=== PATIENT | female | born 1930 | race Caucasian/White ===

== ENCOUNTER → 2016-08-30 | Outpatient (REF) | payer MEDICARE, BC ==
[~2016-08-30] MED LIST: ATEN50TA2; COLC0.6T; POTA20TA2; SYNT88TA; TRAM100T; TRAM50TA2
[2016-08-30 13:39] LABS: MEAN CORPUSCULAR HEMOGLOBIN 32.6 pg (27.0-33.0); MEAN CORPUSCULAR HGB CONC 32.5 g/dl (32.0-36.5); MEAN CORPUSCULAR VOLUME 100.2 fl (80.0-96.0); RED CELL DISTRIBUTION WIDTH 13.7 % (11.5-14.5); WHITE BLOOD COUNT 6.6 K/mm3 (4.0-10.0)
[2016-08-30 14:45] LABS: ALBUMIN 3.2 GM/DL (3.2-5.2); ALBUMIN/GLOBULIN RATIO 0.97 (1.00-1.93); ALKALINE PHOSPHATASE 126 U/L (45-117); ALT/SGPT 17 U/L (12-78); ANION GAP 8 MEQ/L (8-16); AST/SGOT 28 U/L (15-37); BILIRUBIN,TOTAL 0.6 MG/DL (0.2-1.0); BLOOD UREA NITROGEN 18 MG/DL (7-18); CALCIUM LEVEL 8.1 MG/DL (8.8-10.2); CARBON DIOXIDE LEVEL 27 MEQ/L (21-32); CHLORIDE LEVEL 111 MEQ/L (98-107); CHOLESTEROL LEVEL 151 MG/DL (<200); CREATININE FOR GFR 0.93 MG/DL (0.55-1.02); FREE T4 1.32 NG/DL (0.76-1.46); GLOMERULAR FILTRATION RATE > 60.0 (>32); GLUCOSE, FASTING 84 MG/DL (83-110); POTASSIUM SERUM 4.1 MEQ/L (3.5-5.1); SODIUM LEVEL 146 MEQ/L (136-145); TOTAL PROTEIN 6.5 GM/DL (6.4-8.2); TRIGLYCERIDES LEVEL 131 MG/DL (<150); URIC ACID 5.7 MG/DL (2.6-6.0)
== END ==
LOC: M SFHCPLAZ 09:29
PROVIDERS: ATTEND Family Medicine
DX: N18.2 Chronic kidney disease, stage 2 (mild) (principal); I11.9 Hypertensive heart disease without heart failure; E03.9 Hypothyroidism, unspecified; E78.2 Mixed hyperlipidemia; M10.9 Gout, unspecified

== ENCOUNTER → 2016-12-08 | Outpatient (REF) | payer MEDICARE, BC ==
[2016-12-08 13:55] LABS: FREE T4 1.29 NG/DL (0.76-1.46)
== END ==
LOC: M SFHCPLAZ 10:40
PROVIDERS: ATTEND Family Medicine
DX: E03.9 Hypothyroidism, unspecified (principal)

== ENCOUNTER → 2017-10-12 | Outpatient (CLI) | payer MEDICARE, BC | LOC: M ADAMS 15:18 | DX: M25.751 Osteophyte, right hip (principal); M16.11 Unilateral primary osteoarthritis, right hip; M79.651 Pain in right thigh | CPT/HCPCS: 73502 ==

== ENCOUNTER → 2018-04-04 | Outpatient (REF) | payer MEDICARE, BC ==
[2018-04-04 12:11] LABS: HEMATOCRIT 45.1 % (36.0-47.0); HEMOGLOBIN 14.6 g/dl (12.0-15.5); MEAN CORPUSCULAR HEMOGLOBIN 31.5 pg (27.0-33.0); MEAN CORPUSCULAR HGB CONC 32.4 g/dl (32.0-36.5); MEAN CORPUSCULAR VOLUME 97.4 fl (80.0-96.0); PLATELET COUNT, AUTOMATED 159 10^3/uL (150-450); RED BLOOD COUNT 4.63 10^6/uL (4.00-5.40); RED CELL DISTRIBUTION WIDTH 14.9 % (11.5-14.5); WHITE BLOOD COUNT 6.7 10^3/uL (4.0-10.0)
[2018-04-04 12:54] LABS: ALBUMIN 3.5 GM/DL (3.2-5.2); ALBUMIN/GLOBULIN RATIO 0.95 (1.00-1.93); ALKALINE PHOSPHATASE 130 U/L (45-117); ALT/SGPT 21 U/L (12-78); ANION GAP 5 MEQ/L (8-16); AST/SGOT 30 U/L (7-37); BILIRUBIN,TOTAL 0.7 MG/DL (0.2-1.0); BLOOD UREA NITROGEN 21 MG/DL (7-18); CALCIUM LEVEL 8.8 MG/DL (8.8-10.2); CARBON DIOXIDE LEVEL 28 MEQ/L (21-32); CHLORIDE LEVEL 109 MEQ/L (98-107); CHOLESTEROL LEVEL 146 MG/DL (<200); CHOLESTEROL RISK RATIO 4.562 (<5); CREATININE FOR GFR 1.05 MG/DL (0.55-1.30); ERYTHROCYTE SEDIMENTATION RATE 10 mm/hr (0-42); FREE T4 1.14 NG/DL (0.76-1.46); GLUCOSE, FASTING 77 MG/DL (70-100); HDL CHOLESTEROL 32 MG/DL (>40); LDL CHOLESTEROL 87 MG/DL (<100); NON-HDL-C 114 MG/DL; POTASSIUM SERUM 4.4 MEQ/L (3.5-5.1); SODIUM LEVEL 142 MEQ/L (136-145); TOTAL PROTEIN 7.2 GM/DL (6.4-8.2); TRIGLYCERIDES LEVEL 137 MG/DL (<150); URIC ACID 6.3 MG/DL (2.6-6.0)
[2018-04-04 13:08] LABS: TOTAL 25(OH) VITAMIN D 31.4 NG/ML (30.0-100.0)
== END ==
LOC: M SFHCPLAZ 10:09
DX: N18.2 Chronic kidney disease, stage 2 (mild) (principal); I11.9 Hypertensive heart disease without heart failure; M35.3 Polymyalgia rheumatica; E03.9 Hypothyroidism, unspecified; E78.2 Mixed hyperlipidemia; M10.9 Gout, unspecified; E55.9 Vitamin D deficiency, unspecified
CPT/HCPCS: 84443

== ENCOUNTER → 2018-05-17 | Outpatient (CLI) | payer MEDICARE, BC | LOC: M WHC 13:24 | DX: Z12.31 Encounter for screening mammogram for malignant neoplasm of breast (principal); Z85.3 Personal history of malignant neoplasm of breast; Z80.3 Family history of malignant neoplasm of breast; Z80.0 Family history of malignant neoplasm of digestive organs | CPT/HCPCS: 77067 ==

== ENCOUNTER → 2018-09-06 | Outpatient (REF) | payer MEDICARE, BC | LOC: M LAB REF 14:17 | PROVIDERS: ATTEND Physician Assistant | DX: R30.0 Dysuria (principal) ==

== ENCOUNTER → 2018-09-18 | Outpatient (REF) | payer MEDICARE, BC | LOC: M LAB REF 18:57 | PROVIDERS: ATTEND Physician Assistant | DX: R11.0 Nausea (principal) ==

== ENCOUNTER → 2018-10-03 | Outpatient (REF) | payer MEDICARE, BC | LOC: M SFHCPLAZ 12:41 | PROVIDERS: ATTEND Nurse Practitioner Family | DX: N39.0 Urinary tract infection, site not specified (principal) | CPT/HCPCS: 81002; 87086; G0463 ==

== ENCOUNTER → 2018-10-07 | Outpatient (CLI) | payer MEDICARE, BC ==
--- NOTE | 2018-10-07 10:46 | REP ---
CT abdomen pelvis without IV or oral contrast: History: Acute midline thoracic back pain. Nausea. CT findings: Digital preliminary employee service officer radiograph demonstrates an unremarkable bowel gas pattern. There is a laminated calcified gallstone right upper quadrant. There are mild arthritic changes in the hips. The lung bases are clear on axial CT images except for the right base which shows a partially visualized right lower lobe noncalcified pulmonary nodule. This measures 2.2 cm and is visible incompletely at the top of the imaging field of view. It appears to contain some peripheral calcifications and possibly air bronchograms. This is visible on chest x-ray from December 05, 2007 and is considered to be a benign pulmonary nodule, perhaps hamartoma. Axial CT images demonstrate the large calcified gallstone and some smaller calcified gallstones within the gallbladder. There is a 1.5 cm cyst in the left lobe of the liver. No other focal hepatic lesion is seen. The spleen is normal in size homogeneous in texture. Liver is not enlarged. However, there is recanalization of the umbilical vein and portal vein is somewhat dilated raising question of portal hypertension. Portal vein measures 17 mm in greatest diameter. There is no evidence of ascites. No adrenal lesion is seen. There is a cyst in the right kidney measuring 5.4 cm in greatest diameter. No hydronephrosis is seen. The right kidney also contains a large intrarenal calculus in its lower pole. This calculus measures 12 mm in greatest diameter. There is no evidence of hydronephrosis on either side. No other urinary tract calculus is seen. The urinary bladder is intact. There is beasley colonic diverticulosis without CT evidence of diverticulitis. Diverticulosis is most numerous in the sigmoid segment of the colon. Normal appendix is seen in the right lower quadrant. No uterine or adnexal abnormality is seen. No abdominal wall defect is observed. There is advanced osteoarthritis affecting the hips, right more so than left. Degenerative changes are noted in the lumbar spine. Impression: 1. Cholelithiasis. 2. Intrarenal nephrolithiasis right kidney. 3. Right renal cysts. 4. Recanalized umbilical vein and prominent portal vein suggests some portal hypertension. 5. Beasley colonic diverticulosis without evidence of diverticulitis. Electronically Signed by Adam Adair MD 10/07/2018 02:28 P
== END ==
LOC: M RAD 09:29
PROVIDERS: ATTEND Nurse Practitioner Family
DX: R11.0 Nausea (principal); M54.6 Pain in thoracic spine; K80.20 Calculus of gallbladder without cholecystitis without obstruction; N28.1 Cyst of kidney, acquired; R91.1 Solitary pulmonary nodule; K76.89 Other specified diseases of liver; N20.0 Calculus of kidney; K57.30 Diverticulosis of large intestine without perforation or abscess without bleeding; M16.0 Bilateral primary osteoarthritis of hip

== ENCOUNTER → 2018-10-09 | Outpatient (REF) | payer MEDICARE, BC ==
[2018-10-09 16:41] LABS: HEMATOCRIT 43.5 % (36.0-47.0); MEAN CORPUSCULAR HEMOGLOBIN 31.5 pg (27.0-33.0); MEAN CORPUSCULAR HGB CONC 32.2 g/dl (32.0-36.5); MEAN CORPUSCULAR VOLUME 97.8 fl (80.0-96.0); PLATELET COUNT, AUTOMATED 166 10^3/uL (150-450); RED BLOOD COUNT 4.45 10^6/uL (4.00-5.40); WHITE BLOOD COUNT 7.9 10^3/uL (4.0-10.0)
[2018-10-09 17:00] LABS: CREATININE FOR GFR 1.18 MG/DL (0.55-1.30); FREE T4 1.29 NG/DL (0.76-1.46); GLOMERULAR FILTRATION RATE 46.3 (>32); POTASSIUM SERUM 4.1 MEQ/L (3.5-5.1); THYROID STIMULATING HORMONE 1.45 uIU/ML (0.358-3.740)
== END ==
LOC: M SFHCPLAZ 13:13
PROVIDERS: ATTEND Family Medicine
DX: M16.0 Bilateral primary osteoarthritis of hip (principal); N18.2 Chronic kidney disease, stage 2 (mild); E03.9 Hypothyroidism, unspecified

== ENCOUNTER → 2019-03-15 | Outpatient (REF) | payer MEDICARE, BC ==
[2019-03-15 14:09] LABS: HEMATOCRIT 45.7 % (36.0-47.0); HEMOGLOBIN 14.9 g/dl (12.0-15.5); MEAN CORPUSCULAR HEMOGLOBIN 32.3 pg (27.0-33.0); MEAN CORPUSCULAR HGB CONC 32.6 g/dl (32.0-36.5); MEAN CORPUSCULAR VOLUME 98.9 fl (80.0-96.0); PLATELET COUNT, AUTOMATED 167 10^3/uL (150-450); RED BLOOD COUNT 4.62 10^6/uL (4.00-5.40); WHITE BLOOD COUNT 6.5 10^3/uL (4.0-10.0)
[2019-03-15 14:24] LABS: ALBUMIN 3.4 GM/DL (3.2-5.2); ALT/SGPT 18 U/L (12-78); BILIRUBIN,TOTAL 0.9 MG/DL (0.2-1.0); BLOOD UREA NITROGEN 23 MG/DL (7-18); CALCIUM LEVEL 9.1 MG/DL (8.8-10.2); CARBON DIOXIDE LEVEL 27 MEQ/L (21-32); CHLORIDE LEVEL 109 MEQ/L (98-107); CREATININE FOR GFR 1.21 MG/DL (0.55-1.30); GLOMERULAR FILTRATION RATE 44.9 (>32); GLUCOSE, FASTING 83 MG/DL (70-100); POTASSIUM SERUM 4.2 MEQ/L (3.5-5.1); RHEUMATOID FACTOR QUANT < 10.0 IU/ML (<15.0); SODIUM LEVEL 142 MEQ/L (136-145); TOTAL PROTEIN 7.5 GM/DL (6.4-8.2); URIC ACID 7.3 MG/DL (2.6-6.0)
[2019-03-15 14:40] LABS: ERYTHROCYTE SEDIMENTATION RATE 11 mm/hr (0-30)
[2019-03-17 00:06] LABS: ANA (HEP2) Negative (.); CYCLIC CITRULLINATED PEPTIDE 4 units (0-19)
== END ==
LOC: M SFHCADAM 10:23
PROVIDERS: ATTEND Family Medicine
DX: M15.9 Polyosteoarthritis, unspecified (principal); I11.9 Hypertensive heart disease without heart failure; E03.9 Hypothyroidism, unspecified; M10.9 Gout, unspecified
CPT/HCPCS: 80053; 84439; 84443; 84550; 85027; 85652; 86038; 86200; 86431; G0463

== ENCOUNTER → 2019-07-31 | Outpatient (CLI) | payer MEDICARE, BC ==
--- NOTE | 2019-07-31 16:55 | REP ---
BILATERAL SCREENING DIGITAL MAMMOGRAM WITH 3D TOMOSYNTHESIS: There are no palpable abnormalities or other breast complaints. The the patient states she is not had a clinical breast examination over a year. The Tyrer-Cuzick Lifetime Breast Cancer Risk Score is: NA. 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 Comparison is 04/26/2016. There are scattered areas of fibroglandular density. There are biopsy marking clips in the right breast. The Additional true lateral views of each breast are performed. On the true lateral view of the right breast there is an 8 mm nodule inferiorly. This nodule is not visualized on the routine MLO or CC views and is not visualized on the tomograms. It may be that this nodule is not over the film on these views. Impression: BIRADS/ACR category 0 mammogram. Incomplete. Need additional imaging evaluation and / or prior mammograms for comparison. Recommendation: The the patient should return for additional views of the right breast to better evaluate the nodule identified on the true lateral view. Ultrasound should be performed depending on the findings on the follow-up mammograms. This mammogram was interpreted with the aid of a FDA approved computer-aided detection system. A. Negative mammogram reports should not delay biopsy if a dominant or clinically suspicious mass is present. B. Not all breast cancers are identified by mammography or tomosynthesis. C. Adenosis and dense breasts may obscure an underlying neoplasm. Patient letter M0. Electronically Signed by Stiven Waddell MD 07/31/2019 04:47 P
== END ==
LOC: M WHC 14:26
PROVIDERS: ATTEND Family Medicine
DX: Z12.31 Encounter for screening mammogram for malignant neoplasm of breast (principal)

== ENCOUNTER → 2019-08-14 | Outpatient (CLI) | payer MEDICARE, BC ==
--- NOTE | 2019-08-14 14:29 | REP ---
DIGITAL DIAGNOSTIC UNILATERAL RIGHT BREAST MAMMOGRAPHY WITH CAD AND 3-D TOMOGRAPHY. History: Screening mammography July 31, 2019 was BIRADS category 0. An 8 mm density was reported inferiorly in the right breast. Diagnostic imaging was recommended. Comparison is made with May 17, 2018 and April 29, 2017 prior mammography. Findings: True mediolateral view of the right breast is obtained with 3-D tomography. A magnified focal spot compression image in the right breast is obtained in the MLO projection inferiorly as well. These views demonstrate two marker clips from previous needle biopsies. No suspicious nodular opacity is seen. No microcalcification or architectural distortion is noted. Mild scattered fibroglandular elements are seen in a pattern unchanged from comparison mammography. Impression: BIRADS 2: BI-RADS/ACR category 2 mammogram. Benign Findings. BIRADS category 2 benign findings. Repeat screening mammography recommended 1 year. This mammogram was interpreted with the aid of an FDA-approved computer-aided detection system. The patient letter being requested is m1.
== END ==
LOC: M WHC 13:18
PROVIDERS: ATTEND Family Medicine
DX: R92.2 Inconclusive mammogram (principal)
CPT/HCPCS: 77065; G0279

== ENCOUNTER → 2019-09-10 | Outpatient (REF) | payer MEDICARE, BC ==
[2019-09-10 19:20] LABS: HEMATOCRIT 46.8 % (36.0-47.0); HEMOGLOBIN 14.9 g/dl (12.0-15.5); MEAN CORPUSCULAR HEMOGLOBIN 31.7 pg (27.0-33.0); MEAN CORPUSCULAR HGB CONC 31.8 g/dl (32.0-36.5); MEAN CORPUSCULAR VOLUME 99.6 fl (80.0-96.0); PLATELET COUNT, AUTOMATED 125 10^3/uL (150-450); WHITE BLOOD COUNT 6.8 10^3/uL (4.0-10.0)
[2019-09-10 19:31] LABS: CALCIUM LEVEL 8.6 MG/DL (8.8-10.2); CREATININE FOR GFR 0.96 MG/DL (0.55-1.30); FREE T4 1.35 NG/DL (0.76-1.46); GLOMERULAR FILTRATION RATE 58.7 (>32); POTASSIUM SERUM 4.1 MEQ/L (3.5-5.1); THYROID STIMULATING HORMONE 0.984 uIU/ML (0.358-3.740)
== END ==
LOC: M SFHCADAM 15:28
PROVIDERS: ATTEND Family Medicine
DX: I11.9 Hypertensive heart disease without heart failure (principal); N18.2 Chronic kidney disease, stage 2 (mild); E03.9 Hypothyroidism, unspecified

== ENCOUNTER → 2019-11-29 | Outpatient (REF) | payer MEDICARE, BC ==
[~2019-11-29] MED LIST changes: +ASPI81TA86 PO; +ATEN50TA2 PO; +BACITAB PO; +BAYE81TA10 PO; +CEFA2SOL IV; +COLC0.6T47 PO; +D31000TA2 PO; +DULC10SU2 PR; +ELIQ5TAB PO; +LEVO50TA5 PO; +LOVE0.6I2 SC; +MELO15TA28 PO; +MOM30SS PO; +MULTCAP PO; +PERC5TAB12 PO; +POTA10TA17 PO; +POTA595T16 PO; +PRIL20TA2 PO; +RIFA150C PO; +RIFA300C3 PO; +SYNT88TA2 PO; +TRAM50TA2 PO
[2019-11-29 16:47] LABS: BASO # 0.1 10^3/uL (0.0-0.2); BASO % 0.9 % (0.0-1.0); EOS % 11.9 % (0.0-3.0); HEMATOCRIT 45.7 % (36.0-47.0); HEMOGLOBIN 14.9 g/dl (12.0-15.5); LYMPH # 1.8 10^3/uL (1.5-5.0); MEAN CORPUSCULAR HEMOGLOBIN 32.7 pg (27.0-33.0); MEAN CORPUSCULAR HGB CONC 32.6 g/dl (32.0-36.5); MEAN CORPUSCULAR VOLUME 100.4 fl (80.0-96.0); MONO # 0.7 10^3/uL (0.0-0.8); MONO % 8.4 % (0.0-5.0); NEUTROPHILS # 4.6 10^3/uL (1.5-8.5); NEUTROPHILS % 56.4 % (36.0-66.0); PLATELET COUNT, AUTOMATED 159 10^3/uL (150-450); RED BLOOD COUNT 4.55 10^6/uL (4.00-5.40); WHITE BLOOD COUNT 8.1 10^3/uL (4.0-10.0)
[2019-11-29 17:12] LABS: ALBUMIN 3.4 GM/DL (3.2-5.2); CALCIUM LEVEL 9.2 MG/DL (8.8-10.2); CREATININE FOR GFR 1.06 MG/DL (0.55-1.30); GLOMERULAR FILTRATION RATE 52.2 (>32); TOTAL PROTEIN 7.5 GM/DL (6.4-8.2)
== END ==
LOC: M SFHCADAM 14:34
PROVIDERS: ATTEND Family Medicine
DX: Z01.818 Encounter for other preprocedural examination (principal); M16.10 Unilateral primary osteoarthritis, unspecified hip
CPT/HCPCS: 80053; 85025; G0463

== ENCOUNTER → 2019-11-30 | Outpatient (CLI) | payer MEDICARE, BC ==
[~2019-11-30] MED LIST changes: +ASPI81TA85 PO; -ASPI81TA86 PO; -BACITAB PO; -CEFA2SOL IV; -COLC0.6T47 PO; +COLC1TAB13 PO; -D31000TA2 PO; -DULC10SU2 PR; -ELIQ5TAB PO; -LOVE0.6I2 SC; -MOM30SS PO; -MULTCAP PO; -POTA10TA17 PO; -PRIL20TA2 PO; -RIFA150C PO; -RIFA300C3 PO; -SYNT88TA2 PO; -TRAM50TA2 PO; +VITAD1000T PO
--- NOTE | 2019-12-01 09:05 | REP ---
REASON: Preoperative evaluation. The latest prior for comparison is 07/11/2009. There is cardiomegaly increased from the prior exam. There are fibrotic changes throughout the lung campbell increased from the prior exam. No acute patchy parenchymal opacities or pleural effusions have developed. There is no significant change in the appearance of the osseous structures. IMPRESSION: Chronic changes as described above. There is an unchanged nodule seen in the right lung lower lobe. This nodule was imaged on prior CT of 10/07/2018 and all interested parties should review that report. Electronically Signed by Suresh Ly DO 12/03/2019 10:53 A
== END ==
LOC: M RAD 13:27
PROVIDERS: ATTEND Orthopaedic Surgery
DX: Z01.818 Encounter for other preprocedural examination (principal)

== ENCOUNTER → 2019-12-02 | Outpatient (CLI) | payer MEDICARE, BC | LOC: M LABSMTC 10:09 | PROVIDERS: ATTEND Anesthesiology | DX: Z01.818 Encounter for other preprocedural examination (principal); Z11.59 Encounter for screening for other viral diseases ==

== ENCOUNTER → 2019-12-03 | Outpatient (CLI) | payer MEDICARE, BC ==
[2019-12-03 17:25] LABS: INR 1.22; PROTHROMBIN TIME 15.1 SECONDS (11.8-14.0)
== END ==
LOC: M LAB 14:35
PROVIDERS: ATTEND Orthopaedic Surgery
DX: M16.11 Unilateral primary osteoarthritis, right hip (principal)

== ENCOUNTER 2019-12-05 07:24 | Inpatient (IN) | payer MEDICARE, BC ==
--- NOTE | 2019-12-04 14:54 | HPE ---
DATE OF ADMISSION: 12/05/2019 ATTENDING PHYSICIAN: Dr. Sy Jalloh CHIEF COMPLAINT: Right hip pain and stiffness. HISTORY: This is an 89-year-old female patient with progressing worsening right hip pain and stiffness. She fail to improve with conservative management. She was elected for surgery for continued symptoms. She has pain with weightbearing activities and activities of daily living. She was consented by Dr. Jalloh for a right total hip arthroplasty. X-rays of the right hip notable for end-stage degenerative changes of the right hip. Medical hospitalization by Dr. Dr. Ross, not present for review today. ALLERGIES: TYLENOL. CURRENT MEDICATIONS: Potassium chloride extended release 10 mEq as directed, atenolol 50 mg once per day, Synthroid 80 mcg one tablet once per day, meloxicam 15 mg as needed, aspirin 81 mg once per day, [id number] vitamin D. She was counseled to stop all NSAIDs and aspirin 5 days prior to surgery. MEDICAL CONDITIONS: Includes hypothyroidism and hypertension. PAST SURGERY: Includes thyroid removed, breast lumpectomy. Knee replacement of right side. SOCIAL HISTORY: She used to smoke. She does not currently smoke. Denies alcohol use. She is retired. REVIEW OF SYSTEMS: Denies fever or chills. Denies chest pains, shortness of breath or cough. Denies difficulty breathing. Denies abdominal pain, has persistent pain in the right hip with activities of daily living. Exam today reveals alert female patient in a wheelchair. Her mood and affect appropriate for the situation. There is symmetrical rise and fall of chest on labored breathing. Has regular rate and rhythm. Breath sounds are clear to auscultation without rales or wheeze. Skin around the right hip is intact. No erythema, edema, ecchymosis. There is irritability on hip range of motion in all planes. Straight leg raise testing is negative. She sense any light touch. There is no pitting edema noted on exam today. LABORATORY DATA: Glucose 62.19, creatinine 1.08, sodium 144, potassium 4.0, WBC count 8.1, white blood count (WBC) 4.5, hemoglobin 14.9, hematocrit 45.7, height 32 inches, weight 184 pounds, temperature 96.2, blood pressure 120/68, pulse 50, respirations 16. Chest x-ray, electrocardiogram (EKG) or INR are not present for review today. Sedimentation rate is not present for review today. IMPRESSION: Symptomatic osteoarthritis of right hip. PLAN: She has consented by Dr. Jalloh for right total hip arthroplasty. Once again, she was consulted about the use of NSAIDs and to discontinue those 5 days prior to surgery. We went over preoperative and postoperative instructions to include that she would like to be in the hospital one day and then be discharged home on. We discussed her hip precautions as well and she understands the plan. Cemented right total hip arthroplasty per Dr. Jalloh.
[2019-12-05] VITALS (7 sets, daily range): BP systolic 113–129; BP diastolic 54–61
[~2019-12-05] VITALS: Ht 157.5 cm; Wt 90.6 kg
[~2019-12-05 07:24] MED LIST changes: -BAYE81TA10 PO; +LIDOCAINE 1% MDV 20ML VIAL SQ PRN; +LR 1,000 ML IV ONE; -PERC5TAB12 PO; +ceFAZolin SOD 2 GM in IV 1 EA IV ONE
[2019-12-05] MEDS ORDERED: ceFAZolin 1GM VIAL (J0690 PER 500MG) As Ordered ONE (08:42)
[2019-12-05] MEDS: atenoloL 50 MG TAB PO SCH (09:00)
[2019-12-05] MEDS ORDERED: EPINEPHrine INJ 1 MG/ML 1ML AMP As Ordered ONE (10:52)
[2019-12-05] MEDS ORDERED: fentaNYL 100 MCG/2 ML INJECTION (J3010) As Ordered ONE (10:59)
[2019-12-05] MEDS ORDERED: MIDAZOLAM INJ 2MG/2ML VIAL (J2250 PER 1MG) As Ordered ONE (10:59)
[2019-12-05] MEDS ORDERED: PHENYLephrine HCL 500 MCG/5 ML (100MCG/ML) SYRINGE (J2370) As Ordered ONE (10:59)
[2019-12-05] MEDS ORDERED: propofoL 200 MG/20 ML VIAL As Ordered ONE (10:59)
[2019-12-05] MEDS ORDERED: PHENYLEPHRINE 10MG/ML 1ML VIAL (J2370 PER 1) As Ordered ONE (11:16)
--- NOTE | 2019-12-05 12:49 | HPEPDOC ---
[facility] Medical History & Physical Date of Admission Dec 05, 2019 Date of Service: Dec 05, 2019 Primary Care Physician: Christopher Allen MD Attending Physician: BALDEMAR OLSEN MD History and Physical TIME OF SERVICE: 1:35 PM REASON FOR CONSULT: Perioperative management HISTORY OF PRESENT ILLNESS: This is an 89-year-old female that underwent a right total hip arthroplasty this morning to manage severe osteoarthritis. Currently she is in the PACU and denies having any hip pain or acute complaints. REVIEW OF SYSTEMS: Negative as listed in HPI PAST MEDICAL/ SURGICAL HISTORY: Chronic HTN resection of goiter resulting in hypothyroidism Lumpectomy. Right knee surgery SOCIAL HISTORY: She is a former smoker. She doesn't drink alcohol ALLERGIES: Please see below. HOME MEDICATIONS: Please see below. PHYSICAL EXAMINATION: Vital Signs Date Time Temp Pulse Resp B/P (MAP) Pulse Ox O2 Delivery O2 Flow Rate FiO2 12/05/19 07:37 97.4 70 20 146/69 (94) 95 Room Air 12/05/19 12:40 2 GEN: well-nourished / well developed/ NAD HEENT: NCAT CVS: RRR/NMRG LUNGS: lungs are clear to auscultation bilaterally on room air NEURO: CN 2-12 are grossly intact / speech is not dysarthric PSYCH: alert and oriented / able to understand and follow all commands Laboratory Tests 12/05/19 13:06 IMAGING: X-ray hip "RIGHT HIP: Three portable views of the right hip are performed. There is a total right hip prosthesis, which appears to be in good position. Structures are well aligned. Metallic skin leydi are seen laterally." ASSESSMENT: Ms. Saez is an 89-year-old with a history of osteoarthritis, chronic hypertension and hypothyroidism was admitted for total hip arthroplasty; we were consulted for medical co-management during the postoperative period. PLAN: 1. Severe right hip osteoarthritis status post MAYITO - pain management and DVT prophylaxis per primary team 2. Chronic HTN - resume atenolol tonight with hold parameters 3. Hypothyroidism - levothyroxine 4. Obesity with BMI 33.7, complicates care - check A1c/can follow-up with her PCP for sleep apnea screening Thank for consulting us. We will continue to follow this patient with you. Home Medications Scheduled Aspirin (Aspir 81) 81 Mg Tablet., 81 MG PO DAILY Aspirin (Low Dose Aspirin EC) 81 Mg Tablet.dr, 1 TAB PO BID for pain Atenolol (Atenolol) 50 Mg Tablet, 50 MG PO DAILY Cholecalciferol (Vitamin D3) (Vitamin D3) 1,000 Unit Tablet, 1,000 UNITS PO DAILY Colchicine (Colchicine) 0.6 Mg Tablet, 0.6 MG PO BID Scheduled PRN Oxycodone HCl/Acetaminophen (Percocet 5-325 mg Tablet) 1 Each Tablet, 1 TAB PO Q4H PRN for PAIN Miscellaneous Medications Atenolol (Atenolol) 50 Mg Tab Levothyroxine Sodium (Synthroid) 88 Mcg Tab Potassium Chloride (K-Dur) 20 Meq Tab Allergies Coded Allergies: Cat Dander (Verified Allergy, Severe, ASTHMA, 06/27/09) allopurinol (Verified Allergy, Unknown, 11/29/19) hydrochlorothiazide (Verified Allergy, Unknown, 11/29/19) mirtazapine (Verified Allergy, Unknown, 11/29/19) acetaminophen (Verified Adverse Reaction, Intermediate, HEART RACES, 12/05/19) A-FIB/CHADSVASC A-FIB History Current/History of A-Fib/PAF?: No Current PO Anticoag Therapy: No BALDEMAR OLSEN MD Dec 05, 2019 12:49
[2019-12-05] MEDS ORDERED: LR 1,000 ML IV SCH ×2 (13:00→13:15)
[2019-12-05] MEDS ORDERED: MOM 30ML SUSPENSION UDC PO PRN (13:00)
[2019-12-05] MEDS ORDERED: PERCOCET 5MG/325MG TAB PO PRN ×5 (13:00→19:15)
[2019-12-05] MEDS ORDERED: ONDANSETRON 4MG/2ML VIAL IV PRN ×2 (13:00→13:15)
[2019-12-05] MEDS ORDERED: MAALOX 30 ML SUSP *UDC PO PRN (13:00)
[2019-12-05] MEDS ORDERED: MORPHINE 2 MG/ML 1ML VIAL (J2270) IV PRN (13:00)
[2019-12-05] MEDS ORDERED: ACETAMINOPHEN TAB 650MG DOSE (2X325MG) PO PRN (13:00)
[2019-12-05] MEDS ORDERED: fentaNYL 100 MCG/2 ML INJECTION (J3010) IV PRN (13:15)
[2019-12-05] MEDS ORDERED: LR 500 ML IV ONE (13:15)
[2019-12-05] MEDS ORDERED: METOCLOPRAMIDE INJ 10MG/2ML VIAL (J2765 PER 1) IV PRN (13:15)
[2019-12-05] MEDS ORDERED: ePHEDrine SULFATE 25 MG/5 ML(5MG/ML) SYRINGE IV PRN (13:15)
--- NOTE | 2019-12-05 13:52 | REP ---
RIGHT HIP: Three portable views of the right hip are performed. There is a total right hip prosthesis, which appears to be in good position. Structures are well aligned. Metallic skin leydi are seen laterally. Electronically Signed by Stiven Handy MD 12/06/2019 11:22 A
[2019-12-05 14:01] LABS: ALBUMIN 2.3 GM/DL (3.2-5.2); BILIRUBIN,TOTAL 0.5 MG/DL (0.2-1.0); CALCIUM LEVEL 8.3 MG/DL (8.8-10.2); CREATININE FOR GFR 0.96 MG/DL (0.55-1.30); GLOMERULAR FILTRATION RATE 58.5 (>32); POTASSIUM SERUM 3.8 MEQ/L (3.5-5.1); TOTAL PROTEIN 5.3 GM/DL (6.4-8.2)
[2019-12-05] MEDS ORDERED: traMADol 50 MG TAB PO PRN (15:00)
[2019-12-05 16:08] LABS: HEMOGLOBIN A1c 4.6 %
[2019-12-05] MEDS: VITAMIN D 1,000 INTERNATIONAL UNITS TABLET PO SCH (16:22)
[2019-12-05] MEDS ORDERED: ePHEDrine SULFATE 25 MG/5 ML(5MG/ML) SYRINGE ONE (18:41)
[2019-12-05] MEDS: ceFAZolin SOD 2 GM in IV 1 EA IV SCH (19:10)
[2019-12-05] MEDS: COLCHICINE 0.6 MG TAB PO SCH (20:01)
[2019-12-05] MEDS: ASPIRIN 81 MG CHEW TABLET PO SCH (20:01)
[2019-12-06] MEDS: ceFAZolin SOD 2 GM in IV 1 EA IV SCH ×2 (03:31→11:25)
[2019-12-06] MEDS: traMADol 50 MG TAB PO PRN ×2 (05:41→19:56)
[2019-12-06 06:00] VITALS: BP 137/72
[2019-12-06 06:00] LABS: HEMATOCRIT 34.2 % (36.0-47.0); HEMOGLOBIN 11.4 g/dl (12.0-15.5); MEAN CORPUSCULAR HEMOGLOBIN 32.4 pg (27.0-33.0); MEAN CORPUSCULAR HGB CONC 33.3 g/dl (32.0-36.5); MEAN CORPUSCULAR VOLUME 97.2 fl (80.0-96.0); PLATELET COUNT, AUTOMATED 118 10^3/uL (150-450); RED BLOOD COUNT 3.52 10^6/uL (4.00-5.40); WHITE BLOOD COUNT 7.7 10^3/uL (4.0-10.0)
[2019-12-06 06:31] LABS: ALBUMIN 2.5 GM/DL (3.2-5.2); BILIRUBIN,TOTAL 1.1 MG/DL (0.2-1.0); CALCIUM LEVEL 8.1 MG/DL (8.8-10.2); CREATININE FOR GFR 1.03 MG/DL (0.55-1.30); POTASSIUM SERUM 3.9 MEQ/L (3.5-5.1); TOTAL PROTEIN 5.5 GM/DL (6.4-8.2)
[2019-12-06] MEDS ORDERED: PERC5TAB12 PO (06:31)
[2019-12-06] MEDS ORDERED: BAYE81TA10 PO (06:31)
[2019-12-06] MEDS: MIRALAX *UNIT DOSE* 17GM PACKET PO SCH (08:43)
[2019-12-06] MEDS: atenoloL 50 MG TAB PO SCH (08:43)
[2019-12-06] MEDS: ASPIRIN 81 MG CHEW TABLET PO SCH ×2 (08:44→19:54)
[2019-12-06] MEDS: VITAMIN D 1,000 INTERNATIONAL UNITS TABLET PO SCH (08:44)
[2019-12-06] MEDS: COLCHICINE 0.6 MG TAB PO SCH ×2 (08:44→19:55)
[2019-12-06] MEDS ORDERED: PNEUMOCOCCAL VACCINE 0.5ML SYRINGE(90732) PNEUMOVAX 23 IM ONE (09:00)
[2019-12-06 10:00] VITALS: BP 134/72
--- NOTE | 2019-12-06 11:36 | IPNPDOC ---
Subjective Date Seen The patient was seen on 12/06/19. Subjective Chief Complaint/HPI Patient was slightly shaky today when she started her physical therapy, no fever, no nausea, vomiting,etc General: Denies: ROS Unobtainable, Chills, Night Sweats, Fatigue, Malaise, Normal Appetite, Other Symptoms Constitutional: Denies: Chills, Fever, Malaise, Night Sweats, Weakness, Fatigue, Weight Loss, Lethargy, Other Pulmonary: Denies: Dyspnea, Cough, Pleuritic Chest Pain, Other Symptoms Cardiovascular: Denies: Chest Pain, Palpitations, Orthopnea, Paroxysmal Noc. Dyspnea, Edema, Lt Headedness, Other Symptoms Gastrointestinal: Denies: Nausea, Vomiting, Abdominal Pain, Diarrhea, Constipation, Melena, Hematochezia, Other Symptoms Musculoskeletal: Denies: Neck Pain, Back Pain, Shoulder Pain, Arm Pain, Hand Pain, Leg Pain, Foot Pain, Joint Pain, Muscle Pain, Spasms, Other Symptoms Neurological: Denies: Weakness, Numbness, Incoordination, Change in speech, Confusion, Seizures, Other Symptoms Objective Physical Examination General Exam: Positive: Alert, Cooperative Eye Exam: Positive: PERRLA, Conjunctiva & lids normal ENT Exam: Positive: Atraumatic Neck Exam: Positive: Supple Chest Exam: Positive: Clear to auscultation, Normal air movement Heart Exam: Positive: Normal S1, Normal S2 Abdomen Exam: Positive: Normal bowel sounds, Soft Extremity Exam: Positive: Normal pulses Skin Exam: Positive: Nl turgor and temperature Neuro Exam: Positive: Strength at 5/5 X4 ext, Sensation Intact, Cranial Nerves 3-12 NL Psych Exam: Positive: Mood NL, Oriented x 3 Assessment /Plan Problems (1) Closed fracture of right hip requiring operative repair Status: Acute Problem Text: Severe right hip osteoarthritis status post MAYITO Continue pain management. Patient seems to be tolerating very well . She was slightly shaky today when she tried to do her physical therapy , Hence the physical therapy. We will continue working with her to she is stable to go home Further discharge planning as per orthopedics (2) Hypothyroid Status: Chronic Problem Text: Stable continue home meds (3) HTN (hypertension) Status: Chronic Problem Text: Stable continue home meds Plan/VTE VTE Prophylaxis Ordered?: Yes VS, I&O, 24H, Fishbone Vital Signs/I&O Vital Signs Date Time Temp Pulse Resp B/P (MAP) Pulse Ox O2 Delivery O2 Flow Rate FiO2 12/06/19 10:00 99.1 96 18 134/72 (92) 96 Nasal Cannula 2.0 I&O- Last 24 Hours up to 6 AM 12/06/19 05:59 Intake Total 2410 ml Output Total 1150 ml Balance 1260 ml Laboratory Data 24H LABS Laboratory Tests 2 12/05/19 13:06: Anion Gap 7L, Glomerular Filtration Rate 58.5, Estimated Mean Plasma Glucose 85, Hemoglobin A1c 4.6, Calcium Level 8.3L, Total Bilirubin 0.5, Aspartate Amino Transf (AST/SGOT) 25, Alanine Aminotransferase (ALT/SGPT) 18, Alkaline Phosphatase 91, Total Protein 5.3L, Albumin 2.3L, Albumin/Globulin Ratio 0.8L 12/06/19 05:19: Anion Gap 6L, Glomerular Filtration Rate 54.0, Calcium Level 8.1L, Total Bilirubin 1.1#H, Aspartate Amino Transf (AST/SGOT) 37, Alanine Aminotransferase (ALT/SGPT) 15, Alkaline Phosphatase 86, Total Protein 5.5L, Albumin 2.5L, Albumin/Globulin Ratio 0.8L, Nucleated Red Blood Cells % (auto) 0.0 12/06/19 07:46: Bedside Glucose (Misc Panel) 119H CBC/BMP Laboratory Tests 12/05/19 13:06 12/06/19 05:19 MARILIN CONNELL MD Dec 06, 2019 11:36
[2019-12-06 14:00] VITALS: BP 136/70
[2019-12-06 18:00] VITALS: BP 129/62
[2019-12-06 19:55] VITALS: BP 126/63
[2019-12-06 20:00] VITALS: BP 121/62
[2019-12-06] MEDS ORDERED: atenoloL 50 MG TAB PO SCH (21:00)
[2019-12-07 02:00] VITALS: BP 126/69
[2019-12-07] MEDS: traMADol 50 MG TAB PO PRN (05:20)
[2019-12-07 05:57] VITALS: BP 121/54
[2019-12-07] MEDS ORDERED: LEVOTHYROXINE 88MCG TABLET (0.088 MG) PO SCH (06:00)
[2019-12-07 07:19] LABS: HEMATOCRIT 31.3 % (36.0-47.0); HEMOGLOBIN 10.6 g/dl (12.0-15.5); MEAN CORPUSCULAR HEMOGLOBIN 32.6 pg (27.0-33.0); MEAN CORPUSCULAR HGB CONC 33.9 g/dl (32.0-36.5); MEAN CORPUSCULAR VOLUME 96.3 fl (80.0-96.0); PLATELET COUNT, AUTOMATED 104 10^3/uL (150-450); RED BLOOD COUNT 3.25 10^6/uL (4.00-5.40)
[2019-12-07 07:47] LABS: ALBUMIN 2.3 GM/DL (3.2-5.2); ALT/SGPT 13 U/L (12-78); BILIRUBIN,TOTAL 1.3 MG/DL (0.2-1.0); BLOOD UREA NITROGEN 20 MG/DL (7-18); CALCIUM LEVEL 7.8 MG/DL (8.8-10.2); CARBON DIOXIDE LEVEL 26 MEQ/L (21-32); CHLORIDE LEVEL 106 MEQ/L (98-107); CREATININE FOR GFR 0.88 MG/DL (0.55-1.30); GLOMERULAR FILTRATION RATE > 60.0 (>32); GLUCOSE, FASTING 89 MG/DL (70-100); POTASSIUM SERUM 3.5 MEQ/L (3.5-5.1); SODIUM LEVEL 137 MEQ/L (136-145); TOTAL PROTEIN 5.7 GM/DL (6.4-8.2)
[2019-12-07] MEDS: ASPIRIN 81 MG CHEW TABLET PO SCH (08:41)
[2019-12-07] MEDS: MIRALAX *UNIT DOSE* 17GM PACKET PO SCH (08:42)
[2019-12-07] MEDS: COLCHICINE 0.6 MG TAB PO SCH (08:42)
[2019-12-07] MEDS: VITAMIN D 1,000 INTERNATIONAL UNITS TABLET PO SCH (08:42)
[2019-12-07] MEDS ORDERED: POTASSIUM CHLORIDE 10 MEQ SR TABLET PO SCH (09:00)
--- NOTE | 2019-12-07 10:17 | IPNPDOC ---
Subjective Date Seen The patient was seen on 12/07/19. Subjective Chief Complaint/HPI Patient is comfortable in no distress, tolerating physical therapy very well possible discharge today Constitutional: Denies: Chills, Fever, Malaise, Night Sweats, Weakness, Fatigue, Weight Loss, Lethargy, Other Pulmonary: Denies: Dyspnea, Cough, Pleuritic Chest Pain, Other Symptoms Cardiovascular: Denies: Chest Pain, Palpitations, Orthopnea, Paroxysmal Noc. Dyspnea, Edema, Lt Headedness, Other Symptoms Gastrointestinal: Denies: Nausea, Vomiting, Abdominal Pain, Diarrhea, Constipation, Melena, Hematochezia, Other Symptoms Musculoskeletal: Denies: Neck Pain, Back Pain, Shoulder Pain, Arm Pain, Hand Pain, Leg Pain, Foot Pain, Joint Pain, Muscle Pain, Spasms, Other Symptoms Neurological: Denies: Weakness, Numbness, Incoordination, Change in speech, Confusion, Seizures, Other Symptoms Objective Physical Examination General Exam: Positive: Alert Eye Exam: Positive: PERRLA, Conjunctiva & lids normal Chest Exam: Positive: Clear to auscultation, Normal air movement Heart Exam: Positive: Normal S1, Normal S2 Abdomen Exam: Positive: Normal bowel sounds, Soft Extremity Exam: Positive: Normal pulses Skin Exam: Positive: Nl turgor and temperature Neuro Exam: Positive: Strength at 5/5 X4 ext, Sensation Intact, Cranial Nerves 3-12 NL Psych Exam: Positive: Mood NL, Oriented x 3 Assessment /Plan Problems (1) Closed fracture of right hip requiring operative repair Status: Acute Problem Text: Severe right hip osteoarthritis status post MAYITO Continue pain management. Patient seems to be tolerating very well Patient is clinically stable today. Physical therapy will be tried again . No more dizziness or any other symptoms Discharge planning as per orthopedic s (2) Hypothyroid Status: Chronic Problem Text: Stable continue home meds (3) HTN (hypertension) Status: Chronic Problem Text: Stable continue home meds Plan/VTE VTE Prophylaxis Ordered?: Yes VS, I&O, 24H, Fishbone Vital Signs/I&O Vital Signs Date Time Temp Pulse Resp B/P (MAP) Pulse Ox O2 Delivery O2 Flow Rate FiO2 12/07/19 05:57 97.4 81 18 121/54 (76) 93 Nasal Cannula 2.0 I&O- Last 24 Hours up to 6 AM 12/07/19 06:00 Intake Total 2406 ml Output Total 850 ml Balance 1556 ml Laboratory Data 24H LABS Laboratory Tests 2 12/06/19 11:22: Methicillin-Resist S.aureus DNA PCR NOT DETECTED 12/07/19 06:26: Nucleated Red Blood Cells % (auto) 0.0, Anion Gap 5L, Glomerular Filtration Rate > 60.0, Calcium Level 7.8L, Total Bilirubin 1.3H, Aspartate Amino Transf (AST/SGOT) 34, Alanine Aminotransferase (ALT/SGPT) 13, Alkaline Phosphatase 78, Total Protein 5.7L, Albumin 2.3L, Albumin/Globulin Ratio 0.7L CBC/BMP Laboratory Tests 12/07/19 06:26 MARILIN CONNELL MD Dec 07, 2019 10:17
--- NOTE | 2019-12-10 13:00 | RO ---
DATE OF PROCEDURE: 12/05/2019 PREPROCEDURE DIAGNOSIS: Right hip degenerative arthritis. POSTPROCEDURE DIAGNOSIS: Right hip degenerative arthritis. PROCEDURE: Right total hip arthroplasty using a cemented Size 7 Cedar standard off set stem with a 1.5 neck, a 36 mm ball, a 54 mm cup with a 36 neutral liner. Prosthesis made by [employer]. SURGEON: Dr. Mayi Jalloh TANKER SERVICE ATTENDANT: Ms. Jerri Nix ANESTHESIA: Spinal. COMPLICATIONS: None. ESTIMATED BLOOD LOSS: 200 mL. COMPLICATIONS: None. SPECIMEN: Femoral head. PROCEDURE: Antibiotics were given intravenously preoperatively and a successful spinal anesthetic was induced. She was placed in the lateral decubitus position with the right hip uppermost and down leg well padded, especially the peroneal nerve. Tremaine hip positioner was utilized. The right hip area was carefully prepped and draped in the usual sterile fashion. Then, after an appropriate time out, a longitudinal incision for a direct lateral approach was made down to the tensor fascia. The tensor fascia was divided in line with the skin incision. Bovie cautery was used to coagulate crossing vessels. We split the gluteus medius in the anterior 1/3, posterior 2/3 junction. Then the underlying gluteus minimus and hip capsule were divided and carefully dissected off the proximal femur as we externally rotated the hip and eventually dislocated and placed the leg in the leg bag anteriorly. The piriformis fossa was defined and the starter reamer utilized, followed by the canal finding reamer and then the lateralizing reamer. Then, we reamed up to a size 7. Femoral neck osteotomy was performed using the template. Then, we began broaching up to a size 7. A proximal calcar planer was utilized. We exposed the acetabulum and performed a labral excision 360 degrees. Then began reaming, starting at 46. She was already quite protrused, so I did not deepen the cup at all, I just simply expanded up to 53. The trial 54 fit nicely. Thus, we asked for the 54 Gription cup. We copiously irrigated the acetabulum and placed the cup using the extramedullary alignment jig to estimate our version and abduction. It seated nicely. The central hole eliminator was placed followed by the polyethylene and then we made sure it seated properly. We exposed the proximal femur once again and copiously irrigated. We placed the broach again and then trialed with a 1.5. She had excellent stability with flexion and internal rotation and extension and external rotation. Minimal soft tissue telescoping. Thus, at this point, I removed the broach and prepared the canal for cementing. My application assistant, Kandice Jerri Nix, mixed the cement on the back table as I prepared the canal for cementing. She was also critical to the success of this difficult surgery by helping with appropriate soft tissue manipulation, helping to dislocate and relocate the leg several times, helping to close the wound, and helping to prepare the patient, amongst many other tasks to allow me to perform the operation smoothly, efficiently and safely. A #4 cement plug was placed referencing off the real stem. The canal brush was then utilized with copious irrigation and then the long Garcia tip continuous suction with three epinephrine soaked sponges placed into the femoral canal as the cement was being mixed. Two sponges were placed in the acetabulum. Then we dried the femoral canal thoroughly with additional sponges and then introduced the cement. Then it was pressurized using the pressure device proximally and then the stem was inserted. The excess cement removed with curettes. The stem was held in anatomic version and positioned until the cement hardened. As we were awaiting this, the two sponges from the acetabulum were removed. We copiously irrigated out the wound. Once the cement had hardened, we dried the trunnion of the prosthesis and placed the real 1.5 x 36 head and then reduced the hip again. She was very stable to flexion and internal rotation and extension and external rotation with minimal soft tissue telescoping. We copiously irrigated. We closed the deep capsule and gluteus minimus back anatomically with interrupted #1 PDS sutures. The gluteus medius was closed back anatomically with interrupted #1 PDS sutures, followed by irrigation of the deep soft tissues, and then we closed the tensor fascia with a combination of #1 PDS suture and a running #1 Stratafix. We copiously irrigated again and closed the deep subdermal tissues with interrupted #2-0 PDS suture. The skin was closed with leydi, covered by Optifoam and dry sterile bulky dressing. She was then turned supine and then transferred to the recovery room in stable condition. There were no intraoperative complications.
== END 2019-12-07 11:15 | disposition home or self-care (01) | DRG 470 ==
LOC: M OR 07:24 → M MS5PR 13:55
PROVIDERS: ADMIT Orthopaedic Surgery; ATTEND Orthopaedic Surgery
PROC: 0SR90JA Replacement of Right Hip Joint with Synthetic Substitute, Uncemented, Open Approach (ICD-10-PCS; principal; 2019-12-05 09:50)
DX: M16.11 Unilateral primary osteoarthritis, right hip (principal); I10 Essential (primary) hypertension; E03.9 Hypothyroidism, unspecified; Z88.6 Allergy status to analgesic agent; Z79.899 Other long term (current) drug therapy; E66.9 Obesity, unspecified; Z68.33 Body mass index [BMI] 33.0-33.9, adult; Z79.82 Long term (current) use of aspirin

== ENCOUNTER 2019-12-19 14:48 | Inpatient (IN) | payer MEDICARE, BC ==
[~2019-12-19] VITALS: Ht 157.5 cm; Wt 83.8 kg
[~2019-12-19 14:48] MED LIST changes: -ASPI81TA85 PO; +ASPI81TA86 PO; +BAYE81TA10 PO; +D31000TA2 PO; -LIDOCAINE 1% MDV 20ML VIAL SQ PRN; -LR 1,000 ML IV ONE; +PERC5TAB12 PO; -VITAD1000T PO; -ceFAZolin SOD 2 GM in IV 1 EA IV ONE
[2019-12-19] MEDS ORDERED: POTA10TA17 PO (15:37)
[2019-12-19] MEDS ORDERED: SYNT88TA2 PO (15:37)
[2019-12-19 15:42] LABS: BASO # 0.1 10^3/uL (0.0-0.2); BASO % 0.5 % (0.0-1.0); EOS # 0.1 10^3/uL (0.0-0.5); EOS % 0.2 % (0.0-3.0); HEMATOCRIT 40.9 % (36.0-47.0); HEMOGLOBIN 13.3 g/dl (12.0-15.5); LYMPH # 1.5 10^3/uL (1.5-5.0); LYMPH % 6.6 % (24.0-44.0); MEAN CORPUSCULAR HEMOGLOBIN 32.8 pg (27.0-33.0); MEAN CORPUSCULAR HGB CONC 32.5 g/dl (32.0-36.5); MEAN CORPUSCULAR VOLUME 100.7 fl (80.0-96.0); MONO # 1.2 10^3/uL (0.0-0.8); MONO % 5.2 % (0.0-5.0); NEUTROPHILS # 19.2 10^3/uL (1.5-8.5); NEUTROPHILS % 86.6 % (36.0-66.0); PLATELET COUNT, AUTOMATED 263 10^3/uL (150-450); RED BLOOD COUNT 4.06 10^6/uL (4.00-5.40); WHITE BLOOD COUNT 22.2 10^3/uL (4.0-10.0)
[2019-12-19 16:24] LABS: ERYTHROCYTE SEDIMENTATION RATE 33 mm/hr (0-30)
[2019-12-19] MEDS ORDERED: ROCURONIUM BROMIDE 50 MG/5 ML VIAL As Ordered ONE ×2 (16:34→17:07)
[2019-12-19] MEDS ORDERED: propofoL 200 MG/20 ML VIAL As Ordered ONE (16:34)
[2019-12-19] MEDS ORDERED: LIDOCAINE 2% 100MG/5ML SDV (FOR ANES.) As Ordered ONE (16:34)
[2019-12-19] MEDS ORDERED: fentaNYL 100 MCG/2 ML INJECTION (J3010) As Ordered ONE (16:35)
[2019-12-19] MEDS ORDERED: dexameTHASONE 4 MG/ML 1ML VIAL (J1100 PER 1MG) As Ordered ONE (16:36)
[2019-12-19] MEDS ORDERED: ceFAZolin 1GM VIAL (J0690 PER 500MG) As Ordered ONE ×2 (16:44→18:10)
[2019-12-19] MEDS ORDERED: LR 1,000 ML IV ONE (17:00)
[2019-12-19] MEDS ORDERED: TOBRAMYCIN SULF 1.2 GM VIAL As Ordered ONE (17:20)
[2019-12-19] MEDS ORDERED: VANCOMYCIN 1000MG/20ML VIAL As Ordered ONE ×2 (17:23→17:33)
--- NOTE | 2019-12-19 17:32 | HPE ---
DATE OF ADMISSION: 12/19/2019 REASON FOR ADMISSION: Draining right total hip replacement wound. HISTORY OF PRESENT ILLNESS: She is an 89-year-old female who underwent successful right total hip replacement two weeks ago without any significant problem. She was discharged to home on 12/07/2019. On transport home, she describes falling hard onto a chair while being transported and hitting her right hip and the wound started to break open and then it started bleeding. This was unbeknown to us but nonetheless, ever since she has had some continuous oozing from the wound intermittently and then today she presented for her two-week postoperative visit for a wound check and noted yesterday or this morning while getting out of the shower that there was a large bump on her wound and some pinkish serous fluid was draining from there. She had presented to the office where my physician regional administrative assistant (PA), Mr. Marie, saw her and called me because there was a large amount of serous-type fluid draining from the wound. It did not appear purulent but there was a significant amount of drainage that we felt it best that this may communicate with deep into the joint and thus it might be best to proceed with operative intervention. She does not complain of significant discomfort, pain or soreness. She has not been having any fevers, just noting the drainage from the wound. She has a past medical history of hypothyroidism and hypertension, otherwise fairly healthy and vigorous 89-year-old female. PAST SURGICAL HISTORY: Significant for a partial thyroidectomy, a right total knee replacement, breast biopsy, and a right total hip replacement. Her medications at home are typically a baby aspirin twice a day, levothyroxine, atenolol, vitamin D3, and colchicine. She also takes potassium chloride. ALLERGIES: ALLOPURINOL, HYDROCHLOROTHIAZIDE, MIRTAZAPINE, and ACETAMINOPHEN. SOCIAL HISTORY: She does not smoke or drink alcohol excessively. She is . She lives at home with her . REVIEW OF SYSTEMS: Negative, otherwise amended to the chart. When I examine her, she is an alert, pleasant female lying in her stretcher here in the hospital. Her temperature is 97.2, pulse is 91, oxygen saturation is 94% on room air with a blood pressure of 134/64, respiratory rate is 20. HEENT: Benign. Normocephalic, atraumatic. Extraocular muscles grossly unremarkable. LUNGS: Clear to auscultation. HEART: Regular. ABDOMEN: Nontender. Right hip has a dressing over it that is soaked with serous fluid. There is a mild amount of erythema and some mild tenderness. The fluid does not appear purulent but there is a significant amount of serous fluid noted. Distally, there is no swelling of her leg. She has a total knee replacement scar on the right leg. She has palpable pulses at the dorsalis pedis and posterior tibialis. She can move her toes well with normal sensation. LABORATORY STUDIES: Showed a white count elevated at 22.2 with hematocrit of 40.9 and a platelet count of 263. There were 86% neutrophils. Sedimentation rate was 33. CRP was 9.33. IMPRESSION: Postoperative total hip replacement wound with significant amount of serosanguineous drainage. I would recommend to her that we treat this relatively aggressively with a deep surgical irrigation and debridement and if it indeed is communicating deep to the hip joint, likely do a polyethylene femoral head exchange to thoroughly irrigate out the wound of potential infection and place antibiotic beads prophylactically and get good cultures, and then we will treat her with some antibiotics until we know if there is indeed any bacteria growing from the cultures from the surgical procedure. Doing so carries the risk of having surgery. There is always a risk of infection, damage to nerve, blood vessels, anesthetic complications, phlebitis, embolism, heart attack, and amongst others. I did discuss this with her. She understands that these are the same risks as when she had her hip replaced but understands the reason for going ahead. I have discussed this with anesthesia already and hospitalist colleagues will help us with medical optimization and proceed to surgery here shortly.
[2019-12-19] MEDS ORDERED: HYDROmorphone HCL 2 MG/ML 1ML VIAL (J1170) As Ordered ONE (18:21)
[2019-12-19] MEDS ORDERED: PHENYLephrine HCL 500 MCG/5 ML (100MCG/ML) SYRINGE (J2370) As Ordered ONE (18:36)
[2019-12-19] MEDS ORDERED: SUGAMMADEX SODIUM 500 MG/5 ML VIAL (BRIDION) As Ordered ONE (19:10)
[2019-12-19] MEDS ORDERED: ONDANSETRON 4MG/2ML VIAL As Ordered ONE (19:18)
[2019-12-19] MEDS ORDERED: fentaNYL 100 MCG/2 ML INJECTION (J3010) IV PRN (19:45)
[2019-12-19] MEDS ORDERED: oxyCODONE 5MG TAB PO PRN (19:45)
[2019-12-19] MEDS ORDERED: LR 1,000 ML IV SCH ×2 (19:45→21:15)
[2019-12-19] MEDS ORDERED: MORPHINE 2 MG/ML 1ML VIAL (J2270) IV PRN (20:00)
[2019-12-19 20:30] VITALS: BP 115/57
[2019-12-19 21:00] VITALS: BP 119/60
[2019-12-19 21:30] VITALS: BP 121/71
[2019-12-19 22:30] VITALS: BP 117/68
[2019-12-19] MEDS ORDERED: KETOROLAC 60MG 2ML VIAL As Ordered ONE (22:31)
[2019-12-19] MEDS: CEFEPIME HCL 2 GM in D5W MINI-BAG PLUS 50 ML IV SCH (23:03)
[2019-12-19 23:30] VITALS: BP 120/66
[2019-12-20] MEDS: VANCOMYCIN HCL 1,000 MG, VIAL MATE ADAPTER 1 EACH in D5W 250 ML IV SCH ×2 (00:15→11:49)
[2019-12-20 00:30] VITALS: BP 113/76
[2019-12-20 01:30] VITALS: BP 122/83
[2019-12-20] MEDS: oxyCODONE 5MG TAB PO PRN ×2 (04:38→20:44)
[2019-12-20] MEDS: CEFEPIME HCL 2 GM in D5W MINI-BAG PLUS 50 ML IV SCH ×2 (05:02→14:11)
[2019-12-20] MEDS: LEVOTHYROXINE 88MCG TABLET (0.088 MG) PO SCH (05:02)
[2019-12-20 05:30] VITALS: BP 111/69
[2019-12-20 07:01] LABS: BASO % 0.2 % (0.0-1.0); EOS % 0.1 % (0.0-3.0); HEMATOCRIT 31.7 % (36.0-47.0); LYMPH # 0.8 10^3/uL (1.5-5.0); LYMPH % 4.3 % (24.0-44.0); MEAN CORPUSCULAR HEMOGLOBIN 33.3 pg (27.0-33.0); MEAN CORPUSCULAR HGB CONC 33.4 g/dl (32.0-36.5); MEAN CORPUSCULAR VOLUME 99.7 fl (80.0-96.0); MONO # 0.9 10^3/uL (0.0-0.8); NEUTROPHILS # 15.8 10^3/uL (1.5-8.5); NEUTROPHILS % 89.7 % (36.0-66.0); PLATELET COUNT, AUTOMATED 208 10^3/uL (150-450); RED BLOOD COUNT 3.18 10^6/uL (4.00-5.40); WHITE BLOOD COUNT 17.6 10^3/uL (4.0-10.0)
[2019-12-20 07:10] LABS: HEMOGLOBIN 10.6 g/dl (12.0-15.5)
[2019-12-20 07:22] LABS: ERYTHROCYTE SEDIMENTATION RATE 33 mm/hr (0-30)
[2019-12-20 07:27] LABS: C REACTIVE PROTEIN QUANTITATIV 9.71 MG/DL (0.00-0.30); CALCIUM LEVEL 8.1 MG/DL (8.8-10.2); CREATININE FOR GFR 1.05 MG/DL (0.55-1.30); GLOMERULAR FILTRATION RATE 52.8 (>32); POTASSIUM SERUM 4.8 MEQ/L (3.5-5.1)
[2019-12-20] MEDS: VITAMIN D 1,000 INTERNATIONAL UNITS TABLET PO SCH (08:45)
[2019-12-20] MEDS: atenoloL 50 MG TAB PO SCH (08:46)
--- NOTE | 2019-12-20 08:48 | CR ---
DATE OF CONSULTATION: 12/19/2019 REFERRING PHYSICIAN: Dr. Sy Jalloh REASON FOR CONSULT: Medical management of chronic issues. CHIEF COMPLAINT: Traumatic injury status post right total hip replacement with serosanguineous drainage for the past two weeks for an emergent draining of right total hip replacement wound. HISTORY OF PRESENT ILLNESS: This is an 89-year-old female admitted on 12/05/2019 for a right total hip arthroplasty due to severe degenerative joint disease (DJD) with history of chronic hypertension, lumpectomy, goiter resulting in hypothyroidism, right knee surgery, and former smoker who had an uneventful postoperative course and was discharged home on 12/07/2019. On transport, the patient had a traumatic injury with opening of the wound. Two weeks postoperative, the patient was seen in the orthopedic office and was found to have increasing serous drainage. Due to this wound infection, the patient was emergently brought into the operating room (OR) for incision and drainage and debridement of the area with plans for polyethylene femoral head exchange and antiobiotic beads prophylactically. The patient was brought in emergently to the OR and could not evaluated. She was noted to have a white count of 22,000, sed rate of 33, C-reactive protein of 9.33. PAST MEDICAL HISTORY: 1. Right total hip November 2019. 2. Goiter, currently with hypothyroidism on supplemental Synthroid. 3. Hypertension. 4. Asthma. 5. SVT. 6. Chronic kidney disease Stage 2. 7. Gout. 8. Reactive hypoglycemia. 9. Large lipoma right medial thigh. 10. Left humeral head fracture after a trip and a fall May 2014. 11. Dyslipidemia. 12. Meniere's disease. 13. Benign positional vertigo (BPV). 14. Borderline B12 deficiency. 15. Vasculitis. 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 17. 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 18. Osteopenia on DEXA scan 11/2009, declines treatment. 19. Methicillin-resistant Staphylococcus aureus (MRSA) urinary tract infection July 2009. 20. Vitamin D deficiency. 21. Reactive hypoglycemia. 22. 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 23. Psoriasis of the scalp. ALLERGIES: - ALLOPURINOL - HYDROCHLOROTHIAZIDE - REMERON - TYLENOL - REQUIP - FLU VACCINE causing hives SURGICAL HISTORY: 1. Left tib-fib fracture. 2. Right fifth metatarsal fracture with open reduction internal fixation June 2009. 3. 11/2019 right total hip. 4. Subtotal thyroidectomy in 1967. 5. Arthroscopic right knee surgery in 2012. 6. Total right knee 2013. 7. Lumpectomy of left breast, no chemo or radiation needed, July 2015. HOME MEDICATIONS: - vitamin D 1000 units daily - betamethasone application topically - meclizine 12.5 two tablets as needed once a day - meloxicam 15 mg daily as needed - Synthroid 88 mcg daily - aspirin 81 daily - colchicine 0.6 daily - atenolol 50 daily - K-Dur 10 mEq two tablets twice a day - Prilosec 40 mg daily SOCIAL HISTORY: Former smoker, has not smoked over 10 years. No alcohol abuse. No recreational drug use. 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 , [place]. REVIEW OF SYSTEMS/PHYSICAL EXAMINATION: Could not be obtained as the patient emergently was brought into the operating room. LABORATORY DATA: White count 22.2, hemoglobin 13, hematocrit 40, platelet count 263. C-reactive protein 9.33. COVID-19 negative. ASSESSMENT AND PLAN: This is an 89-year-old female with history of hypertension, goiter, hypothyroidism, BPV, asthma, chronic kidney disease stage 2, gout, vitamin D deficiency, MRSA urinary tract infection, who had a right total hip November 2019, who postoperatively during transport had a traumatic injury with opening of the wound, now presenting with two week history of increased serosanguineous drainage from the postoperative site, brought in emergently from the orthopedic office to the operating room for surgical debridement, antibiotic beads and femoral head exchange. IMPRESSIONS: 1. Postoperative wound infection status post traumatic injury after hospital discharge for a right total hip 12/07/2019. The patient was emergently brought in to the operating room for emergent surgical debridement, washout and antibiotic bead placement and femoral head exchange. Postoperative management per orthopedic surgery. Infectious disease specialist Dr. Yimi Herrera has been consulted to assist in management of antibiotics. 2. History of goiter resulting in hypothyroidism. On supplemental Synthroid. 3. Hypertension. May be resumed on metoprolol with holding parameters. 4. History of BPV. On no medications currently. 5. Chronic kidney disease Stage 2. Currently at baseline. 6. History of supraventricular tachycardia. Currently sinus rhythm on vitals. MTDD
--- NOTE | 2019-12-20 08:54 | REP ---
REASON: Status post incision and drainage. COMPARISON: 12/05/2019 Since the last examination, a surgical drainage tube has been placed in the soft tissues adjacent to the proximal portion of the hip prosthesis. Numerous radiodense pledgets have also been placed in the soft tissues. There is a lateral skin staple line in place. The prosthesis itself is unchanged in alignment and position showing no evidence of an acute fracture. Electronically Signed by Suresh Ly DO 12/20/2019 01:42 P
[2019-12-20] MEDS ORDERED: ASPIRIN 81 MG CHEW TABLET PO SCH (09:00)
[2019-12-20] MEDS ORDERED: LIDOCAINE 1% MDV 20ML VIAL As Ordered ONE (09:46)
--- NOTE | 2019-12-20 14:42 | IPN ---
DATE: 12/20/2019 The patient said that her pain is tolerable, about a 3/10 at the moment. She is sitting at the bedside having breakfast. No significant drainage overnight. No fever or chills. The patient is currently on IV cefazolin. Wound cultures were sent yesterday after washout and debridement. Removed IV cefazolin, currently on vancomycin and cefepime. Wound cultures are still pending. Infectious disease has been consulted. The patient says that as an outpatient she had been having trouble with increasing pain at the right hip and bloody drainage. She has asked her to bring the cot that she uses for the grandchildren downstairs across from her bathroom about 6 inches from the ground, as she lay on it, she was unable to get up and had to call her daughter, who lives two hours away. Between the two of them, they were able to raise her up. Her friend had mentioned that right knee pain was worse after surgery and then the hip pain, but she said that this was significantly different than it was when she had her knee replaced a few years ago. The patient had not had any fever or chills with increasing drainage and after seeing orthopedic surgery for followup. She was brought in for emergent washout debridement and incision and drainage yesterday. The patient was afebrile overnight. No new complaints this morning. No shortness of breath, chest pain, pressure, tightness, nausea, vomiting, diarrhea or abdominal pain. VITAL SIGNS: Temperature 98.3, pulse 84, respiratory rate 19, blood pressure (BP) 111/69, 99% on 3 liters nasal cannula. GENERAL: The patient is awake, alert, and oriented times 3, very pleasant and appropriate. No jugular venous distension (JVD), thyromegaly. No cervical lymphadenopathy. Moist mucous membranes. LUNGS: Clear to auscultation. No wheezes, rales or rhonchi. Air entry is equal bilaterally. No adventitious breath sounds. HEART: S1, S2, sinus rhythm. No murmurs, rubs or gallops. ABDOMEN: Obese, soft, nontender, nondistended. Right hip is bandaged. Bloody drainage. LOWER EXTREMITIES: No clubbing, cyanosis or any pitting edema. LABORATORY DATA: White count is 17, hemoglobin 10, hematocrit 31, platelet count 208. Sodium 137, potassium 4.8, chloride 105, bicarbonate 24, BUN 25, creatinine 1.05, glucose 130. C-reactive protein (CRP) 9.71. ESR is 33. Microbiology: Right hip wound culture pending. Blood culture pending. ASSESSMENT AND PLAN: 89-year-old female had right hip done 12/04, discharged 12/06, had traumatic opening of the surgical wound. On her way from the hospital, had bloody drainage without fever or chills at home, but with worsening pain and difficulty ambulating, reported for pain and postop followup with orthopedic clinic found to have serosanguineous drainage, emergently brought into the operating room for incision and drainage for wound infection. The patient underwent I and D washout. Wound cultures sent. Currently on vancomycin and cefepime. IMPRESSION: 1. Postop wound infection, status post traumatic injury after hospital discharge of the right hip, 12/07/2019, status post incision and drainage of the right hip arthroplasty, currently on vancomycin and cefepime, day #2. Infectious disease specialist, Dr. Yimi Herrera has been consulted to advise what changes in antibiotics, await wound culture results. Deep vein thrombosis (DVT) prophylaxis currently on aspirin 81 mg twice a day, vitamin D, oxycodone 4 mg every 4 hours as needed for severe pain, still on IV fluids. 3. Hypertension. Controlled on atenolol. Current blood pressure is 111 to 122 systolic. 4. Anemia most likely dilutional. 5. Hyperthyroidism, continue on Synthroid.
[2019-12-20 14:50] VITALS: BP 115/61
[2019-12-21] MEDS: VANCOMYCIN HCL 1,000 MG, VIAL MATE ADAPTER 1 EACH in D5W 250 ML IV SCH (00:33)
[2019-12-21 06:00] VITALS: BP 140/74
[2019-12-21] MEDS: LEVOTHYROXINE 88MCG TABLET (0.088 MG) PO SCH (06:00)
[2019-12-21] MEDS ORDERED: LIDOCAINE 1% MDV 20ML VIAL As Ordered ONE (07:06)
[2019-12-21] MEDS ORDERED: diphenhydrAMINE 50MG/ML VIAL (J1200) As Ordered ONE (07:06)
[2019-12-21] MEDS ORDERED: MIDAZOLAM INJ 2MG/2ML VIAL (J2250 PER 1MG) As Ordered ONE (07:06)
[2019-12-21] MEDS ORDERED: fentaNYL 100 MCG/2 ML INJECTION (J3010) As Ordered ONE (07:06)
[2019-12-21] MEDS ORDERED: ceFAZolin 1GM VIAL (J0690 PER 500MG) As Ordered ONE (07:29)
--- NOTE | 2019-12-21 07:35 | CR ---
DATE OF CONSULTATION: 12/19/2019 REASON FOR CONSULTATION: Right hip prosthetic joint infection. HISTORY OF PRESENT ILLNESS: Mrs. Saez is an 89-year-old pleasant female who had a total right hip arthroplasty for severe degenerative joint disease on 12/05/[address] Sy Jalloh. Postoperatively, the patient went home within 72 hours and fell when she got home. After that, she had chronic drainage from the wound, mostly serosanguineous until the day prior to admission when she had a large amount of fluid which was mostly bloody draining. She had some chills, but no fever. She was seen in followup by orthopedic surgery who recommended admission. She had a white count 22,000, sed rate of 33 and CRP of 9.3. PAST MEDICAL HISTORY: Significant for hypertension, degenerative joint disease, goiter resulting in hypothyroidism. She quit smoking years ago, positive ELVA, history of psoriasis of the scalp. PAST SURGICAL HISTORY: Right total hip replacement 12/05/2019. Left tib-fib fracture. Right fifth metatarsal fracture with open reduction internal fixation June 2009. Sub total thyroidectomy. Arthroscopic right knee surgery. Total right knee replacement in 2013. Lumpectomy of left breast for malignancy, no chemo or radiation in 2015. ALLERGIES: - ALLOPURINOL - HYDROCHLOROTHIAZIDE - REMERON - TYLENOL - REQUIP - FLU SHOT gives hives MEDICATIONS: - Vitamin D 1000 units daily - betamethasone topically - meclizine 12.5 two tablets as needed once a day - meloxicam 15 mg daily - Synthroid 88 mcg daily - aspirin 81 mg daily - colchicine 0.6 mg daily - atenolol 50 mg daily - K-Dur 10 mEq 2 tablets twice a day - Prilosec 40 mg daily - vancomycin 1 gram IV every 12 hours - cefepime 2 grams IV every 8 hours SOCIAL HISTORY: She quit smoking over 10 years ago. No alcohol use or recreational drug use. She is . She lives with her who will be able to do home IV antibiotic. They have two daughters, but the do not live close by, one in [place] and one in [place]. REVIEW OF SYSTEMS: No nausea, vomiting or diarrhea. No abdominal pain. No dysuria, hematuria or flank pain. She had chills, but these have resolved. No fever. LABORATORY DATA: White count was 22.2 yesterday and today was 17.6, hemoglobin 10.6, hematocrit 31.7, platelets 208. ESR 33. Sodium 137, potassium 4.8, chloride 105, bicarb 24, BUN 25, creatinine 1.05, glucose 130, calcium 8.1, CRP 9.7. Right hip intraoperative culture pending. Gram stain had a few gram positive cocci in pairs and clusters. Blood cultures are pending. PHYSICAL EXAMINATION: She is a pleasant healthy looking female in no acute distress. She was seen walking from the bathroom to her bed with assistance of her walker and no help from the nurses. She is very independent and pretty strong postoperatively. Temperature is 98.1, pulse 85, respirations 18, blood pressure 115/61, O2 sat 97% on 3 liters nasal cannula. Heart: Normal S1, S2. No murmurs. Lungs are clear. No wheezes or rhonchi. Abdomen: Obese, soft, nontender. Back: No CVA tenderness. Extremities: No clubbing, cyanosis or edema. No calf tenderness. Multiple healed scars on the left foot. Right total knee replacement. Right total hip replacement. She has an incision measuring at least 30 cm with [address] There is an ecchymosis on the inferior aspect of the hip where she had fallen. There is no purulent discharge or drainage. IMPRESSION: 89-year-old female status post right total hip arthroplasty 2 weeks ago admitted with a postoperative wound infection with gram stain consistent with probably a Staph infection. There is gram positive cocci in pairs and clusters. She has been on IV vancomycin and cefepime. Cefepime will be discontinued as there is no evidence of gram negatives. She has been a poor IV access and they have not been able to put in a PICC line today and therefore a Mills will be scheduled for tomorrow. PLAN : Choice of antibiotic will depend on pathogen. If methicillin-sensitive Staphylococcus aureus (MSSA), the patient could go home on cefazolin 2 grams IV every 8 hours. If methicillin-resistant Staphylococcus aureus (MRSA), vancomycin 1 gram IV every 12 hours. If the patient has Staph aureus infection, we need to add also rifampin 300 mg by mouth twice a day to treat the biofilm on the prosthesis. If it is streptococcal infection, which is unlikely, the patient could be treated with IV ceftriaxone 2 grams every 24 hours. She will need a total of 6 weeks of IV antibiotics from surgical date with end of therapy being 01/30/2020. The patient will need to follow up in my office in 2 weeks after discharge. I did discuss with her placement of the Mills catheter and teaching her and herself how to do the infusion. Even though she was a little anxious, she does not want to be in the shelter for that. Please consult Patient and Family Service (PFS) for home IV infusion, antibiotics and [facility]. MTDD
--- NOTE | 2019-12-21 07:35 | IRMSE ---
[facility] IR Moderate Sedation Eval. Date and Time Date: Dec 21, 2019 Time: 07:35 ASA Classification ASA Classification: II-Mild systemic disease Mallampati Score: II NPO: Yes Obstructive Sleep Apnea: No Interval Plan: moderate sedation ROBY EDGE MD Dec 21, 2019 07:35
--- NOTE | 2019-12-21 08:39 | POST-OPPD ---
Postoperative Procedure Note Date Of Procedure: Dec 21, 2019 Time Of Procedure: 08:38 PREOPERATIVE DIAGNOSIS: infected hip. needs long term care phlebotomist IV antibiotics. failed arm picc POSTOPERATIVE DIAGNOSIS: same FINDINGS: patent right IJ PROCEDURE: right sided tunnelled Mills catheter placed. catheter ready for use. SURGEON: Kati ANESTHESIA: mod sed ESTIMATED BLOOD LOSS: < 5 ml COMPLICATIONS: none POSTOPERATIVE CONDITION: stable ROBY EDGE MD Dec 21, 2019 08:39
[2019-12-21] MEDS: atenoloL 50 MG TAB PO SCH (09:00)
[2019-12-21] MEDS ORDERED: NS 1,000 ML IV SCH (09:15)
[2019-12-21] MEDS ORDERED: ceFAZolin SOD 2 GM in IV 1 EA IV ONE (09:15)
[2019-12-21] MEDS ORDERED: fentaNYL 100 MCG/2 ML INJECTION (J3010) IV ONE (09:15)
[2019-12-21] MEDS ORDERED: MIDAZOLAM INJ 2MG/2ML VIAL (J2250 PER 1MG) IV ONE (09:15)
[2019-12-21] MEDS ORDERED: diphenhydrAMINE 50MG/ML VIAL (J1200) IV ONE (09:15)
[2019-12-21] MEDS: VITAMIN D 1,000 INTERNATIONAL UNITS TABLET PO SCH (10:13)
[2019-12-21 11:09] LABS: BASO # 0.1 10^3/uL (0.0-0.2); BASO % 0.4 % (0.0-1.0); EOS # 0.2 10^3/uL (0.0-0.5); EOS % 1.5 % (0.0-3.0); HEMATOCRIT 27.7 % (36.0-47.0); LYMPH # 1.1 10^3/uL (1.5-5.0); LYMPH % 8.8 % (24.0-44.0); MEAN CORPUSCULAR HEMOGLOBIN 32.5 pg (27.0-33.0); MEAN CORPUSCULAR HGB CONC 32.5 g/dl (32.0-36.5); MONO # 0.9 10^3/uL (0.0-0.8); NEUTROPHILS # 10.1 10^3/uL (1.5-8.5); NEUTROPHILS % 81.5 % (36.0-66.0); PLATELET COUNT, AUTOMATED 192 10^3/uL (150-450); RED BLOOD COUNT 2.77 10^6/uL (4.00-5.40); WHITE BLOOD COUNT 12.4 10^3/uL (4.0-10.0)
[2019-12-21] MEDS ORDERED: CEFA2SOL IV (11:24)
[2019-12-21] MEDS ORDERED: RIFA150C PO (11:24)
[2019-12-21 11:52] LABS: BLOOD UREA NITROGEN 28 MG/DL (7-18); CALCIUM LEVEL 8.3 MG/DL (8.8-10.2); CARBON DIOXIDE LEVEL 25 MEQ/L (21-32); CHLORIDE LEVEL 107 MEQ/L (98-107); CREATININE FOR GFR 0.89 MG/DL (0.55-1.30); GLOMERULAR FILTRATION RATE > 60.0 (>32); GLUCOSE, FASTING 73 MG/DL (70-100); POTASSIUM SERUM 3.8 MEQ/L (3.5-5.1); SODIUM LEVEL 140 MEQ/L (136-145)
[2019-12-21 14:00] VITALS: BP 121/63
[2019-12-21] MEDS: ceFAZolin SOD 2 GM in IV 1 EA IV SCH (16:49)
[2019-12-21] MEDS: SODIUM CHLORIDE 0.9% INJ 10 ML SYR IV PRN (18:49)
[2019-12-21] MEDS: ASPIRIN 81 MG ENTERIC TAB PO SCH (21:07)
[2019-12-21] MEDS: oxyCODONE 5MG TAB PO PRN (21:08)
[2019-12-21 22:00] VITALS: BP 124/61
[2019-12-22] MEDS: ceFAZolin SOD 2 GM in IV 1 EA IV SCH ×3 (00:32→16:50)
[2019-12-22 06:00] VITALS: BP_SYST 107; BP_SYST 117; BP_DIAS 54; BP_DIAS 63
[2019-12-22] MEDS: LEVOTHYROXINE 88MCG TABLET (0.088 MG) PO SCH (06:03)
[2019-12-22 07:05] LABS: BASO % 0.5 % (0.0-1.0); EOS # 0.4 10^3/uL (0.0-0.5); EOS % 6.2 % (0.0-3.0); HEMATOCRIT 26.9 % (36.0-47.0); HEMOGLOBIN 8.6 g/dl (12.0-15.5); LYMPH # 1.2 10^3/uL (1.5-5.0); LYMPH % 17.9 % (24.0-44.0); MEAN CORPUSCULAR HEMOGLOBIN 32.7 pg (27.0-33.0); MEAN CORPUSCULAR VOLUME 102.3 fl (80.0-96.0); MONO # 0.6 10^3/uL (0.0-0.8); MONO % 9.7 % (0.0-5.0); NEUTROPHILS # 4.3 10^3/uL (1.5-8.5); NEUTROPHILS % 64.6 % (36.0-66.0); PLATELET COUNT, AUTOMATED 171 10^3/uL (150-450); RED BLOOD COUNT 2.63 10^6/uL (4.00-5.40); WHITE BLOOD COUNT 6.6 10^3/uL (4.0-10.0)
[2019-12-22 07:31] LABS: BLOOD UREA NITROGEN 24 MG/DL (7-18); CALCIUM LEVEL 8.3 MG/DL (8.8-10.2); CARBON DIOXIDE LEVEL 23 MEQ/L (21-32); CHLORIDE LEVEL 108 MEQ/L (98-107); CREATININE FOR GFR 0.81 MG/DL (0.55-1.30); GLOMERULAR FILTRATION RATE > 60.0 (>32); GLUCOSE, FASTING 69 MG/DL (70-100); POTASSIUM SERUM 3.4 MEQ/L (3.5-5.1); SODIUM LEVEL 140 MEQ/L (136-145)
[2019-12-22] MEDS ORDERED: POTASSIUM CHLORIDE 10 MEQ SR TABLET PO ONE ×2 (08:15→09:00)
[2019-12-22 08:27] LABS: C REACTIVE PROTEIN QUANTITATIV 2.66 MG/DL (0.00-0.30)
[2019-12-22 08:57] LABS: ERYTHROCYTE SEDIMENTATION RATE 33 mm/hr (0-30)
[2019-12-22] MEDS: ASPIRIN 81 MG ENTERIC TAB PO SCH ×2 (09:15→21:01)
[2019-12-22] MEDS: SODIUM CHLORIDE 0.9% INJ 10 ML SYR IV SCH (09:15)
[2019-12-22] MEDS: atenoloL 50 MG TAB PO SCH (09:15)
[2019-12-22] MEDS: VITAMIN D 1,000 INTERNATIONAL UNITS TABLET PO SCH (09:15)
--- NOTE | 2019-12-22 10:24 | IPN ---
DATE: 12/21/2019 Patient has no pain at the moment. Had just received pain medication. Was able to sleep last night without fever or chills. No other new complaint. Patient is reluctant to administered her own medications intravenously at home. Cultures grew out Staphylococcus aureus, which was sensitive to oxacillin. Recommendations from infectious disease is cefazolin 2 grams every 8 hours and rifampin until January 30, 2020. Patient family services (PFS) has been made aware that the patient is reluctant to administer her own medications at home. No other issues. Temperature 98.6, pulse 64, respiratory 18, blood pressure 105/43, 93% on room air. Generally, patient is awake, alert, oriented times three answering questions appropriately. Lungs are clear to auscultation. No wheezing, rales or rhonchi. Heart: S1, S2, sinus rhythm. Abdomen is obese, soft, nontender, nondistended. Right hip has blood-soaked bandage and bloody drainage. Extremities: No cyanosis or clubbing. LABORATORY DATA: Reviewed. ASSESSMENT/PLAN: This is an 89-year-old female status post right hip total arthroplasty, went home and within 72 hours developed a postop wound infection with increasing drainage. Presented on routine 2-week followup at orthopaedic clinic and was emergently brought to the operating room (OR) for debridement and incision and drainage and started on IV antibiotics. The wound culture grew Staphylococcus aureus, which is methicillin susceptible. CURRENT ISSUES: 1. 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 Patent is reluctant to administered the IV medications herself status post tunnel peripherally inserted central catheter (PICC) placement by interventional radiology yesterday and would like home care nurse to administer it. However, this is not possible. PFS has been consulted to assist in discharge planning. Orthopaedic surgery is monitoring the output via the right hip drain still with significant bloody drainage. Not ready for discharge today. Drainage overnight was 290 and 110 today since midnight. 2. Hypertension: Currently blood pressure of less than 110. Holding parameters have been placed on atenolol. 3. Anemia due to acute blood loss from right hip. still with drain. asymptomatic. monitor for symptoms, and transfuse if symptomatic or if hgb<8 4. Hypothyroidism: On chronic Synthroid. DISPOSITION: Defer to PFS for discharge options. MTDD
--- NOTE | 2019-12-22 13:22 | IPN ---
DATE: 12/22/2019 The patient continues to be anemic with blood loss through the right hip. The patient's drainage however is barely 20 mL overnight. This morning the patient denies any chest pain, pressure or tightness. Shortness of breath, dizziness or lightheadedness. Does not appear to be symptomatic from her anemia. No other issues overnight. No fever or chills. PHYSICAL EXAMINATION VITALS Temperature 98.5, pulse 77, respiratory rate 18, blood pressure 107/54, 87% on room air. General: Awake, alert, and oriented times 3, answering questions appropriately, pleasant, conversing well. She says that her right hip is achy, rates it a 2/10, does not want any pain medications at the moment. Lungs are diminished. Heart: S1, S2, sinus rhythm. Abdomen is soft, nontender, nondistended. Positive bowel sounds in all four quadrants. Right hip bandaged. Drainage about 20 mL. Dressing is dry. No bloody drainage. LABORATORY DATA: White count 6.6, hemoglobin 8.6, hematocrit 26, platelet count of 171,na1 140, potassium 3.4, chloride 108, bicarbonate 23, BUN 24, creatinine 0.81. ASSESSMENT AND PLAN: This is an 89-year-old female status post right total hip two weeks prior presentation with postop wound infection with staphylococcus. The patient was on IV vancomycin and cefepime, both of which have been discontinued once sensitivities were available. Per infectious disease specialist, the patient is to go home on cefazolin 2 gm every 8 hours, as well as rifampin 200 mg twice a day until January 30, 2020. She remains anemic secondary to acute blood loss with the right hip and will be transfused one unit red blood cell (RBC). If less than 8 or the patient becomes symptomatic, she is to be supplemented with K-Dur for potassium. MTDD
[2019-12-22 14:00] VITALS: BP 99/49
[2019-12-22] MEDS: oxyCODONE 5MG TAB PO PRN ×2 (16:51→21:02)
[2019-12-22 22:00] VITALS: BP 103/49
[2019-12-23] MEDS: SODIUM CHLORIDE 0.9% INJ 10 ML SYR IV PRN (00:23)
[2019-12-23] MEDS: ceFAZolin SOD 2 GM in IV 1 EA IV SCH ×3 (00:24→16:43)
[2019-12-23] MEDS: LEVOTHYROXINE 88MCG TABLET (0.088 MG) PO SCH (05:53)
[2019-12-23 06:00] VITALS: BP 105/49
[2019-12-23 07:26] LABS: BASO % 0.6 % (0.0-1.0); EOS # 0.6 10^3/uL (0.0-0.5); EOS % 8.3 % (0.0-3.0); HEMATOCRIT 26.6 % (36.0-47.0); HEMOGLOBIN 8.6 g/dl (12.0-15.5); LYMPH # 1.2 10^3/uL (1.5-5.0); LYMPH % 16.1 % (24.0-44.0); MEAN CORPUSCULAR HEMOGLOBIN 32.3 pg (27.0-33.0); MEAN CORPUSCULAR HGB CONC 32.3 g/dl (32.0-36.5); MONO # 0.6 10^3/uL (0.0-0.8); MONO % 8.1 % (0.0-5.0); NEUTROPHILS # 4.7 10^3/uL (1.5-8.5); NEUTROPHILS % 65.2 % (36.0-66.0); PLATELET COUNT, AUTOMATED 170 10^3/uL (150-450); RED BLOOD COUNT 2.66 10^6/uL (4.00-5.40); WHITE BLOOD COUNT 7.2 10^3/uL (4.0-10.0)
[2019-12-23 07:42] LABS: BLOOD UREA NITROGEN 18 MG/DL (7-18); C REACTIVE PROTEIN QUANTITATIV 2.03 MG/DL (0.00-0.30); CALCIUM LEVEL 8.2 MG/DL (8.8-10.2); CARBON DIOXIDE LEVEL 25 MEQ/L (21-32); CHLORIDE LEVEL 108 MEQ/L (98-107); CREATININE FOR GFR 0.73 MG/DL (0.55-1.30); GLOMERULAR FILTRATION RATE > 60.0 (>32); GLUCOSE, FASTING 73 MG/DL (70-100); SODIUM LEVEL 139 MEQ/L (136-145)
[2019-12-23 08:32] LABS: ERYTHROCYTE SEDIMENTATION RATE 34 mm/hr (0-30)
[2019-12-23] MEDS: atenoloL 50 MG TAB PO SCH (09:01)
[2019-12-23] MEDS: ASPIRIN 81 MG ENTERIC TAB PO SCH ×2 (09:01→21:27)
[2019-12-23] MEDS: SODIUM CHLORIDE 0.9% INJ 10 ML SYR IV SCH (09:02)
[2019-12-23] MEDS: VITAMIN D 1,000 INTERNATIONAL UNITS TABLET PO SCH (09:02)
[2019-12-23] MEDS: oxyCODONE 5MG TAB PO PRN (09:03)
[2019-12-23 14:00] VITALS: BP 107/48
[2019-12-23 22:00] VITALS: BP 110/51
[2019-12-24] MEDS: ceFAZolin SOD 2 GM in IV 1 EA IV SCH ×3 (00:11→16:29)
[2019-12-24 05:34] LABS: BASO % 0.5 % (0.0-1.0); EOS # 0.7 10^3/uL (0.0-0.5); EOS % 8.5 % (0.0-3.0); HEMATOCRIT 26.5 % (36.0-47.0); HEMOGLOBIN 8.7 g/dl (12.0-15.5); LYMPH # 1.3 10^3/uL (1.5-5.0); LYMPH % 15.7 % (24.0-44.0); MEAN CORPUSCULAR HEMOGLOBIN 32.5 pg (27.0-33.0); MEAN CORPUSCULAR HGB CONC 32.8 g/dl (32.0-36.5); MEAN CORPUSCULAR VOLUME 98.9 fl (80.0-96.0); MONO # 0.7 10^3/uL (0.0-0.8); MONO % 7.8 % (0.0-5.0); NEUTROPHILS # 5.5 10^3/uL (1.5-8.5); NEUTROPHILS % 65.8 % (36.0-66.0); PLATELET COUNT, AUTOMATED 168 10^3/uL (150-450); RED BLOOD COUNT 2.68 10^6/uL (4.00-5.40); WHITE BLOOD COUNT 8.3 10^3/uL (4.0-10.0)
[2019-12-24 06:00] VITALS: BP 109/59
[2019-12-24 06:06] LABS: BLOOD UREA NITROGEN 15 MG/DL (7-18); C REACTIVE PROTEIN QUANTITATIV 1.99 MG/DL (0.00-0.30); CALCIUM LEVEL 8.1 MG/DL (8.8-10.2); CARBON DIOXIDE LEVEL 27 MEQ/L (21-32); CHLORIDE LEVEL 106 MEQ/L (98-107); CREATININE FOR GFR 0.72 MG/DL (0.55-1.30); GLOMERULAR FILTRATION RATE > 60.0 (>32); GLUCOSE, FASTING 77 MG/DL (70-100); POTASSIUM SERUM 2.9 MEQ/L (3.5-5.1); SODIUM LEVEL 138 MEQ/L (136-145)
[2019-12-24] MEDS: KCL 10MEQ/100ML SWI (KRUN) 10 MEQ in IV 1 EA IV SCH ×2 (06:30→07:45)
[2019-12-24] MEDS: LEVOTHYROXINE 88MCG TABLET (0.088 MG) PO SCH (06:30)
[2019-12-24 07:27] LABS: ERYTHROCYTE SEDIMENTATION RATE 30 mm/hr (0-30)
[2019-12-24] MEDS: atenoloL 50 MG TAB PO SCH (07:33)
[2019-12-24] MEDS: SENOKOT S TAB PO SCH ×2 (07:44→20:18)
[2019-12-24] MEDS: VITAMIN D 1,000 INTERNATIONAL UNITS TABLET PO SCH (07:44)
[2019-12-24] MEDS: ASPIRIN 81 MG ENTERIC TAB PO SCH ×2 (07:44→20:18)
[2019-12-24] MEDS: MIRALAX *UNIT DOSE* 17GM PACKET PO SCH (07:44)
[2019-12-24] MEDS: SODIUM CHLORIDE 0.9% INJ 10 ML SYR IV SCH (07:46)
[2019-12-24] MEDS: oxyCODONE 5MG TAB PO PRN ×2 (11:54→16:29)
--- NOTE | 2019-12-24 13:13 | REP ---
IR Mills catheter insertion under fluoroscopy and ultrasound guidance. Ultrasound of the right neck. Clinical information: Infected hip. Needs long-term IV antibiotics. Failed arm PICC line. Physician: Dr. Parikh. Procedure: The patient was advised of the benefits, risks and alternatives of the procedure and informed consent was obtained. The time-out was performed with verification of the patient's name, MRN, site of procedure and type of procedure to be performed. The patient was positioned in the supine position on the angiographic table. The site was prepped and draped in the usual sterile fashion. Moderate sedation was performed by the physician including the presence of an independent trained observer that assisted in monitoring the patient's level of consciousness and physiologic status. Following the administration of Versed and Fentanyl, the physician spent 45 minutes of continuous face to face time with the patient. Ultrasound of the neck reveals a patent and compressible right internal jugular vein. A laundry operator wash room radiograph reveals no significant abnormality. The neck and anterior chest wall were anesthetized with lidocaine. The right internal jugular vein was accessed using a micro introducer needle under ultrasound guidance, via a lateral approach. The 018 cope wire was advanced into the superior vena cava. The needle was removed and a micro introducer sheath was placed. An Amplatz wire was then passed into the inferior vena cava. Incision at the internal jugular access site and anterior chest wall were made using a scalpel. A dual-lumen Mills catheter was inserted through the subcutaneous tissues of the chest wall with a tunneling device. The micro introducer sheath was removed and internal jugular puncture site was upsized with dilator. A peel-away sheath was placed over the wire and into the superior vena cava. The wire and stiffener were removed. The catheter was passed through the internal jugular vein via the sheath. The peel-away sheath was then removed. The catheter tip was positioned in the cavo atrial junction. The puncture site was closed. The catheter was secured in place using 2-0 Prolene. Both sites were cleansed and sterile dressing was applied. At the conclusion of the procedure, the ports of the catheter aspirate and flush freely. The patient tolerated the procedure well and was returned to [facility] in stable condition. EBL: Less than 5 ml. Complications: None. Conclusion: Successful placement of a dual-lumen Mills catheter. The catheter is ready for immediate use. Thank you this referral. Electronically Signed by Jemma Parikh MD 12/24/2019 01:12 P
[2019-12-24 14:00] VITALS: BP 117/52
[2019-12-24 16:26] LABS: MAGNESIUM LEVEL 1.8 MG/DL (1.8-2.4); POTASSIUM SERUM 2.9 MEQ/L (3.5-5.1)
[2019-12-24 22:00] VITALS: BP 119/52
[2019-12-25] MEDS: ceFAZolin SOD 2 GM in IV 1 EA IV SCH ×4 (00:14→23:58)
[2019-12-25] MEDS: SODIUM CHLORIDE 0.9% INJ 10 ML SYR IV PRN (01:10)
[2019-12-25 06:00] VITALS: BP 117/54
[2019-12-25] MEDS: LEVOTHYROXINE 88MCG TABLET (0.088 MG) PO SCH (06:42)
[2019-12-25 07:32] LABS: BASO % 0.4 % (0.0-1.0); EOS # 0.7 10^3/uL (0.0-0.5); EOS % 7.6 % (0.0-3.0); HEMATOCRIT 27.9 % (36.0-47.0); HEMOGLOBIN 9.1 g/dl (12.0-15.5); LYMPH # 1.2 10^3/uL (1.5-5.0); LYMPH % 13.3 % (24.0-44.0); MEAN CORPUSCULAR HEMOGLOBIN 32.7 pg (27.0-33.0); MEAN CORPUSCULAR HGB CONC 32.6 g/dl (32.0-36.5); MEAN CORPUSCULAR VOLUME 100.4 fl (80.0-96.0); MONO # 0.7 10^3/uL (0.0-0.8); MONO % 7.5 % (0.0-5.0); NEUTROPHILS # 6.5 10^3/uL (1.5-8.5); NEUTROPHILS % 69.3 % (36.0-66.0); PLATELET COUNT, AUTOMATED 184 10^3/uL (150-450); RED BLOOD COUNT 2.78 10^6/uL (4.00-5.40); WHITE BLOOD COUNT 9.3 10^3/uL (4.0-10.0)
[2019-12-25 07:54] LABS: BLOOD UREA NITROGEN 12 MG/DL (7-18); C REACTIVE PROTEIN QUANTITATIV 2.66 MG/DL (0.00-0.30); CALCIUM LEVEL 7.9 MG/DL (8.8-10.2); CARBON DIOXIDE LEVEL 26 MEQ/L (21-32); CHLORIDE LEVEL 106 MEQ/L (98-107); CREATININE FOR GFR 0.65 MG/DL (0.55-1.30); GLOMERULAR FILTRATION RATE > 60.0 (>32); GLUCOSE, FASTING 76 MG/DL (70-100); SODIUM LEVEL 140 MEQ/L (136-145)
[2019-12-25 08:19] LABS: ERYTHROCYTE SEDIMENTATION RATE 32 mm/hr (0-30)
[2019-12-25] MEDS: ASPIRIN 81 MG ENTERIC TAB PO SCH ×2 (09:23→21:00)
[2019-12-25] MEDS: VITAMIN D 1,000 INTERNATIONAL UNITS TABLET PO SCH (09:23)
[2019-12-25] MEDS: SENOKOT S TAB PO SCH ×2 (09:24→19:56)
[2019-12-25] MEDS: atenoloL 50 MG TAB PO SCH (09:28)
[2019-12-25] MEDS: MIRALAX *UNIT DOSE* 17GM PACKET PO SCH (09:30)
[2019-12-25] MEDS: SODIUM CHLORIDE 0.9% INJ 10 ML SYR IV SCH (09:30)
--- NOTE | 2019-12-25 12:20 | RO ---
DATE OF PROCEDURE: 12/19/2019 PREPROCEDURE DIAGNOSIS: Draining right total hip replacement wound. POSTPROCEDURE DIAGNOSIS: Draining right total hip replacement wound. PROCEDURE: 1. Right total hip replacement wound open irrigation and debridement with arthrotomy. 2. Right total hip replacement removal and exchange of femoral head and removal and exchange of acetabular liner. 3. Removal and exchange of central hole eliminator. 4. Placement of antibiotic impregnated dissolvable beads with draining. SURGEON: Dr. Mayi Jalloh. CRANE MANAGER: None. ANESTHESIA: General endotracheal tube anesthesia. COMPLICATIONS: None. SPECIMENS: Aerobic and anaerobic cultures as well as soft tissue for anerobic and aerobic culture. FINDINGS: She had basically a wound deep with serosanguineous fluid and some degree of purulence emanating down through a rent in the tensor fascia and also through the gluteus medius attachment into the joint. DESCRIPTION OF PROCEDURE: She was taken to the operating room with successful general endotracheal tube anesthetic was established then placed in a lateral decubitus position on a lin-bag. Down leg well padded and an axillary roll was utilized. Her right hip wound area was then inspected and the leydi were moved. Then a sterile prep was preformed in a routine fashion. Then we did a standard draping and then after appropriate time-out, the wound was opened and there was a significant amount of serosanguineous fluid emanating out into the superficial tissues and came down through a rent in the tensor fascia centrally and it did trace down to the joint. I tried removing as many PDS sutures as possible with a rongeur and meticulously irrigated with a pulsatile lavage solution. First the superficial tissues and then removed any necrotic appearing debris with a rongeur. Then we opened the tensor fascia distally and proximally. Exposed the underlying gluteus medius and minimus layers and then divided those off the proximal femur and then trace proximal such that we would enter the joint. I did this in a step-barnes fashion irrigating between each layer. A total of 9 liters of antibiotic irrigant solution was used throughout the operation. Again, meticulous attention was taken to remove any necrotic appearing debris and old suture material. Once I had adequate exposure of the hip joint, I was able to dislocation it anteriorly and then remove the femoral head. The prosthesis was secure. I continued to irrigate and then I exposed the acetabulum with appropriate retractors with my assistance then used the acetabular liner to remover device to remove the liner and decided also to remove the central hole eliminator to help debride behind that. Once all of these parts were removed, I continued to copiously irrigate. I also irrigated and remove any necrotic debris from around the proximal portion of the prosthesis and around the edges of the acetabulum such that any grossly infected-appearing tissue was removed. Once I was satisfied with adequate debridement, I replaced the central hole eliminator and then replaced the acetabular liner being sure and inspected carefully that it fit in place and was locked into position. I then irrigated and dried the trunion of the prosthesis and place the new 36 x 1.5 mm ball. I reduced the hip and continued to irrigate and then placed antibiotic beads that were previously mixed on the back table by my assistants, deep into the hip joint. Then did as best as possible close the vastus lateralis and the gluteus medius and gluteus minimum back as anatomic as possible. However, it was somewhat difficult given the friability of the tissues at this point. But I was able to get a reasonable closure of the deep layer and the capsule. Meticulously irrigated again between the tensor fascia and this later and placed an additional layer of antibiotic beads and began closing the tensor fascia distally and extending proximally. I did place a 19 JVAC drain beneath the tensor fascia exiting proximally. I then irrigated again the deep superficial tissues and then closed them over a few remaining antibiotic beads. I closed this layer with a combination of #1-0 and #2-0 PDS sutures. Stables were used for the skin covered by an Adaptic and a dry sterile bulky overflow dressing. It was secured with tape. Then she was turned supine onto her bed and transferred to the recovery room after being awakened from general endotracheal anesthesia after having tolerated the procedure well. Specimens were sent initially upon opening the wound of aerobic and anerobic cultures as well as a rongeured and necrotic-appearing tissue into a sterile specimen cup for a culture.
--- NOTE | 2019-12-25 13:28 | IPNPDOC ---
Text Note Date of Service The patient was seen on 12/25/19. NOTE Subjective: Patient was seen and examined at the bedside. Currently patient denies any chest pain, shortness breath, palpitations, nausea, vomiting, abdominal pain, diarrhea or constipation. Patient reports that she has been working with physical therapy. Objective: Vitals (See below) General: Lying in bed, appears comfortable, AAOx3 HEENT: NC, AT CVS: +S1S2 Lungs: Fair air entry b/l, -w/r/r Abdomen: Soft, ND, NT Extremities: - Edema, - Calf tenderness Assessment and plan: R hip infection, in the setting of recently complete R hip arthoplasty - Patient has developed a postoperative wound infection with Staphylococcus - Initially was placed on broad-spectrum antibiotics with vancomycin, cefepime - Antibiotics have been deescalated to cefazolin and rifampin as per infectious disease - Antibiotics will continue until 01/30/2020 Anemia - Hg has trended down from 13 on admission and has remained stable around 9 - Will continue to follow trend and transfuse as needed Hypokalemia - Will supplement DVT prophylaxis - c/w TEDs/Sequentials VS,Fishbone, I+O VS, Fishbone, I+O Laboratory Tests 12/24/19 15:58 12/25/19 07:05 Vital Signs Date Time Temp Pulse Resp B/P (MAP) Pulse Ox O2 Delivery O2 Flow Rate FiO2 12/25/19 09:28 80 120/57 12/25/19 06:00 98.4 14 88 Room Air 12/21/19 08:23 2 I&O- Last 24 Hours up to 6 AM 12/25/19 06:00 Intake Total 710 ml Output Total 0 ml Balance 710 ml JEAN CLAUDE FLOWER MD Dec 25, 2019 13:28
[2019-12-25] MEDS ORDERED: POTASSIUM CHLORIDE 10 MEQ SR TABLET PO ONE ×2 (13:30→18:00)
[2019-12-25] MEDS: oxyCODONE 5MG TAB PO PRN (21:00)
[2019-12-25 22:00] VITALS: BP 147/75
[2019-12-26] MEDS: SODIUM CHLORIDE 0.9% INJ 10 ML SYR IV PRN (00:44)
[2019-12-26 05:42] LABS: BASO % 0.4 % (0.0-1.0); EOS % 10.4 % (0.0-3.0); HEMATOCRIT 29.5 % (36.0-47.0); HEMOGLOBIN 9.4 g/dl (12.0-15.5); LYMPH # 1.6 10^3/uL (1.5-5.0); LYMPH % 17.6 % (24.0-44.0); MEAN CORPUSCULAR HGB CONC 31.9 g/dl (32.0-36.5); MEAN CORPUSCULAR VOLUME 100.3 fl (80.0-96.0); MONO # 0.7 10^3/uL (0.0-0.8); NEUTROPHILS # 5.4 10^3/uL (1.5-8.5); NEUTROPHILS % 59.1 % (36.0-66.0); PLATELET COUNT, AUTOMATED 214 10^3/uL (150-450); RED BLOOD COUNT 2.94 10^6/uL (4.00-5.40); WHITE BLOOD COUNT 9.2 10^3/uL (4.0-10.0)
[2019-12-26] MEDS: LEVOTHYROXINE 88MCG TABLET (0.088 MG) PO SCH (05:56)
[2019-12-26 06:00] VITALS: BP 120/52
[2019-12-26 06:06] LABS: BLOOD UREA NITROGEN 12 MG/DL (7-18); C REACTIVE PROTEIN QUANTITATIV 3.87 MG/DL (0.00-0.30); CALCIUM LEVEL 8.2 MG/DL (8.8-10.2); CARBON DIOXIDE LEVEL 26 MEQ/L (21-32); CHLORIDE LEVEL 106 MEQ/L (98-107); CREATININE FOR GFR 0.87 MG/DL (0.55-1.30); GLOMERULAR FILTRATION RATE > 60.0 (>32); GLUCOSE, FASTING 82 MG/DL (70-100); POTASSIUM SERUM 3.1 MEQ/L (3.5-5.1); SODIUM LEVEL 141 MEQ/L (136-145)
[2019-12-26 06:22] LABS: ERYTHROCYTE SEDIMENTATION RATE 35 mm/hr (0-30)
[2019-12-26] MEDS: ceFAZolin SOD 2 GM in IV 1 EA IV SCH ×2 (07:57→16:47)
[2019-12-26] MEDS: VITAMIN D 1,000 INTERNATIONAL UNITS TABLET PO SCH (07:58)
[2019-12-26] MEDS: POTASSIUM CHLORIDE 10 MEQ SR TABLET PO SCH ×2 (07:58→20:17)
[2019-12-26] MEDS: SODIUM CHLORIDE 0.9% INJ 10 ML SYR IV SCH (07:58)
[2019-12-26] MEDS: ASPIRIN 81 MG ENTERIC TAB PO SCH ×2 (07:59→20:18)
[2019-12-26] MEDS: SENOKOT S TAB PO SCH ×2 (07:59→20:12)
[2019-12-26] MEDS: atenoloL 50 MG TAB PO SCH (07:59)
[2019-12-26] MEDS: MIRALAX *UNIT DOSE* 17GM PACKET PO SCH (07:59)
--- NOTE | 2019-12-26 10:28 | IPNPDOC ---
Text Note Date of Service The patient was seen on 12/26/19. NOTE Subjective: Patient was seen and examined at the bedside. . Currently, patient reports that her pain is better controlled. Denies nausea, vomiting, diarrhea, chest pain, urinary discomfort. Objective: Vitals (See below) General: Lying in bed, appears comfortable, AAOx3 HEENT: NC, AT CVS: +S1S2 Lungs: Fair air entry b/l, patient is free of rhonchi, crackles or wheezing Abdomen: Soft, nondistended and nontender Extremities: No evidence of edema, - Calf tenderness Assessment and plan: R hip infection, in the setting of recently complete R hip arthoplasty - Patient has developed a postoperative wound infection with Staphylococcus - Remains hemodynamically stable and afebrile - No leukocytoids / CRP relatively stable - Initially was placed on broad-spectrum antibiotics with vancomycin, cefepime; antibiotics have been deescalated to cefazolin and rifampin as per infectious disease - Antibiotics will continue until 01/30/2020 Anemia - Hg has trended down from 13 on admission and has remained stable around 9 - Will continue to follow trend and transfuse as needed Hypokalemia - Will continue with regular supplementation DVT prophylaxis - c/w TEDs/Sequentials VS,Fishbone, I+O VS, Fishbone, I+O Laboratory Tests 12/26/19 05:22 Vital Signs Date Time Temp Pulse Resp B/P (MAP) Pulse Ox O2 Delivery O2 Flow Rate FiO2 12/26/19 06:00 98.7 69 16 120/52 (74) 90 Room Air 12/21/19 08:23 2 I&O- Last 24 Hours up to 6 AM 12/26/19 06:00 Intake Total 910 ml Output Total 0 ml Balance 910 ml JEAN CLAUDE FLOWER MD Dec 26, 2019 10:28
[2019-12-26 16:28] VITALS: BP 121/52
[2019-12-26] MEDS: oxyCODONE 5MG TAB PO PRN (18:58)
[2019-12-26 22:00] VITALS: BP 118/51
[2019-12-27] MEDS: ceFAZolin SOD 2 GM in IV 1 EA IV SCH ×2 (00:35→08:13)
[2019-12-27] MEDS: LEVOTHYROXINE 88MCG TABLET (0.088 MG) PO SCH (05:12)
[2019-12-27 06:00] VITALS: BP 119/52
[2019-12-27 07:19] LABS: C REACTIVE PROTEIN QUANTITATIV 3.67 MG/DL (0.00-0.30); ERYTHROCYTE SEDIMENTATION RATE 39 mm/hr (0-30)
[2019-12-27 07:45] LABS: BLOOD UREA NITROGEN 10 MG/DL (7-18); CALCIUM LEVEL 8.1 MG/DL (8.8-10.2); CARBON DIOXIDE LEVEL 26 MEQ/L (21-32); CHLORIDE LEVEL 109 MEQ/L (98-107); CREATININE FOR GFR 0.71 MG/DL (0.55-1.30); GLOMERULAR FILTRATION RATE > 60.0 (>32); GLUCOSE, FASTING 82 MG/DL (70-100); MAGNESIUM LEVEL 1.9 MG/DL (1.8-2.4); POTASSIUM SERUM 3.8 MEQ/L (3.5-5.1); SODIUM LEVEL 140 MEQ/L (136-145)
[2019-12-27 07:52] LABS: BASO % 0.5 % (0.0-1.0); EOS # 0.6 10^3/uL (0.0-0.5); HEMATOCRIT 27.3 % (36.0-47.0); HEMOGLOBIN 8.9 g/dl (12.0-15.5); LYMPH # 1.2 10^3/uL (1.5-5.0); LYMPH % 16.1 % (24.0-44.0); MEAN CORPUSCULAR HGB CONC 32.6 g/dl (32.0-36.5); MEAN CORPUSCULAR VOLUME 101.1 fl (80.0-96.0); MONO # 0.6 10^3/uL (0.0-0.8); MONO % 8.1 % (0.0-5.0); NEUTROPHILS # 4.8 10^3/uL (1.5-8.5); NEUTROPHILS % 65.4 % (36.0-66.0); PLATELET COUNT, AUTOMATED 168 10^3/uL (150-450); WHITE BLOOD COUNT 7.4 10^3/uL (4.0-10.0)
[2019-12-27] MEDS: VITAMIN D 1,000 INTERNATIONAL UNITS TABLET PO SCH (08:09)
[2019-12-27] MEDS: POTASSIUM CHLORIDE 10 MEQ SR TABLET PO SCH (08:10)
[2019-12-27] MEDS: oxyCODONE 5MG TAB PO PRN ×3 (08:12→12:42)
[2019-12-27 08:13] VITALS: BP 119/52
[2019-12-27] MEDS: atenoloL 50 MG TAB PO SCH (08:13)
[2019-12-27] MEDS: ASPIRIN 81 MG ENTERIC TAB PO SCH (08:13)
[2019-12-27] MEDS: MIRALAX *UNIT DOSE* 17GM PACKET PO SCH (08:13)
[2019-12-27] MEDS: SENOKOT S TAB PO SCH (08:14)
[2019-12-27] MEDS: SODIUM CHLORIDE 0.9% INJ 10 ML SYR IV SCH (08:14)
--- NOTE | 2019-12-27 10:37 | IPNPDOC ---
Text Note Date of Service The patient was seen on 12/27/19. NOTE Subjective: Patient was seen and examined at the bedside. Patient has had an uneventful evening. She has been accepted to [facility] keep him for continued rehabilitation. She denies nausea, vomiting, abdominal pain, diarrhea, or urinary discomfort. Patient reports her right hip pain is improved. Objective: Vitals (See below) General: Lying in bed, appears comfortable, AAOx3 HEENT: NC, AT CVS: +S1S2 Lungs: Air entry appears to be fair bilaterally without evidence of rhonchi, crackles or wheezing Abdomen: Soft, ND without tenderness Extremities: Lower extremities are free of pitting edema, - Calf tenderness Assessment and plan: R hip infection, in the setting of recently complete R hip arthroplasty - Patient has developed a postoperative wound infection with Staphylococcus - Remains hemodynamically stable and afebrile - No leukocytoids / CRP relatively stable - Initially was placed on broad-spectrum antibiotics with vancomycin, cefepime; antibiotics have been deescalated to cefazolin and rifampin as per infectious disease - Antibiotics will continue until 01/30/2020 Anemia - Hg has trended down from 13 on admission and has remained stable around 9 - Will continue to follow trend and transfuse as needed s/p Hypokalemia - Continue with regular supplementation as outpatient, based on outpatient regimen DVT prophylaxis - c/w TEDs/Sequentials VS,Fishbone, I+O VS, Fishbone, I+O Laboratory Tests 12/27/19 06:39 Vital Signs Date Time Temp Pulse Resp B/P (MAP) Pulse Ox O2 Delivery O2 Flow Rate FiO2 12/27/19 08:13 80 119/52 12/27/19 08:12 18 Room Air 12/27/19 06:00 98.9 94 12/21/19 08:23 2 I&O- Last 24 Hours up to 6 AM 12/27/19 06:00 Intake Total 1130 ml Output Total 450 ml Balance 680 ml JEAN CLAUDE FLOWER MD Dec 27, 2019 10:37
[2019-12-28] MEDS ORDERED: POTASSIUM CHLORIDE 10 MEQ SR TABLET PO SCH (09:00)
[2020-01-13] MEDS ORDERED: D31000TA2 PO (16:57)
== END 2019-12-27 13:40 | DRG 467 ==
LOC: EEVIPCON 14:48 → M SDC 14:48 → M MS5PR 20:30
PROVIDERS: ADMIT Internal Medicine; ATTEND Orthopaedic Surgery
PROC: 0SR90JA Replacement of Right Hip Joint with Synthetic Substitute, Uncemented, Open Approach (ICD-10-PCS; 2019-12-19)
PROC: 0SP90JZ Removal of Synthetic Substitute from Right Hip Joint, Open Approach (ICD-10-PCS; principal; 2019-12-19 16:30)
PROC: 02HV33Z Insertion of Infusion Device into Superior Vena Cava, Percutaneous Approach (ICD-10-PCS; 2019-12-24)
DX: T84.51XA Infection and inflammatory reaction due to internal right hip prosthesis, initial encounter (principal); I47.1 Supraventricular tachycardia; D62 Acute posthemorrhagic anemia; N18.2 Chronic kidney disease, stage 2 (mild); I12.9 Hypertensive chronic kidney disease with stage 1 through stage 4 chronic kidney disease, or unspecified chronic kidney disease; E03.9 Hypothyroidism, unspecified; J45.909 Unspecified asthma, uncomplicated; Z88.8 Allergy status to other drugs, medicaments and biological substances; Z88.6 Allergy status to analgesic agent; M10.9 Gout, unspecified; E78.5 Hyperlipidemia, unspecified; E53.8 Deficiency of other specified B group vitamins; E55.9 Vitamin D deficiency, unspecified; Z87.891 Personal history of nicotine dependence; B95.61 Methicillin susceptible Staphylococcus aureus infection as the cause of diseases classified elsewhere; E87.6 Hypokalemia; Y83.1 Surgical operation with implant of artificial internal device as the cause of abnormal reaction of the patient, or of later complication, without mention of misadventure at the time of the procedure

== ENCOUNTER → 2019-12-31 | Outpatient (REF) ==
[~2019-12-31] MED LIST changes: +ASPI81TA85 PO; -ASPI81TA86 PO; +CEFA2SOL IV; -D31000TA2 PO; +POTA10TA17 PO; +RIFA150C PO; +SYNT88TA2; +VITAD1000T PO
[2019-12-31 09:05] LABS: HEMATOCRIT 30.5 % (36.0-47.0); HEMOGLOBIN 9.5 g/dl (12.0-15.5); MEAN CORPUSCULAR HEMOGLOBIN 32.6 pg (27.0-33.0); MEAN CORPUSCULAR HGB CONC 31.1 g/dl (32.0-36.5); MEAN CORPUSCULAR VOLUME 104.8 fl (80.0-96.0); PLATELET COUNT, AUTOMATED 170 10^3/uL (150-450); RED BLOOD COUNT 2.91 10^6/uL (4.00-5.40); WHITE BLOOD COUNT 8.6 10^3/uL (4.0-10.0)
[2019-12-31 09:31] LABS: BLOOD UREA NITROGEN 11 MG/DL (7-18); C REACTIVE PROTEIN QUANTITATIV 1.75 MG/DL (0.00-0.30); CALCIUM LEVEL 7.8 MG/DL (8.8-10.2); CARBON DIOXIDE LEVEL 23 MEQ/L (21-32); CHLORIDE LEVEL 110 MEQ/L (98-107); CREATININE FOR GFR 0.74 MG/DL (0.55-1.30); GLOMERULAR FILTRATION RATE > 60.0 (>32); GLUCOSE, FASTING 87 MG/DL (70-100); POTASSIUM SERUM 3.8 MEQ/L (3.5-5.1); SODIUM LEVEL 142 MEQ/L (136-145)
[2019-12-31 09:33] LABS: ERYTHROCYTE SEDIMENTATION RATE 36 mm/hr (0-30)
[2019-12-31 09:46] LABS: CORTISOL AM 21.3 UG/DL (4.3-22.4)
== END ==
LOC: SKLAB5 08:57
DX: I10 Essential (primary) hypertension (principal); E87.6 Hypokalemia

== ENCOUNTER → 2020-01-02 | Outpatient (REF) | payer BC, MEDICARE ==
[~2020-01-02] MED LIST changes: -ASPI81TA85 PO; +ASPI81TA86 PO; +BACITAB PO; +D31000TA2 PO; +DULC10SU2 PR; +ELIQ5TAB PO; +LOVE0.6I2 SC; +MOM30SS PO; +MULTCAP PO; +PRIL20TA2 PO; +RIFA300C3 PO; -SYNT88TA2; +SYNT88TA2 PO; +TRAM50TA2 PO; -VITAD1000T PO
--- NOTE | 2020-01-02 10:29 | REP ---
Bilateral lower extremity Duplex Doppler venous ultrasound: Real time compression and duplex Doppler interrogation of the bilateral lower extremity deep venous system is performed. Bilaterally, the common femoral, superficial femoral and popliteal veins are fully compressible with transducer pressure and demonstrate normal spontaneous and phasic flow, without evidence of deep venous thrombosis. Impression: No evidence of deep venous thrombosis of the bilateral lower extremity femoral popliteal venous system. Electronically Signed by Stiven Handy MD 01/02/2020 10:21 A
== END ==
LOC: EDSTATUS 09:00 → M RAD 09:35
PROVIDERS: ATTEND Nurse Practitioner Family
DX: M79.604 Pain in right leg (principal); M79.605 Pain in left leg; E03.9 Hypothyroidism, unspecified

== ENCOUNTER → 2020-01-03 | Outpatient (REF) ==
[~2020-01-03] MED LIST changes: +ASPI81TA85 PO; -ASPI81TA86 PO; -BACITAB PO; -D31000TA2 PO; -DULC10SU2 PR; -ELIQ5TAB PO; -LOVE0.6I2 SC; -MOM30SS PO; -MULTCAP PO; -PRIL20TA2 PO; -RIFA300C3 PO; +SYNT88TA2; -SYNT88TA2 PO; -TRAM50TA2 PO; +VITAD1000T PO
[2020-01-03 10:15] LABS: BLOOD UREA NITROGEN 10 MG/DL (7-18); CALCIUM LEVEL 7.7 MG/DL (8.8-10.2); CARBON DIOXIDE LEVEL 24 MEQ/L (21-32); CHLORIDE LEVEL 110 MEQ/L (98-107); CREATININE FOR GFR 0.75 MG/DL (0.55-1.30); GLOMERULAR FILTRATION RATE > 60.0 (>32); GLUCOSE, FASTING 104 MG/DL (70-100); NT-PRO BNP 549 PG/ML (<450); POTASSIUM SERUM 3.7 MEQ/L (3.5-5.1); SODIUM LEVEL 141 MEQ/L (136-145)
== END ==
LOC: SKLAB5 06:57
DX: R60.9 Edema, unspecified (principal)

== ENCOUNTER → 2020-01-08 | Outpatient (REF) ==
[2020-01-08 08:24] LABS: HEMATOCRIT 32.4 % (36.0-47.0); HEMOGLOBIN 10.1 g/dl (12.0-15.5); MEAN CORPUSCULAR HEMOGLOBIN 32.5 pg (27.0-33.0); MEAN CORPUSCULAR HGB CONC 31.2 g/dl (32.0-36.5); MEAN CORPUSCULAR VOLUME 104.2 fl (80.0-96.0); PLATELET COUNT, AUTOMATED 137 10^3/uL (150-450); RED BLOOD COUNT 3.11 10^6/uL (4.00-5.40); WHITE BLOOD COUNT 5.4 10^3/uL (4.0-10.0)
[2020-01-08 08:43] LABS: ERYTHROCYTE SEDIMENTATION RATE 33 mm/hr (0-30)
== END ==
LOC: SKLAB5 08:25
DX: M16.9 Osteoarthritis of hip, unspecified (principal); M01.X59 Direct infection of unspecified hip in infectious and parasitic diseases classified elsewhere

== ENCOUNTER → 2020-01-09 | Outpatient (CLI) | payer MEDICARE, BC ==
[~2020-01-09] MED LIST changes: -ASPI81TA85 PO; +ASPI81TA86 PO; +BACITAB PO; +D31000TA2 PO; +DULC10SU2 PR; +ELIQ5TAB PO; +ISOVUE-370 76% 100ML VIAL As Ordered ONE; +LOVE0.6I2 SC; +MOM30SS PO; +MULTCAP PO; +PRIL20TA2 PO; +RIFA300C3 PO; -SYNT88TA2; +SYNT88TA2 PO; +TRAM50TA2 PO; -VITAD1000T PO
--- NOTE | 2020-01-09 11:26 | REP ---
Right lower extremity Duplex Doppler venous ultrasound: Real time compression and duplex Doppler interrogation of the right lower extremity deep venous system is performed. The right common femoral, superficial femoral and popliteal veins are fully compressible with transducer pressure and demonstrate normal spontaneous and phasic flow, without evidence of deep venous thrombosis. Impression: No evidence of deep venous thrombosis of the right lower extremity femoral popliteal venous system. Electronically Signed by Stiven Handy MD 01/09/2020 11:17 A
--- NOTE | 2020-01-09 12:41 | REP ---
REASON: Acute onset of chest pain and dyspnea. COMPARISON: None. CONTRAST: 75 mL Isovue 370. There is excellent visualization of the pulmonary arterial vasculature. Abnormal filling defects are seen in the bilateral lower lobe second and third order pulmonary arteries and abnormal filling defects are seen in the right upper lobe second order pulmonary arteries. There are chronic changes seen involving the thoracic aorta. There is a small left pleural effusion. There is evidence of mediastinal adenopathy with prominent bilateral hilar lymph nodes and right hilar adenopathy as well. The imaged upper abdomen shows nephrolithiasis, cholelithiasis, and a partially imaged right renal cyst. The osseous structures show age-related chronic changes. Evaluation of the lung campbell shows evidence of parenchymal fibrosis. Bibasilar subsegmental atelectatic changes are suspected. In the right lower lobe, there is a round 1.9 cm sized solid nodule. IMPRESSION: 1. Pulmonary emboli as described above. 2. Right lower lobe nodule seemingly unchanged from lung base images obtained during abdominal and pelvic CT scanning of 10/07/2018, however, it was incompletely imaged on that prior CT scan. 3. Chronic lung campbell changes. 4. Chronic thoracic aortic changes. 5. Small left pleural effusion and suspected bibasilar subsegmental atelectatic changes. Early pneumonia on the left cannot be ruled out. 6. Adenopathy. 7. No other findings as described above. Electronically Signed by Suresh Ly DO 01/09/2020 12:57 P
== END ==
LOC: M RAD 09:13
PROVIDERS: ATTEND Nurse Practitioner Family
DX: R06.02 Shortness of breath (principal)
CPT/HCPCS: 71275; 93971; Q9967

== ENCOUNTER → 2020-01-10 | Outpatient (CLI) | payer MEDICARE, BC ==
[~2020-01-10] MED LIST changes: +ASPI81TA85 PO; -ASPI81TA86 PO; -D31000TA2 PO; -ISOVUE-370 76% 100ML VIAL As Ordered ONE; +VITAD1000T PO
--- NOTE | 2020-01-10 12:12 | REP ---
ultrasonography of the internal jugular and subclavian vein to assess for possible thrombosis. Ultrasonographic evaluation of the right internal jugular, imageable portion of the subclavian, and axillary vein was obtained. No abnormal echogenic material is seen in those veins on the imaged provided. IMPRESSION: Negative but somewhat limited exam as not all of the subclavian vein can be ultrasonographically interrogated secondary to its juxtaposition with the clavicle. Electronically Signed by Suresh Ly DO 01/10/2020 12:30 P
--- NOTE | 2020-01-13 09:43 | DSES ---
DATE OF ADMISSION: 12/20/2019 DATE OF DISCHARGE: 12/27/2019 ATTENDING PHYSICIAN: Dr. Jalloh ADMITTING DIAGNOSIS: Draining right total hip replacement wound. OTHER DIAGNOSES: 1. Hypothyroidism. 2. Cold induced asthma. 3. Supraventricular tachycardia. 4. History of out. 5. Pathologic fragility fracture history. 6. Hyperlipidemia. 7. Meniere disease. 8. Benign positional vertigo. DISCHARGE DIAGNOSIS: Draining right total hip replacement wound, status post irrigation and debridement with arthrotomy, with removal and exchange of the femoral head, acetabular liner and central hole eliminator, with placement of antibiotic impregnated dissolvable beads for draining. HISTORY: The patient is an 89-year-old female that had a right total hip replacement on 12/05/2019. She was discharged from the hospital on 12/07/[address] home from that admission apparently sustained some sort of trauma to the right hip. She ended up developing a post wound infection. She consented for an irrigation and debridement with removal and exchange of femoral head, acetabular liner and central hole eliminator, and placement of antibiotic beads by Dr. Jalloh. OPERATION PERFORMED: Right total hip for placement wound open irrigation and debridement with arthrotomy. Right total hip replacement removal and exchange of femoral head and removal and exchange of the acetabular liner. Removal and exchange of central hole eliminator. Placement of antibiotic impregnated dissolvable beads with draining. HOSPITAL COURSE: The patient underwent a right total hip replacement wound open irrigation and debridement with arthrotomy. Removal and exchange of femoral head, acetabular liner and central hole eliminator, with placement of antibiotic impregnated dissolvable beads with draining. Surgery was done under general anesthesia and was uneventful. Her hospital course was without complication. She continued her IV antibiotics. She was up with physical therapy per their protocol weightbearing as tolerated on the right lower extremity. The patient was discharged to adult acute rehabilitation. She will resume her preoperative medications and diet. She will continue her antibiotics and anticoagulants for deep venous thrombosis prophylaxis. She will followup in our office in 12-14 days for wound check and staple removal. She is encouraged to contact our office sooner if there is any increase in pain, redness, drainage, numbness or tingling in the extremity, fever greater than 101 degrees, or any other concerns. Please see medical record for additional details. KARINA
== END ==
LOC: M RAD 10:58
PROVIDERS: ATTEND Radiology Diagnostic Radiology
DX: I82.401 Acute embolism and thrombosis of unspecified deep veins of right lower extremity (principal)

== ENCOUNTER 2020-01-13 15:47 | Inpatient (IN) | payer MEDICARE, BC ==
[~2020-01-13] VITALS: Ht 157.5 cm; Wt 79.9 kg
[~2020-01-13 15:47] MED LIST changes: -BACITAB PO; -DULC10SU2 PR; -ELIQ5TAB PO; -LOVE0.6I2 SC; -MOM30SS PO; -MULTCAP PO; -PRIL20TA2 PO; -RIFA300C3 PO; -TRAM50TA2 PO
[2020-01-13] MEDS ORDERED: ASPIRIN 81 MG CHEW TABLET PO ONE (16:00)
[2020-01-13 16:39] LABS: BASO % 0.9 % (0.0-1.0); EOS # 0.5 10^3/uL (0.0-0.5); EOS % 10.9 % (0.0-3.0); HEMATOCRIT 32.5 % (36.0-47.0); HEMOGLOBIN 10.1 g/dl (12.0-15.5); LYMPH # 0.8 10^3/uL (1.5-5.0); LYMPH % 16.7 % (24.0-44.0); MEAN CORPUSCULAR HEMOGLOBIN 31.9 pg (27.0-33.0); MEAN CORPUSCULAR HGB CONC 31.1 g/dl (32.0-36.5); MEAN CORPUSCULAR VOLUME 102.5 fl (80.0-96.0); MONO # 0.4 10^3/uL (0.0-0.8); MONO % 7.9 % (0.0-5.0); NEUTROPHILS # 2.9 10^3/uL (1.5-8.5); NEUTROPHILS % 63.2 % (36.0-66.0); PLATELET COUNT, AUTOMATED 163 10^3/uL (150-450); RED BLOOD COUNT 3.17 10^6/uL (4.00-5.40); WHITE BLOOD COUNT 4.7 10^3/uL (4.0-10.0)
[2020-01-13 16:39] LABS: ABG BASE EXCESS 0.8 (-2.0-2.0); ABG HCO3 24.5 MEQ/L (22.0-26.0); ABG O2 SATURATION 91.5 % (95.0-99.0); ABG PARTIAL PRESSURE CO2 36.2 mmHg (35.0-45.0); ABG PARTIAL PRESSURE O2 57.9 mmHg (75.0-100.0); ABG TOTAL CO2 25.6 MEQ/L (23.0-31.0); ABG pH (ARTERIAL) 7.449 UNITS (7.350-7.450)
[2020-01-13] MEDS ORDERED: BACITAB PO (16:50)
[2020-01-13] MEDS ORDERED: DULC10SU2 PR (16:50)
[2020-01-13] MEDS ORDERED: TRAM50TA2 PO (16:50)
[2020-01-13] MEDS ORDERED: MOM30SS PO (16:50)
[2020-01-13] MEDS ORDERED: ELIQ5TAB PO (16:50)
[2020-01-13 16:52] LABS: INR 1.6; PROTHROMBIN TIME 18.8 SECONDS (11.8-14.0)
[2020-01-13] MEDS ORDERED: VITAD1000T PO (16:57)
[2020-01-13] MEDS ORDERED: CEFA2SOL IV (16:57)
[2020-01-13] MEDS ORDERED: RIFA300C3 PO (17:01)
[2020-01-13] MEDS ORDERED: MULTCAP PO (17:01)
[2020-01-13 17:04] LABS: ALT/SGPT < 6 U/L (12-78); BILIRUBIN,DIRECT 0.3 MG/DL (0.0-0.2); BILIRUBIN,TOTAL 0.4 MG/DL (0.2-1.0); BLOOD UREA NITROGEN 11 MG/DL (7-18); CALCIUM LEVEL 7.8 MG/DL (8.8-10.2); CARBON DIOXIDE LEVEL 26 MEQ/L (21-32); CHLORIDE LEVEL 109 MEQ/L (98-107); CK-MB VALUE MASS < 1.0 NG/ML (<3.6); CPK CREATINE PHOSPHOKINASE 23 U/L (26-192); CREATININE FOR GFR 0.76 MG/DL (0.55-1.30); GLOMERULAR FILTRATION RATE > 60.0 (>32); GLUCOSE, FASTING 113 MG/DL (70-100); MB/CK RELATIVE INDEX 4.35 (< OR =4); NT-PRO BNP 315 PG/ML (<450); POTASSIUM SERUM 3.9 MEQ/L (3.5-5.1); SODIUM LEVEL 142 MEQ/L (136-145); TOTAL PROTEIN 6.3 GM/DL (6.4-8.2); TROPONIN I < 0.02 NG/ML (< 0.10)
[2020-01-13] MEDS ORDERED: ISOVUE-370 76% 100ML VIAL As Ordered ONE (17:35)
--- NOTE | 2020-01-13 19:19 | ECGEPIP ---
[facility] - ED Test Date: 2020-01-13 Pat Name: GEORGIANA BALLESTEROS Department: Room: - Gender: Female Vat Operator: : [id number] Requested By: ITZ HERNANDEZ Order Number: [id number] Reading MD: Juan Vazquez Measurements Intervals [place] Rate: 73 P: 27 AK: 147 QRS: -26 QRSD: 92 T: -6 QT: 385 QTc: 425 Interpretive Statements SINUS RHYTHM BORDERLINE LEFT AXIS DEVIATION NSTTW ABNORMALITIES Electronically Signed on 01-13-2020 19:19:30 EDT by Juan Vazquez
--- NOTE | 2020-01-13 19:32 | REPVR ---
PROCEDURE INFORMATION: Exam: CT Angiography Chest With Contrast Exam date and time: 01/13/2020 6:36 PM Age: 89 years old Clinical indication: Shortness of breath; Patient HX: Known pe; Additional info: SOB TECHNIQUE: Imaging protocol: Computed tomographic angiography of the chest with intravenous contrast. 3D rendering: MIP and/or 3D reconstructed images were created by the technologist. Radiation optimization: All CT scans at this facility use at least one of these dose optimization techniques: automated exposure control; mA and/or kV adjustment per patient size (includes targeted exams where dose is matched to clinical indication); or iterative reconstruction. Contrast material: ISOVUE 370; Contrast volume: 75 ml; Contrast route: INTRAVENOUS (IV); COMPARISON: CT ANGIO CHEST 01/09/2020 10:53 AM FINDINGS: Tubes, catheters and devices: Central venous catheter tip at junction superior vena cava right atrium. Pulmonary arteries: Emboli are again seen in the left lower lobe pulmonary arterial branches. A larger thrombus is now seen in right lower lobe pulmonary arterial branch in comparison the prior study series 401, image 74. Right upper lobe thrombus is also again seen. There is no thrombus in the main pulmonary artery or right or left proximal pulmonary arteries. Aorta: There is extensive atheromatous plaque in the thoracic aorta without aneurysm or dissection. Lungs: There is a rounded 2.1 x 2.2 cm lesion posteriorly in the superior segment of the right lower lobe unchanged. It may contain calcifications. For both low risk and high risk patients, consider CT at 3 months, PET/CT or biopsy. (Shyam et al., Fleischner Society, 2017). Emphysema. Pleural space: There is a small left and a minimal right pleural effusion with adjacent subsegmental atelectasis at the left lung base. Heart: Mild cardiomegaly without significant pericardial effusion. Lymph nodes: Mediastinal and hilar lymphadenopathy is again noted. Liver: Only the upper portion of the liver spleen and stomach are included on the views of the upper abdomen. Bones/joints: Skeletal degeneration. Soft tissues: Unremarkable. IMPRESSION: Pulmonary emboli are again seen bilaterally in the lower lobes and right upper lobe with increased thrombus in the right lower lobe in comparison the prior study. There is a persistent small left and minimal right pleural effusion with subsegmental atelectasis at the left lung base. Electronically signed by: Breanna Walters On 01/13/2020 19:32:24 PM
[2020-01-13] MEDS ORDERED: MOM 30ML SUSPENSION UDC PO PRN (21:00)
[2020-01-13] MEDS ORDERED: BISACODYL 10 MG SUPP PR PRN (21:00)
[2020-01-13] MEDS ORDERED: traMADol 50 MG TAB PO PRN (21:00)
--- NOTE | 2020-01-13 22:00 | HPEPDOC ---
General Date of Admission Jan 13, 2020 at 20:52 Date of Service: Jan 13, 2020 Chief Complaint The patient is a 89-year-old female Who presented to the hospital with complaints of shortness of breath History of Present Illness Patient is an 89-year-old female with an extensive PMHX most significant for a complicated right hip infection after she had received a total hip arthroplasty, 11/2019 (currently on antibiotic therapy until January), and subsequently developed a pulmonary embolism on 01/08. Patient was on anticoagulation with Eliquis. Patient presented to the emergency room today with physicians of breath. Patient had CT scan imaging that revealed that there was pulmonary embolism that was different compared to prior. Hospital services called for admission. Upon evaluation, patient denies any chest pain or palpitations. Reports a mild cough. Denies any fevers or chills. Denies any abdominal pain, constipation, diarrhea, or urinary discomfort. Patient reports she is ambulatory, however. Physical therapy has stopped working with her because of her recent pulmonary embolism. Home Medications Scheduled Apixaban (Eliquis) 5 Mg Tablet, 10 MG PO BID, (Reported) START TAKING 5MG BID ON 01/16/20 Aspirin (Aspir 81) 81 Mg Tablet.dr, 81 MG PO DAILY, (Reported) Atenolol (Atenolol) 50 Mg Tablet, 50 MG PO DAILY, (Reported) Cefazolin Sodium/Dextrose,Iso (Cefazolin 2 G/50 ml-Dextrose) 2 Gm/50 Ml Piggyback, 1 CHRISTA IV Q8H, (Reported) 0600, 1400, 2200 FOR HIP INFECTION Cholecalciferol (Vitamin D3) (Vitamin D3) 1,000 Unit Tablet, 1,000 UNITS PO DAILY, (Reported) @ 1200 Colchicine (Colchicine) 0.6 Mg Tablet, 0.6 MG PO BID, (Reported) L.acidoph/L.bulg/B.bif/S.therm (Bacid Caplet) 1 Each Tablet, 1 TAB PO TID, (Reported) Levothyroxine Sodium (Synthroid) 88 Mcg Tablet, 88 MCG PO DAILY, (Reported) Multivitamin (Multivitamins) 1 Each Capsule, 1 CAP PO DAILY, (Reported) Potassium Chloride (Potassium Chloride) 10 Meq Tab.er.prt, 20 MEQ PO BID, (Reported) Rifampin (Rifampin) 300 Mg Capsule, 300 MG PO BID, (Reported) Scheduled PRN Bisacodyl (Dulcolax) 10 Mg Supp.rect, 10 MG MN DAILY PRN for CONSTIPATION, (Reported) Milk Of Magnesia (Milk of Magnesia) 2,400 Mg/10 Ml Oral.susp, 10 ML PO DAILY PRN for CONSTIPATION, (Reported) Tramadol HCl (Tramadol HCl) 50 Mg Tablet, 50 MG PO Q6H PRN for PAIN, (Reported) Allergies Coded Allergies: Cat Dander (Verified Allergy, Severe, ASTHMA, 06/27/09) allopurinol (Verified Allergy, Unknown, 11/29/19) hydrochlorothiazide (Verified Allergy, Unknown, 11/29/19) mirtazapine (Verified Allergy, Unknown, 11/29/19) acetaminophen (Verified Adverse Reaction, Intermediate, HEART RACES, 12/05/19) Past Medical History Medical History Goiter; now hypothyroid Asthma DLP 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 Denies any drug use or alcohol use - Resides at [facility] Review of Systems Other systems 10 point review of systems complete, all negative otherwise stated in HPI Vital Signs - Vitals: BP [136/62], HR [79], RR [18], Sat [96%RA], Temp [98.2F] - General: Lying in bed, No acute distress, Speaking in full sentences, AAOx3 - HEENT: NC, AT, PERRLA - CVS: RRR, +S1S2 - Lungs: Fair air entry bilaterally, No wheezing / rales / rhonchi - Abdomen: Soft, Non-distended, Non-tender - Extremities: R Leg swelling noted, No calf tenderness - Neuro: No focal motor or sensory deficit - Skin: No visible rashes Laboratory Data Labs 24H Laboratory Tests 2 01/13/20 16:23: Blood Gas Bicarbonate Standard 25.0, Arterial Blood pH 7.449, Arterial Blood Partial Pressure CO2 36.2, Arterial Blood Partial Pressure O2 57.9L, Arterial Blood Total CO2 25.6, Arterial Blood HCO3 24.5, Arterial Blood Base Excess 0.8, Arterial Blood Oxygen Saturation 91.5L 01/13/20 16:24: Immature Granulocyte % (Auto) 0.4, Neutrophils (%) (Auto) 63.2, Lymphocytes (%) (Auto) 16.7L, Monocytes (%) (Auto) 7.9H, Eosinophils (%) (Auto) 10.9H, Basophils (%) (Auto) 0.9, Neutrophils # (Auto) 2.9, Lymphocytes # (Auto) 0.8L, Monocytes # (Auto) 0.4, Eosinophils # (Auto) 0.5, Basophils # (Auto) 0.0, Nucleated Red Blood Cells % (auto) 0.0, Prothrombin Time 18.8H, Prothromb Time International Ratio 1.60, Anion Gap 7L, Glomerular Filtration Rate > 60.0, Calcium Level 7.8L, Total Bilirubin 0.4, Direct Bilirubin 0.3H, Aspartate Amino Transf (AST/SGOT) 24, Alanine Aminotransferase (ALT/SGPT) < 6L, Alkaline Phosphatase 198H, Total Creatine Kinase 23L, Creatine Kinase MB < 1.0, Creatine Kinase MB Relative Index 4.35H, Troponin I < 0.02, YU-Vum-E-Type Natriuretic Peptide 315, Total Protein 6.3L, Albumin 2.0L, Albumin/Globulin Ratio 0.5L CBC/BMP Laboratory Tests 01/13/20 16:24 Microbiology Microbiology 01/13/20 Blood Culture, Received Pending 01/13/20 Respiratory Virus Panel (PCR) (CARLINE) - Final, Complete 01/13/20 Blood Culture, Received Pending Plan / VTE VTE Prophylaxis Ordered?: Yes Plan Plan Shortness of breath - likely 2/2 pulmonary embolism - Patient was recently diagnosed with a pulmonary embolism on 01/08 and continued on anticoagulation - Currently, patient presented to the emergency room with shortness of breath - Is requiring very minimal amounts of supplemental oxygen and does not appear to be in any distress - Physical reveals right lower extremity swelling - EKG noted / Troponin x1 set negative - will continue to trend - Will get Duplex US of LE - Its unclear if this is a treatment failure; will start the patient on Lovenox therapeutic dosing for now; Hold Eliquis - May need to have anticoagulation adjusted to Coumadin - Consider vascular surgery consultation for possible IVC filter if required R hip infection, in the setting of recently complete R hip arthroplasty - Continue with ceftriaxone and rifampin as per Dr. Herrera; antibiotics scheduled and 01/30/2020 - c/w Lactobacillus Hypothyroidism - s/p Goiter - c/w Levothyroxine Asthma - No evidence of exacerbation - Not on any inhaled therapy HTN - BP well controlled - c/w Atenolol with holding parameters DLP - Not on statin - c/w ASA Gout - c/w Colchicine DVT prophylaxis - Will c/w full anticoagulation with Lovenox JEAN CLAUDE FLOWER MD Jan 13, 2020 22:00
[2020-01-13 22:49] LABS: CK-MB VALUE MASS < 1.0 NG/ML (<3.6); CPK CREATINE PHOSPHOKINASE 25 U/L (26-192); TROPONIN I < 0.02 NG/ML (< 0.10)
[2020-01-13 22:50] VITALS: BP 127/73
[2020-01-14] MEDS: COLCHICINE 0.6 MG TAB PO SCH ×3 (00:09→21:46)
[2020-01-14] MEDS: LACTOBACILLUS ACIDOPHILUS CAP (BACID) PO SCH ×4 (00:09→21:45)
[2020-01-14] MEDS: POTASSIUM CHLORIDE 10 MEQ SR TABLET PO SCH ×3 (00:10→21:47)
--- NOTE | 2020-01-14 01:11 | REPVR ---
PROCEDURE INFORMATION: Exam: US Duplex Lower Extremity Veins, Bilateral Exam date and time: 01/14/2020 1:04 AM Age: 89 years old Clinical indication: Edema, localized; Lower extremity, bilateral; Prior surgery; Surgery date: 1-6 months; Additional info: R leg swelling TECHNIQUE: Imaging protocol: Real-time duplex ultrasound of the extremities with 2-D malcolm scale, color Doppler flow and spectral waveform analysis with image documentation. Complete exam focused on the bilateral lower extremity veins. COMPARISON: US Duplex, Ext,LOWER veins,unilat 01/09/2020 11:11 AM FINDINGS: Right deep veins: Unremarkable. The common femoral, femoral, proximal profunda femoral and popliteal veins are patent without thrombus. Normal Doppler waveforms. Normal compressibility and/or augmentation response. Right superficial veins: Saphenofemoral junction is patent without thrombus. Left deep veins: Unremarkable. The common femoral, femoral, proximal profunda femoral and popliteal veins are patent without thrombus. Normal Doppler waveforms. Normal compressibility and/or augmentation response. Left superficial veins: Saphenofemoral junction is patent without thrombus. Soft tissues: Mild subcutaneous edema in the left calf. IMPRESSION: No evidence of deep vein thrombosis. Electronically signed by: Kaz Rico On 01/14/2020 01:11:11 AM
[2020-01-14] MEDS: ENOXAPARIN 80MG/0.8ML SYRINGE (J1650 PER 10MG) SC SCH ×3 (01:18→21:47)
[2020-01-14] MEDS: ceFAZolin 2 GM/D5W 50 ML IV BAG (J0690 PER 500MG) IV SCH ×4 (01:19→21:47)
[2020-01-14] MEDS: SODIUM CHLORIDE 0.9% INJ 10 ML SYR IV PRN ×2 (02:21→06:06)
[2020-01-14 04:00] VITALS: BP 141/66
[2020-01-14 04:22] LABS: BASO % 0.8 % (0.0-1.0); EOS # 0.4 10^3/uL (0.0-0.5); EOS % 10.8 % (0.0-3.0); HEMATOCRIT 30.2 % (36.0-47.0); HEMOGLOBIN 9.1 g/dl (12.0-15.5); LYMPH % 25.4 % (24.0-44.0); MEAN CORPUSCULAR HEMOGLOBIN 31.6 pg (27.0-33.0); MEAN CORPUSCULAR HGB CONC 30.1 g/dl (32.0-36.5); MEAN CORPUSCULAR VOLUME 104.9 fl (80.0-96.0); MONO # 0.4 10^3/uL (0.0-0.8); MONO % 9.2 % (0.0-5.0); NEUTROPHILS # 2.1 10^3/uL (1.5-8.5); NEUTROPHILS % 53.5 % (36.0-66.0); PLATELET COUNT, AUTOMATED 129 10^3/uL (150-450); RED BLOOD COUNT 2.88 10^6/uL (4.00-5.40); WHITE BLOOD COUNT 3.9 10^3/uL (4.0-10.0)
[2020-01-14 04:53] LABS: BLOOD UREA NITROGEN 8 MG/DL (7-18); CALCIUM LEVEL 7.7 MG/DL (8.8-10.2); CARBON DIOXIDE LEVEL 30 MEQ/L (21-32); CHLORIDE LEVEL 110 MEQ/L (98-107); CK-MB VALUE MASS < 1.0 NG/ML (<3.6); CPK CREATINE PHOSPHOKINASE 26 U/L (26-192); GLOMERULAR FILTRATION RATE > 60.0 (>32); GLUCOSE, FASTING 76 MG/DL (70-100); MAGNESIUM LEVEL 1.9 MG/DL (1.8-2.4); MB/CK RELATIVE INDEX 3.85 (< OR =4); SODIUM LEVEL 141 MEQ/L (136-145); TROPONIN I < 0.02 NG/ML (< 0.10)
[2020-01-14] MEDS: LEVOTHYROXINE 88MCG TABLET (0.088 MG) PO SCH (06:05)
[2020-01-14 08:00] VITALS: BP 139/63
[2020-01-14] MEDS: MULTIVITAMINS/MINERALS THERAP 1 TAB PO SCH (08:33)
[2020-01-14] MEDS: ASPIRIN 81 MG ENTERIC TAB PO SCH (08:33)
[2020-01-14] MEDS: SODIUM CHLORIDE 0.9% INJ 10 ML SYR IV SCH (08:34)
[2020-01-14] MEDS: atenoloL 50 MG TAB PO SCH (08:34)
--- NOTE | 2020-01-14 09:43 | REP ---
REASON: Status post central line placement. COMPARISON: 11/30/2019, the latest prior. Since the last examination, a double-lumen central venous catheter is in place, the tip of which is in the superior vena cava. There is cardiomegaly accentuated by technique. There are fibrotic changes seen throughout the lung campbell status quo. No acute patchy parenchymal opacities or pleural effusions have developed. No change in the osseous structures. IMPRESSION: Central line placement and chronic changes as described above. Electronically Signed by Suresh Ly DO 01/14/2020 12:13 P
[2020-01-14] MEDS: VITAMIN D 1,000 INTERNATIONAL UNITS TABLET PO SCH (11:10)
[2020-01-14 12:00] VITALS: BP_SYST 139; BP_SYST 142; BP_DIAS 63; BP_DIAS 67
[2020-01-14 16:00] VITALS: BP 125/61
--- NOTE | 2020-01-14 18:32 | IPNPDOC ---
Date Seen The patient was seen on 01/14/20. Progress Note SUBJECTIVE: No acute complaints today. Ordered hypercoag w/u. Denies increased SOB, chest pain, n/v/d, fevers or chills. OBJECTIVE VS: Please see below. General: Lying in bed, No acute distress, Speaking in full sentences, AAOx3 HEENT: NC, AT, PERRLA CVS: RRR, +S1S2 Lungs: CTAB, No wheezing / rales / rhonchi Abdomen: Soft, Non-distended, Non-tender Extremities: R Leg swelling noted > L- same since surgery, No calf tenderness Integumentary: Right hip incision covered in bandage, no surrounding erythema, mild tenderness to palpation Neuro: No focal motor or sensory deficit Skin: No visible rashes IMAGING: CXR 01/13/20: S/p central line placement and chronic changes as described above. Lower ext US, bilateral: No evidence of deep vein thrombosis ASSESSMENT: Patient is an 89 y/o F with extensive PMH most significant for a complicated right hip infection after she had received a total hip arthroplasty, 11/2019 (currently on antibiotic therapy until January), and subsequently d eveloped a pulmonary embolism on 01/08, placed on AC- admitted on 01/13/20 for increased SOB, worsened pulmonary emboli requiring alternative anticoagulation treatment. PLAN: 1. Shortness of breath likely 2/2 pulmonary emboli, possible treatment failure with eliquis started 01/09/20. S/p surgery 11/2019, mostly sedentary- high risk for DVT/PE -Saturating well on 1-2 L NC -Repeat CTA appeared to have RLL thrombus that was increased in size -Upon review with pharmacy, there does not seem to be a break in therapy at the [facility] prior to admission -US b/l lower ext: neg for DVT -F/u Antithrombin III, Protein C&S, factor V Leiden studies -Attempted to contact Dr. Luque (heme/onc) to discuss thoughts ;however, was unable to speak with her today -Recommend c/w lovenox BID for now, therapeutic dosing -Incentive spirometer added Q2 hrs while awake 2. R hip infection, in the setting of recently complete R hip arthroplasty - Continue with ceftriaxone and rifampin as per Dr. Herrera; antibiotics scheduled and 01/30/2020 - c/w Lactobacillus 3. Hypothyroidism - s/p Goiter - c/w Levothyroxine 4. Asthma - No evidence of exacerbation - Not on any inhaled therapy 5. HTN - BP well controlled - c/w Atenolol with holding parameters 6. DLP - Not on statin - c/w ASA 7. Gout - c/w Colchicine 8. DVT prophylaxis - Will c/w full anticoagulation with Lovenox DISPOSITION: PT/OT ordered today. Plan is undecided for discharge. Came to use from [facility] as she was undergoing rehab. VS, I&O, 24H, Fishbone Vital Signs/I&O Vital Signs Date Time Temp Pulse Resp B/P (MAP) Pulse Ox O2 Delivery O2 Flow Rate FiO2 01/14/20 16:00 1.0 01/14/20 16:00 96.9 70 18 125/61 (82) 97 Nasal Cannula I&O- Last 24 Hours up to 6 AM 01/14/20 06:00 Intake Total 50 ml Balance 50 ml Laboratory Data 24H LABS Laboratory Tests 2 01/13/20 21:56: Total Creatine Kinase 25L, Creatine Kinase MB < 1.0, Creatine Kinase MB Relative Index 4.00, Troponin I < 0.02 01/14/20 04:05: Total Creatine Kinase 26, Creatine Kinase MB < 1.0, Creatine Kinase MB Relative Index 3.85, Troponin I < 0.02, Immature Granulocyte % (Auto) 0.3, Neutrophils (%) (Auto) 53.5, Lymphocytes (%) (Auto) 25.4, Monocytes (%) (Auto) 9.2H, Eosinophils (%) (Auto) 10.8H, Basophils (%) (Auto) 0.8, Neutrophils # (Auto) 2.1, Lymphocytes # (Auto) 1.0L, Monocytes # (Auto) 0.4, Eosinophils # (Auto) 0.4, Basophils # (Auto) 0.0, Nucleated Red Blood Cells % (auto) 0.0, Anion Gap 1L, Glomerular Filtration Rate > 60.0, Calcium Level 7.7L, Magnesium Level 1.9 01/14/20 08:17: CBC/BMP Laboratory Tests 01/14/20 04:05 Microbiology Microbiology 01/13/20 Blood Culture - Preliminary, Resulted No growth after 24 hours . All specim... 01/13/20 Respiratory Virus Panel (PCR) (CARLINE) - Final, Complete 01/13/20 Blood Culture - Preliminary, Resulted No growth after 24 hours . All specim... Current Medications Current Medications Medications (Trade) Dose Ordered Sig/Andrew Route PRN Reason Start Time Stop Time Status Last Admin Dose Admin Aspirin (Ecotrin) 81 mg DAILY PO 01/14/20 09:00 01/14/20 08:33 Atenolol (Tenormin) 50 mg DAILY PO 01/14/20 09:00 01/14/20 08:34 Bisacodyl (Dulcolax Suppository) 10 mg DAILY PRN IA CONSTIPATION 01/13/20 21:00 Cefazolin Sodium/ Dextrose (Ancef) 2 gm Q8H IV 01/13/20 22:00 01/14/20 13:26 Colchicine (Colcrys) 0.6 mg BID PO 01/13/20 21:00 01/14/20 08:32 Enoxaparin Sodium (Lovenox) 80 mg Q12H SC 01/13/20 21:00 01/14/20 08:33 Heparin Sodium (Heparin Lock Flush 10units/ml) 30 units ASDIRECTED PRN IV SEE LABEL COMMENTS 01/13/20 18:45 01/13/20 22:53 DC 01/13/20 18:52 Heparin Sodium (Heparin Lock Flush 10units/ml) 30 units ASDIRECTED PRN IV SEE LABEL COMMENTS 01/13/20 23:30 01/14/20 06:05 Heparin Sodium (Heparin Lock Flush 10units/ml) 30 units DAILY IV 01/14/20 09:00 01/14/20 08:34 Home Med (Med Rec Complete!) ASDIRECTED XX 01/13/20 20:45 01/13/20 20:42 DC Lactobacillus Acidophilus (Bacid) 1 ea TID PO 01/13/20 21:00 01/14/20 15:28 Levothyroxine Sodium (Synthroid) 88 mcg DAILY@0600 PO 01/14/20 06:00 01/14/20 06:05 Magnesium Hydroxide (Milk Of Magnesia) 10 ml DAILY PRN PO CONSTIPATION 01/13/20 21:00 Multivitamins (Theragram-M) 1 tab DAILY PO 01/14/20 09:00 01/14/20 08:33 Potassium Chloride (Micro-K Extencaps) 20 meq BID PO 01/13/20 21:00 01/14/20 08:33 Rifampin (Rifadin) 300 mg BID PO 01/13/20 21:00 01/14/20 08:33 Sodium Chloride (Saline Lock Flush) 10 ml ASDIRECTED PRN IV SEE LABEL COMMENTS 01/13/20 23:30 01/14/20 06:06 Sodium Chloride (Saline Lock Flush) 10 ml DAILY IV 01/14/20 09:00 01/14/20 08:34 Tramadol HCl (Ultram) 50 mg Q6H PRN PO PAIN 01/13/20 21:00 Vitamin D (Vitamin D) 1,000 units DAILY@1200 PO 01/14/20 12:00 01/14/20 11:10 Allergies Coded Allergies: Cat Dander (Verified Allergy, Severe, ASTHMA, 06/27/09) allopurinol (Verified Allergy, Unknown, 11/29/19) hydrochlorothiazide (Verified Allergy, Unknown, 11/29/19) mirtazapine (Verified Allergy, Unknown, 11/29/19) acetaminophen (Verified Adverse Reaction, Intermediate, HEART RACES, 12/05/19) Penelope Chapin MD Jan 14, 2020 18:32
[2020-01-14 20:00] VITALS: BP 137/76
--- NOTE | 2020-01-14 23:13 | ECHO ---
DATE OF PROCEDURE: 01/14/2020 REFERRING PHYSICIAN: Dr. Lluvia Alves INDICATION: Dyspnea. HEIGHT: 158 cm WEIGHT: 79.1 kg 2D MEASUREMENTS: Ventricular septum: 1.13 cm Posterior wall: 1.00 cm Left ventricle diastole: 3.1 cm Left atrium: 3.5 cm Aortic root: 3.4 cm Aortic annulus: 1.8 cm Inferior vena cava: 1.4 cm (more than 50% respiratory variation). DOPPLER MEASUREMENTS: Very mild aortic regurgitation. No aortic stenosis. Aortic valve velocity: 128 cm/s LVOT velocity: 108 cm/s LVOT VTI: 27.8 cm No mitral regurgitation. No mitral stenosis. Mitral E velocity: 83.1 cm/s Mitral A velocity: 90.8 cm/s Mitral deceleration time: 362 ms Trace tricuspid regurgitation. No pulmonic regurgitation. MITRAL ANNULAR TISSUE DOPPLER: E prime septal: 5.2 cm/s E prime lateral: 6.1 cm/s Pulmonary acceleration time: 66 ms DESCRIPTION: Rhythm was sinus. Image quality was good. No pericardial effusion. This was a 2D, M-mode, color flow Doppler and pulse wave Doppler examination and included mitral annular tissue Doppler. CONCLUSIONS: 1. Normal left ventricle internal dimensions and wall thickness. Normal regional left ventricular (LV) wall motion and wall thickening. Normal LV systolic function. Left ventricular ejection fraction (LVEF) 65% by visual estimate. Grade 1 LV diastolic dysfunction (impaired relaxation filling pattern). 2. Abbreviated pulmonary acceleration time suggestive of at least moderate elevation of pulmonary artery systolic pressure. 3. Mild mitral annular calcification. No mitral regurgitation. 4. Mild aortic valve sclerosis of a 3-cusp aortic valve. Very mild aortic regurgitation. 5. Otherwise normal appearing echocardiogram Doppler findings.
[2020-01-15] VITALS: BP 133/61
[2020-01-15 04:00] VITALS: BP 124/58
[2020-01-15] MEDS: ceFAZolin 2 GM/D5W 50 ML IV BAG (J0690 PER 500MG) IV SCH (05:40)
[2020-01-15] MEDS: LEVOTHYROXINE 88MCG TABLET (0.088 MG) PO SCH (05:40)
[2020-01-15] MEDS: SODIUM CHLORIDE 0.9% INJ 10 ML SYR IV PRN (05:41)
[2020-01-15 05:45] LABS: BASO % 0.9 % (0.0-1.0); EOS # 0.5 10^3/uL (0.0-0.5); EOS % 10.4 % (0.0-3.0); HEMATOCRIT 29.3 % (36.0-47.0); HEMOGLOBIN 9.2 g/dl (12.0-15.5); LYMPH % 21.4 % (24.0-44.0); MEAN CORPUSCULAR HEMOGLOBIN 32.3 pg (27.0-33.0); MEAN CORPUSCULAR HGB CONC 31.4 g/dl (32.0-36.5); MEAN CORPUSCULAR VOLUME 102.8 fl (80.0-96.0); MONO # 0.4 10^3/uL (0.0-0.8); MONO % 9.1 % (0.0-5.0); NEUTROPHILS # 2.6 10^3/uL (1.5-8.5); PLATELET COUNT, AUTOMATED 138 10^3/uL (150-450); RED BLOOD COUNT 2.85 10^6/uL (4.00-5.40); WHITE BLOOD COUNT 4.5 10^3/uL (4.0-10.0)
[2020-01-15 06:03] LABS: BLOOD UREA NITROGEN 7 MG/DL (7-18); CALCIUM LEVEL 7.6 MG/DL (8.8-10.2); CARBON DIOXIDE LEVEL 27 MEQ/L (21-32); CHLORIDE LEVEL 111 MEQ/L (98-107); GLOMERULAR FILTRATION RATE > 60.0 (>32); GLUCOSE, FASTING 66 MG/DL (70-100); MAGNESIUM LEVEL 1.8 MG/DL (1.8-2.4); POTASSIUM SERUM 3.9 MEQ/L (3.5-5.1); SODIUM LEVEL 144 MEQ/L (136-145)
[2020-01-15 08:00] VITALS: BP 118/56
[2020-01-15] MEDS ORDERED: LOVE0.6I2 SC (08:09)
[2020-01-15] MEDS: LACTOBACILLUS ACIDOPHILUS CAP (BACID) PO SCH (08:28)
[2020-01-15] MEDS: SODIUM CHLORIDE 0.9% INJ 10 ML SYR IV SCH (08:28)
[2020-01-15] MEDS: ENOXAPARIN 80MG/0.8ML SYRINGE (J1650 PER 10MG) SC SCH (08:28)
[2020-01-15 08:29] VITALS: BP 118/56
[2020-01-15] MEDS: atenoloL 50 MG TAB PO SCH (08:29)
[2020-01-15] MEDS: ASPIRIN 81 MG ENTERIC TAB PO SCH (08:29)
[2020-01-15] MEDS: COLCHICINE 0.6 MG TAB PO SCH (08:29)
[2020-01-15] MEDS: POTASSIUM CHLORIDE 10 MEQ SR TABLET PO SCH (08:29)
[2020-01-15] MEDS: MULTIVITAMINS/MINERALS THERAP 1 TAB PO SCH (08:29)
[2020-01-15] MEDS: VITAMIN D 1,000 INTERNATIONAL UNITS TABLET PO SCH (11:19)
[2020-01-15] MEDS ORDERED: ELIQ5TAB PO (12:24)
[2020-01-15] MEDS ORDERED: PRIL20TA2 PO (12:25)
== END 2020-01-15 14:20 | DRG 176 ==
LOC: EDBD 15:47 → M ED 15:47 → M ED INP 20:52 → ENRESERV 22:21 → M PCU 22:50
PROVIDERS: ADMIT Internal Medicine; ATTEND Internal Medicine
DX: I26.99 Other pulmonary em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 acute cor pulmonale (principal); J45.909 Unspecified asthma, uncomplicated; Z96.641 Presence of right artificial hip joint; Z79.82 Long term (current) use of aspirin; Z79.899 Other long term (current) drug therapy; Z88.8 Allergy status to other drugs, medicaments and biological substances; E03.9 Hypothyroidism, unspecified; Z88.6 Allergy status to analgesic agent; N18.2 Chronic kidney disease, stage 2 (mild); E53.8 Deficiency of other specified B group vitamins; M10.9 Gout, unspecified; L40.8 Other psoriasis; I12.9 Hypertensive chronic kidney disease with stage 1 through stage 4 chronic kidney disease, or unspecified chronic kidney disease

== ENCOUNTER → 2020-01-17 | Outpatient (REF) ==
[~2020-01-17] MED LIST changes: -ASPI81TA85 PO; +ASPI81TA86 PO; +BACITAB PO; +D31000TA2 PO; +DULC10SU2 PR; +ELIQ5TAB PO; +LOVE0.6I2 SC; +MOM30SS PO; +MULTCAP PO; +PRIL20TA2 PO; +RIFA300C3 PO; +TRAM50TA2 PO; -VITAD1000T PO
== END ==
LOC: SKLAB5 06:58
DX: T84.51XA Infection and inflammatory reaction due to internal right hip prosthesis, initial encounter (principal)

== ENCOUNTER → 2020-01-22 | Outpatient (POV) | payer MEDICARE, BC ==
--- NOTE | 2020-02-28 10:15 | IRPN ---
[facility] IR Progress Note IR Progress Note DATE: Jan 22, 2020 Patient agreed to this telephone consultation. Duration of call 15 minutes. FOLLOW-UP: Patient with right IJ Mills catheter in place. Getting IV antibiotics for hip infection. Recent diagnosis of PE. Mild shortness of breath on exertion. Patient denies pain in the neck or swelling over the clavicle. Imaging: I ordered a venous ultrasound of the right neck and personally reviewed the ultrasound obtained 01/17/2020. The right internal jugular vein is patent. There is no IJ or subclavian vein thrombosis. IMPRESSION: No venous thrombosis associated with Mills catheter. Mills catheter may remain in place and continue to be used. When Mills catheter is no longer needed, I'd be happy to remove it. Thank you for this referral cc Mayi Jalloh MD Cc PCP Allergies Coded Allergies: Cat Dander (Verified Allergy, Severe, ASTHMA, 06/27/09) allopurinol (Verified Allergy, Unknown, 11/29/19) hydrochlorothiazide (Verified Allergy, Unknown, 11/29/19) mirtazapine (Verified Allergy, Unknown, 11/29/19) acetaminophen (Verified Adverse Reaction, Intermediate, HEART RACES, 12/05/19) ROBY EDGE MD Feb 28, 2020 10:14
== END ==
LOC: M TMIRPOV 08:45
PROVIDERS: ATTEND Radiology Diagnostic Radiology
DX: Z45.2 Encounter for adjustment and management of vascular access device (principal); R06.09 Other forms of dyspnea

== ENCOUNTER → 2020-01-23 | Outpatient (REF) | payer MEDICARE, BC ==
[2020-03-07 09:36] LABS: HEMATOCRIT 30.2 % (36.0-47.0); HEMOGLOBIN 9.4 g/dl (12.0-15.5); MEAN CORPUSCULAR HEMOGLOBIN 31.9 pg (27.0-33.0); MEAN CORPUSCULAR HGB CONC 31.1 g/dl (32.0-36.5); MEAN CORPUSCULAR VOLUME 102.4 fl (80.0-96.0); PLATELET COUNT, AUTOMATED 134 10^3/uL (150-450); RED BLOOD COUNT 2.95 10^6/uL (4.00-5.40); WHITE BLOOD COUNT 3.9 10^3/uL (4.0-10.0)
[2020-03-09 02:31] LABS: BLOOD UREA NITROGEN 9 MG/DL (7-18); CALCIUM LEVEL 7.5 MG/DL (8.8-10.2); CARBON DIOXIDE LEVEL 27 MEQ/L (21-32); CHLORIDE LEVEL 110 MEQ/L (98-107); CREATININE FOR GFR 0.87 MG/DL (0.55-1.30); GLOMERULAR FILTRATION RATE > 60.0 (>32); GLUCOSE, FASTING 96 MG/DL (70-100); POTASSIUM SERUM 4.1 MEQ/L (3.5-5.1); SODIUM LEVEL 143 MEQ/L (136-145)
== END ==
LOC: SKLAB5 16:41
DX: A04.72 Enterocolitis due to Clostridium difficile, not specified as recurrent (principal)

== ENCOUNTER → 2020-01-29 | Outpatient (REF) | payer MEDICARE, BC | LOC: CANPREREF → SKLAB5 06:00 | DX: Z53.9 Procedure and treatment not carried out, unspecified reason (principal) ==

== ENCOUNTER → 2020-01-30 | Outpatient (CLI) | payer MEDICARE, BC ==
[~2020-01-30] MED LIST changes: +LIDOCAINE 1% MDV 20ML VIAL ONE
--- NOTE | 2020-02-29 10:55 | POST-OPPD ---
Postoperative Procedure Note Date Of Procedure: Jan 30, 2020 Time Of Procedure: 16:00 Full op note. IR Tunneled Catheter Removal Clinical Information: Hip osteomyelitis. Completed IV therapy. Requires Mills removal. Physician: Dr. Edge Procedure: The patient was advised of the benefits, risks, and alternatives of the procedure and informed consent was obtained. A time out was performed with verification of the patient's name, MRN, site of procedure, and type of procedure to be performed. The patient was positioned in the supine position. The indwelling catheter Mills catheter was prepped and draped in the usual sterile fashion. 2% lidocaine was injected along the catheter tract. Using sterile curved hemostats, the cuff of the catheter was dissected free and the catheter was then easily removed. Direct pressure was applied to the jugular puncture site for 10 minutes and a sterile dressing was applied to the site. EBL:Less than 5 mL Complications:None Conclusion: Successful removal of a catheter without immediate complications or bleeding. ROBY EDGE MD Feb 29, 2020 10:55
== END ==
LOC: M IRPRO 11:00
PROVIDERS: ATTEND Physician Assistant
DX: M86.9 Osteomyelitis, unspecified (principal)

== ENCOUNTER → 2020-02-14 | Outpatient (CLI) | payer MEDICARE, BC ==
[~2020-02-14] MED LIST changes: -LIDOCAINE 1% MDV 20ML VIAL ONE
[2020-02-14 15:43] LABS: BASO # 0.1 10^3/uL (0.0-0.2); BASO % 0.7 % (0.0-1.0); EOS # 0.9 10^3/uL (0.0-0.5); HEMATOCRIT 32.9 % (36.0-47.0); HEMOGLOBIN 10.5 g/dl (12.0-15.5); LYMPH # 1.3 10^3/uL (1.5-5.0); LYMPH % 19.5 % (24.0-44.0); MEAN CORPUSCULAR HEMOGLOBIN 30.5 pg (27.0-33.0); MEAN CORPUSCULAR HGB CONC 31.9 g/dl (32.0-36.5); MEAN CORPUSCULAR VOLUME 95.6 fl (80.0-96.0); MONO # 0.6 10^3/uL (0.0-0.8); MONO % 8.2 % (0.0-5.0); NEUTROPHILS % 58.3 % (36.0-66.0); PLATELET COUNT, AUTOMATED 170 10^3/uL (150-450); RED BLOOD COUNT 3.44 10^6/uL (4.00-5.40); WHITE BLOOD COUNT 6.9 10^3/uL (4.0-10.0)
[2020-02-14 20:48] LABS: ERYTHROCYTE SEDIMENTATION RATE 18 mm/hr (0-30)
== END ==
LOC: M PLALAB 13:43
PROVIDERS: ATTEND Internal Medicine Infectious Disease
DX: R19.7 Diarrhea, unspecified (principal); B95.61 Methicillin susceptible Staphylococcus aureus infection as the cause of diseases classified elsewhere
CPT/HCPCS: 36415; 85025; 85652; 86140; G0463

== ENCOUNTER → 2020-03-10 | Outpatient (REF) | payer MEDICARE, BC ==
[2020-03-10 12:44] LABS: HEMOGLOBIN 10.4 g/dl (12.0-15.5); MEAN CORPUSCULAR HEMOGLOBIN 30.4 pg (27.0-33.0); MEAN CORPUSCULAR HGB CONC 32.5 g/dl (32.0-36.5); MEAN CORPUSCULAR VOLUME 93.6 fl (80.0-96.0); PLATELET COUNT, AUTOMATED 190 10^3/uL (150-450); RED BLOOD COUNT 3.42 10^6/uL (4.00-5.40); WHITE BLOOD COUNT 6.3 10^3/uL (4.0-10.0)
[2020-03-10 13:11] LABS: FREE T4 1.35 NG/DL (0.76-1.46); GLOMERULAR FILTRATION RATE 55.8 (>32); MAGNESIUM LEVEL 1.9 MG/DL (1.8-2.4); POTASSIUM SERUM 3.7 MEQ/L (3.5-5.1); THYROID STIMULATING HORMONE 3.72 uIU/ML (0.358-3.740)
== END ==
LOC: M SFHCADAM 12:20
PROVIDERS: ATTEND Family Medicine
DX: E03.9 Hypothyroidism, unspecified (principal); R60.0 Localized edema

== ENCOUNTER → 2020-04-02 | Outpatient (REF) | payer MEDICARE, BC ==
[2020-04-02 14:28] LABS: CALCIUM LEVEL 8.7 MG/DL (8.8-10.2); CREATININE FOR GFR 1.02 MG/DL (0.55-1.30); GLOMERULAR FILTRATION RATE 54.6 (>32); MAGNESIUM LEVEL 2.2 MG/DL (1.8-2.4); POTASSIUM SERUM 3.8 MEQ/L (3.5-5.1)
== END ==
LOC: M LABDRWAD 12:46
PROVIDERS: ATTEND Family Medicine
DX: I11.9 Hypertensive heart disease without heart failure (principal)

== ENCOUNTER → 2020-07-08 | Outpatient (REF) | payer MEDICARE, BC ==
[~2020-07-08] MED LIST changes: +COLC0.6T47 PO; -COLC1TAB13 PO
[2020-07-08 17:49] LABS: HEMATOCRIT 32.8 % (36.0-47.0); HEMOGLOBIN 10.1 g/dl (12.0-15.5); MEAN CORPUSCULAR HEMOGLOBIN 27.1 pg (27.0-33.0); MEAN CORPUSCULAR HGB CONC 30.8 g/dl (32.0-36.5); MEAN CORPUSCULAR VOLUME 87.9 fl (80.0-96.0); PLATELET COUNT, AUTOMATED 180 10^3/uL (150-450); RED BLOOD COUNT 3.73 10^6/uL (4.00-5.40); WHITE BLOOD COUNT 8.1 10^3/uL (4.0-10.0)
[2020-07-08 18:09] LABS: APPEARANCE, URINE TURBID (CLEAR); BACTERIA, URINE AUTO NEGATIVE (NEGATIVE); BILIRUBIN, URINE AUTO NEGATIVE (NEGATIVE); BLOOD, URINE BLOOD 3+ (NEGATIVE); CALCIUM OXALATE CRYSTALS SMALL; COLOR, URINE AMBER (YELLOW); GLUCOSE, URINE (UA) AUTO NEGATIVE (NEGATIVE); KETONE, URINE AUTO NEGATIVE (NEGATIVE); LEUKOCYTE ESTERASE, URINE AUTO TRACE (NEGATIVE); MUCUS, URINE MODERATE (NEGATIVE); NITRITE, URINE AUTO NEGATIVE (NEGATIVE); PROTEIN, URINE AUTO 2+ mg/dL (NEGATIVE); RBC, URINE AUTO TNTC /HPF (0-3); SPECIFIC GRAVITY URINE AUTO 1.014 (1.002-1.035); SQUAMOUS EPITHELIAL CELL UR AU 1 /HPF (0-6); UROBILINOGEN, URINE AUTO 0.2 mg/dL (0.0-2.0); WBC, URINE AUTO 23 /HPF (0-3)
[2020-07-08 18:27] LABS: ALBUMIN 2.9 GM/DL (3.2-5.2); BILIRUBIN,TOTAL 0.8 MG/DL (0.2-1.0); CALCIUM LEVEL 9.1 MG/DL (8.8-10.2); CHOLESTEROL RISK RATIO 5.59 (<5); CREATININE FOR GFR 1.21 MG/DL (0.55-1.30); FOLATE 3.3 NG/ML (>5.4); FREE T4 1.62 NG/DL (0.76-1.46); GLOMERULAR FILTRATION RATE 44.8 (>32); PERCENT SATURATION 8.6 % (13.2-45.0); POTASSIUM SERUM 3.8 MEQ/L (3.5-5.1); THYROID STIMULATING HORMONE 0.8 uIU/ML (0.358-3.740); TOTAL PROTEIN 7.5 GM/DL (6.4-8.2); URIC ACID 7.1 MG/DL (2.6-6.0)
[2020-07-10 18:07] LABS: FREE KAPPA LIGHT CHAINS SERUM 96.9 mg/L (3.3-19.4); KAPPA/LAMBDA RATIO SERUM 1.76 (0.26-1.65)
== END ==
LOC: M SFHCADAM 11:33
PROVIDERS: ATTEND Family Medicine
DX: N18.2 Chronic kidney disease, stage 2 (mild) (principal); I11.0 Hypertensive heart disease with heart failure; E03.9 Hypothyroidism, unspecified; E78.2 Mixed hyperlipidemia; M10.9 Gout, unspecified; R31.9 Hematuria, unspecified; E53.8 Deficiency of other specified B group vitamins; D64.9 Anemia, unspecified
CPT/HCPCS: 80053; 80061; 81001; 82607; 82728; 82746; 83550; 83883; 84439; 84443; 84550; 85027; 85046; 87086; G0463

== ENCOUNTER → 2020-08-04 | Outpatient (REF) | payer MEDICARE, BC ==
[2020-08-04 14:27] LABS: TOTAL PROTEIN 7.4 GM/DL (6.4-8.2)
[2020-08-05 11:56] LABS: ALBUMIN 3.23 GM/DL (3.29-5.55); ALBUMIN % 43.7 % (55.8-66.1); ALPHA-1-GLOBULIN % 3.8 % (2.9-4.9); ALPHA-1-GLOBULINS 0.28 GM/DL (0.17-0.41); ALPHA-2-GLOBULINS 0.64 GM/DL (0.42-0.99); ALPHA-2-GLOBULINS % 8.7 % (7.1-11.8); BETA-1-GLOBULINS 0.56 GM/DL (0.28-0.60); BETA-1-GLOBULINS % 7.6 % (4.7-7.2); BETA-2-GLOBULINS 0.54 GM/DL (0.19-0.55); BETA-2-GLOBULINS % 7.3 % (3.2-6.5); GAMMA GLOBULIN % 28.9 % (11.1-18.8); GAMMA GLOBULINS 2.14 GM/DL (0.65-1.58)
== END ==
LOC: M SFHCADAM 11:34
PROVIDERS: ATTEND Family Medicine
DX: I26.99 Other pulmonary em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 acute cor pulmonale (principal); D89.89 Other specified disorders involving the immune mechanism, not elsewhere classified

== ENCOUNTER → 2020-08-11 | Outpatient (REF) | payer MEDICARE, BC ==
[2020-08-11 14:43] LABS: HEMATOCRIT 31.1 % (36.0-47.0); HEMOGLOBIN 9.6 g/dl (12.0-15.5); MEAN CORPUSCULAR HEMOGLOBIN 27.2 pg (27.0-33.0); MEAN CORPUSCULAR HGB CONC 30.9 g/dl (32.0-36.5); MEAN CORPUSCULAR VOLUME 88.1 fl (80.0-96.0); PLATELET COUNT, AUTOMATED 145 10^3/uL (150-450); RED BLOOD COUNT 3.53 10^6/uL (4.00-5.40); WHITE BLOOD COUNT 6.9 10^3/uL (4.0-10.0)
== END ==
LOC: M SFHCADAM 10:54
PROVIDERS: ATTEND Family Medicine
DX: D52.9 Folate deficiency anemia, unspecified (principal); D89.89 Other specified disorders involving the immune mechanism, not elsewhere classified

== ENCOUNTER 2020-08-25 10:29 | Observation (INO) | payer MEDICARE, BC ==
[~2020-08-25] VITALS: Ht 157.5 cm; Wt 75.9 kg
[2020-08-25] MEDS ORDERED: HYDR-3490 PO (10:54)
[2020-08-25] MEDS ORDERED: ELIQ2.5T PO (10:54)
[2020-08-25] MEDS ORDERED: PERC5TAB12 PO (10:54)
[2020-08-25] MEDS ORDERED: traMADol 50 MG TAB PO ONE (11:10)
[2020-08-25] MEDS ORDERED: NS 500 ML IV ONE (11:10)
--- NOTE | 2020-08-25 11:29 | REP ---
INDICATION: left low back/flank pain COMPARISON: 01/13/2020 TECHNIQUE: Portable AP view of the chest FINDINGS: Stable cardiomegaly is suggested. Lung campbell demonstrate stable chronic interstitial changes. No obvious acute consolidation, effusion, or pneumothorax. Skeletal structures demonstrate age-related degenerative changes primarily involving the bilateral shoulders. IMPRESSION: Stable cardiomegaly and chronic changes. <Electronically signed by Clay Bhardwaj > 08/25/20 [id number]
--- NOTE | 2020-08-25 11:43 | REP ---
INDICATION: left flank pain COMPARISON: 10/07/2018 TECHNIQUE: Axial noncontrast images from the lung bases to the pubic symphysis with coronal and sagittal reformations. This CT examination was performed using the following dose reduction techniques: Automated exposure control, adjustment of mA and/or kv according to the patient's size, and use of iterative reconstruction technique. FINDINGS: There is mild acute left-sided obstructive uropathy with proximal hydroureteronephrosis with obstructing 7.3 mm calculus at the ureteropelvic junction (series 201; image 86). Bilateral nonobstructing intrarenal calculi measuring up to 12 mm in the right kidney are identified along with stable 5 cm right renal cyst. Liver, spleen, pancreas, and bilateral adrenal glands are normal. Cholelithiasis noted without acute cholecystitis. The enteric system is without obstruction or acute inflammatory process. Diverticulosis noted without acute diverticulitis. Evaluation of the pelvis is limited by beam hardening artifact from right hip prosthesis. No obvious ascites. No free air. No obvious adenopathy. Atherosclerotic changes to the aorta and vasculature noted. Musculoskeletal structures demonstrate age-related osteopenia and degenerative changes. IMPRESSION: 1. Acute left-sided obstructive uropathy with a 7.3 mm obstructing calculus at the ureteropelvic junction. Bilateral nephroliths measure up to 12 mm in the right kidney. Stable 5 cm right renal cyst. 2. Cholelithiasis. 3. Diverticulosis 4. Limited evaluation of the pelvis due to beam hardening artifact without obvious acute process. <Electronically signed by Clay Bhardwaj > 08/25/20 [id number]
[2020-08-25 12:00] LABS: BASO # 0.1 10^3/uL (0.0-0.2); EOS # 0.6 10^3/uL (0.0-0.5); EOS % 6.2 % (0.0-3.0); HEMATOCRIT 31.7 % (36.0-47.0); LYMPH # 0.8 10^3/uL (1.5-5.0); LYMPH % 9.1 % (24.0-44.0); MEAN CORPUSCULAR HEMOGLOBIN 27.7 pg (27.0-33.0); MEAN CORPUSCULAR HGB CONC 31.5 g/dl (32.0-36.5); MEAN CORPUSCULAR VOLUME 87.8 fl (80.0-96.0); MONO # 0.7 10^3/uL (0.0-0.8); MONO % 7.6 % (2.0-8.0); NEUTROPHILS # 6.9 10^3/uL (1.5-8.5); NEUTROPHILS % 75.8 % (36.0-66.0); PLATELET COUNT, AUTOMATED 145 10^3/uL (150-450); RED BLOOD COUNT 3.61 10^6/uL (4.00-5.40); WHITE BLOOD COUNT 9.1 10^3/uL (4.0-10.0)
[2020-08-25 12:32] LABS: ALBUMIN 2.8 GM/DL (3.2-5.2); BILIRUBIN,DIRECT 0.4 MG/DL (0.0-0.2); BILIRUBIN,TOTAL 1.3 MG/DL (0.2-1.0); CALCIUM LEVEL 8.5 MG/DL (8.8-10.2); CREATININE FOR GFR 1.97 MG/DL (0.55-1.30); GLOMERULAR FILTRATION RATE 25.5 (>32); POTASSIUM SERUM 3.9 MEQ/L (3.5-5.1)
[2020-08-25 15:00] LABS: RSV AMPLIFICATION NEGATIVE (NEGATIVE)
[2020-08-25 15:11] LABS: INR 1.54; PROTHROMBIN TIME 18.8 SECONDS (12.5-14.3)
[2020-08-25 15:12] LABS: PARTIAL THROMBOPLASTIN TIME 38.4 SECONDS (24.2-38.5)
[2020-08-25] MEDS ORDERED: MULT-40 PO (15:13)
[2020-08-25] MEDS ORDERED: traMADol 50 MG TAB PO PRN (15:25)
[2020-08-25] MEDS ORDERED: CLINDAMYCIN 600 MG in IV 1 EA IV ONE ×2 (15:45→16:30)
[2020-08-25 16:00] VITALS: BP 157/71
[2020-08-25] MEDS ORDERED: ONDANSETRON 4MG/2ML VIAL As Ordered ONE (16:30)
[2020-08-25] MEDS ORDERED: fentaNYL 100 MCG/2 ML INJECTION (J3010) As Ordered ONE (16:30)
[2020-08-25] MEDS ORDERED: dexameTHASONE 4 MG/ML 1ML VIAL (J1100 PER 1MG) As Ordered ONE (16:30)
[2020-08-25] MEDS ORDERED: MIDAZOLAM INJ 2MG/2ML VIAL (J2250 PER 1MG) As Ordered ONE (16:30)
[2020-08-25] MEDS ORDERED: propofoL 200 MG/20 ML VIAL As Ordered ONE (16:31)
[2020-08-25] MEDS ORDERED: CONRAY-60 60% 50ML VIAL (Q9961) As Ordered ONE (16:40)
[2020-08-25] MEDS ORDERED: OMEP-341 PO (17:03)
[2020-08-25] MEDS ORDERED: ACETAMINOPHEN 1000MG 100ML IV BTL (OFIRMEV) (J0131 PER 10MG) As Ordered ONE (17:32)
[2020-08-25] MEDS ORDERED: oxyCODONE 5MG TAB PO PRN (18:10)
[2020-08-25] MEDS ORDERED: ONDANSETRON 4MG/2ML VIAL IV PRN (18:10)
[2020-08-25] MEDS ORDERED: fentaNYL 100 MCG/2 ML INJECTION (J3010) IV PRN (18:10)
[2020-08-25] MEDS ORDERED: diphenhydrAMINE 50MG/ML VIAL (J1200) IV PRN (18:10)
[2020-08-25] MEDS ORDERED: MEPERIDINE INJ 25 MG/ML VIAL (J2175) IV PRN (18:10)
[2020-08-25] MEDS ORDERED: HYDROMORPHONE HCL 0.5 MG/ 0.5 ML SYRINGE (J1170 PER 1) IV PRN (18:10)
[2020-08-25] MEDS ORDERED: LR 1,000 ML IV SCH ×2 (18:10→18:15)
--- NOTE | 2020-08-25 18:25 | SMCUROLCON ---
Urology Consultation General Date of Consultation 08/25/20 Reason For Consultation This patient is seen for Peter,Left Ureteral Calculus. History of Present Illness The patient is a 89-year-old female who presented to the emergency room with acute onset of left flank pain. CT scan shows she has a 7 mm ureteral calculus which by report is at the [facility] at interpretation of the x-ray shows that it is in the lower part of the middle third of the ureter. This is causing some hydroureteronephrosis. Because of her pain, presence of bacteria in the urine and hydroureteronephrosis as the size of the stone and the unlikely chance that she will be able to pass it, I recommended a stent insertion with possible urete roscopic laser lithotripsy. The patient is on Eliquis for a known pulmonary embolism Past Medical History Medical History Anemia Chronic kidney disease Gout Hematuria Left ureteral calculus F hypertensive heart disease Hypothyroidism Hyperlipidemia Pulmonary embolism Surgical Hstory Right knee replacement Family History Significant Family History: No pertinent family hx Social History * Smoker: non-smoker Alcohol: Denies Drugs: denies Medications Current Medications Current Medications Medications (Trade) Dose Ordered Sig/Andrew Route PRN Reason Start Time Stop Time Status Last Admin Dose Admin Diphenhydramine HCl (Benadryl) 12.5 mg Q4HP PRN IV PRURITIS ASSOC WITH NARCOTICS 08/25/20 18:10 08/25/20 19:10 Fentanyl Citrate (Sublimaze) 25 mcg Q5MP PRN IV PAIN LEVEL 5-10 08/25/20 18:10 08/25/20 19:10 Home Med (Med Rec Complete!) ASDIRECTED XX 08/25/20 17:05 08/25/20 17:08 DC Hydromorphone HCl (Dilaudid) 0.2 mg Q5MP PRN IV PAIN LEVEL 4-7 08/25/20 18:10 08/25/20 19:10 Lactated Ringer's 1,000 ml @ 30 mls/hr Q24H IV 08/25/20 18:15 Lactated Ringer's 1,000 ml @ 100 mls/hr Q10H IV 08/25/20 18:10 08/25/20 19:10 Meperidine HCl (Demerol) 12.5 mg Q5MP PRN IV SHIVERING 08/25/20 18:10 08/25/20 19:10 Ondansetron HCl (ZOFRAN INJection) 4 mg Q4HP PRN IV NAUSEA OR VOMITING 08/25/20 18:10 08/25/20 19:10 Oxycodone HCl (Roxicodone, Oxyir) 5 mg ASDIRECTED PRN PO PAIN LEVEL 1-4 08/25/20 18:10 08/25/20 19:10 Tramadol HCl (Ultram) 50 mg Q6HP PRN PO MODERATE PAIN (PS 5-7) 08/25/20 15:25 08/25/20 18:13 DC Allergies Allergies: Coded Allergies: Cat Dander (Verified Allergy, Severe, ASTHMA, 06/27/09) allopurinol (Verified Allergy, Unknown, 11/29/19) cephalexin (Verified Allergy, Unknown, 08/25/20) rash mirtazapine (Verified Allergy, Unknown, 11/29/19) acetaminophen (Verified Adverse Reaction, Intermediate, HEART RACES, 12/05/19) ropinirole (Verified Adverse Reaction, Unknown, 08/25/20) palpitations Review of Systems General: Reports: Normal Appetite; Denies: Fatigue, Malaise Constitutional: Denies: Fever, Chills, Sweats, Weakness, Malaise Eyes: Denies: Pain, Vision change ENT: Denies: Head Aches, Sore Throat, Epistaxis Skin: Denies: Rash, Lesions, Breakdown, Nail Changes Pulmonary: Denies: Dyspnea, Cough Cardiovascular: Denies Chest Pain, Denies Palpitations Gastrointestinal: Reports: Abdominal Pain; Denies: Nausea, Vomiting Genitourinary: Denies: Dysuria, Frequency, Incontinence, Hematuria Hematologic: Denies: Bruising, Bleeding Excessively Endocrine: Denies: Polydipsia, Polyphagia, Polyuria Musculoskeletal: Denies: Neck Pain, Back Pain Neurological: Denies: Weakness, Numbness, Incoordination, Change in Speech Psych: Reports: Mood Normal; Denies: Anxiety, Depression Physical Examination General Exam: Cooperative, Mild Distress EYE EXAM: PERRLA, Conjunctiva & lids normal, EOMI; No: Sclera icteric ENT EXAM: Atraumatic, Mucous membr. moist/pink, Pharynx Normal Neck Exam: Supple; No: JVD, thyromegaly Chest Exam: Clear to auscultation, Normal air movement Heart Exam: Rate Normal, Regular Rhythm, Normal S1, Normal S2; No: Murmurs, Rubs Abdomen Exam: Normal Bowel Sounds, Soft, Tenderness; No: Hepatospenomegaly Extremity Exam: Normal Pulses; No: Clubbing, Cyanosis, Edema Skin Exam: Nl turgor and temperature; No: Rash, Breakdown Neuro Exam: Normal Gait, Normal Speech, Cranial Nerves 3-12 NL, Reflexes 2+ Psych Exam: Mental status NL, Mood NL, Oriented x 3 Vital Signs/I&O Vital Signs Date Time Temp Pulse Resp B/P (MAP) Pulse Ox O2 Delivery O2 Flow Rate FiO2 08/25/20 18:10 63 16 127/59 (81) 100 Non-Rebreather 10 08/25/20 17:57 97.3 Laboratory Data 24H Labs Laboratory Tests 2 08/25/20 11:24: Immature Granulocyte % (Auto) 0.3, Neutrophils (%) (Auto) 75.8H, Lymphocytes (%) (Auto) 9.1L, Monocytes (%) (Auto) 7.6, Eosinophils (%) (Auto) 6.2H, Basophils (%) (Auto) 1.0, Neutrophils # (Auto) 6.9, Lymphocytes # (Auto) 0.8L, Monocytes # (Auto) 0.7, Eosinophils # (Auto) 0.6H, Basophils # (Auto) 0.1, Nucleated Red Blood Cells % (auto) 0.0, Anion Gap 6L, Glomerular Filtration Rate 25.5L, Lactic Acid Level 1.7, Calcium Level 8.5L, Total Bilirubin 1.3H, Direct Bilirubin 0.4H, Aspartate Amino Transf (AST/SGOT) 24, Alanine Aminotransferase (ALT/SGPT) 18, Alkaline Phosphatase 124H, Total Protein 7.0, Albumin 2.8L, Albumin/Globulin Ratio 0.7L 08/25/20 12:17: Prothrombin Time 18.8H, Prothromb Time International Ratio 1.54, Activated Partial Thromboplast Time 38.4 08/25/20 13:00: Urine Color YELLOW, Urine Appearance CLOUDYH, Urine pH 6.0, Urine Specific [place] 1.012, Urine Protein 1+H, Urine Glucose (UA) NEGATIVE, Urine Ketones NEGATIVE, Urine Blood 3+H, Urine Nitrite NEGATIVE, Urine Bilirubin NEGATIVE, Urine Urobilinogen 0.2, Urine Leukocyte Esterase 1+H, Urine WBC (Auto) 45H, Urine RBC (Auto) TNTCH, Urine Hyaline Casts (Auto) 0, Urine Bacteria (Auto) NEGATIVE, Urine Squamous Epithelial Cells 2, Urine Mucus (Auto) SMALL, Urine Sperm (Auto) 08/25/20 14:07: Coronavirus (COVID-19)(PCR) NEGATIVE, Influenza Type A (RT-PCR) NEGATIVE, Influenza Type B (RT-PCR) NEGATIVE, Respiratory Syncytial Virus (PCR) NEGATIVE CBC/BMP Laboratory Tests 08/25/20 11:24 Microbiology Microbiology 08/25/20 Urine Culture, Received Pending Assessment Review of CT scan shows a 7 mm mid ureteral calculus with hydroureteronephrosis. Plan Because of the patient's pain, stone location, degree of hydroureteronephrosis and bacteria in the urine, the patient needs to be taken to the operating room for a minimum of a stent insertion and hopefully ureteroscopic laser lithotripsy. The alternative treatments, and advantages, disadvantages and possible complications were discussed with the patient and she agrees to continue with plans to perform laser lithotripsy and stent insertion. Time Spent on Consult: Time Spent / Consult (Minutes): 60 KELLY BALL MD Aug 25, 2020 18:25
--- NOTE | 2020-08-25 18:30 | REP ---
INDICATION: LEFT CYSTO, URETEROSCOPY W/ LASER LITHO, POSS STENT. COMPARISON: None. TECHNIQUE: Intraoperative fluoroscopic imaging FINDINGS: Single image demonstrates left ureteral stent placement. Total fluoroscopic time 16 seconds. IMPRESSION: Status post left ureteral stent placement. <Electronically signed by Clay Bhardwaj > 08/25/20 [id number]
--- NOTE | 2020-08-25 18:32 | ROOPDOC ---
[facility] Report Of Operation Report of Operation DATE OF PROCEDURE: 08/25/20 PREPROCEDURE DIAGNOSES: Left ureteral calculus with hydroureteronephrosis POSTPROCEDURE DIAGNOSES: Same plus pyonephrosis PROCEDURE: Cystoscopy, left retrograde pyelogram, ureteral stent insertion, x- ray interpretation and fluoroscopy SURGEON: Sy Flores MD SCRATCHER TENDER: None ANESTHESIA: Mac ESTIMATED BLOOD LOSS: Approximately 0 mL. COMPLICATIONS: None REMARKS: Because of the presence of pyonephrosis as well as the fact that the patient is analogous, the decision was made intraoperatively to forego laser lithotripsy and just insert a ureteral stent. She'll be brought back to the operating room in 2 weeks or more for laser lithotripsy of the mid left ureteral calculus. PROCEDURE NOTE: Patient was brought to the operating room because of the location of the stone, size of the stone and the degree of hydroureteronephrosis. DESCRIPTION OF PROCEDURE: Patient was placed on table in the supine position, given Mac anesthesia, placed in lithotomy position, prepped with Betadine paint, draped in aseptic manner and timeout was performed. A 21 [place] cystoscope was then inserted into the meatus and advanced under direct vision of the 30 lens to the bladder. In the bladder, the patient was noted to have some hematuria but the source of the hematuria was undetermined. The bladder was irrigated and the ureteral orifices were identified. There was clear efflux from the right ureteral orifice but nothing from the left side. A Pollack catheter was then inserted into the orifice and retrograde injection of Conray showed the patient had a normal ureter up to the stone and proximal to this there was hydroureteronephrosis. A wire guide was then passed through the c atheter up to the renal pelvis and the catheter was removed. As soon as the wire was advanced up to the renal pelvis, the patient exhibited copious amounts of purulent urine. Some of this was collected for culture. It was decided at this point to just insert a ureteral stent so a 6 [place] stent was passed over the wire and advanced up to the renal pelvis where it curled well when the wire was removed. The bladder end also coiled well. The bladder was then drained, cystoscope was removed and the patient was awakened and sent to recovery room in stable condition having tolerated the procedure well. Endoscopy was used throughout the case to evaluate the stone, ureter and stent placement. Patient will be seen back in the clinic in 2 weeks for evaluation prior to ureteroscopic laser lithotripsy. SY FLORES MD Aug 25, 2020 18:32
--- NOTE | 2020-08-25 19:04 | HPEPDOC ---
[facility] Medical History & Physical Date of Admission Aug 25, 2020 Date of Service: Aug 25, 2020 Primary Care Physician: Christopher Allen MD Attending Physician: SIRISHA MCKEON DO History and Physical CHIEF COMPLAINT: Acute onset Left flank pain HISTORY OF PRESENT ILLNESS: Patient has been experiencing off and on left flank pain for the last few days, but earlier today the pain returned and was so severe that she decided to present to the emergency department. CT scan revealed a 7 mm ureteral calculus. Urology was contacted, [facility]. 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 Denies alcohol use. Denies illicit drug use. FAMILY HISTORY: Mother of a heart attack at 70 years old REVIEW OF SYSTEMS: Constitutional: Patient denies fevers, chills, night sweats, recent weight gain/loss. HEENT: Patient denies blurred or double vision, transient visual disturbances, postnasal drip, epistaxis, sore throat, difficulty chewing or swallowing food. Cardiovascular: Patient denies chest discomfort/pain, palpitations, exertional dyspnea, orthopnea, edema of the extremities, claudication. Respiratory: Patient denies dyspnea, wheezing, cough, hemoptysis, sputum production. Gastrointestinal: Patient admits to nausea and abdominal pain, particularly left flank pain. Denies vomiting, diarrhea, constipation, melena, hematochezia, hematemesis, jaundice. PHYSICAL EXAMINATION: General: Awake, alert, oriented 3. HEENT: Head normocephalic atraumatic, conjunctiva are pink, sclera are nonicteric, buccal mucosa is pink and moist with no lesions in the oropharynx. Hearing is grossly intact to conversation. Respiratory: Clear to auscultation bilaterally with no wheezes, rales, or rhonchi. Cardiovascular: Regular rate and rhythm, with no rubs, gallops, or murmur. Abdomen: Soft, tender on the left side, particularly at the flank, nondistended, no hepatosplenomegaly appreciated. Bowel sounds present. Extremities: 2+ pulses in the radial and dorsalis pedis bilaterally. No evidence of clubbing or cyanosis. IMAGING: CT abdomen and pelvis without contrast IMPRESSION: 1. Acute left-sided obstructive uropathy with a 7.3 mm obstructing calculus at the ureteropelvic junction. Bilateral nephroliths measure up to 12 mm in the right kidney. Stable 5 cm right renal cyst. 2. Cholelithiasis. 3. Diverticulosis 4. Limited evaluation of the pelvis due to beam hardening artifact without obvious acute process. ASSESSMENT: Obstructing ureteral stone Acute kidney injury Additional chronic medical issues as listed above PLAN: Will admit the patient to [facility] on observation status. Urology has been contacted and, it is their hopes that she will be taken to the OR tonight, stent placed, and he rarely goes well, perhaps she may be eligible for discharge in the morning. She has not eaten anything yet today, did not take any of her medications today. We will hold her evening dose of her medications in anticipation of her going to the OR. Otherwise, will resume the remainder of her home medications at their usual dose for her chronic medical conditions. Vital Signs Vital Signs Date Time Temp Pulse Resp B/P (MAP) Pulse Ox O2 Delivery O2 Flow Rate FiO2 08/25/20 18:24 16 97 Room Air 08/25/20 18:24 98 60 132/63 (86) 08/25/20 18:10 10 Laboratory Data Labs 24H Laboratory Tests 2 08/25/20 11:24: Immature Granulocyte % (Auto) 0.3, Neutrophils (%) (Auto) 75.8H, Lymphocytes (%) (Auto) 9.1L, Monocytes (%) (Auto) 7.6, Eosinophils (%) (Auto) 6.2H, Basophils (%) (Auto) 1.0, Neutrophils # (Auto) 6.9, Lymphocytes # (Auto) 0.8L, Monocytes # (Auto) 0.7, Eosinophils # (Auto) 0.6H, Basophils # (Auto) 0.1, Nucleated Red Blood Cells % (auto) 0.0, Anion Gap 6L, Glomerular Filtration Rate 25.5L, Lactic Acid Level 1.7, Calcium Level 8.5L, Total Bilirubin 1.3H, Direct Bilirubin 0.4H, Aspartate Amino Transf (AST/SGOT) 24, Alanine Aminotransferase (ALT/SGPT) 18, Alkaline Phosphatase 124H, Total Protein 7.0, Albumin 2.8L, Albumin/Globulin Ratio 0.7L 08/25/20 12:17: Prothrombin Time 18.8H, Prothromb Time International Ratio 1.54, Activated Partial Thromboplast Time 38.4 08/25/20 13:00: Urine Color YELLOW, Urine Appearance CLOUDYH, Urine pH 6.0, Urine Specific [place] 1.012, Urine Protein 1+H, Urine Glucose (UA) NEGATIVE, Urine Ketones NEGATIVE, Urine Blood 3+H, Urine Nitrite NEGATIVE, Urine Bilirubin NEGATIVE, Ur ine Urobilinogen 0.2, Urine Leukocyte Esterase 1+H, Urine WBC (Auto) 45H, Urine RBC (Auto) TNTCH, Urine Hyaline Casts (Auto) 0, Urine Bacteria (Auto) NEGATIVE, Urine Squamous Epithelial Cells 2, Urine Mucus (Auto) SMALL, Urine Sperm (Auto) 08/25/20 14:07: Coronavirus (COVID-19)(PCR) NEGATIVE, Influenza Type A (RT-PCR) NEGATIVE, Influenza Type B (RT-PCR) NEGATIVE, Respiratory Syncytial Virus (PCR) NEGATIVE CBC/BMP Laboratory Tests 08/25/20 11:24 Microbiology Microbiology 08/25/20 Urine Culture, Received Pending Home Medications Scheduled Apixaban (Eliquis) 2.5 Mg Tablet, 2.5 MG PO BID Atenolol (Atenolol) 50 Mg Tablet, 50 MG PO DAILY Cholecalciferol (Vitamin D3) (Vitamin D3) 1,000 Unit Tablet, 1,000 UNITS PO DAILY @ 1200 Colchicine (Colchicine) 0.6 Mg Tablet, 0.6 MG PO BID Hydrochlorothiazide (Hydrochlorothiazide) 25 Mg Tablet, 25 MG PO DAILY Levothyroxine Sodium (Synthroid) 88 Mcg Tablet, 88 MCG PO DAILY Multivitamin (Multivitamins) 1 Each Tablet, 1 TAB PO DAILY Potassium Chloride (Potassium Chloride) 10 Meq Tab.er.prt, 20 MEQ PO BID Scheduled PRN Bisacodyl (Dulcolax) 10 Mg Supp.rect, 10 MG MO DAILY PRN for CONSTIPATION Milk Of Magnesia (Milk of Magnesia) 2,400 Mg/10 Ml Oral.susp, 10 ML PO DAILY PRN for CONSTIPATION Omeprazole (Omeprazole) 20 Mg Tablet.dr, 20 MG PO DAILY PRN for HEARTBURN/INDIGESTION Oxycodone HCl/Acetaminophen (Percocet 5-325 mg Tablet) 1 Each Tablet, 1 TAB PO Q4H PRN for PAIN Tramadol HCl (Tramadol HCl) 50 Mg Tablet, 50 MG PO Q6H PRN for PAIN Allergies Coded Allergies: Cat Dander (Verified Allergy, Severe, ASTHMA, 06/27/09) allopurinol (Verified Allergy, Unknown, 11/29/19) cephalexin (Verified Allergy, Unknown, 08/25/20) rash mirtazapine (Verified Allergy, Unknown, 11/29/19) acetaminophen (Verified Adverse Reaction, Intermediate, HEART RACES, 12/05/19) ropinirole (Verified Adverse Reaction, Unknown, 08/25/20) palpitations A-FIB/CHADSVASC A-FIB History Current/History of A-Fib/PAF?: No SIRISHA MCKEON DO Aug 25, 2020 19:04
--- NOTE | 2020-08-25 19:31 | ECGEPIP ---
[facility] - ED Test Date: 2020-08-25 Pat Name: GEORGIANA BALLESTEROS Department: Room: - Gender: Female Family Therapist: : [id number] Requested By: FRANCISCO HOUSE PA-C. Order Number: [id number] Reading MD: Narcisa Feldman Measurements Intervals [place] Rate: 61 P: 35 LA: 150 QRS: -25 QRSD: 86 T: 21 QT: 458 QTc: 461 Interpretive Statements Normal sinus rhythm leftward axis NONSPECIFIC ST T WAVE CHANGES borderline prolonged qtc cw 01/13/[address] T [place] CHANGES Electronically Signed on 08-25-2020 19:32:09 EST by Narcisa Feldman
[2020-08-25 20:30] VITALS: BP 112/54
[2020-08-25 21:30] VITALS: BP 115/52
[2020-08-25 22:30] VITALS: BP 116/52
[2020-08-25] MEDS ORDERED: CHLORASEPTIC SPRAY MT PRN (23:25)
[2020-08-26] MEDS ORDERED: oxyCODONE 5MG TAB PO PRN (00:25)
[2020-08-26 02:11] VITALS: BP 112/53
[2020-08-26 05:37] LABS: HEMATOCRIT 28.1 % (36.0-47.0); HEMOGLOBIN 8.7 g/dl (12.0-15.5); MEAN CORPUSCULAR HEMOGLOBIN 27.4 pg (27.0-33.0); MEAN CORPUSCULAR VOLUME 88.4 fl (80.0-96.0); RED BLOOD COUNT 3.18 10^6/uL (4.00-5.40); WHITE BLOOD COUNT 5.1 10^3/uL (4.0-10.0)
[2020-08-26 05:53] VITALS: BP 138/62
[2020-08-26 05:55] LABS: PLATELET COUNT, AUTOMATED 95 10^3/uL (150-450)
[2020-08-26 05:59] LABS: CALCIUM LEVEL 7.9 MG/DL (8.8-10.2); CREATININE FOR GFR 1.37 MG/DL (0.55-1.30); GLOMERULAR FILTRATION RATE 38.8 (>32); POTASSIUM SERUM 3.8 MEQ/L (3.5-5.1)
[2020-08-26 08:54] VITALS: BP 134/81
[2020-08-26] MEDS ORDERED: BACTRIM 80MG/400MG TAB PO SCH (09:00)
--- NOTE | 2020-08-26 11:46 | IPNPDOC ---
Text Note Date of Service The patient was seen on 08/26/20. NOTE SUBJECTIVE: -Went to the OR last night, procedure went well and s/p stenting by urology PHYSICAL EXAMINATION: Vitals: see below General: Awake, alert, oriented 3. HEENT: Head normocephalic atraumatic, conjunctiva are pink, sclera are nonicteric. MMM Respiratory: Clear to auscultation bilaterally with no wheezes, rales, or rhonchi. Cardiovascular: Regular rate and rhythm, with no rubs, gallops, or murmur. Abdomen: Normoactive sounds, soft, non tender abdomen, tender at left flank, nondistended, no hepatosplenomegaly appreciated. Extremities: 2+ pulses in the radial and dorsalis pedis bilaterally. No evidence of clubbing or cyanosis. IMAGING: CT abdomen and pelvis without contrast IMPRESSION: 1. Acute left-sided obstructive uropathy with a 7.3 mm obstructing calculus at the ureteropelvic junction. Bilateral nephroliths measure up to 12 mm in the right kidney. Stable 5 cm right renal cyst. 2. Cholelithiasis. 3. Diverticulosis 4. Limited evaluation of the pelvis due to beam hardening artifact without obvious acute process. ASSESSMENT: 89 yo W admitted for an obstructive ureteral stone with hydroureteronephrosis now s/p stent insertion by urology. Recent PE: -Held eliquis, will resume per urology instructions Obstructive ureteral stone with hydroureteronephrosis: -Now s/p stent insertion by urology -will f/u with urology outpatient -will treat UTI with bactrim given hx of MRSA UTI in the past UTI: -bactrim Dispo: likely home today VSAshly, I+O VSAshly, I+O Laboratory Tests 08/25/20 11:24 08/26/20 05:23 Vital Signs Date Time Temp Pulse Resp B/P (MAP) Pulse Ox O2 Delivery O2 Flow Rate FiO2 08/26/20 06:44 1.0 08/26/20 05:53 97.3 62 17 138/62 (87) 95 Nasal Cannula I&O- Last 24 Hours up to 6 AM 08/26/20 06:00 Intake Total 960 ml Output Total 100 ml Balance 860 ml JUANA PROCTOR MD Aug 26, 2020 08:49
--- NOTE | 2020-08-26 11:47 | DS.PDOC ---
Discharge Summary General Date of Admission Aug 25, 2020 at 10:30 Date of Discharge 08/26/2020 Attending Physician: JUANA PROCTOR MD Discharge Summary PROCEDURES PERFORMED DURING STAY: Stent insertion with ureteroscopic laser lithotripsy ADMITTING DIAGNOSES: PETER on CKD Left obstructing ureteral calculus Hydroureteronephrosis DISCHARGE DIAGNOSES: PETER on CKD Left obstructing ureteral calculus Hydroureteronephrosis Chronic Gout Hematuria Hypertensive heart disease Hypothyroidism Hyperlipidemia Pulmonary embolism COMPLICATIONS/CHIEF COMPLAINT: Peter,Left Ureteral Calculus. HISTORY OF PRESENT ILLNESS: 89-year-old W with a history of recent PEs on eliquis who presented to the emergency room with acute onset of left flank pain. HOSPITAL COURSE: CT scan showed a 7 mm ureteral calculus at the UPJ and caused some hydroureteronephrosis. Urology was consulted and she was taken to the OR for lithotripsy and stent placement on 08/25/2020 and did well post op. She is now being discharged home with urology follow up, placed back on eliquis and PCP follow up within 7d of discharge. DISCHARGE MEDICATIONS: Please see below. ALLERGIES: Please see below. PHYSICAL EXAMINATION ON DISCHARGE: VITAL SIGNS: Please see below. Vitals: see below General: Awake, alert, oriented 3. HEENT: Head normocephalic atraumatic, conjunctiva are pink, sclera are nonicteric. MMM Respiratory: Clear to auscultation bilaterally with no wheezes, rales, or rhonchi. Cardiovascular: Regular rate and rhythm, with no rubs, gallops, or murmur. Abdomen: Normoactive sounds, soft, non tender abdomen, tender at left flank, nondistended, no hepatosplenomegaly appreciated. Extremities: 2+ pulses in the radial and dorsalis pedis bilaterally. No evidence of clubbing or cyanosis. LABS AND MICROBIOLOGY: see below IMAGING: CT abdomen and pelvis without contrast IMPRESSION: 1. Acute left-sided obstructive uropathy with a 7.3 mm obstructing calculus at the ureteropelvic junction. Bilateral nephroliths measure up to 12 mm in the right kidney. Stable 5 cm right renal cyst. 2. Cholelithiasis. 3. Diverticulosis 4. Limited evaluation of the pelvis due to beam hardening artifact without obv ious acute process. PROGNOSIS: Good ACTIVITY: As tolerated DIET: 2g sodium DISCHARGE PLAN: Home with PCP and urology follow up DISPOSITION: Home DISCHARGE INSTRUCTIONS: Home with PCP and urology follow up. may resume eliquis ITEMS TO FOLLOWUP ON ON OUTPATIENT: Ureteral stone s/p stenting DISCHARGE CONDITION: Stable TIME SPENT ON DISCHARGE: 43 minutes. Vital Signs/I&Os Vital Signs Date Time Temp Pulse Resp B/P (MAP) Pulse Ox O2 Delivery O2 Flow Rate FiO2 08/26/20 10:00 1.0 08/26/20 08:54 97.9 64 17 134/81 (98) 95 Nasal Cannula I&O- Last 24 Hours up to 6 AM 08/26/20 06:00 Intake Total 960 ml Output Total 100 ml Balance 860 ml Laboratory Data Labs 24H Laboratory Tests 2 08/25/20 12:17: Prothrombin Time 18.8H, Prothromb Time International Ratio 1.54, Activated Partial Thromboplast Time 38.4 08/25/20 13:00: Urine Color YELLOW, Urine Appearance CLOUDYH, Urine pH 6.0, Urine Specific [place] 1.012, Urine Protein 1+H, Urine Glucose (UA) NEGATIVE, Urine Ketones NEGATIVE, Urine Blood 3+H, Urine Nitrite NEGATIVE, Urine Bilirubin NEGATIVE, Urine Urobilinogen 0.2, Urine Leukocyte Esterase 1+H, Urine WBC (Auto) 45H, Urine RBC (Auto) TNTCH, Urine Hyaline Casts (Auto) 0, Urine Bacteria (Auto) NEGATIVE, Urine Squamous Epithelial Cells 2, Urine Mucus (Auto) SMALL, Urine Sperm (Auto) 08/25/20 14:07: Coronavirus (COVID-19)(PCR) NEGATIVE, Influenza Type A (RT-PCR) NEGATIVE, Influenza Type B (RT-PCR) NEGATIVE, Respiratory Syncytial Virus (PCR) NEGATIVE 08/26/20 05:23: Nucleated Red Blood Cells % (auto) 0.0, Immature Platelet Fraction 2.6, Anion Gap 5L, Glomerular Filtration Rate 38.8, Calcium Level 7.9L CBC/BMP Laboratory Tests 08/26/20 05:23 Microbiology Microbiology 08/25/20 Urine Culture, Received Pending 08/25/20 Urine Culture - Final, Complete Discharge Medications Scheduled Apixaban (Eliquis) 2.5 Mg Tablet, 2.5 MG PO BID, (Reported) Atenolol (Atenolol) 50 Mg Tablet, 50 MG PO DAILY, (Reported) Cholecalciferol (Vitamin D3) (Vitamin D3) 1,000 Unit Tablet, 1,000 UNITS PO DAILY, (Reported) @ 1200 Colchicine (Colchicine) 0.6 Mg Tablet, 0.6 MG PO BID, (Reported) Hydrochlorothiazide (Hydrochlorothiazide) 25 Mg Tablet, 25 MG PO DAILY, (Reported) Levothyroxine Sodium (Synthroid) 88 Mcg Tablet, 88 MCG PO DAILY, (Reported) Multivitamin (Multivitamins) 1 Each Tablet, 1 TAB PO DAILY, (Reported) Potassium Chloride (Potassium Chloride) 10 Meq Tab.er.prt, 20 MEQ PO BID, (Reported) Scheduled PRN Bisacodyl (Dulcolax) 10 Mg Supp.rect, 10 MG [place] DAILY PRN for CONSTIPATION, (Reported) Milk Of Magnesia (Milk of Magnesia) 2,400 Mg/10 Ml Oral.susp, 10 ML PO DAILY PRN for CONSTIPATION, (Reported) Omeprazole (Omeprazole) 20 Mg Tablet.dr, 20 MG PO DAILY PRN for HEARTBURN/INDIGESTION, (Reported) Oxycodone HCl/Acetaminophen (Percocet 5-325 mg Tablet) 1 Each Tablet, 1 TAB PO Q4H PRN for PAIN, (Reported) Tramadol HCl (Tramadol HCl) 50 Mg Tablet, 50 MG PO Q6H PRN for PAIN, (Reported) Allergies Coded Allergies: Cat Dander (Verified Allergy, Severe, ASTHMA, 06/27/09) allopurinol (Verified Allergy, Unknown, 11/29/19) cephalexin (Verified Allergy, Unknown, 08/25/20) rash mirtazapine (Verified Allergy, Unknown, 11/29/19) acetaminophen (Verified Adverse Reaction, Intermediate, HEART RACES, 12/05/19) ropinirole (Verified Adverse Reaction, Unknown, 08/25/20) palpitations JUANA PROCTOR MD Aug 26, 2020 11:35
== END 2020-08-26 12:15 | disposition home or self-care (01) ==
LOC: M ED 10:29 → M ED INP 10:30 → M MS5PR 16:20
PROVIDERS: ADMIT Neuromusculoskeletal Medicine & OMM; ATTEND Internal Medicine
DX: N17.9 Acute kidney failure, unspecified (principal); N18.9 Chronic kidney disease, unspecified; N13.2 Hydronephrosis with renal and ureteral calculous obstruction; M10.9 Gout, unspecified; R31.9 Hematuria, unspecified; I11.9 Hypertensive heart disease without heart failure; E03.9 Hypothyroidism, unspecified; E78.49 Other hyperlipidemia; I26.99 Other pulmonary em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 acute cor pulmonale; Z79.899 Other long term (current) drug therapy; Z88.8 Allergy status to other drugs, medicaments and biological substances; Z88.1 Allergy status to other antibiotic agents
CPT/HCPCS: 36415; 52332; 71045; 74176; 74420; 80048; 80076; 81001; 83605; 85025; 85027; 85049; 85055; 85610; 85730; 87086; 87631; 93005; 96361; 96374; 99285; C1769; C2617; G0378; J0131; J1100; J2250; J2405; J3010; Q9961

== ENCOUNTER → 2020-09-04 | Outpatient (REF) | payer MEDICARE, BC ==
[~2020-09-04] MED LIST changes: +ELIQ2.5T PO; +HYDR-3490 PO; +MULT-40 PO; +OMEP-341 PO
[2020-09-05 13:08] LABS: HEMATOCRIT 29.6 % (36.0-47.0); HEMOGLOBIN 9.1 g/dl (12.0-15.5); MEAN CORPUSCULAR HEMOGLOBIN 27.6 pg (27.0-33.0); MEAN CORPUSCULAR HGB CONC 30.7 g/dl (32.0-36.5); MEAN CORPUSCULAR VOLUME 89.7 fl (80.0-96.0); PLATELET COUNT, AUTOMATED 160 10^3/uL (150-450); WHITE BLOOD COUNT 7.4 10^3/uL (4.0-10.0)
[2020-09-05 13:16] LABS: CALCIUM LEVEL 8.7 MG/DL (8.8-10.2); CREATININE FOR GFR 1.29 MG/DL (0.55-1.30); GLOMERULAR FILTRATION RATE 41.6 (>32); POTASSIUM SERUM 3.9 MEQ/L (3.5-5.1)
== END ==
LOC: M SFHCADAM 15:32
PROVIDERS: ATTEND Family Medicine
DX: N17.9 Acute kidney failure, unspecified (principal); N12 Tubulo-interstitial nephritis, not specified as acute or chronic
CPT/HCPCS: 80048; 85027; G0463

== ENCOUNTER → 2020-09-15 | Outpatient (REF) | payer MEDICARE, BC ==
[2020-09-15 16:41] LABS: HEMATOCRIT 29.6 % (36.0-47.0); HEMOGLOBIN 9.1 g/dl (12.0-15.5); MEAN CORPUSCULAR HEMOGLOBIN 27.6 pg (27.0-33.0); MEAN CORPUSCULAR HGB CONC 30.7 g/dl (32.0-36.5); MEAN CORPUSCULAR VOLUME 89.7 fl (80.0-96.0); PLATELET COUNT, AUTOMATED 171 10^3/uL (150-450); WHITE BLOOD COUNT 7.2 10^3/uL (4.0-10.0)
[2020-09-15 17:08] LABS: CALCIUM LEVEL 8.8 MG/DL (8.8-10.2); CREATININE FOR GFR 1.27 MG/DL (0.55-1.30); GLOMERULAR FILTRATION RATE 42.4 (>32); POTASSIUM SERUM 3.8 MEQ/L (3.5-5.1)
== END ==
LOC: M LABSMT 13:57 → M SFHCADAM 14:01
PROVIDERS: ATTEND Urology
DX: N20.1 Calculus of ureter (principal)

== ENCOUNTER → 2020-09-25 | Outpatient (CLI) | payer MEDICARE, BC ==
--- NOTE | 2020-09-25 14:31 | REP ---
INDICATION: PRE OP. COMPARISON: Portable chest dated 08/25/2020 and PA and lateral chest dated 11/30/2019. TECHNIQUE: Upright PA and lateral chest. FINDINGS: There is chronic interstitial coarsening compatible with chronic lung disease, unchanged. There is a small parenchymal scar in the left costophrenic angle unchanged. There are no infiltrates or pleural effusions. There are no nodules or masses. Cardiac size is mildly enlarged, unchanged. The tracy and mediastinum are unchanged and unremarkable for patient age. There is diffuse demineralization. 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 These findings are unchanged. IMPRESSION: There are chronic findings as described. There are no new or acute cardiopulmonary findings. <Electronically signed by Stiven Waddell > 09/25/20 [id number]
== END ==
LOC: M ADAMS 14:05
PROVIDERS: ATTEND Family Medicine
DX: Z01.818 Encounter for other preprocedural examination (principal); I11.0 Hypertensive heart disease with heart failure; I27.82 Chronic pulmonary embolism
CPT/HCPCS: 71046; 93005; G0463

== ENCOUNTER → 2020-10-08 | Outpatient (CLI) | payer MEDICARE, BC | LOC: M LABSMTC 11:03 | PROVIDERS: ATTEND Anesthesiology | DX: Z20.828 Contact with and (suspected) exposure to other viral communicable diseases (principal); Z11.59 Encounter for screening for other viral diseases ==

== ENCOUNTER 2020-10-13 06:03 | Day surgery (SDC) | payer MEDICARE, BC ==
[~2020-10-13] VITALS: Ht 157.5 cm; Wt 76.7 kg
[~2020-10-13 06:03] MED LIST changes: +LIDOCAINE 1% MDV 20ML VIAL SQ PRN; +UNRESOLVED CLARIFICATION ENTRY XX SCH
[2020-10-13] MEDS ORDERED: LR 1,000 ML IV ONE (07:00)
[2020-10-13] MEDS ORDERED: dexameTHASONE 4 MG/ML 1ML VIAL (J1100 PER 1MG) As Ordered ONE (07:11)
[2020-10-13] MEDS ORDERED: LIDOCAINE 2% 100MG/5ML SDV (FOR ANES.) As Ordered ONE (07:11)
[2020-10-13] MEDS ORDERED: ONDANSETRON 4MG/2ML VIAL As Ordered ONE ×2 (07:11→10:01)
[2020-10-13] MEDS ORDERED: propofoL 200 MG/20 ML VIAL As Ordered ONE ×2 (07:11→07:51)
[2020-10-13] MEDS ORDERED: fentaNYL 100 MCG/2 ML INJECTION (J3010) As Ordered ONE (07:11)
[2020-10-13] MEDS ORDERED: CONRAY-60 60% 50ML VIAL (Q9961) As Ordered ONE (07:12)
[2020-10-13] MEDS ORDERED: CIPROFLOXACIN/D5W 400 MG/200 ML BAG (J0744) As Ordered ONE (07:16)
[2020-10-13] MEDS ORDERED: CIPROFLOXACIN 400 MG in IV 1 EA IV ONE (07:55)
[2020-10-13] MEDS ORDERED: ePHEDrine SULFATE 25 MG/5 ML(5MG/ML) SYRINGE As Ordered ONE (08:00)
[2020-10-13] MEDS ORDERED: oxyCODONE 5MG TAB PO PRN (10:10)
[2020-10-13] MEDS ORDERED: METOCLOPRAMIDE INJ 10MG/2ML VIAL (J2765 PER 1) IV PRN (10:10)
[2020-10-13] MEDS ORDERED: LR 1,000 ML IV SCH (10:10)
[2020-10-13] MEDS ORDERED: ONDANSETRON 4MG/2ML VIAL IV PRN (10:10)
[2020-10-13] MEDS ORDERED: fentaNYL 100 MCG/2 ML INJECTION (J3010) IV PRN (10:10)
--- NOTE | 2020-10-13 10:12 | ROOPDOC ---
[facility] Report Of Operation Report of Operation DATE OF PROCEDURE: 10/13/20 PREPROCEDURE DIAGNOSES: Left renal calculi POSTPROCEDURE DIAGNOSES: Left renal calculi PROCEDURE: Cystoscopy, left retrograde pyelogram, ureteroscopic laser lithotripsy, stent insertion SURGEON: Sy Flores MD WARD MAID: None ANESTHESIA: Gen. ESTIMATED BLOOD LOSS: Approximately 15 mL. COMPLICATIONS: Calcified ureteral stent REMARKS: Procedure was more difficult because of the severely calcified ureteral stent. This calcific debris needed to be retrieved from the ureter before the renal stones could be addressed. PROCEDURE NOTE: Patient was brought to the operating room for ureteroscopic laser lithotripsy because of numerous renal calculi and an obstructing ureteral stone for which she needed a stent insertion one month ago. DESCRIPTION OF PROCEDURE: The patient was placed on table in supine position, given general anesthesia, placed in lithotomy position, prepped with Betadine paint and draped in an aseptic manner. Timeout was then performed. A #22 Slovak cystoscope was then introduced into the urethral meatus and advanced under direct vision of a 30 lens to the bladder. While in the bladder, the patient was noted to have a severely calcified ureteral stent. The end of the stent was then grasped with biopsy forceps and directed through the urethral meatus. A wire guide could not be advanced through the catheter so the catheter was removed. The cystoscope was then reintroduced and a wire guide was advanced up to the renal pelvis and kept as a safety wire. A second wire was then introduced and a flexible ureteroscope was attempted to be passed successfully because of all the stent calcification debris.. It was then exchanged for a semirigid scope which was advanced up to the first of the calcific debris which was extracted. This was performed several times until the scope was advanced up to the renal pelvis. The ureteroscope was then removed and replaced with a tunnel dilator. A Flexible cystoscope was then advanced through this tunnel to the renal pelvis. The calyces were examined and the patient found to have numerous calculi especially over the lower pole. These were then broken up with the laser lithotripter. The debris was irrigated from the kidney and the scope was withdrawn under direct vision along with the total dilator. A cystoscope was then advanced over the safety wire and a 5 Slovak double-J stent was advanced over this wire and curled well in the renal pelvis and the bladder when the wire was removed. Stone debris was retrieved from the bladder and sent to pathology, bladder was drained, cystoscope was removed and the patient was awakened and sent to recovery room stable condition having tolerated the procedure well. The ureteral stent will be removed in the office in 2 weeks. SY FLORES MD Oct 13, 2020 10:12
[2020-10-13 11:25] VITALS: BP 150/67
--- NOTE | 2020-10-13 14:53 | REP ---
INDICATION: LEFT URETERAL STENT PLACEMENT. COMPARISON: Comparison CT study abdomen pelvis August 25, 2020.. TECHNIQUE: Two views. 51 seconds of fluoroscopy time is reported. FINDINGS: A sequence of 2 last image hold fluoroscopically obtained spot radiographs of the abdomen document left ureteral cannulation and contrast injection. A calcified gallstone is visible in the right upper abdomen. 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 IMPRESSION: Procedural imaging. <Electronically signed by Loy Adair > 10/13/20 [id number]
== END 2020-10-13 11:42 | disposition home or self-care (01) ==
LOC: M SDC 06:03
PROVIDERS: ATTEND Urology
DX: N20.0 Calculus of kidney (principal); E03.9 Hypothyroidism, unspecified; I10 Essential (primary) hypertension; L40.9 Psoriasis, unspecified; J45.909 Unspecified asthma, uncomplicated; Z85.3 Personal history of malignant neoplasm of breast; Z79.01 Long term (current) use of anticoagulants; Z86.711 Personal history of pulmonary embolism; Z88.8 Allergy status to other drugs, medicaments and biological substances; Z87.891 Personal history of nicotine dependence; Z79.899 Other long term (current) drug therapy
CPT/HCPCS: 52356; 74420; 82365; 88300; C1769; C1894; C2617; J0744; J1100; J2405; J3010; Q9961

== ENCOUNTER → 2020-11-14 | Outpatient (CLI) | payer MEDICARE, BC ==
[~2020-11-14] MED LIST changes: -LIDOCAINE 1% MDV 20ML VIAL SQ PRN; -UNRESOLVED CLARIFICATION ENTRY XX SCH
--- NOTE | 2020-11-14 15:21 | REP ---
INDICATION: RIVAS. COMPARISON: 09/25/2020 TECHNIQUE: PA and lateral views FINDINGS: There are chronic lung field changes status quo. No acute patchy parenchymal opacities or pleural effusions have developed. The cardiomediastinal silhouette is stable. IMPRESSION: Stable appearing chronic changes. There is no evidence of acute cardiopulmonary disease. <Electronically signed by Suresh Ly > 11/14/20 [id number]
== END ==
LOC: M ADAMS 14:49
PROVIDERS: ATTEND Family Medicine
DX: R06.00 Dyspnea, unspecified (principal); N18.31 Chronic kidney disease, stage 3a; D63.1 Anemia in chronic kidney disease; E03.9 Hypothyroidism, unspecified
CPT/HCPCS: 71046; 80053; 82728; 82746; 83550; 83880; 84439; 84443; 85027; 85046; G0463

== ENCOUNTER → 2020-11-14 | Outpatient (REF) | payer MEDICARE, BC ==
[2020-11-14 16:52] LABS: HEMATOCRIT 27.7 % (36.0-47.0); HEMOGLOBIN 8.4 g/dl (12.0-15.5); MEAN CORPUSCULAR HGB CONC 30.3 g/dl (32.0-36.5); MEAN CORPUSCULAR VOLUME 89.1 fl (80.0-96.0); PLATELET COUNT, AUTOMATED 147 10^3/uL (150-450); RED BLOOD COUNT 3.11 10^6/uL (4.00-5.40); WHITE BLOOD COUNT 7.7 10^3/uL (4.0-10.0)
[2020-11-14 17:32] LABS: ALBUMIN 2.8 GM/DL (3.2-5.2); BILIRUBIN,TOTAL 0.9 MG/DL (0.2-1.0); CALCIUM LEVEL 8.8 MG/DL (8.8-10.2); CREATININE FOR GFR 1.28 MG/DL (0.55-1.30); FOLATE 16.7 NG/ML (>5.4); FREE T4 1.35 NG/DL (0.76-1.46); POTASSIUM SERUM 4.1 MEQ/L (3.5-5.1); THYROID STIMULATING HORMONE 0.641 uIU/ML (0.358-3.740); TOTAL PROTEIN 7.5 GM/DL (6.4-8.2)
== END ==
LOC: M SFHCADAM 14:44
PROVIDERS: ATTEND Family Medicine
DX: R06.00 Dyspnea, unspecified (principal); N18.31 Chronic kidney disease, stage 3a; D63.1 Anemia in chronic kidney disease; E03.9 Hypothyroidism, unspecified

== ENCOUNTER → 2020-12-03 | Outpatient (CLI) | payer MEDICARE, BC ==
--- NOTE | 2020-12-03 13:47 | REP ---
INDICATION: RIVAS COMPARISON: Multiple the latest 01/13/2020 TECHNIQUE: Standard helical technique without intravenous contrast. This limits the exam significantly especially when comparing to a prior exam which is a contrast-enhanced exam. FINDINGS: There is mediastinal and probable right hilar adenopathy which does not appear to be significantly changed compared to the prior contrast enhanced exam. There are no pleural or pericardial effusions. The imaged upper abdomen shows cholelithiasis unchanged from prior CT of the abdomen and pelvis 08/25/2020. Additionally, there is a calcification in the right kidney which is unchanged from the prior exam as well along with a Bosniak class 1 simple right renal cyst. No new abnormalities are seen involving the imaged upper abdomen. There is no significant change in appearance of the osseous structures. Evaluation of the lung campbell shows a stable nodule in the right lower lobe which has calcifications within it. This was also identified on old chest x-rays also reviewed at this time. There is cylindrical bronchiectasis. There is evidence of lung field hyperexpansion and bullous emphysematous changes particularly in the apical regions. The degree of bronchiectasis may have increased slightly from the prior exam, however, the are technically different. The latest prior exam was obtained with lung field hypoexpansion relative today's exam. There is a nodule with in the major fissure in the mid lung zone region which measures 7 mm. This is unchanged. No definite new abnormal nodules, masses, or opacities have developed. IMPRESSION: Chronic lung field findings as described above. 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 It has been stable for years. The smaller nodule seen on the left has also been stable since the latest prior 01/13/2020. According to the revised Fleischner society criteria this represents a category [address] screening is recommended if clinically relevant. There is mediastinal and probably right hilar adenopathy as described above. Findings involving the imaged upper abdomen as described above. <Electronically signed by Suresh Ly > 12/03/20 [id number]
== END ==
LOC: M RAD 12:57
PROVIDERS: ATTEND Family Medicine
DX: R91.1 Solitary pulmonary nodule (principal)

== ENCOUNTER 2021-02-13 07:30 | Observation (INO) | payer MEDICARE, BC ==
[~2021-02-13] VITALS: Ht 157.5 cm; Wt 70.5 kg
[~2021-02-13 07:30] MED LIST changes: +LEVOTHYROXINE 88MCG TABLET (0.088 MG) PO SCH
[2021-02-13] MEDS ORDERED: LIDOCAINE 2% 5ML JELLY UROJET TOP ONE (07:50)
--- NOTE | 2021-02-13 08:13 | REPVR ---
PROCEDURE INFORMATION: Exam: CT Head Without Contrast Exam date and time: 02/13/2021 7:45 AM Age: 89 years old Clinical indication: Altered mental status/memory loss TECHNIQUE: Imaging protocol: Computed tomography of the head without contrast. Radiation optimization: All CT scans at this facility use at least one of these dose optimization techniques: automated exposure control; mA and/or kV adjustment per patient size (includes targeted exams where dose is matched to clinical indication); or iterative reconstruction. COMPARISON: No relevant prior studies available. FINDINGS: Brain: There is no acute intracranial hemorrhage. There is lucency in the cerebral white matter, likely microvascular disease although non-specific. Handy white differentiation is intact. There are no extra-axial fluid collections. No evidence of mass. There is no mass effect or midline shift. Cerebral ventricles: The ventricles and sulci are enlarged, consistent with volume loss / atrophy. No hydrocephalus. Paranasal sinuses: Visualized sinuses are unremarkable. No fluid levels. Mastoid air cells: No significant mastoid effusion. Vasculature: There is vascular calcification. Bones/joints: No acute fracture. Soft tissues: There is right vertex scalp lesion which is likely small sebaceous cyst. IMPRESSION: 1. No evidence of acute intracranial abnormality. No evidence of acute infarction, hemorrhage, or mass. 2. Atrophy and microvascular disease. Electronically signed by: Lis Curtis On 02/13/2021 08:12:39 AM
--- NOTE | 2021-02-13 08:24 | REP ---
INDICATION: Altered Mental Status. COMPARISON: Multiple the latest 11/14/2020 TECHNIQUE: Portable FINDINGS: The technique utilized in obtaining the radiograph has magnified the cardiac silhouette and accentuated the interstitial markings. There is cardiomegaly accentuated by technique. There is interstitial fibrotic change status quo. No acute patchy parenchymal opacities or pleural effusions have developed. There is no significant change in the osseous structures. IMPRESSION: No significant change other than technique. <Electronically signed by Suresh Ly > 02/13/21 [id number]
[2021-02-13 08:45] LABS: BASO # 0.1 10^3/uL (0.0-0.2); BASO % 0.9 % (0.0-1.0); EOS # 0.4 10^3/uL (0.0-0.5); EOS % 6.1 % (0.0-3.0); HEMOGLOBIN 8.3 g/dl (12.0-15.5); LYMPH # 0.7 10^3/uL (1.5-5.0); LYMPH % 12.1 % (24.0-44.0); MEAN CORPUSCULAR HEMOGLOBIN 28.4 pg (27.0-33.0); MEAN CORPUSCULAR HGB CONC 30.7 g/dl (32.0-36.5); MEAN CORPUSCULAR VOLUME 92.5 fl (80.0-96.0); MONO # 0.4 10^3/uL (0.0-0.8); MONO % 7.4 % (2.0-8.0); NEUTROPHILS # 4.2 10^3/uL (1.5-8.5); PLATELET COUNT, AUTOMATED 140 10^3/uL (150-450); RED BLOOD COUNT 2.92 10^6/uL (4.00-5.40); WHITE BLOOD COUNT 5.7 10^3/uL (4.0-10.0)
[2021-02-13] MEDS ORDERED: COLCHICINE 0.6 MG TABLET PO SCH (09:00)
[2021-02-13] MEDS ORDERED: OMEPRAZOLE 20 MG CAP PO PRN (09:00)
[2021-02-13 09:23] LABS: ALBUMIN 2.3 GM/DL (3.2-5.2); ALT/SGPT 18 U/L (12-78); BILIRUBIN,DIRECT 0.2 MG/DL (0.0-0.2); BILIRUBIN,TOTAL 0.5 MG/DL (0.2-1.0); BLOOD UREA NITROGEN 21 MG/DL (7-18); CALCIUM LEVEL 8.2 MG/DL (8.8-10.2); CARBON DIOXIDE LEVEL 25 MEQ/L (21-32); CHLORIDE LEVEL 111 MEQ/L (98-107); CK-MB VALUE MASS 1.7 NG/ML (<3.6); CPK CREATINE PHOSPHOKINASE 66 U/L (26-192); CREATININE FOR GFR 1.12 MG/DL (0.55-1.30); GLOMERULAR FILTRATION RATE 48.9 (>32); GLUCOSE, FASTING 67 MG/DL (70-100); MB/CK RELATIVE INDEX 2.58 (< OR =4); POTASSIUM SERUM 3.8 MEQ/L (3.5-5.1); SODIUM LEVEL 140 MEQ/L (136-145); THYROID STIMULATING HORMONE 0.434 uIU/ML (0.358-3.740); TOTAL PROTEIN 7.7 GM/DL (6.4-8.2); TROPONIN I < 0.02 NG/ML (< 0.10)
[2021-02-13] MEDS ORDERED: ISOVUE-370 76% 100ML VIAL As Ordered ONE (10:16)
--- NOTE | 2021-02-13 11:08 | REP ---
INDICATION: ro stone,ro insulinoma. COMPARISON: 08/25/2020 also without contrast and the latest prior TECHNIQUE: Standard helical technique without intravenous or oral bowel preparatory contrast administration FINDINGS: In the right lung base there is a 2.3 cm sized solid nodule with evidence of early spiculation. This measured 1.9 cm on the prior exam and head no evidence of early spiculation. This was also seen on examination of 10/07/2018 but its appearance than was the same as the 08/25/2020 CT. Motion artifact obscures the detail on all images throughout the abdomen and pelvis. Additionally, there is spray artifact arising from a right hip prosthesis obscuring most of the pelvis. There is cholelithiasis status quo. The 7 mm sized proximal left ureterolith seen on the prior examination is not identifiable today. Due to the artifact in the pelvis I cannot say with certainty that it is not more distal in the left ureter within the pelvis, however, the obstructive uropathy seen previously has abated. Multiple nonobstructing nephroliths are again seen on the left. There is an a nonobstructing right nephrolith status quo. There is an unchanged right renal cyst. There is no evidence of definite right-sided hydronephrosis or hydroureter. There is no significant change in appearance of the liver spleen. There is no evidence of intrahepatic ductal dilatation. Note is again made of recanalization of the umbilical vein and intrahepatic portal venous congestion. There is an unchanged simple cyst in the lateral segment of the left lobe of the liver. Pancreas and adrenal glands have an unchanged appearance. The maximal AP dimension of the suprarenal aorta is 3.3 cm previously 3 cm and seen in limited fashion today. There is no evidence of gross free fluid or free air, however, aforementioned artifact could obscure small amounts of both. Small para-aortic lymph nodes are noted status quo. Small mesenteric lymph nodes are noted status quo. Once again, there is colonic diverticulosis status quo. There is no significant change in appearance of the bowel loops. Bone window technique throughout the examination again shows chronic spinal degenerative changes, bony demineralization, previous right hip prosthesis, chronic changes seen involving the left hip, and bilateral sacroiliac joint changes. IMPRESSION: 1. The exam is extremely limited as described above. 2. Chronic hepatic changes as described above. 3. Chronic renal changes as described above. No definite evidence of obstructive uropathy. 4. Known cholelithiasis. 5. Chronic osseous changes as described above. 6. Possible mild suprarenal abdominal aortic aneurysm/ectasia is suspected. 7. Right lung base nodule as described above. Neoplastic change cannot be ruled out. 8. Other findings as described above. <Electronically signed by Suresh Ly > 02/13/21 [id number]
[2021-02-13] MEDS ORDERED: HOME MED LIST COMPLETE! XX SCH (11:15)
[2021-02-13 11:27] LABS: RSV AMPLIFICATION NEGATIVE (NEGATIVE)
--- NOTE | 2021-02-13 11:32 | REP ---
INDICATION: ro stone,ro insulinoma COMPARISON: 08/25/2020 as well as other prior exams. TECHNIQUE: CT Scan of the abdomen and pelvis was performed with intravenous administration of 100 cc of Isovue 370, without oral contrast. Sagittal and coronal reconstruction images are performed. FINDINGS: Lung bases: In the right lung base there is a partially visualized nodular density which has been present on multiple prior exams.. Liver: There is a 1.5 cm cyst in the lateral segment of the left lobe of the liver. The portal veins are dilated and there is recanalization of the umbilical vein consistent with portal hypertension. Gallbladder: Multiple gallstones are seen in the gallbladder. Spleen: Spleen is mildly enlarged measuring 13.7 cm in length. Adrenals: Normal. Pancreas: There is no evidence of pancreatic mass or nodule. Kidneys: A cyst in the lower pole the right kidney measures 5.5 cm in diameter. 2 subcentimeter hypodensities in the lower pole the left kidney probably represent small cysts. Small and large bowel: There is colonic diverticulosis without evidence of acute diverticulitis. Free fluid: None. Abdominal aorta: There is mild diffuse dilatation of the superior abdominal aorta, maximum AP diameter is approximately 3.3 cm. Adenopathy: None. Appendix: Not inflamed. Osseous structures: A right hip prosthesis causes surrounding streak artifact and limits evaluation of pelvic structures.. There are degenerative changes of the spine without compression deformity. Pelvis: No gross mass. IMPRESSION: Portal hypertension and mild splenomegaly. Multiple gallstones are seen in the gallbladder. No evidence of pancreatic mass or nodule. Bilateral renal cysts. Colonic diverticulosis without acute diverticulitis. No free air or free fluid. There is limited evaluation of pelvic structures due to artifact from a metallic right hip prosthesis. <Electronically signed by Stiven Handy > 02/13/21 [id number]
[2021-02-13] MEDS ORDERED: MAALOX 30 ML SUSP *UDC PO PRN (12:05)
[2021-02-13] MEDS ORDERED: traMADol 50 MG TAB PO PRN (12:05)
[2021-02-13] MEDS ORDERED: MOM 30ML SUSPENSION UDC PO PRN (12:05)
[2021-02-13 12:57] LABS: HEMOGLOBIN A1c 4.9 %
[2021-02-13] MEDS ORDERED: GLUCOSE 4GM CHEW TABLET PO PRN (13:15)
[2021-02-13] MEDS ORDERED: GLUCAGON INJ 1MG VIAL SC PRN (13:15)
[2021-02-13] MEDS ORDERED: DEXTROSE 50% 50 ML SYRINGE IV PRN (13:15)
[2021-02-13] MEDS ORDERED: PILL CUTTER 1 EACH XX PRN (14:25)
--- NOTE | 2021-02-13 14:35 | HPEPDOC ---
[facility] Medical History & Physical Date of Admission Feb 13, 2021 Date of Service: Feb 13, 2021 Attending Physician: AV JOYA MD History and Physical CHIEF COMPLAINT: hypoglycemia HISTORY OF PRESENT ILLNESS: 89-year-old female patient with PMH of HTN, hypothyroidism, gout, PE on Eliquis, asthma, HDL, osteopenia, SVT, CKD 3A presented to the hospital after patient had been episode of low blood sugar levels/hypoglycemia. Patient reports having these episodes on and off and generally is able to tell that she is having hypoglycemia when she has shaking, chills, dizzy and reports her symptoms get better after she eats something. Patient reports she was okay yesterday night going to bed but upon waking patient was altered and confused and patient's did call EMS and brought her to the ED. In the ED upon encounter patient was able to answer all the questions and was back to baseline alert oriented x3. PAST MEDICAL HISTORY: 1. Hypertension. 2. Tachycardia. 3. Hypothyroidism. 4. Gout. 5. Pulmonary embolism in the past. 6. CKD stage IIIa 7. Asthma 8. Dyslipidemia 9. Osteopenia PAST SURGICAL HISTORY: 1. 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 2. Knee replacement. 3. Recurrent Kidney stones - treated with surgical removal. SOCIAL HISTORY: Marital status: . Resides in: Home with Tobacco use: Patient smoked from 18 -> 60. Hasn't smoked in 30 years ETOH: Patient denies Illicit drug use: Patient denies IV drug use: Patient denies Other relevant social factors: None FAMILY HISTORY: Father: No pertient history Mother: No pertinent history ALLERGIES: Please see below. REVIEW OF SYSTEMS: CONSTITUTIONAL: Patient has no chills. HEENT: Patient denies headaches CARDIOVASCULAR: No chest pain or palpitations. RESPIRATORY: No SOB or difficulty breathing. GASTROINTESTINAL: No N/V or diarrhea or constipation - normal stool color GENITOURINARY: No pain with urination. Normal urine color.. NEUROLOGICAL: Patient has no numbness or tingling. PSYCHIATRIC: Alert and oriented *3. ENDOCRINE: Patient has had persistent hypoglycemic attacks. HOME MEDICATIONS: Please see below. PHYSICAL EXAMINATION: HEENT: CN 2->12 are intact. No thyroid or lymph node enlargement. CARDIOVASCULAR: Normal S1 and S2. No extra heart sounds or murmurs. LUNGS: BL equal breath sounds. ABDOMEN: No tenderness to palpation. MUSCULOSKELETAL: . EXTREMITIES: No edema and 2/4 tibial and posterior pedal pulses. NEUROLOGICAL: No weakness or loss of sensation in extremities. PSYCHIATRIC: Alert and oriented *3. LABORATORY DATA: See below. New IMAGING: CT of the ABD: Portal hypertension and mild splenomegaly. Multiple gallstones are seen in the gallbladder. No evidence of pancreatic mass or nodule. Bilateral renal cysts. Colonic diverticulosis without acute diverticulitis. No free air or free fluid. There is limited evaluation of pelvic structures due to artifact from a metallic right hip prosthesis. MICROBIOLOGY: Please see below. ASSESSMENT: Pt is a 89 y/o female with a past medical history of Hypertension, Tachycardia, Hypothyroidism, Gout, and Pulmonary embolism in the past. Patient came to the ER with hypoglycemia and AMS. Patient has been having recurrent episodes of hypoglycemia with no cause found. Patient is being admitted under hospitalist service for further evaluation for the same. . PLAN: 1. Recurrent hypoglycemia - Unknown etiology. We will try testing the patient for different causes and changing her meds to determine cause. -Given patient's hypoglycemic episode we will put her on hypoglycemic protocol. -We will put patient on telemetry given her hypoglycemia - 7am cortisol will be ordered - Patients Synthyroid will be halved. Her TSH was found to be 0.4, which is on the lower end of normal. - Colchine will be discontinued - has been shown to cause hypoglycemic episodes 2. HTN and tachycardia - continue the patients B-susan and thiazide diuretic. 3. PE History and DVT prophylaxis - Patient will be continued on eliquis 2.5 mg p.o. twice daily 4. Hypothyroidism - Patients dosing of Synthyroid will be changed from 88mg due to start her on DVT prophylaxis. To 44mg. 5. GERD- PPI therapy will be continued. 6. Osteopenia: We will continue her vitamin D and tramadol for her joint aches 7. DVT prophylaxis: On Eliquis. Vital Signs Vital Signs Date Time Temp Pulse Resp B/P (MAP) Pulse Ox O2 Delivery O2 Flow Rate FiO2 02/13/21 13:45 60 18 127/59 (81) 100 Room Air 02/13/21 07:54 96.0 Laboratory Data Labs 24H Laboratory Tests 2 02/13/21 08:07: Immature Granulocyte % (Auto) 0.5, Neutrophils (%) (Auto) 73.0H, Lymphocytes (%) (Auto) 12.1L, Monocytes (%) (Auto) 7.4, Eosinophils (%) (Auto) 6.1H, Basophils (%) (Auto) 0.9, Neutrophils # (Auto) 4.2, Lymphocytes # (Auto) 0.7L, Monocytes # (Auto) 0.4, Eosinophils # (Auto) 0.4, Basophils # (Auto) 0.1, Nucleated Red Blood Cells % (auto) 0.0, Urine Color YELLOW, Urine Appearance HAZY, Urine pH 7.0, Urine Specific [place] 1.009, Urine Protein 1+H, Urine Glucose (UA) NEGATIVE, Urine Ketones NEGATIVE, Urine Blood 3+H, Urine Nitrite NEGATIVE, Urine Bilirubin NEGATIVE, Urine Urobilinogen 0.2, Urine Leukocyte Esterase TRACEH, Urine WBC (Auto) 8H, Urine RBC (Auto) TNTCH, Urine Hyaline Casts (Auto) 0, Urine Bacteria (Auto) 1+H, Urine Squamous Epithelial Cells 3, Urine Mucus (Auto) SMALL, Urine Sperm (Auto) , Anion Gap 4L, Glomerular Filtration Rate 48.9, Estimated Mean Plasma Glucose 94, Hemoglobin A1c 4.9, Lactic Acid Level 1.8, Calcium Level 8.2L, Total Bilirubin 0.5, Direct Bilirubin 0.2, Aspartate Amino Transf (AST/SGOT) 30, Alanine Aminotransferase (ALT/SGPT) 18, Alkaline Phosphatase 154H, Ammonia 15, Total Creatine Kinase 66, Creatine Kinase MB 1.7, Creatine Kinase MB Relative Index 2.58, Troponin I < 0.02, Total Protein 7.7, Albumin 2.3L, Albumin/Globulin Ratio 0.4L, Thyroid Stimulating Hormone (TSH) 0.434 02/13/21 08:13: Bedside Glucose (Misc Panel) 73L 02/13/21 09:42: Bedside Glucose (Misc Panel) 86 02/13/21 10:42: Coronavirus (COVID-19)(PCR) NEGATIVE, Influenza Type A (RT-PCR) NEGATIVE, Influenza Type B (RT-PCR) NEGATIVE, Respiratory Syncytial Virus (PCR) NEGATIVE 02/13/21 14:01: Bedside Glucose (Misc Panel) 78L CBC/BMP Laboratory Tests 02/13/21 08:07 Microbiology Microbiology 02/13/21 Blood Culture, Received Pending 02/13/21 Urine Culture, Received Pending 8/20/21 Blood Culture, Received Pending Home Medications Scheduled Apixaban (Eliquis) 2.5 Mg Tablet, 2.5 MG PO BID Atenolol (Atenolol) 50 Mg Tablet, 50 MG PO QHS Cholecalciferol (Vitamin D3) (Vitamin D3) 1,000 Unit Tablet, 1,000 UNITS PO DAILY @ 1200 Levothyroxine Sodium (Levothyroxine Sodium) 50 Mcg Tablet, 1 TAB PO DAILY Potassium Chloride (Potassium Chloride) 10 Meq Tab.er.prt, 20 MEQ PO BID Scheduled PRN Blood Sugar Diagnostic (Advanced Glucose Test Strips) 1 Each Strip, 60 STRIP XX ASDIRECTED PRN for BLOOD SUGAR < 50 Use when checking BS, BID PRN Omeprazole (Omeprazole) 20 Mg Tablet.dr, 20 MG PO DAILY PRN for HEARTBURN/INDIGESTION Tramadol HCl (Tramadol HCl) 50 Mg Tablet, 50 MG PO Q6H PRN for PAIN Allergies Coded Allergies: Cat Dander (Verified Allergy, Severe, ASTHMA, 06/27/09) allopurinol (Verified Allergy, Unknown, 11/29/19) cephalexin (Verified Allergy, Unknown, 08/25/20) rash mirtazapine (Verified Allergy, Unknown, 11/29/19) acetaminophen (Verified Adverse Reaction, Intermediate, HEART RACES, 12/05/19) ropinirole (Verified Adverse Reaction, Unknown, 08/25/20) palpitations A-FIB/CHADSVASC A-FIB History Current/History of A-Fib/PAF?: No Current PO Anticoag Therapy: Yes Age/Risk Factor Scoring CHADSVASC: CHADSVASC Response (Comments) Value Age Risk Factor Age >/= 75 years old 2 Gender Risk Factor Female 1 Hx of CHF No 0 Hx of HTN No 0 Hx of Stroke/TIA/or VTE No 0 Hx of Diabetes No 0 Hx of Vascular Disease No 0 Total 3 Treatment Treatment ordered: Apixaban GME ATTESTATION GME ATTESTATION My faculty preceptor for this patient encounter was physically present during the encounter and was fully available. All aspects of the patient interview, examination, medical decision making process, and medical care plan development were reviewed and approved by the faculty preceptor. The faculty preceptor is aware and concurs with the plan as stated in the body of this note and will attest to such by his/her cosignature. ATTENDING NOTE I, Av Joya MD, have independently examined this patient and performed my own physical exam, as well as reviewed the documentation and edited where necessary. I have discussed in detail with the resident / student the findings and plan of treatment as documented by the resident / student and edited their n ote. I agree with their findings and treatment plan and have edited their documentation. SUHA BHATIA OMS-3 Feb 13, 2021 14:35 Watson Donohue MD Feb 13, 2021 19:43 AV JOYA MD Feb 17, 2021 14:00
[2021-02-13] MEDS: DOCUSATE SODIUM 100MG CAPSULE PO SCH ×2 (16:39→20:30)
[2021-02-13] MEDS: APIXABAN 2.5 MG TAB (ELIQUIS) PO SCH ×2 (16:39→20:29)
[2021-02-13 16:45] VITALS: BP 123/60
[2021-02-13] MEDS: VITAMIN D 1,000 INTERNATIONAL UNITS TABLET PO SCH (17:35)
[2021-02-13] MEDS: LEVOTHYROXINE 88MCG TABLET (0.088 MG) PO SCH (17:35)
--- NOTE | 2021-02-13 19:18 | ECGEPIP ---
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
[2021-02-13 20:00] VITALS: BP 130/63
[2021-02-13 20:29] VITALS: BP 130/63
[2021-02-13] MEDS ORDERED: atenoloL 50 MG TAB PO SCH (21:00)
[2021-02-14] MEDS: LEVOTHYROXINE 88MCG TABLET (0.088 MG) PO SCH (05:10)
[2021-02-14 06:00] VITALS: BP 131/60
[2021-02-14 07:08] LABS: BASO % 0.8 % (0.0-1.0); EOS # 0.8 10^3/uL (0.0-0.5); EOS % 16.6 % (0.0-3.0); HEMATOCRIT 23.6 % (36.0-47.0); HEMOGLOBIN 7.4 g/dl (12.0-15.5); LYMPH # 1.4 10^3/uL (1.5-5.0); LYMPH % 27.6 % (24.0-44.0); MEAN CORPUSCULAR HEMOGLOBIN 28.4 pg (27.0-33.0); MEAN CORPUSCULAR HGB CONC 31.4 g/dl (32.0-36.5); MEAN CORPUSCULAR VOLUME 90.4 fl (80.0-96.0); MONO # 0.4 10^3/uL (0.0-0.8); MONO % 8.8 % (2.0-8.0); NEUTROPHILS # 2.3 10^3/uL (1.5-8.5); NEUTROPHILS % 45.6 % (36.0-66.0); PLATELET COUNT, AUTOMATED 136 10^3/uL (150-450); RED BLOOD COUNT 2.61 10^6/uL (4.00-5.40)
[2021-02-14 07:24] LABS: CALCIUM LEVEL 8.1 MG/DL (8.8-10.2); CREATININE FOR GFR 1.07 MG/DL (0.55-1.30); GLOMERULAR FILTRATION RATE 51.5 (>32); POTASSIUM SERUM 3.6 MEQ/L (3.5-5.1)
[2021-02-14] MEDS: APIXABAN 2.5 MG TAB (ELIQUIS) PO SCH (08:47)
[2021-02-14] MEDS: VITAMIN D 1,000 INTERNATIONAL UNITS TABLET PO SCH (08:47)
[2021-02-14] MEDS: DOCUSATE SODIUM 100MG CAPSULE PO SCH (08:47)
[2021-02-14] MEDS ORDERED: SYNT88TA2 PO (11:00)
[2021-02-14] MEDS ORDERED: GLUC1TES2 XX (11:41)
[2021-02-14] MEDS ORDERED: FREEMIS42 TOP (11:41)
[2021-02-14] MEDS ORDERED: BLOO-76 MC (11:41)
[2021-02-14] MEDS ORDERED: ALCOPAD25 TOP (11:41)
[2021-02-14] MEDS ORDERED: LEVO50TA5 PO (11:57)
--- NOTE | 2021-02-14 12:44 | DS.PDOC ---
Discharge Summary General Date of Admission Feb 13, 2021 at 07:31 Date of Discharge 02/14/21 Primary Care Physician: Christopher Allen MD Attending Physician: JERARDO NICOLE DO Discharge Summary PROCEDURES PERFORMED DURING STAY: None ADMITTING DIAGNOSES: 1. Hypoglycemia, unknown etiology DISCHARGE DIAGNOSES: 1. Hypoglycemia, unknown etiology COMPLICATIONS/CHIEF COMPLAINT: Hypoglycemia. HISTORY OF PRESENT ILLNESS: Keara is 89F PMH HTN, hypothyroidism, gout on colchicine, PE on Eliquis, CKD 3A presented to ED following episode of low blood sugar level/hypoglycemia. Reports intermittent spontaneous hypoglycemic episodes, sometimes w/ BS 40's, without known trigger. She is able to tell that she is having hypoglycemia as she often experiences associated shaking, chills, dizziness. Reports sx resolution after eating something (toast w/ peanut butter). Reports she was okay yesterday night, but was altered and confused upon waking. Patient's did call EMS and brought her to the ED. Reports poor appetite, chronic fatigue and weakness. Denies loss of consciousness, abd pain, n/v. Denies urinary sx. In the ED upon encounter patient was able to answer all the questions and was back to baseline alert oriented x3. Fasting BS 67. ED labs significant for TSH 0.434 ED U/A significant for 3+blood, trace LE, 8 WBC, 1+ bacteria. CT abd/pelvis w/ contrast performed in ED to w/u possible kidney stone, given abnormal UA. Image unremarkable, as noted below. Imaging to w/u possible insulinoma performed in ED, as noted below. HOSPITAL COURSE: Pt admitted for obs on telemetry and to w/u possible insulinoma and additional etiology for recurrent hypoglycemia. Upon meeting pt, she was asx and no longer hypoglycemic. CT abd/pelvis in ED unremarkable for insulinoma and additional causes of hypoglycemia were examined. AM cortisol ordered to r/o diminished stress response. Unfortunately, the lab was drawn Tuesday AM and will not be complete until Tuesday. Pt advised to f/u w/ PCP for results and further management if necessary. TSH noted to be 0.434 and Synthroid-induced hyperthyroidism considered as possible cause for hypoglycemia. Goal TSH for this pt, given hx and age, is 5-6. For this reason, pt's Synthroid was decreased from 88mcg to 50 mcg. She will need repeat TSH in 6-12wks w/ further adjustment to Synthroid if necessary. In addition, cochicine and its relation to hypoglycemia has been reported on in a handful of case studies. While there is not significant evidence suggesting a correlation between the drug and low BS, her cochicine was d/c on admission and stopped on discharge as it could be a potential cause of her low BS. Pt placed on hypoglycemic protocol w/ FSBS prior to meals and bedtime. Her POC glucose remained 73-86. All other home meds continued on admission w/out complications. Pt remained asx throughout hospi talization. Fasting BS 02/14 noted to be 43, but pt did not complain of any sx. She was seen by PT and cleared for home. She was counseled on multiple causes for her low BS and advised to check her BS w/ glucometer. Advised to f/u w/ PCP, 7-10days. DISCHARGE MEDICATIONS: Please see below. ALLERGIES: Please see below. PHYSICAL EXAMINATION ON DISCHARGE: VITAL SIGNS: Please see below. GENERAL: laying in bed, NAD, alert and awake HEENT: NC/AT, EOMI, nares patent, moist mucous membranes NECK: supple CARDIOVASCULAR EXAMINATION: normal heart sounds, RRR, 3/5 systolic murmur, no RG RESPIRATORY EXAMINATION: CTA b/l, no WRR, no accessory muscles used ABDOMINAL EXAMINATION: normal BS, soft, nontender, nondistended EXTREMITIES: no edema, normal ROM SKIN: no new rashes/abrasions/wounds NEUROLOGICAL EXAMINATION: no FND, normal strength PSYCHIATRIC EXAMINATION: oriented, normal mood/affect LABORATORY DATA: Please see below. IMAGING: CXR (02/13): No significant change other than technique. Head CT (02/13): 1. No evidence of acute intracranial abnormality. No evidence of acute infarction, hemorrhage, or mass. 2. Atrophy and microvascular disease. CT abd/pelvis w/out contrast (02/13): 1. The exam is extremely limited as described above. 2. Chronic hepatic changes as described above. 3. Chronic renal changes as described above. No definite evidence of obstructive uropathy. 4. Known cholelithiasis. 5. Chronic osseous changes as described above. 6. Possible mild suprarenal abdominal aortic aneurysm/ectasia is suspected. 7. Right lung base nodule as described above. Neoplastic change cannot be ruled out. 8. Other findings as described above. CT abd/pelvis w/ contrast (02/13): Portal hypertension and mild splenomegaly. Multiple gallstones are seen in the gallbladder. No evidence of pancreatic mass or nodule. Bilateral renal cysts. Colonic diverticulosis without acute diverticulitis. No free air or free fluid. There is limited evaluation of pelvic structures due to artifact from a metallic right hip prosthesis. PROGNOSIS: fair ACTIVITY: As tolerated DIET: regular DISCHARGE PLAN: Hypoglycemia, unknown etiology D/c colchicine as there have been studies evaluating its relation to hypoglycemia Decrease Synthroid from 88mcg DAILY to 50mcg DAILY F/u PCP 7-10days to review med changes, AM cortisol level DISPOSITION: home DISCHARGE INSTRUCTIONS: 1. F/u PCP, 7-10days ITEMS TO FOLLOWUP ON ON OUTPATIENT: 1. PCP- cochicine (restart?), adjusted synthroid dose and repeat TSH 6-12wks to evaluate, AM cortisol level DISCHARGE CONDITION: Stable TIME SPENT ON DISCHARGE: 20 minutes. Vital Signs/I&Os Vital Signs Date Time Temp Pulse Resp B/P (MAP) Pulse Ox O2 Delivery O2 Flow Rate FiO2 02/14/21 06:00 97.1 64 16 131/60 (83) 98 Room Air I&O- Last 24 Hours up to 6 AM 02/14/21 06:00 Intake Total 300 ml Balance 300 ml Laboratory Data Labs 24H Laboratory Tests 2 02/13/21 14:01: Bedside Glucose (Misc Panel) 78L 02/13/21 16:59: Bedside Glucose (Misc Panel) 82L 02/13/21 20:03: Bedside Glucose (Misc Panel) 73L 02/14/21 06:30: Immature Granulocyte % (Auto) 0.6, Neutrophils (%) (Auto) 45.6, Lymphocytes (%) (Auto) 27.6, Monocytes (%) (Auto) 8.8H, Eosinophils (%) (Auto) 16.6H, Basophils (%) (Auto) 0.8, Neutrophils # (Auto) 2.3, Lymphocytes # (Auto) 1.4L, Monocytes # (Auto) 0.4, Eosinophils # (Auto) 0.8H, Basophils # (Auto) 0.0, Nucleated Red Bl ood Cells % (auto) 0.0, Anion Gap 6L, Glomerular Filtration Rate 51.5, Calcium Level 8.1L 02/14/21 11:43: Bedside Glucose (Misc Panel) 86 CBC/BMP Laboratory Tests 02/14/21 06:30 FSBS Laboratory Tests Test 02/13/21 14:01 02/13/21 16:59 02/13/21 20:03 02/14/21 11:43 Range/Units Bedside Glucose (Misc Panel) 78 82 73 86 83-110 MG/DL Microbiology Microbiology 02/13/21 Blood Culture - Preliminary, Resulted No growth after 24 hours . All specim... 02/13/21 Urine Culture - Final, Complete 02/13/21 Blood Culture - Preliminary, Resulted No growth after 24 hours . All specim... Discharge Medications Scheduled Apixaban (Eliquis) 2.5 Mg Tablet, 2.5 MG PO BID, (Reported) Atenolol (Atenolol) 50 Mg Tablet, 50 MG PO QHS, (Reported) Cholecalciferol (Vitamin D3) (Vitamin D3) 1,000 Unit Tablet, 1,000 UNITS PO DAILY, (Reported) @ 1200 Levothyroxine Sodium (Levothyroxine Sodium) 50 Mcg Tablet, 1 TAB PO DAILY Potassium Chloride (Potassium Chloride) 10 Meq Tab.er.prt, 20 MEQ PO BID, (Reported) Scheduled PRN Blood Sugar Diagnostic (Advanced Glucose Test Strips) 1 Each Strip, 60 STRIP XX ASDIRECTED PRN for BLOOD SUGAR < 50 Use when checking BS, BID PRN Omeprazole (Omeprazole) 20 Mg Tablet.dr, 20 MG PO DAILY PRN for HEARTBURN/INDIGESTION, (Reported) Tramadol HCl (Tramadol HCl) 50 Mg Tablet, 50 MG PO Q6H PRN for PAIN, (Reported) Allergies Coded Allergies: Cat Dander (Verified Allergy, Severe, ASTHMA, 06/27/09) allopurinol (Verified Allergy, Unknown, 11/29/19) cephalexin (Verified Allergy, Unknown, 08/25/20) rash mirtazapine (Verified Allergy, Unknown, 11/29/19) acetaminophen (Verified Adverse Reaction, Intermediate, HEART RACES, 12/04) ropinirole (Verified Adverse Reaction, Unknown, 08/25/20) palpitations GME ATTESTATION GME ATTESTATION My faculty preceptor for this patient encounter was physically present during the encounter and was fully available. All aspects of the patient interview, examination, medical decision making process, and medical care plan development were reviewed and approved by the faculty preceptor. The faculty preceptor is aware and concurs with the plan as stated in the body of this note and will attest to such by his/her cosignature. ATTENDING NOTE I, Jerardo Nicole DO, have independently examined this patient and performed my own physical exam, as well as reviewed the documentation and edited where necessary. I have discussed in detail with the resident / student the findings and plan of treatment as documented by the resident / student and edited their note. I agree with their findings and treatment plan and have edited their documentation. I will continue to follow the patient during this hospital stay. Sofía Kathleen DO Feb 14, 2021 12:44 JERARDO NICOLE DO Feb 14, 2021 17:59
== END 2021-02-14 12:28 | disposition home or self-care (01) ==
LOC: EDBD 07:30 → M ED 07:30 → M ED INP 07:31 → ENRESERV 14:45 → M MSPAV 16:48
PROVIDERS: ADMIT Internal Medicine; ATTEND Family Medicine
DX: E16.2 Hypoglycemia, unspecified (principal); I12.9 Hypertensive chronic kidney disease with stage 1 through stage 4 chronic kidney disease, or unspecified chronic kidney disease; E03.9 Hypothyroidism, unspecified; M10.9 Gout, unspecified; Z86.711 Personal history of pulmonary embolism; Z79.01 Long term (current) use of anticoagulants; Z79.899 Other long term (current) drug therapy; N18.31 Chronic kidney disease, stage 3a; Z88.1 Allergy status to other antibiotic agents; Z88.8 Allergy status to other drugs, medicaments and biological substances
CPT/HCPCS: 36415; 70450; 71045; 74176; 74177; 80048; 80076; 81001; 82140; 82533; 82550; 82553; 83036; 83605; 84443; 84484; 85025; 87040; 87086; 87631; 93005; 93041; 94760; 97161; 97530; 99285; G0378; Q9967

== ENCOUNTER → 2021-02-25 | Outpatient (REF) | payer MEDICARE, BC ==
[~2021-02-25] MED LIST changes: +ADV250INH INH; +ADV500INH INH; +ALCOPAD25 TOP; +BLOO-76 MC; +DIAZ50OR PO; +FERR1TAB8 PO; +FLUT1BLS5 INH; +FREEMIS42 TOP; +GLUC1TES2 XX; +HYDR12.55 PO; -LEVOTHYROXINE 88MCG TABLET (0.088 MG) PO SCH; +PRED20TA PO; +PROA1AER2 INH; +VENTAER INH
[2021-02-25 11:18] LABS: CALCIUM LEVEL 7.7 MG/DL (8.8-10.2); CREATININE FOR GFR 1.24 MG/DL (0.55-1.30); GLOMERULAR FILTRATION RATE 43.5 (>32); POTASSIUM SERUM 3.9 MEQ/L (3.5-5.1)
[2021-02-26 07:07] LABS: C-PEPTIDE 7.9 ng/mL (1.1-4.4); INSULIN LEVEL > 1000.0 uIU/mL (2.6-24.9)
== END ==
LOC: M SFHCADAM 08:41
PROVIDERS: ATTEND Family Medicine
DX: E16.2 Hypoglycemia, unspecified (principal)

== ENCOUNTER 2021-03-24 13:57 | Inpatient (IN) | payer MEDICARE, BC ==
[2021-03-24] VITALS (8 sets, daily range): BP systolic 129–173; BP diastolic 60–74
[~2021-03-24] VITALS: Ht 157.5 cm; Wt 76.8 kg
[~2021-03-24 13:57] MED LIST changes: -ADV250INH INH; -ADV500INH INH; -DIAZ50OR PO; -FERR1TAB8 PO; -FLUT1BLS5 INH; -HYDR12.55 PO; -PRED20TA PO; -PROA1AER2 INH; -VENTAER INH
--- NOTE | 2021-03-24 15:03 | REP ---
INDICATION: DYSPNEA/COUGH. COMPARISON: Comparison portable chest x-ray February 13, 2021. TECHNIQUE: Portable upright AP chest radiograph. FINDINGS: The lungs are symmetrically aerated. No focal infiltrate is seen. Interstitial markings are slightly increased diffusely unchanged. Cardiomegaly is observed also unchanged. The thoracic aorta is tortuous and calcific as before. There is no evidence of pleural effusion or pulmonary edema. IMPRESSION: Moderate cardiac enlargement. Chronically increased interstitial markings diffusely. No focal infiltrate. No evidence of pleural effusion or pulmonary edema seen. <Electronically signed by Loy Adair > 03/24/21 [id number]
[2021-03-24 15:53] LABS: VENOUS BASE EXCESS -1.3 (-2.0-2.0); VENOUS HCO3 23.8 MEQ/L (23.0-27.0); VENOUS O2 SATURATION 78.7 % (60.0-80.0); VENOUS PARTIAL PRESSURE CO2 42.3 mmHg (38.0-50.0); VENOUS PARTIAL PRESSURE O2 47.9 mmHg (30.0-50.0); VENOUS PH 7.369 UNITS (7.330-7.430); VENOUS STANDARD HCO3 23.1 MEQ/L; VENOUS TOTAL CO2 25.1 MEQ/L (24.0-28.0)
[2021-03-24 16:14] LABS: BASO % 0.4 % (0.0-1.0); EOS # 1.2 10^3/uL (0.0-0.5); EOS % 13.3 % (0.0-3.0); LYMPH # 1.2 10^3/uL (1.5-5.0); LYMPH % 13.7 % (24.0-44.0); MEAN CORPUSCULAR HEMOGLOBIN 29.3 pg (27.0-33.0); MEAN CORPUSCULAR HGB CONC 30.1 g/dl (32.0-36.5); MEAN CORPUSCULAR VOLUME 97.4 fl (80.0-96.0); MONO # 0.6 10^3/uL (0.0-0.8); MONO % 6.5 % (2.0-8.0); NEUTROPHILS # 5.9 10^3/uL (1.5-8.5); NEUTROPHILS % 65.5 % (36.0-66.0); PLATELET COUNT, AUTOMATED 159 10^3/uL (150-450); RED BLOOD COUNT 1.91 10^6/uL (4.00-5.40)
[2021-03-24 16:18] LABS: HEMATOCRIT 18.6 % (36.0-47.0); HEMOGLOBIN 5.6 g/dl (12.0-15.5)
[2021-03-24 16:28] LABS: ALBUMIN 1.9 GM/DL (3.2-5.2); ALT/SGPT 16 U/L (12-78); BILIRUBIN,DIRECT 0.1 MG/DL (0.0-0.2); BILIRUBIN,TOTAL 0.4 MG/DL (0.2-1.0); BLOOD UREA NITROGEN 27 MG/DL (7-18); CALCIUM LEVEL 7.6 MG/DL (8.8-10.2); CARBON DIOXIDE LEVEL 24 MEQ/L (21-32); CHLORIDE LEVEL 107 MEQ/L (98-107); CK-MB VALUE MASS < 1.0 NG/ML (<3.6); CPK CREATINE PHOSPHOKINASE 80 U/L (26-192); CREATININE FOR GFR 1.31 MG/DL (0.55-1.30); GLOMERULAR FILTRATION RATE 40.8 (>32); GLUCOSE, FASTING 104 MG/DL (70-100); MB/CK RELATIVE INDEX 1.25 (< OR =4); NT-PRO BNP 1055 PG/ML (<450); POTASSIUM SERUM 4.7 MEQ/L (3.5-5.1); SODIUM LEVEL 140 MEQ/L (136-145); THYROXINE (T4) 4.6 UG/DL (4.5-12.0); TOTAL PROTEIN 8.5 GM/DL (6.4-8.2); TROPONIN I < 0.02 NG/ML (< 0.10)
[2021-03-24] MEDS ORDERED: ACETAMINOPHEN TAB 650MG DOSE (2X325MG) PO PRN (16:50)
--- NOTE | 2021-03-24 17:36 | HPEPDOC ---
[facility] Medical History & Physical Date of Admission Mar 24, 2021 Date of Service: Mar 24, 2021 Attending Physician: JUANA PROCTOR MD History and Physical CHIEF COMPLAINT: SOB, RIVAS, declining exercise tolerance HISTORY OF PRESENT ILLNESS: 89-year-old W with a history of PE on eliquis, HTN, hypothyroidism, gout, asthma, chronic anemia, HLD, osteopenia, SVT, CKD 3A who presented to the ED with weakness and SOB with any exertion. In the ED she is hemodynamically stable, afebrile, and breathing comfortably on room air. On lab evaluation, she was found to have anemia to Hgb 5.6 from a baseline of ~8, WBC 9, platelet 159, na 140, K 4.7, BUN 27, Cr 1.31, glucose 104, lactic acid 2.4, proBNP 1055, troponin negative, TSH 16.2 with free T4 4.6. She denied any noted allison blood per rectum, dark stool, hematemesis, hemoptysis. She was consented for blood and is now ordered for 2 units of pRBCs. I am now holding her eliquis and will admit her to medicine for acute on chronic now symptomatic anemia. Of note, ED stool guaiac was negative. PAST MEDICAL HISTORY: Hypertension. Hypothyroidism. Gout. Pulmonary embolism in the past. CKD stage IIIa Asthma Dyslipidemia Osteopenia Anemia PAST SURGICAL HISTORY: Hip replacement complicated by staph Aureus infection. Knee replacement. Recurrent Kidney stones - treated with surgical removal. SOCIAL HISTORY: Marital status: . Resides in: Home with Tobacco use: Patient smoked from 18 -> 60. Hasn't smoked in 30 years ETOH: Patient denies Illicit drug use: Patient denies IV drug use: Patient denies ALLERGIES: Please see below. REVIEW OF SYSTEMS: CONSTITUTIONAL: Patient has no chills. HEENT: Patient denies headaches CARDIOVASCULAR: No chest pain or palpitations. RESPIRATORY: has SOB with significant RIVAS, no audible wheezing, rhinorrhea, congestion or coughing GASTROINTESTINAL: No N/V or diarrhea or constipation - normal stool color GENITOURINARY: No pain with urination. Normal urine color.. NEUROLOGICAL: Patient has no numbness or tingling, asymmetric weakness or gait changes HOME MEDICATIONS: Please see below. PHYSICAL EXAMINATION: VITALS: see below GENERAL: weak, NAD HEENT: NCAT, EOMI, pallor, MMM CARDIOVASCULAR: Normal S1 and S2. No extra heart sounds or murmurs. LUNGS: CTAB, equal breath sounds, no wheezing, rales or rhonchi. ABDOMEN: No tenderness to palpation. Normoactive bowel sounds, soft. EXTREMITIES: 2+ pedal pulses, WWP, trace LE edema NEUROLOGICAL: No weakness or loss of sensation in extremities. CN 3-12 intact PSYCHIATRIC: Alert and oriented x 3. LABORATORY DATA: as noted above CXR: The lungs are symmetrically aerated. No focal infiltrate is seen. Interstitial markings are slightly increased diffusely unchanged. Cardiomegaly is observed also unchanged. The thoracic aorta is tortuous and calcific as before. There is no evidence of pleural effusion or pulmonary edema. IMPRESSION: Moderate cardiac enlargement. Chronically increased interstitial markings diffusely. No focal infiltrate. No evidence of pleural effusion or pulmonary edema seen MICROBIOLOGY: Please see below. ASSESSMENT: 89-year-old W with a history of PE on eliquis, HTN, hypothyroidism, gout, asthma , chronic anemia, HLD, osteopenia, SVT, CKD 3A who presented to the ED with weakness and SOB with any exertion who is now being admitted to medicine for acute on chronic now symptomatic anemia. PLAN: Symptomatic anemia: acute on chronic: -No allison evidence of GIB with negative ED guaiac -hold eliquis for now given anemia -Q12H CBCs -consented for blood, type and screen, ordered for 2u pRBCs thus far -Goal Hgb >8 -Check ferritin, Fe, transferrin, Vit b12, folate, retic, peripheral smear -Unlikely hemolysis, Tbili 0.4, will check LDH and haptoglobin History of PE: - holding eliquis i/s/o acute on chronic anemia, symptomatic. will give TEDs and SCDs for now for DVT ppx. HTN: -continue home atenolol Hypothyroidism -continue synthroid GERD -PPI therapy will be continued. Osteopenia: -continue her vitamin D and acetaminophen PRN for pain DVT prophylaxis: -holding eliquis for now with acute anemia. Will give SCDs and TEDs for DVT ppx for now. Vital Signs Vital Signs Date Time Temp Pulse Resp B/P (MAP) Pulse Ox O2 Delivery O2 Flow Rate FiO2 03/24/21 16:13 Room Air 03/24/21 13:57 97.8 72 16 116/59 (78) 99 Laboratory Data Labs 24H Laboratory Tests 2 03/24/21 15:29: Immature Granulocyte % (Auto) 0.6, Neutrophils (%) (Auto) 65.5, Lymphocytes (%) (Auto) 13.7L, Monocytes (%) (Auto) 6.5, Eosinophils (%) (Auto) 13.3H, Basophils (%) (Auto) 0.4, Neutrophils # (Auto) 5.9, Lymphocytes # (Auto) 1.2L, Monocytes # (Auto) 0.6, Eosinophils # (Auto) 1.2H, Basophils # (Auto) 0.0, Nucleated Red Blood Cells % (auto) 0.0, Blood Gas Bicarbonate Standard 23.1, Venous Blood pH 7.369, Venous Blood Partial Pressure CO2 42.3, Venous Blood Partial Pressure O2 47.9, Venous Blood Total Carbon Dioxide 25.1, Venous Blood HCO3 23.8, Venous Blood Oxygen Saturation 78.7, Venous Blood Base Excess -1.3, Anion Gap 9, Glomerular Filtration Rate 40.8, Calcium Level 7.6L, Total Bilirubin 0.4, Direct Bilirubin 0.1, Aspartate Amino Transf (AST/SGOT) 43H, Alanine Aminotransferase (ALT/SGPT) 16, Alkaline Phosphatase 113, Total Creatine Kinase 80, Creatine Kinase MB < 1.0, Creatine Kinase MB Relative Index 1.25, Troponin I < 0.02, UE-Omk-K-Type Natriuretic Peptide 1055H, Total Protein 8.5H, Albumin 1.9L, Albumin/Globulin Ratio 0.3L, Thyroid Stimulating Hormone (TSH) 16.200H, Thyroxine (T4) 4.6 03/24/21 15:30: Lactic Acid Level 2.4*H CBC/BMP Laboratory Tests 03/24/21 15:29 Microbiology Microbiology 03/24/21 Respiratory Virus Panel (PCR) (CARLINE) - Final, Complete 03/24/21 Blood Culture, Received Pending 03/24/21 Blood Culture, Received Pending Home Medications Scheduled Apixaban (Eliquis) 2.5 Mg Tablet, 2.5 MG PO BID Atenolol (Atenolol) 50 Mg Tablet, 50 MG PO QHS Cholecalciferol (Vitamin D3) (Vitamin D3) 1,000 Unit Tablet, 1,000 UNITS PO DAILY @ 1200 Levothyroxine Sodium (Levothyroxine Sodium) 50 Mcg Tablet, 1 TAB PO DAILY Potassium Chloride (Potassium Chloride) 10 Meq Tab.er.prt, 20 MEQ PO BID Scheduled PRN Blood Sugar Diagnostic (Advanced Glucose Test Strips) 1 Each Strip, 60 STRIP XX ASDIRECTED PRN for BLOOD SUGAR < 50 Use when checking BS, BID PRN Allergies Coded Allergies: Cat Dander (Verified Allergy, Intermediate, ASTHMA, 03/24/21) cephalexin (Verified Allergy, Intermediate, RASH, 03/24/21) allopurinol (Verified Allergy, Unknown, 11/29/19) mirtazapine (Verified Allergy, Unknown, 11/29/19) acetaminophen (Verified Adverse Reaction, Intermediate, HEART RACES, 12/05/19) ropinirole (Verified Adverse Reaction, Intermediate, palpitations, 03/24/21) A-FIB/CHADSVASC A-FIB History Current/History of A-Fib/PAF?: Yes Current PO Anticoag Therapy: Yes Treatment Treatment ordered: Apixaban Reason Anticoagulant not given: Current bleeding JUANA PROCTOR MD Mar 24, 2021 17:08
[2021-03-24] MEDS ORDERED: SYNT88TA2 PO (18:02)
[2021-03-24] MEDS ORDERED: HOME MED LIST COMPLETE! XX SCH (18:05)
[2021-03-24 18:23] LABS: FERRITIN 22 NG/ML (8-252); IRON (FE) 29 UG/DL (50-170); LDH LACTATE DEHYDROGENASE 426 U/L (84-246); PERCENT SATURATION 7.7 % (13.2-45.0); TOTAL IRON BINDING CAPACITY 379 UG/DL (250-450)
[2021-03-24 18:30] LABS: VITAMIN B12 LEVEL 724 PG/ML
[2021-03-24 18:31] LABS: FOLATE > 24.0 NG/ML
[2021-03-24 19:09] LABS: INR 1.53; PROTHROMBIN TIME 18.8 SECONDS (12.7-14.5)
[2021-03-24 19:10] LABS: PARTIAL THROMBOPLASTIN TIME 41.4 SECONDS (25.9-37.0)
[2021-03-24] MEDS: atenoloL 50 MG TAB PO SCH (20:53)
[2021-03-24] MEDS: POTASSIUM CHLORIDE 10MEQ SR TABLET PO SCH (20:53)
[2021-03-25] VITALS (11 sets, daily range): BP systolic 107–153; BP diastolic 51–69
[2021-03-25] MEDS ORDERED: LEVOTHYROXINE 50MCG TABLET (0.05MG) PO SCH (06:00)
[2021-03-25 06:15] LABS: HEMATOCRIT 24.1 % (36.0-47.0); MEAN CORPUSCULAR HEMOGLOBIN 29.7 pg (27.0-33.0); MEAN CORPUSCULAR VOLUME 93.1 fl (80.0-96.0); PLATELET COUNT, AUTOMATED 153 10^3/uL (150-450); RED BLOOD COUNT 2.59 10^6/uL (4.00-5.40); WHITE BLOOD COUNT 9.4 10^3/uL (4.0-10.0)
[2021-03-25 06:39] LABS: INR 1.41; PROTHROMBIN TIME 17.7 SECONDS (12.7-14.5)
[2021-03-25 06:43] LABS: ALBUMIN 1.9 GM/DL (3.2-5.2); BILIRUBIN,TOTAL 1.3 MG/DL (0.2-1.0); CALCIUM LEVEL 7.3 MG/DL (8.8-10.2); CREATININE FOR GFR 1.17 MG/DL (0.55-1.30); GLOMERULAR FILTRATION RATE 46.5 (>32); POTASSIUM SERUM 3.7 MEQ/L (3.5-5.1); TOTAL PROTEIN 7.8 GM/DL (6.4-8.2)
[2021-03-25 06:46] LABS: HEMOGLOBIN 7.7 g/dl (12.0-15.5)
[2021-03-25] MEDS: POTASSIUM CHLORIDE 10MEQ SR TABLET PO SCH ×2 (08:35→20:04)
[2021-03-25] MEDS ORDERED: IPRATROPIUM 0.5MG/ALBUTEROL 2.5MG INH SOL UD 3ML (DUONEB) NEB PRN (10:00)
[2021-03-25] MEDS ORDERED: IRON SUCROSE 100MG 5ML VIAL (J1756 PER 1MG) IV SCH (10:00)
[2021-03-25] MEDS ORDERED: FUROSEMIDE 40MG/4ML VIAL (J1940) IV ONE (11:55)
[2021-03-25] MEDS: APIXABAN 2.5 MG TAB (ELIQUIS) PO SCH ×2 (13:21→20:04)
[2021-03-25] MEDS: IPRATROPIUM 0.5MG/ALBUTEROL 2.5MG INH SOL UD 3ML (DUONEB) NEB SCH ×2 (14:02→19:58)
--- NOTE | 2021-03-25 14:11 | IPNPDOC ---
Date Seen The patient was seen on 03/25/21. Progress Note SUBJECTIVE: Patient is a 89-year-old female who was admitted to the ED yesterday with weakness and shortness of breath with any exertion. History of present illness: Patient is an 89-year-old female who presented to the ED with weakness, shortness of breath and exertion, with a history of PE on Eliquis, hypertension, hypothyroidism, gout, asthma, chronic anemia, HLD, osteopenia, SVT, CKD 3A. She was found to have a hemoglobin of 5.6 (baseline of around 8) she was given 2 units of PRBCs. Eliquis was held and admitted for symptomatic acute on chronic anemia. Guaiac stool was negative. She also had a TSH of 16.2 with a free T4 of 1.6. Event since last encounter: Patient was examined at bedside. Reports less weakness and reported still being short of breath with motion. Patient's hearing aid battery and it was difficult to conduct the examination due to patient's poor hearing. Nurses reported low glucose at times which increased after drinking juice. Review of systems: Constitutional: Denies fever, chills Cardiovascular: Denies chest pain, palpitations Respiratory: Reports shortness of breath with movement Gastrointestinal: Denies nausea, vomiting, diarrhea Genitourinary: Denies dysuria; reports seeing some small amount of blood in her urine OBJECTIVE PHYSICAL EXAMINATION: VITAL SIGNS: Please see below. GENERAL: 89-year-old female, resting in bed, audibly wheezing, no acute distress, hard of hearing HEENT: Head normocephalic atraumatic, eyes EOMI, noninjected sclera Cardiovascular: Regular rate and rhythm, no murmurs, no rubs, no gallops Respiratory: Expiratory wheezes audible throughout bilaterally; crackles heard at bilateral bases Gastrointestinal: Normoactive bowel sounds throughout, nontender to palpation Extremities: No lower extremity swelling appreciated, appropriate range of motion in all 4 extremities Nurses were concerned about Synthroid versus levothyroxine and blood glucose levels LABORATORY DATA, IMAGING STUDIES, MICROBIOLOGY: Please see below. Echocardiogram: . DVT prophylaxis ordered?: Teds and sequentials ASSESSMENT AND PLAN: This is a 89-year-old female with symptomatic acute on chronic anemia who presented to the ED with shortness of breath and weakness. PROBLEMS: Symptomatic anemia: acute on chronic: -No allison evidence of GIB with negative ED guaiac -GI bleed has been ruled out and Eliquis will be restarted -Q12H CBCs -consented for blood, type and screen, ordered for 3u pRBCs thus far -Venofer 100 mg daily till 03/26/2021 -Goal Hgb >8 -Ferritin 22, transferrin saturation 7.1 L, vitamin B12 724, folate greater than 24, reticulocytes 88.8 -Unlikely hemolysis, Tbili 0.4, LDH 426, haptoglobin pending History of PE: - TEDs and SCDs for now for DVT ppx. HTN: -continue home atenolol Hypothyroidism -Levothyroxine 88 MCG daily, to take on empty stomach at least 30 minutes before any other medication is given GERD -PPI therapy will be continued. Osteopenia: -continue her vitamin D and acetaminophen PRN for pain Wheezing: -DuoNeb 3 mL q4h scheduled -Furosemide 40 mg IV given once DVT prophylaxis: -holding eliquis for now with acute anemia. Will give SCDs and TEDs for DVT ppx for now. DISPOSITION: Discharge pending clinical improvement of anemia. VS, I&O, 24H, [facility] Vital Signs/I&O Vital Signs Date Time Temp Pulse Resp B/P (MAP) Pulse Ox O2 Delivery O2 Flow Rate FiO2 03/25/21 13:41 97.8 75 18 130/60 95 Room Air I&O- Last 24 Hours up to 6 AM 03/25/21 06:00 Intake Total 1800 ml Output Total 400 ml Balance 1400 ml Laboratory Data 24H LABS Laboratory Tests 2 03/24/21 15:29: Immature Granulocyte % (Auto) 0.6, Neutrophils (%) (Auto) 65.5, Lymphocytes (%) (Auto) 13.7L, Monocytes (%) (Auto) 6.5, Eosinophils (%) (Auto) 13.3H, Basophils (%) (Auto) 0.4, Neutrophils # (Auto) 5.9, Lymphocytes # (Auto) 1.2L, Monocytes # (Auto) 0.6, Eosinophils # (Auto) 1.2H, Basophils # (Auto) 0.0, Reticulocyte # (auto) 88.8H, Nucleated Red Blood Cells % (auto) 0.0, Percent Reticulocyte Count 4.6H, Reticulocyte Hemoglobin Equivalent 26.5, Blood Gas Bicarbonate Standard 23.1, Venous Blood pH 7.369, Venous Blood Partial Pressure CO2 42.3, Venous Blood Partial Pressure O2 47.9, Venous Blood Total Carbon Dioxide 25.1, Venous Blood HCO3 23.8, Venous Blood Oxygen Saturation 78.7, Venous Blood Base Excess - 1.3, Anion Gap 9, Glomerular Filtration Rate 40.8, Calcium Level 7.6L, Iron Level 29L, Total Iron Binding Capacity 379, Transferrin % Saturation 7.7L, Ferritin 22, Total Bilirubin 0.4, Direct Bilirubin 0.1, Aspartate Amino Transf (AST/SGOT) 43H, Alanine Aminotransferase (ALT/SGPT) 16, Alkaline Phosphatase 113, Lactate Dehydrogenase 426H, Total Creatine Kinase 80, Creatine Kinase MB < 1.0, Creatine Kinase MB Relative Index 1.25, Troponin I < 0.02, ZN-Jlh-A-Type Natriuretic Peptide 1055H, Total Protein 8.5H, Albumin 1.9L, Albumin/Globulin Ratio 0.3L, Vitamin B12 Level 724, Folate > 24.0, Thyroid Stimulating Hormone (TSH) 16.200H, Thyroxine (T4) 4.6 03/24/21 15:30: Lactic Acid Level 2.4*H 03/24/21 18:20: Bedside Glucose (Misc Panel) 59L 03/24/21 18:38: Prothrombin Time 18.8H, Prothromb Time International Ratio 1.53, Activated Partial Thromboplast Time 41.4H 03/24/21 22:59: Bedside Glucose (Misc Panel) 41L 03/25/21 00:00: Bedside Glucose (Misc Panel) 91 03/25/21 05:15: Bedside Glucose (Misc Panel) 55L 03/25/21 05:35: Nucleated Red Blood Cells % (auto) 0.0, Prothrombin Time 17.7H, Prothromb Time International Ratio 1.41, Anion Gap 6L, Glomerular Filtration Rate 46.5, Calcium Level 7.3L, Magnesium Level 2.0, Total Bilirubin 1.3#H, Aspartate Amino Transf (AST/SGOT) 22, Alanine Aminotransferase (ALT/SGPT) 11L, Alkaline Phosphatase 100, Total Protein 7.8, Albumin 1.9L, Albumin/Globulin Ratio 0.3L 03/25/21 06:56: Bedside Glucose (Misc Panel) 116H 03/25/21 08:07: Bedside Glucose (Misc Panel) 120H 03/25/21 09:11: Bedside Glucose (Misc Panel) 120H CBC/BMP Laboratory Tests 03/24/21 15:29 03/25/21 05:35 Microbiology Microbiology 03/25/21 Stool Occult Blood (CARLINE), Received Pending 03/24/21 Respiratory Virus Panel (PCR) (CARLINE) - Final, Complete 03/24/21 Blood Culture, Received Pending 03/24/21 Blood Culture, Received Pending GME ATTESTATION GME ATTESTATION My faculty preceptor for this patient encounter was physically present during the encounter and was fully available. All aspects of the patient interview, examination, medical decision making process, and medical care plan development were reviewed and approved by the faculty preceptor. The faculty preceptor is aware and concurs with the plan as stated in the body of this note and will attest to such by his/her cosignature. ATTENDING NOTE I personally examined the patient and discussed her findings, course and management and I agree with the detailed plan above. Today, I had a discussion with Ms. Saez and her PCP Dr. Allen and we agreed to her receiving a 3rd unit of blood for goal Hgb >8 and will also give her lasix 40 IV once for crackles noted on my examination as well as duonebs for ongoing wheezing. Alberto Olivier DO Mar 25, 2021 14:11 JUANA PROCTOR MD Mar 25, 2021 17:24
[2021-03-25] MEDS: IRON SUCROSE 100 MG in NS 100 ML OVER 1 HR IV SCH (16:25)
[2021-03-25 19:48] LABS: HEMATOCRIT 27.6 % (36.0-47.0); HEMOGLOBIN 8.8 g/dl (12.0-15.5)
[2021-03-25] MEDS: atenoloL 50 MG TAB PO SCH (20:05)
[2021-03-26] MEDS: IPRATROPIUM 0.5MG/ALBUTEROL 2.5MG INH SOL UD 3ML (DUONEB) NEB SCH ×2 (01:34→06:27)
[2021-03-26 06:00] VITALS: BP 129/51
[2021-03-26] MEDS ORDERED: LEVOTHYROXINE 50MCG TABLET (0.05MG) PO SCH (06:00)
[2021-03-26] MEDS ORDERED: LEVOTHYROXINE 88MCG TABLET (0.088 MG) PO SCH (06:00)
[2021-03-26 06:06] LABS: HEMATOCRIT 24.7 % (36.0-47.0); HEMOGLOBIN 7.9 g/dl (12.0-15.5); MEAN CORPUSCULAR HEMOGLOBIN 29.3 pg (27.0-33.0); MEAN CORPUSCULAR VOLUME 91.5 fl (80.0-96.0); PLATELET COUNT, AUTOMATED 129 10^3/uL (150-450); WHITE BLOOD COUNT 8.2 10^3/uL (4.0-10.0)
[2021-03-26 06:34] LABS: CREATININE FOR GFR 1.33 MG/DL (0.55-1.30); GLOMERULAR FILTRATION RATE 40.1 (>32); POTASSIUM SERUM 3.7 MEQ/L (3.5-5.1)
[2021-03-26 06:35] LABS: ALBUMIN 1.7 GM/DL (3.2-5.2); CALCIUM LEVEL 7.3 MG/DL (8.8-10.2); MAGNESIUM LEVEL 1.9 MG/DL (1.8-2.4); TOTAL PROTEIN 7.5 GM/DL (6.4-8.2)
[2021-03-26 06:39] LABS: INR 1.66
--- NOTE | 2021-03-26 07:31 | ECGEPIP ---
[facility] - ED Test Date: 2021-03-24 Pat Name: GEORGIANA BALLESTEROS Department: Room: - Gender: Female Appointment Coordinator: DB : [id number] Requested By: Shelia Randolph Order Number: [id number] Reading MD: Shelia Randolph Measurements Intervals Bath Rate: 74 P: 52 KS: 170 QRS: -19 QRSD: 86 T: 57 QT: 442 QTc: 490 Interpretive Statements Normal sinus rhythm Nonspecific ST and T wave abnormality lad increased rate 02/13/21 Electronically Signed on 03-26-2021 7:30:52 EDT by Shelia Randolph
[2021-03-26] MEDS: APIXABAN 2.5 MG TAB (ELIQUIS) PO SCH (08:36)
[2021-03-26] MEDS: IRON SUCROSE 100 MG in NS 100 ML OVER 1 HR IV SCH (08:38)
[2021-03-26] MEDS: POTASSIUM CHLORIDE 10MEQ SR TABLET PO SCH (08:38)
[2021-03-26] MEDS ORDERED: predniSONE 20 MG TAB PO SCH (09:00)
[2021-03-26] MEDS ORDERED: FERROUS SULFATE 325MG TAB PO SCH (09:00)
[2021-03-26] MEDS ORDERED: PRED20TA PO ×2 (11:35→12:36)
[2021-03-26] MEDS ORDERED: FERR1TAB8 PO (11:35)
[2021-03-26] MEDS ORDERED: SYNT88TA2 PO ×2 (11:35→12:36)
[2021-03-26] MEDS ORDERED: PROA1AER2 INH (11:35)
[2021-03-26] MEDS ORDERED: ADV500INH INH (11:35)
[2021-03-26] MEDS ORDERED: ADV250INH INH (12:36)
--- NOTE | 2021-03-26 13:40 | DS.PDOC ---
Discharge Summary General Date of Admission Mar 24, 2021 at 16:46 Date of Discharge Mar 26, 2021 Primary Care Physician: Christopher Allen MD Attending Physician: JUANA PROCTOR MD Discharge Summary PROCEDURES PERFORMED DURING STAY: [None]. ADMITTING DIAGNOSES: 1. Symptomatic acute on chronic anemia 2. Shortness of breath 3. Weakness DISCHARGE DIAGNOSES: Symptomatic acute on chronic anemia Evidence of GIB CARLOS Mild asthma exacerbation Hypothyroidism Gout HLD CKD3a COMPLICATIONS/CHIEF COMPLAINT: Peter (Acute Kidney Injury), Anemia, Dyspnea. HISTORY OF PRESENT ILLNESS: Patient is an 89-year-old female with a history of PE on Eliquis, hypertension, hypothyroidism, gout, asthma, chronic anemia, HLD, osteopenia, SVT, CDK T3a, who presented to the ED March 24, 2021 with weakness and shortness of breath on exertion. She was hemodynamically stable and comfortably breathing on room air. On labs she was found to have a hemoglobin of 5.6 with a baseline of around 8, WBC of 9, platelet count of 159, a proBNP of 1055, and a TSH of 16.2 with a free T4 4.6. He received 2 units of packed red blood cells and the Eliquis was held. The ED stool guaiac test was negative. HOSPITAL COURSE: 03/24/2021: Resented to the ED with weakness and shortness of breath with exertion. Was given 2 units PRBCs. Eliquis was stopped and stool guaiac test was negative. He was admitted on to [address] [place] [address] for further management and treatment. Home medications were continued. 03/25/2021: Patient reported shortness of breath and weakness but less than yesterday. No evidence of GI bleed was seen and Eliquis was started due to the negative the ED stool guaiac test. Was given another unit of PRBCs (total of 3 received). Venofer 100 mg daily was also added. Patient's levothyroxine 44 MCG twice daily was changed to levothyroxine 88 MCG daily in the morning. She was also given duo nebs and furosemide due to wheezing and crackles. 03/26/2021: Repeat stool guaiac test resulted positive and patient's Eliquis was discontinued at that point. Patient will be instructed to discontinue Eliquis until she consults with Dr. Allen. Prednisone was given to help improve patient's breathing ability. She has been prescribed albuterol and Advair as well. Ferrous sulfate has also been prescribed iron supplementation. She has received clearance from PT to be discharged. DISCHARGE MEDICATIONS: Please see below. ALLERGIES: Please see below. PHYSICAL EXAMINATION ON DISCHARGE: VITAL SIGNS: Please see below. GENERAL: 89-year-old female, resting in bed, no acute distress. Ready to go home HEENT: Head normocephalic atraumatic eyes clear conjunctival bilaterally CARDIOVASCULAR EXAMINATION: Regular rate and rhythm, no murmurs, rubs, gallops RESPIRATORY EXAMINATION: Wheezing auscultated bilaterally; crackles were appreciated at the lung bases bilaterally ABDOMINAL EXAMINATION: Normoactive bowel sounds, nontender to palpation EXTREMITIES: 2+ radial pulses and 2+ pedal pulses bilaterally SKIN: Bandages covering areas that patient picked on left knee, area of psoriasis the base of the right occipital area, scratch odonnell on back from koby ent itching LABORATORY DATA: Please see below. IMAGING: Chest x-ray 03/24/2021 Moderate cardiac enlargement. Chronically increased interstitial markings diffusely. No focal infiltrate. No evidence of pleural effusion or pulmonary edema seen. PROGNOSIS: Improving ACTIVITY: [As tolerated]. DIET: As tolerated DISPOSITION: Home DISCHARGE INSTRUCTIONS AND ITEMS TO FOLLOW-UP ON OUTPATIENT: 1. Follow-up with Dr. Allen within the next 7 days. 2. Begin levothyroxine 88 MCG every morning, on empty stomach, 30 minutes before any other medications. 3. Use albuterol rescue inhaler every 6 hours as needed. 4. Use Advair inhaler twice a day. 5. Take ferrous sulfate 325 mg every night. 6. Stop taking Eliquis until directed to do so. 7. Continue other home medications as directed. 8. If presenting symptoms return and/or worsen, please return to ED for further management and evaluation. DISCHARGE CONDITION: [Stable]. TIME SPENT ON DISCHARGE: 35 minutes. Vital Signs/I&Os Vital Signs Date Time Temp Pulse Resp B/P (MAP) Pulse Ox O2 Delivery O2 Flow Rate FiO2 03/26/21 06:00 97.9 68 18 129/51 (77) 92 Room Air I&O- Last 24 Hours up to 6 AM 03/26/21 05:59 Intake Total 1261 ml Output Total 550 ml Balance 711 ml Laboratory Data Labs 24H Laboratory Tests 2 03/25/21 14:08: Bedside Glucose (Misc Panel) 102 03/25/21 19:54: Bedside Glucose (Misc Panel) 84 03/26/21 04:42: Bedside Glucose (Misc Panel) 76L 03/26/21 05:35: Nucleated Red Blood Cells % (auto) 0.0, Prothrombin Time 20.0H, Prothromb Time International Ratio 1.66, Anion Gap 7L, Glomerular Filtration Rate 40.1, Calcium Level 7.3L, Magnesium Level 1.9, Total Bilirubin 1.0, Aspartate Amino Transf (AST/SGOT) 21, Alanine Aminotransferase (ALT/SGPT) 11L, Alkaline Phosphatase 102, Total Protein 7.5, Albumin 1.7L, Albumin/Globulin Ratio 0.3L 03/26/21 11:43: Bedside Glucose (Misc Panel) 139H CBC/BMP Laboratory Tests 03/25/21 18:17 03/26/21 05:35 FSBS Laboratory Tests Test 03/25/21 14:08 03/25/21 19:54 03/26/21 04:42 03/26/21 11:43 Range/Units Bedside Glucose (Misc Panel) 102 84 76 139 83-110 MG/DL Microbiology Microbiology 03/25/21 Stool Occult Blood (CARLINE) - Final, Complete 03/24/21 Respiratory Virus Panel (PCR) (CARLINE) - Final, Complete 03/24/21 Blood Culture - Preliminary, Resulted No growth after 24 hours . All specim... 03/24/21 Blood Culture - Preliminary, Resulted No growth after 24 hours . All specim... Discharge Medications Scheduled Atenolol (Atenolol) 50 Mg Tablet, 50 MG PO QHS, (Reported) Cholecalciferol (Vitamin D3) (Vitamin D3) 1,000 Unit Tablet, 1,000 UNITS PO DAILY, (Reported) @ 1200 Ferrous Sulfate (Ferrous Sulfate) 325 Mg Tablet, 325 MG PO QHS Take daily at bedtime Levothyroxine Sodium (Synthroid) 88 Mcg Tablet, 88 MCG PO DAILY Take in the morning, on empty stomach, at least 30 minutes before any other medication is taken Potassium Chloride (Potassium Chloride) 10 Meq Tab.er.prt, 20 MEQ PO BID, (Reported) Prednisone (Prednisone) 20 Mg Tablet, 40 MG PO DAILY Salmeterol/Fluticasone (Advair 250-50 Diskus) 1 Each Blst.w.dev, 1 PUFF INH BID Scheduled PRN Albuterol Sulfate (Proair Respiclick) 90 Mcg Aer.pow.ba, 2 PUFF INH Q6HP PRN for shortness of breath Allergies Coded Allergies: Cat Dander (Verified Allergy, Intermediate, ASTHMA, 03/24/21) cephalexin (Verified Allergy, Intermediate, RASH, 03/24/21) allopurinol (Verified Allergy, Unknown, 11/29/19) mirtazapine (Verified Allergy, Unknown, 11/29/19) acetaminophen (Verified Adverse Reaction, Intermediate, HEART RACES, 04/15) ropinirole (Verified Adverse Reaction, Intermediate, palpitations, 03/24/21) GME ATTESTATION GME ATTESTATION My faculty preceptor for this patient encounter was physically present during the encounter and was fully available. All aspects of the patient interview, examination, medical decision making process, and medical care plan development were reviewed and approved by the faculty preceptor. The faculty preceptor is aware and concurs with the plan as stated in the body of this note and will attest to such by his/her cosignature. ATTENDING NOTE I personally examined and had a length discussion with Mrs. Saez and dis cussed her findings, studies, hospital course and management with the resident team and I discussed it with her PCP, Dr. Allen as well. I agree with the above noted findings, assessment and plan. Briefly, she has a history of anemia and was admitted with RIVAS and weakness, deemed 2/2 symptomatic anemia i/s/o Hgb of 5.6 from a baseline of 8. She has been on eliquis for about 1 year for a provoked PE i/s/o hip fracture s/p repair and prolonged imobility c/b infection. While inpatient, she received 3u of pRBCs in total with slight drop after eliquis was restarted. We had a discussion and decided to hold the eliquis and she will discuss the risk vs. benefit and continuation with Dr. Allen in clinic. In the meantime, she had an initially negative ED guaiac and then a follow up FOBT was positive. I discussed a potential colonoscopy in the outpatient setting with her but she was reluctant for such. Her course was c/b some expiratory wheezing and trace bibasilar crackles. She was given 40mg of IV lasix once with improvement in crackles but not wheezing. Given the history of asthma, we started on advair, PRN albuterol and will give 5d of pred 40mg. In addition to the blood transfusions, anemia workup was notable for severe CARLOS with a ferritin of 22 and she received 1 dose of IV venofer while inpatient and we will now begin 325 ferrous sulfate daily. Lastly, she recently had her levothyroxine decreased to 44mcg daily and was now found to have a TSH of 16 with a normal free T4. We therefore restored her dosing to 88mcg daily. I have communicated all these changes and her course with Dr. Allen after Mrs. Saez vehemently declined staying in the hospital further to optimize her potential asthma exacerbation and further monitoring of anemia with some evidence of GIB. Alberto Olivier DO Mar 26, 2021 12:56 JUANA PROCTOR MD Mar 26, 2021 15:20
== END 2021-03-26 13:39 | disposition home or self-care (01) | DRG 812 ==
LOC: M ED 13:57 → M ED INP 16:46 → ENRESERV 19:53 → M MSPAV 20:07
PROVIDERS: ADMIT Internal Medicine; ATTEND Internal Medicine
PROC: 30233N1 Transfusion of Nonautologous Red Blood Cells into Peripheral Vein, Percutaneous Approach (ICD-10-PCS; principal; 2021-03-24)
DX: D62 Acute posthemorrhagic anemia (principal); J45.901 Unspecified asthma with (acute) exacerbation; I12.9 Hypertensive chronic kidney disease with stage 1 through stage 4 chronic kidney disease, or unspecified chronic kidney disease; Z86.711 Personal history of pulmonary embolism; M10.9 Gout, unspecified; N18.31 Chronic kidney disease, stage 3a; E03.9 Hypothyroidism, unspecified; Z79.01 Long term (current) use of anticoagulants; Z79.899 Other long term (current) drug therapy; Z88.8 Allergy status to other drugs, medicaments and biological substances; E78.5 Hyperlipidemia, unspecified; Z87.442 Personal history of urinary calculi; Z87.891 Personal history of nicotine dependence; K21.9 Gastro-esophageal reflux disease without esophagitis

== ENCOUNTER → 2021-04-01 | Outpatient (REF) | payer MEDICARE, BC ==
[~2021-04-01] MED LIST changes: +ADV250INH INH; +ADV500INH INH; +DIAZ50OR PO; +FERR1TAB8 PO; +FLUT1BLS5 INH; +HYDR12.55 PO; +PRED20TA PO; +PROA1AER2 INH; +VENTAER INH
[2021-04-01 17:53] LABS: HEMATOCRIT 31.4 % (36.0-47.0); HEMOGLOBIN 9.5 g/dl (12.0-15.5); MEAN CORPUSCULAR HEMOGLOBIN 30.5 pg (27.0-33.0); MEAN CORPUSCULAR HGB CONC 30.3 g/dl (32.0-36.5); PLATELET COUNT, AUTOMATED 145 10^3/uL (150-450); RED BLOOD COUNT 3.11 10^6/uL (4.00-5.40); WHITE BLOOD COUNT 12.1 10^3/uL (4.0-10.0)
[2021-04-01 19:25] LABS: ALBUMIN 2.1 GM/DL (3.2-5.2); BILIRUBIN,TOTAL 0.7 MG/DL (0.2-1.0); CALCIUM LEVEL 8.2 MG/DL (8.8-10.2); CREATININE FOR GFR 1.24 MG/DL (0.55-1.30); GLOMERULAR FILTRATION RATE 43.5 (>32); POTASSIUM SERUM 3.8 MEQ/L (3.5-5.1); TOTAL PROTEIN 8.1 GM/DL (6.4-8.2)
== END ==
LOC: M SFHCADAM 15:22
PROVIDERS: ATTEND Family Medicine
DX: D64.9 Anemia, unspecified (principal); I11.0 Hypertensive heart disease with heart failure; E03.9 Hypothyroidism, unspecified

== ENCOUNTER 2021-04-18 13:31 | Inpatient (IN) | payer MEDICARE, BC ==
[~2021-04-18] VITALS: Ht 157.5 cm; Wt 89.1 kg
[2021-04-18] MEDS: VITAMIN D 1,000 INTERNATIONAL UNITS TABLET PO SCH (12:00)
[~2021-04-18 13:31] MED LIST changes: -DIAZ50OR PO; -FLUT1BLS5 INH; -HYDR12.55 PO; -VENTAER INH
[2021-04-18] MEDS ORDERED: NS 1,000 ML IV ONE ×2 (13:55→18:00)
[2021-04-18 14:19] LABS: BASO % 0.4 % (0.0-1.0); EOS # 0.4 10^3/uL (0.0-0.5); EOS % 5.5 % (0.0-3.0); HEMATOCRIT 29.3 % (36.0-47.0); HEMOGLOBIN 9.1 g/dl (12.0-15.5); LYMPH # 0.7 10^3/uL (1.5-5.0); LYMPH % 8.5 % (24.0-44.0); MEAN CORPUSCULAR HEMOGLOBIN 32.2 pg (27.0-33.0); MEAN CORPUSCULAR HGB CONC 31.1 g/dl (32.0-36.5); MEAN CORPUSCULAR VOLUME 103.5 fl (80.0-96.0); MONO # 0.5 10^3/uL (0.0-0.8); MONO % 6.4 % (2.0-8.0); NEUTROPHILS # 6.2 10^3/uL (1.5-8.5); NEUTROPHILS % 78.8 % (36.0-66.0); PLATELET COUNT, AUTOMATED 169 10^3/uL (150-450); RED BLOOD COUNT 2.83 10^6/uL (4.00-5.40); WHITE BLOOD COUNT 7.8 10^3/uL (4.0-10.0)
--- OUTSIDE RECORDS SUMMARY | 2021-04-18 14:29 | CCD ---
Author Author [facility] Organization [facility] Address Unknown Phone Unavailable Care Team Providers Care Director University Name Role Phone Christopher Allen Unavailable PROBLEMS Type Condition ICD9-CM Code JIL44-ON Code Onset Dates Condition S tatus W/U Status Risk SNOMED Code Notes Problem Mixed hyperlipidemia E78.2 Active confirmed 081111719 Problem Hypothyroidism, unspecified E03.9 Active confirmed 71392369 Problem Vitamin D deficiency, unspecified E55.9 Active con firmed 74780798 Problem Other asthma J45.998 Active confirmed 569811 001 Problem Gout, unspecified M10.9 Active confirmed 90 773721 Problem Supraventricular tachycardia I47.1 Active confirme d 3089573 Problem Unspecified asthma, uncomplicated J45.909 Active confirmed 45420459 Problem Chronic pulmonary embolism w ithout acute cor pulmonale, unspecified pulmonary embolism type I27.82 Active confirmed 266195 008036442 Problem Chronic kidney disease, stage 2 (mild) N18.2 A ctive confirmed 889470703 Problem 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 Active confirmed 86339217 Problem Encounter for immunization Z23 Active confirmed 146512274 Problem Benign paroxysmal vertigo, unspecified ear H81.10 Active confirmed 714489909 Problem 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 Active confirmed 17107846 Problem Positive ELVA (antinuclear antibody) R76.8 Acti ve confirmed 987524249 1:180 spindle pattern 04/12 (prob from h ypothyroidism) Problem Medicare annual wellness visit, subsequent Z00.00 Active confirmed 483258232 Problem Leg cramps, sleep related G47.62 Active confirmed 989979928 Problem 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 Active confirmed 95583908 Problem Age-related osteoporosis without current pathological fracture M81.0 Active confirmed 355906888 Problem Vitamin B12 deficiency anemia, 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 Active confirmed 82635900 Problem AAA (abdominal aortic aneurysm), not a candidate for repai r I71.4 Active confirmed 253116931 Problem Chronic kidney disease, stage 3a N18.31 Active confirmed 722243665 Problem Right lower lobe pulmonary nodule R91.1 Active confirmed 660953891 Problem Iron 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.0 Active confirmed 503392454 ALLERGIES Allergen (clinical drug ingredient) Drug/Non Drug Allergy do cumented on EMR Reaction Allergy Type Onset Date Status acetaminophen Tylenol(NDC Code:[address]-79) heart racing Drug Aller gy Active Requip palpitations Non Drug Allergy Active flu vaccine Hives Non Drug Allergy Active mirtazapine Remeron(NDC Code:[address]-62) excess sedation Drug All ergy Active cephalexin Cephalexin(NDC Code:[address]-15) Unknown Drug Allergy Active allopurinol Allopurinol(NDC Code:[address]-67) increased ep isodes of gout Drug Allergy Active ENCOUNTERS from 1932 to 2021-04-09 Encounter Location Date Provider Diagnosis [facility] [address] [place] [id number] Mar, Christopher Allen 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 ; Spontaneous hypoglyce eduardo E16.2 ; Iron deficiency anemia due to chronic blood loss D50.0 ; Edema of both legs R60.0 ; Hypertensive heart disease with heart failure I11.0 ; Hypothyroidism, unspecified E03.9 ; Chronic nephritic syndrome with unspecified morphologic changes N03.9 ; Mixed hyperlipidemia E78.2 ; Vitamin B12 deficiency anemia, 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 ; 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 ; 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 ; Chronic pulmonary em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 acute cor pulmonale, unspecified pulmonary embolism type I27.82 ; Right lower lobe lung mass R91.8 and AAA (abdominal aortic aneurysm), not a candidate for repair I71.4 IMMUNIZATIONS Vaccine Route Administration Date Status Influenza 18 yrs & older Flublok IM Intramuscular Apr 18, 2018 Administered Influenza (High Dose 65 & up) IM Intramuscular Apr 13, 2017 A dministered Influenza (High Dose 65 & up) IM Intramuscular Mar 10, 2016 A dministered Influenza (High Dose 65 & up) ID Intradermal Mar 28, 2015 Ad ministered Pneumococcal Adult 0.5mL Pneumovax 23 Unknown Jul 18 10 Administered Pneumococcal 0.5mL Prevnar 13 IM Intramuscular Mar 28, 2015 A dministered Influenza 6mo & up Fluzone IM Intramuscular Mar 13, 2014 Admi nistered SOCIAL HISTORY Tobacco Use: Social History Observation Description Date Details (start date - stop date) Former Smoker Sex Assigned At : Social History Observation Description Sex Assigned At Unknown Audit Question Answer Notes Total Score: 0 Interpretation: Alcohol Education Language: Question Answer Notes Languages spoken: Sierra Leonean Mandaen: Question Answer Notes Mandaen No zoroastrianism beliefs that would impact health care. Sexual Hx: Question Answer Notes Had sex in the last 12 months (vaginal, oral, or anal)? No Have you ever had an STD? No Drug and Alcohol Question Answer Notes Total Score: 0 Interpretation: No problems reported Alcohol Screening: Question Answer Notes Did you have a drink containing alcohol in the past year? No Points 0 Interpretation Negative Tobacco Use: Question Answer Notes Are you a: former smoker How long has it been since you last smoked? > 10 years REASON FOR REFERRAL No Information VITAL SIGNS Weight 174.2 lbs Mar, Height 62 in Mar, BMI 31.86 kg/m2 Mar, Heart Rate 89 /min Mar, Respiratory Rate 18 /min Mar, Temperature 98.8 degrees Fahrenheit Mar, Oximetry 94 Mar, Blood pressure systolic 146 mm Hg Mar, Blood pressure diastolic 80 mm Hg Mar, MEDICATIONS Medication SIG (Take, Route, Frequency, Duration) Notes Start Da te End Date Status Blood Glucose Test - as directed In Vitro bid for 30 Days Active Atenolol 50 mg 1 tablet Orally Once a day Active Advair Diskus 250-50 MCG/DOSE 1 puff Inhalation Twice a day Feb, Not-Taking K Dur 10 meq 2 tab(s) orally twice a day Active Ferrous Sulfate 325 (65 Fe) MG 1 tablet Orally Once a day for 30 day(s) Feb, Active Diazoxide 50 MG/ML 5 ml Orally bid for 30 Days Active traMADol HCl 50 MG (Schedule IV Drug) TAKE 1 TA BLET BY MOUTH EVERY 4 6 HOURS NEEDED FOR PAIN MAXIMUM DAILY DOSE 6 Oral Active Vitamin D 1000 units 1 tablet Orally daily Feb, Active predniSONE 20 MG 40 mg Orally Once a day x4 days 30 Feb, 2 021 Not-Taking Lancets 30G - as directed one touch delica plus bid for 30 Days Feb, Active Omeprazole 20 MG as directed Orally Once a day, PRN Active Albuterol Sulfate 108 (90 Base) MCG/ACT 2 puffs Inhala tion every 6 hours prn SOB Feb, Active Synthroid 88 MCG 1 tablet in the morning on an empty stom ach Orally Once a day changed to 1 tab Feb, Active hydroCHLOROthiazide 12.5 MG 1 tablet in the morning Or ally Once a day for 90 days Active PROCEDURES No Information RESULTS No Results REASON FOR VISIT 1 week, pt wants to know if she should go back on her fluid pill.She started robby k on hctz. MEDICAL (GENERAL) HISTORY Type Description Date Medical History hypertension Medical History hypothyroid Medical History asthma Medical History SVT Medical History CKD 3, GFR ~ 45 Medical History gout Medical History reactive hypoglycemia Medical History vitamin d defiency Medical History MRSA UTI 08/06 Medical History osteopenia---DEXA 12/04; declines tx 9/10 Medical History vaculitis/glumerulonephritis (?[facility] [place] a 1991) Medical History borderline B12 defic Medical History Meniere's disease/BPV Medical History restless leg syndrome Medical History dyslipidemia (low HDL--decli christine tx despite elev ASCVD risk 09/07) Medical History left humeral head fx after trip/fall Medical History large lipoma rt medial thigh Medical History DJD/ bone on bone with anter ior and inferior osteophytes bilat hips (04/13) Medical History + ELVA : 1:180 spindle patter n 04/12 (prob from hypothyroidism), no clinical lupus Medical History psoriasis of scalp Medical History MMSE 29 (05/15) Medical History PE 01/13; Prot C/S deficiency (hypercoag w/u 08/17); Eliquis dose reduced to 2.5 mg BID 08/17 Medical History elevated light chains 2019--neg SPEP/BLANCA 07/2020 Medical History left ureteral stone with hydronephrosis, admitted 09/14 Medical History echo 01/13: EF 65%, mild pulm HTN, mild A R Medical History spontaneous hypoglycemia, el evated insulin/C-peptide levels 03/17; unprovoked hypoglycemia with seizure, admitted [facility] Medical History severe anemia, hgb 7.x (02/14); transfuse d 2 units 03/17 Medical History iron defic anemia, heme + st ool 03/17; transfused 3 units. Declines GI referral 04/16 Surgical History left tibia/fibula fx & right 5th metatarsal fracture/open reduction,internal fixation. 06/27/2009 Surgical History No personal or FHx of severe reaction to anesthesia Surgical History subtotal post subtotal thyroidectomy 196 8 Surgical History (repeatedly declines colonoscopy) Surgical History Arthroscopic right knee surgery 01/06 Surgical History Total Right Knee @ [facility] Dr. 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 If surgical candidate, then pancreatic venous sampling is indicated. Mar, Iron deficiency anemia due to chronic bl ood loss (ICD-10 - D50.0) Mar, Edema of both legs (ICD-10 - R60.0) Mar, Hypertensive heart disease with heart failure (I CD-10 - I11.0) Per JNC 8 guidelines, goal BP < 140/90 (150/90 if age >60), is meeting goal on current regimen. Advised heart-healthy diet, sodium restriction Mar, Hypothyroidism, unspecified (ICD-10 - E03.9) TSH was high in hospital. Recheck and adjust dose as needed Mar, Chronic nephritic syndrome w ith unspecified morphologic changes (ICD-10 - N03.9) Mar, Mixed hyperlipidemia (ICD-10 - E78.2) Mar, Vitamin B12 deficiency anemia, unspecified (ICD- 10 - D51.9) Mar, Protein C deficiency (ICD-10 - D68.59) Mar, Protein S deficiency (ICD-10 - D68.59) Mar, Chronic pulmonary embolism w ithout acute cor pulmonale, unspecified pulmonary embolism type (ICD-10 - I27.82) Mar, Right lower lobe lung mass (ICD-10 - R91.8) Mar, AAA (abdominal aortic aneury sm), not a candidate for repair (ICD-10 - I71.4) Mar, Other was transfused in hospital. has iron infusion planned but lost IV access PLAN OF TREATMENT Medication Medication Name Sig Start Date Stop Date hydroCHLOROthiazide 12.5 MG 1 tablet in the morning Or ally Once a day for 90 days Diazoxide 50 MG/ML 5 ml Orally bid for 30 Days Treatment Notes Assessment Notes Clinical Notes Insulinoma Medication instuctio ns and Education provided to patient, and pt verbalized understanding of same Spontaneous hypoglycemia d/w endo at [facility], advises 72 hr fast and once dx confirmed. If surgical candidate, then pancreatic venous sampling is indicated. Hypertensive heart disease with heart failure Per JNC 8 guidelines, goal BP < 140/90 (150/90 if age >60), is meeting goal on current regimen. Advised heart- healthy diet, sodium restriction Hypothyroidism, unspecified TSH was high in hospital. Recheck and adjust dose as needed Next Appt Details 4 Weeks 30 min Reason: Provider Name:Christopher Allen, 2021-04 02:30:00 PM, [address], , [place], [address], Provider Name:Christopher Allen, 2021-05 03:15:00 PM, [address], , [place], [address], Insurance Providers Payer Name Payer Address Payer Phone Insured Name Patient Relati onship to Insured Coverage Start Date Coverage End Date BS BIJANCA WATShabnam [facility] [address] [facility] [id number] [place] MEDICARE Part A and B [address] [facility] [address] [phone] [place] self
--- OUTSIDE RECORDS SUMMARY | 2021-04-18 14:29 | CCD ---
Author Author [facility] Organization [facility] Address Unknown Phone Unavailable Care Team Providers Care Formal Service Waiter Name Role Phone Christopher Allen Unavailable PROBLEMS Type Condition ICD9-CM Code EVE80-NO Code Onset Dates Condition S tatus W/U Status Risk SNOMED Code Notes Problem Benign paroxysmal vertigo, unspecified ear H81.10 Active confirmed 980029925 Problem Vitamin D deficiency, unspecified E55.9 Active con firmed 96123417 Problem Mixed hyperlipidemia E78.2 Active confirmed 859107346 Problem Gout, unspecified M10.9 Active confirmed 90 272564 Problem Hypothyroidism, unspecified E03.9 Active confirmed 13396252 Problem Unspecified asthma, uncomplicated J45.909 Active confirmed 77637747 Problem Other asthma J45.998 Active confirmed 857837 001 Problem 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 Active confirmed 81926440 Problem Encounter for immunization Z23 Active confirmed 517380981 Problem 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 acid deficiency, 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 Active confirmed 55016566 Problem Need for prophylactic vaccination and inoculatio n against influenza Z23 Active confirmed 458806201 Problem 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 Active confirmed 28870745 Problem Chronic kidney disease, stage 2 (mild) N18.2 A ctive confirmed 578646460 Problem Medicare annual wellness visit, subsequent Z00.00 Active confirmed 241510802 Problem Vitamin B12 deficiency anemia, 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 Active confirmed 92486389 Problem 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 Active confirmed 491179491 Problem Chronic pulmonary embolism w ithout acute cor pulmonale, unspecified pulmonary embolism type I27.82 Active confirmed 319699 835808078 Problem 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 Active conf irmed 041774522 Problem Bilateral nephrolithiasis N20.0 Active confirmed 99039094 Problem Iron 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.0 Active confirmed 091342051 Problem Age-related osteoporosis without current pathological fracture M81.0 Active confirmed 506602234 Problem 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 Active confirmed 090693909 Problem Supraventricular tachycardia I47.1 Active confirme d 6055580 Problem Primary generalized (osteo)arthritis M15.0 Act memo confirmed 715142425 Problem 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 Active confirmed 3100709 Problem AAA (abdominal aortic aneurysm), not a candidate for repai r I71.4 Active confirmed 101741870 Problem Chronic kidney disease, stage 3a N18.31 Active confirmed 272789316 Problem Right lower lobe pulmonary nodule R91.1 Active confirmed 105663819 ALLERGIES Allergen (clinical drug ingredient) Drug/Non Drug Allergy do cumented on EMR Reaction Allergy Type Onset Date Status acetaminophen Tylenol(NDC Code:[address]-36) heart racing Drug Aller gy Active Requip palpitations Non Drug Allergy Active flu vaccine Hives Non Drug Allergy Active mirtazapine Remeron(NDC Code:[address]-62) excess sedation Drug All ergy Active cephalexin Cephalexin(NDC Code:[address]-11) Unknown Drug Allergy Active allopurinol Allopurinol(NDC Code:[address]-68) increased ep isodes of gout Drug Allergy Active ENCOUNTERS from 1932 to 2021-04-01 Encounter Location Date Provider Diagnosis [facility] [address] [place] [address] Feb, Christopher Allen 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 Sexual [...] FOR REFERRAL No Information VITAL SIGNS Weight 169 lbs Feb, Height 62 in Feb, BMI 30.91 kg/m2 Feb, Heart Rate 77 /min Feb, Respiratory Rate 18 /min Feb, Temperature 98.9 degrees Fahrenheit Feb, Oximetry 98 16 Feb, 2021 Blood pressure systolic 138 mm Hg Feb, Blood pressure diastolic 74 mm Hg Feb, MEDICATIONS Medication SIG (Take, Route, Frequency, Duration) Notes Start Da te End Date Status predniSONE 20 MG 40 mg Orally Once a day x4 days 30 Sep, 2 021 Active traMADol HCl 50 MG (Schedule IV Drug) TAKE 1 TA BLET BY MOUTH EVERY 4 6 HOURS NEEDED FOR PAIN MAXIMUM DAILY DOSE 6 Oral Active Lancets 30G - as directed one touch delica plus bid for 30 Days Feb, Active K Dur 10 meq 2 tab(s) orally twice a day Active Atenolol 50 mg 1 tablet Orally Once a day Active Omeprazole 20 MG as directed Orally Once a day, PRN Active Vitamin D 1000 units 1 tablet Orally daily Feb, Active Synthroid 88 MCG 1 tablet in the morning on an empty stom ach Orally Once a day changed to 1 tab Feb, Active Advair Diskus 250-50 MCG/DOSE 1 puff Inhalation Twice a day Feb, Active Ferrous Sulfate 325 (65 Fe) MG 1 tablet Orally Once a day for 30 day(s) Feb, Active Albuterol Sulfate 108 (90 Base) MCG/ACT 2 puffs Inhala tion every 6 hours prn SOB Feb, Active Blood Glucose Test - as directed In Vitro bid for 30 Days Active PROCEDURES No Information RESULTS No Results REASON FOR VISIT 3 month, concerned about hctz with johny MEDICAL (GENERAL) HISTORY Type Description Date Medical History hypertension Medical History hypothyroid Medical History asthma Medical History SVT Medical History CKD 3, GFR ~ 45 Medical History gout Medical History reactive hypoglycemia Medical History vitamin d defiency Medical History MRSA UTI 08/06 Medical History osteopenia---DEXA 12/04; declines tx 03/06 Medical History vaculitis/glumerulonephritis (?[facility] [place] a 1991) [...] History psoriasis of scalp Medical History MMSE (05/15) Medical History PE 01/13; Prot C/S deficiency (hypercoag w/u 08/17); Eliquis dose reduced to 2.5 mg BID 08/17 Medical History elevated light chains 2019--neg SPEP/BLANCA 07/2020 Medical History left ureteral stone with hydronephrosis, admitted 09/14 Medical History echo 01/13: EF 65%, mild pulm HTN, mild A R Medical History spontaneous hypoglycemia, el evated insulin/C-peptide levels 03/17 Medical History severe anemia, hgb7.x (02/14) Surgical History left tibia/fibula fx & right 5th metatarsal fracture/open reduction,internal fixation. 06/27/2009 Surgical History No personal or FHx of severe reaction to anesthesia Surgical History subtotal post subtotal thyroidectomy 196 8 Surgical History (repeatedly declines colonoscopy) Surgical History Arthroscopic right knee surgery 01/06 Surgical History Total Right Knee @ [facility] Dr. Tinsley 09/13 14 Surgical History lumpectomy [...] Notes Treatment Notes Treatm ent Clinical Notes Feb, Spontaneous hypoglycemia (ICD-10 - E16.2) d/w endo at [place], advises 72 hr fast and once dx confirmed. If surgical candidate, then pancreatic venous sampling is indicated. Feb, Anemia, unspecified type (ICD-10 - D64.9) Feb, Hypertensive heart disease with heart failure (I CD-10 - I11.0) Feb, Hypothyroidism, unspecified (ICD-10 - E03.9) Feb, Chronic nephritic syndrome w ith unspecified morphologic changes (ICD-10 - N03.9) Feb, Mixed hyperlipidemia (ICD-10 - E78.2) Feb, Vitamin B12 deficiency anemia, unspecified (ICD- 10 - D51.9) 16 Feb, 2021 Protein C deficiency (ICD-10 - D68.59) 16 Feb, 2021 Protein S deficiency (ICD-10 - D68.59) Feb, Chronic pulmonary embolism w ithout acute cor pulmonale, unspecified pulmonary embolism type (ICD-10 - I27.82) 16 Feb, 2021 Right lower lobe lung mass (ICD-10 - R91.8) Feb, AAA (abdominal aortic aneury sm), not a candidate for repair (ICD-10 - I71.4) PLAN OF TREATMENT Treatment Notes Assessment Notes Clinical Notes Spontaneous hypoglycemia d/w endo at [facility], advises 72 hr fast and once dx confirmed. If surgical candidate, then pancreatic venous sampling is indicated. Future Test Test Name Order Date [facility] CT Chest without contrast [id number] [place]ORT[place] US PLZ or [facility] [id number] CBC - Complete Blood Count [id number] FERRITIN [id number] TOTAL IRON BINDING CAPACIT [id number] Reticulocyte Count Sysmex [id number] VITAMIN B12 LEVEL [id number] FOLATE [id number] Comprehensive Metabolic Profile (CMP) [id number] Next Appt Details 3 Months Reason: Provider Name:Christopher Allen, 2021-03 09:00:00 AM, [address], , [place], [address], Provider Name:Christopher Alejandro, 2021-05 03:15:00 PM, [address], , [place], [address], Insurance Providers Payer Name Payer Address Payer Phone Insured Name Patient Relati onship to Insured Coverage Start Date Coverage End Date MEDICARE Part A and B [address] [facility] [address] [place] BS [place] [facility] [address] [facility] [id number] [place]
--- OUTSIDE RECORDS SUMMARY | 2021-04-18 14:29 | CCD ---
Author Author [facility] Organization [facility] Address Unknown Phone Unavailable Care Team Providers Care Bead Forming Machine Operator Name Role Phone Christopher Allen Unavailable PROBLEMS Type Condition ICD9-CM Code [id number] Code Onset Dates Condition S tatus W/U Status Risk SNOMED Code Notes Problem Benign paroxysmal vertigo, unspecified ear H81.10 Active confirmed 309158266 Problem Vitamin D deficiency, unspecified E55.9 Active con firmed 95785269 Problem Mixed hyperlipidemia E78.2 Active confirmed 323816985 Problem Gout, unspecified M10.9 Active confirmed 90 805166 Problem Hypothyroidism, unspecified E03.9 Active confirmed 55260676 Problem Unspecified asthma, uncomplicated J45.909 Active confirmed 88153855 Problem Other asthma J45.998 Active confirmed 315092 001 Problem 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 Active confirmed 88147771 Problem Encounter for immunization Z23 Active confirmed 723201448 Problem 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 acid deficiency, 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 Active confirmed 41583192 Problem Need for prophylactic vaccination and inoculatio n against influenza Z23 Active confirmed 796749606 Problem 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 Active confirmed 13111429 Problem Chronic kidney disease, stage 2 (mild) N18.2 A ctive confirmed 891018684 Problem Medicare annual wellness visit, subsequent Z00.00 Active confirmed 306625565 Problem Vitamin B12 deficiency anemia, 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 Active confirmed 963302956 Problem Chronic pulmonary embolism w ithout acute cor pulmonale, unspecified pulmonary embolism type I27.82 Active confirmed 095786 890466506 Problem 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 Active conf irmed 105234872 Problem Bilateral nephrolithiasis N20.0 Active confirmed 74761524 Problem Iron 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.0 Active confirmed 002599623 Problem Age-related osteoporosis without current pathological fracture M81.0 Active confirmed 849538597 Problem 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 Active confirmed 323006800 Problem Supraventricular tachycardia I47.1 Active confirme d 2369428 Problem Primary generalized (osteo)arthritis M15.0 Act memo confirmed 522768389 Problem 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 Active confirmed 8430828 Problem AAA (abdominal aortic aneurysm), not a candidate for repai r I71.4 Active confirmed 103060789 Problem Chronic kidney disease, stage 3a N18.31 Active confirmed 036217092 Problem Right lower lobe pulmonary nodule R91.1 Active confirmed 945423121 ALLERGIES Allergen (clinical drug ingredient) Drug/Non Drug Allergy do cumented on EMR Reaction Allergy Type Onset Date Status acetaminophen Tylenol(NDC Code:[address]-69) heart racing Drug Aller gy Active Requip palpitations Non Drug Allergy Active flu vaccine Hives Non Drug Allergy Active mirtazapine Remeron(NDC Code:[address]-45) excess sedation Drug All ergy Active cephalexin Cephalexin(NDC Code:[address]-55) Unknown Drug Allergy Active allopurinol Allopurinol(NDC Code:[address]-83) increased ep isodes of gout Drug Allergy Active ENCOUNTERS from 1932 to 2021-03-24 Encounter Location Date Provider Diagnosis [facility] [address] [place] [address] Feb, Christopher Allen IMMUNIZATIONS Vaccine Route Administration Date Status Influenza [...] Education Language: Question Answer Notes Languages spoken: Algerian Mormon: Question Answer Notes Mormon No nondenominational beliefs that would impact health care. Sexual [...] REASON FOR REFERRAL No Information VITAL SIGNS No information MEDICATIONS Medication SIG (Take, Route, Frequency, Duration) Notes Start Da te End Date Status Atenolol 50 mg 1 tablet Orally Once a day Active Blood Glucose Test - as directed In Vitro bid for 30 Days Active oxyCODONE-Acetaminophen 5-325 MG 1 tablet as needed Or ally every 4 hours as needed for pain, MDD 6 tabs Reports cannot tolerate, does not use Not-Taking Lancets 30G - as directed one touch delica plus bid for 30 Days Feb, Active Levothyroxine Sodium 50 MCG 1 tablet in the morning on an empty stomach Orally Once a day for 30 day(s) Dose Change Jan, Not-Thom ing Omeprazole 20 MG as directed Orally Once a day, PRN Active Synthroid 88 MCG 1/2 tablet in the morning o n an empty stomach Orally Once a day Active Eliquis 2.5 MG 1 tab Orally bid Jul, Ac tive traMADol HCl 50 MG (Schedule IV Drug) TAKE 1 TA BLET BY MOUTH EVERY 4 6 HOURS NEEDED FOR PAIN MAXIMUM DAILY DOSE 6 Oral Active Colchicine 0.6 MG 1 tablet Orally bid Not-Taking Vitamin D 1000 units 1 tablet Orally daily Feb, Active Folic Acid 1 MG 1 tablet Orally Once a day Jun, Active Cipro 250 MG 1 tablet Orally every 12 hrs for 5 day(s) Aug, Not-Taking hydroCHLOROthiazide 12.5 MG 1/2 tab Orally Once a day for 30 Days Active Synthroid 50 MCG 1 tablet in the morning on a n empty stomach Orally Once a day for 30 day(s) Jan, Not-Taking K Dur 10 meq 2 tab(s) orally twice a day Active PROCEDURES No Information RESULTS No Results REASON FOR VISIT trouble breathing MEDICAL (GENERAL) HISTORY Type Description Date Medical [...] 01/06 Surgical History Total Right Knee @ [facility] Dr. Tinsley 09/13 14 Surgical History lumpectomy of left breast, no chemo or rad needed 07/2015 Surgical History left renal stone, s/p stent 09/14 Surgical History cysto with stent removal 10/2020 Hospitalization History No Hospitalization history informati on Goals Section No Information Health Concerns No Information MEDICAL EQUIPMENT No Information MENTAL STATUS No Information FUNCTIONAL STATUS No Information ASSESSMENTS No Information PLAN OF TREATMENT Medication Medication Name Sig Start Date Stop Date hydroCHLOROthiazide 12.5 MG 1/2 tab Orally Once a day for 30 Day s Next Appt Details Provider Name:Christopher Alejandro, 2021-05 03:15:00 PM, [address], , [place], [address], Insurance Providers Payer Name Payer Address Payer Phone Insured Name Patient Relati onship to Insured Coverage Start Date Coverage End Date [facility] [address] [facility] [address] [place] MEDICARE Part A and B [address] [facility] [address] [phone] [place]
--- OUTSIDE RECORDS SUMMARY | 2021-04-18 14:29 | CCD ---
Author Author [facility] Organization [facility] Address Unknown Phone Unavailable Care Team Providers Care Atm Mechanic Name Role Phone Christopher Allen Unavailable PROBLEMS Type Condition ICD9-CM Code UGB31-NQ Code Onset Dates Condition S tatus W/U Status Risk SNOMED Code Notes Problem Benign paroxysmal vertigo, unspecified ear H81.10 Active confirmed 231713542 Problem Vitamin D deficiency, unspecified E55.9 Active con firmed 27222894 Problem Mixed hyperlipidemia E78.2 Active confirmed 063224448 Problem Gout, unspecified M10.9 Active confirmed 90 269094 Problem Hypothyroidism, unspecified E03.9 Active confirmed 10310146 Problem Unspecified asthma, uncomplicated J45.909 Active confirmed 26015379 Problem Other asthma J45.998 Active confirmed 408159 001 Problem 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 Active confirmed 71093010 Problem Encounter for immunization Z23 Active confirmed 180844218 Problem 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 acid deficiency, 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 Active confirmed 33985673 Problem Need for prophylactic vaccination and inoculatio n against influenza Z23 Active confirmed 317520504 Problem 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 Active confirmed 00276661 Problem Chronic kidney disease, stage 2 (mild) N18.2 A ctive confirmed 673454924 Problem Medicare annual wellness visit, subsequent Z00.00 Active confirmed 140544898 Problem Vitamin B12 deficiency anemia, 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 Active confirmed 312958406 Problem Chronic pulmonary embolism w ithout acute cor pulmonale, unspecified pulmonary embolism type I27.82 Active confirmed 794001 888546715 Problem 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 Active conf irmed 563139336 Problem Bilateral nephrolithiasis N20.0 Active confirmed 72130680 Problem Iron 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.0 Active confirmed 167234964 Problem Age-related osteoporosis without current pathological fracture M81.0 Active confirmed 532246035 Problem 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 Active confirmed 023310059 Problem Supraventricular tachycardia I47.1 Active confirme d 7586086 Problem Primary generalized (osteo)arthritis M15.0 Act memo confirmed 746181098 Problem 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 Active confirmed 4225088 Problem AAA (abdominal aortic aneurysm), not a candidate for repai r I71.4 Active confirmed 185206984 Problem Chronic kidney disease, stage 3a N18.31 Active confirmed 128331693 Problem Right lower lobe pulmonary nodule R91.1 Active confirmed 538675348 ALLERGIES Allergen (clinical drug ingredient) Drug/Non Drug Allergy do cumented on EMR Reaction Allergy Type Onset Date Status acetaminophen Tylenol(NDC Code:[address]-22) heart racing Drug Aller gy Active Requip palpitations Non Drug Allergy Active flu vaccine Hives Non Drug Allergy Active mirtazapine Remeron(NDC Code:[address]-69) excess sedation Drug All ergy Active cephalexin Cephalexin(NDC Code:[address]-97) Unknown Drug Allergy Active allopurinol Allopurinol(NDC Code:[address]-26) increased ep isodes of gout Drug Allergy Active ENCOUNTERS from 1932 to 2021-03-27 Encounter Location Date Provider Diagnosis [facility] [address] [place] [address] Feb, Christopher Allen IMMUNIZATIONS Vaccine Route [...] Education Language: Question Answer Notes Languages spoken: Cook Islander Gnosticist: Question Answer Notes Gnosticist No alevism beliefs that would impact health care. Sexual [...] mg Orally Once a day x4 days Feb, Active traMADol HCl 50 MG (Schedule IV [...] Inhala tion every 6 hours prn SOB 30 Feb, 2021 Active Blood Glucose Test - as directed In Vitro bid for 30 Days Active PROCEDURES No Information RESULTS No Results REASON FOR VISIT TCM/ACO 7 [facility] d/c 03/26 [facility]CO, Anemia, Dyspnea MEDICAL (GENERAL) HISTORY Type Description Date Medical [...] 01/06 Surgical History Total Right Knee @ [facility] Dr. Tinsley 09/13 14 Surgical History lumpectomy [...] Treatment Notes Treatm ent Clinical Notes Feb, Other Spoke to pt at 4285 03-27-21: Pt appears to have labored breathing with audible wheezing. Difficulty speaking in full sentences. She denies breathing being any worse. Reports she feels stronger. She has not used Albuterol inhaler since being home and I encouraged her to use it. I advised return to ED as her breathing is labored. She does not want to return to ED. Reviewed and updated medication list with pt. Pt asking if she is supposed to continue to take HCTZ. Upcoming appt reviewed with pt. [facility]- PLAN OF TREATMENT Next Appt Details Provider Name:Christopher Allen, 2021-03 09:00:00 AM, [address], , [place], [address], Provider Name:Christopher Allen, 2021-05 03:15:00 PM, [address], , [place], [address], Insurance Providers Payer Name Payer Address Payer Phone Insured Name Patient Relati onship to Insured Coverage Start Date Coverage End Date MEDICARE Part A and B [address] [facility] [id number] [phone] [place] [address] [address] [facility] [address] [phone] [place]
--- OUTSIDE RECORDS SUMMARY | 2021-04-18 14:29 | CCD ---
Author Author [facility] Organization [facility] Address Unknown Phone Unavailable Care Team Providers Care Telecommunications Repairer Name Role Phone Christopher Allen Unavailable PROBLEMS Type Condition ICD9-CM Code BFN02-[id number] Code Onset Dates Condition S tatus W/U Status Risk SNOMED Code Notes Problem Mixed hyperlipidemia E78.2 Active confirmed 871782191 Problem Hypothyroidism, unspecified E03.9 Active confirmed 18551005 Problem Vitamin D deficiency, unspecified E55.9 Active con firmed 20109130 Problem Other asthma J45.998 Active confirmed 196742 001 Problem Gout, unspecified M10.9 Active confirmed 90 252990 Problem Supraventricular tachycardia I47.1 Active confirme d 1263770 Problem Unspecified asthma, uncomplicated J45.909 Active confirmed 13767934 Problem Chronic pulmonary embolism w ithout acute cor pulmonale, unspecified pulmonary embolism type I27.82 Active confirmed 921113 378156225 Problem Chronic kidney disease, stage 2 (mild) N18.2 A ctive confirmed 804371138 Problem 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 Active confirmed 57194462 Problem Encounter for immunization Z23 Active confirmed 876514815 Problem Benign paroxysmal vertigo, unspecified ear H81.10 Active confirmed 851238904 Problem 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 Active confirmed 82322790 Problem Age-related osteoporosis without current pathological fracture M81.0 Active confirmed 897754379 Problem Vitamin B12 deficiency anemia, 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 Active confirmed 82933679 Problem AAA (abdominal aortic aneurysm), not a candidate for repai r I71.4 Active confirmed 904930206 Problem Chronic kidney disease, stage 3a N18.31 Active confirmed 088133489 Problem Right lower lobe pulmonary nodule R91.1 Active confirmed 597044299 Problem Iron 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.0 Active confirmed 273622733 ALLERGIES Allergen (clinical drug ingredient) Drug/Non Drug Allergy do cumented on EMR Reaction Allergy Type Onset Date Status acetaminophen Tylenol(NDC Code:[address]-21) heart racing Drug Aller gy Active Requip palpitations Drug Allergy Active Influenza Vaccines Influenza Vaccines Hives Drug Allergy Active mirtazapine Remeron(NDC Code:[address]-74) excess sedation Drug All ergy Active cephalexin Cephalexin(NDC Code:[address]-43) Unknown Drug Allergy Active allopurinol Allopurinol(NDC Code:[address]-31) increased ep isodes of gout Drug Allergy Active ENCOUNTERS from 1932 to 2021-04-16 Encounter Location Date Provider Diagnosis [facility] [place] [address] [place] [address] Mar, 2021 Christopher Allen IMMUNIZATIONS Vaccine Route Administration Date [...] Education Language: Question Answer Notes Languages spoken: Amharic Church: Question Answer Notes Church No adventism beliefs that would impact health care. Sexual [...] day x4 days 30 Sep, 2 021 Not-Taking Lancets 30G - as [...] Information RESULTS No Results REASON FOR VISIT No Information MEDICAL (GENERAL) HISTORY Type Description Date Medical [...] levels 03/17; unprovoked hypoglycemia with seizure, admitted [facility] Medical History severe anemia, hgb 7.x (8/21); transfuse d 2 units 03/17 Medical History [...] 01/06 Surgical History Total Right Knee @ [facility] Dr. Tinsley 09/13 14 Surgical History lumpectomy [...] 5 ml Orally bid for 30 Days Next Appt Details Provider Name:Christopher Allen, 2021-03 01:00:00 PM, [address], , [place], [address], Provider Name:Christopher Allen 2021-04 02:30:00 PM, [address], , [place], [address], Provider Name:Christopher Allen 2021-05 03:15:00 PM, [address], , [place], [address], Insurance Providers Payer Name Payer Address Payer Phone Insured Name Patient Relati onship to Insured Coverage Start Date Coverage End Date [place] [employer] [address] [facility] [address] [place] MEDICARE Part A and B [address] [facility] [address] [phone] [place]
--- OUTSIDE RECORDS SUMMARY | 2021-04-18 14:29 | CCD ---
Author Author [facility] Organization [facility] Address Unknown Phone Unavailable Care Team Providers Care Silver Chaser Name Role Phone Christopher Allen Unavailable PROBLEMS Type Condition ICD9-CM Code [id number] Code Onset Dates Condition S tatus W/U Status Risk SNOMED Code Notes Problem Benign paroxysmal vertigo, unspecified ear H81.10 Active confirmed 219175528 Problem Vitamin D deficiency, unspecified E55.9 Active con firmed 09445077 Problem Mixed hyperlipidemia E78.2 Active confirmed 709692941 Problem Gout, unspecified M10.9 Active confirmed 90 504730 Problem Hypothyroidism, unspecified E03.9 Active confirmed 43890930 Problem Unspecified asthma, uncomplicated J45.909 Active confirmed 78977792 Problem Other asthma J45.998 Active confirmed 492964 001 Problem 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 Active confirmed 55448906 Problem Encounter for immunization Z23 Active confirmed 742881176 Problem 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 acid deficiency, 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 Active confirmed 03691044 Problem Need for prophylactic vaccination and inoculatio n against influenza Z23 Active confirmed 255824145 Problem 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 Active confirmed 20037470 Problem Chronic kidney disease, stage 2 (mild) N18.2 A ctive confirmed 001540519 Problem Medicare annual wellness visit, subsequent Z00.00 Active confirmed 559388717 Problem Vitamin B12 deficiency anemia, 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 Active confirmed 149447130 Problem Chronic pulmonary embolism w ithout acute cor pulmonale, unspecified pulmonary embolism type I27.82 Active confirmed 013537 714528343 Problem 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 Active conf irmed 195783990 Problem Bilateral nephrolithiasis N20.0 Active confirmed 13496308 Problem Iron 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.0 Active confirmed 070287404 Problem Age-related osteoporosis without current pathological fracture M81.0 Active confirmed 174863388 Problem 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 Active confirmed 520331099 Problem Supraventricular tachycardia I47.1 Active confirme d 3456287 Problem Primary generalized (osteo)arthritis M15.0 Act memo confirmed 578849291 Problem 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 Active confirmed 0659213 Problem AAA (abdominal aortic aneurysm), not a candidate for repai r I71.4 Active confirmed 001894782 Problem Chronic kidney disease, stage 3a N18.31 Active confirmed 237134798 Problem Right lower lobe pulmonary nodule R91.1 Active confirmed 265857017 ALLERGIES Allergen (clinical drug ingredient) Drug/Non Drug Allergy do cumented on EMR Reaction Allergy Type Onset Date Status acetaminophen Tylenol(NDC Code:[address]-55) heart racing Drug Aller gy Active Requip palpitations Non Drug Allergy Active flu vaccine Hives Non Drug Allergy Active mirtazapine Remeron(NDC Code:[address]-87) excess sedation Drug All ergy Active cephalexin Cephalexin(NDC Code:[address]-93) Unknown Drug Allergy Active allopurinol Allopurinol(NDC Code:[address]-62) increased ep isodes of gout Drug Allergy Active ENCOUNTERS from 1932 to 2021-03-25 Encounter Location Date Provider Diagnosis [facility] [address] [place] [address] Feb, Christopher Allen IMMUNIZATIONS Vaccine Route [...] Education Language: Question Answer Notes Languages spoken: Japanese Yazidism: Question Answer Notes Yazidism No mandaen beliefs that would impact health care. Sexual [...] Information RESULTS No Results REASON FOR VISIT patient in hospital MEDICAL (GENERAL) HISTORY Type Description Date Medical [...] 01/06 Surgical History Total Right Knee @ [facility] Dr. Tinsley 09/13 14 Surgical History [...] Day s Next Appt Details Provider Name:Christopher Dinaeunice, 2021-05 03:15:00 PM, [address], , [place], [address], Insurance Providers Payer Name Payer Address Payer Phone Insured Name Patient Relati onship to Insured Coverage Start Date Coverage End Date MEDICARE Part A and B [address] [facility] [address] [place] [address] [facility] [address] [place]
--- OUTSIDE RECORDS SUMMARY | 2021-04-18 14:29 | CCD ---
Author Author [facility] Organization [facility] Address Unknown Phone Unavailable Care Team Providers Care Optimization Engineer Name Role Phone Christopher Allen Unavailable PROBLEMS Type Condition ICD9-CM Code EET21-LH Code Onset Dates Condition S tatus W/U Status Risk SNOMED Code Notes Problem Mixed hyperlipidemia E78.2 Active confirmed 721744766 Problem Hypothyroidism, unspecified E03.9 Active confirmed 46500782 Problem Vitamin D deficiency, unspecified E55.9 Active con firmed 46057997 Problem Other asthma J45.998 Active confirmed 612998 001 Problem Gout, unspecified M10.9 Active confirmed 90 166739 Problem Supraventricular tachycardia I47.1 Active confirme d 0951657 Problem Unspecified asthma, uncomplicated J45.909 Active confirmed 45609907 Problem Chronic pulmonary embolism w ithout acute cor pulmonale, unspecified pulmonary embolism type I27.82 Active confirmed 653537 345972640 Problem Chronic kidney disease, stage 2 (mild) N18.2 A ctive confirmed 625897425 Problem 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 Active confirmed 23656031 Problem Encounter for immunization Z23 Active confirmed 911090336 Problem Benign paroxysmal vertigo, unspecified ear H81.10 Active confirmed 325080495 Problem 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 Active confirmed 58788749 Problem Age-related osteoporosis without current pathological fracture M81.0 Active confirmed 176277083 Problem Vitamin B12 deficiency anemia, 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 Active confirmed 64366070 Problem AAA (abdominal aortic aneurysm), not a candidate for repai r I71.4 Active confirmed 347378407 Problem Chronic kidney disease, stage 3a N18.31 Active confirmed 951164155 Problem Right lower lobe pulmonary nodule R91.1 Active confirmed 429610262 Problem Iron 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.0 Active confirmed 645831387 ALLERGIES Allergen (clinical drug ingredient) Drug/Non Drug Allergy do cumented on EMR Reaction Allergy Type Onset Date Status acetaminophen Tylenol(NDC Code:[address]-97) heart racing Drug Aller gy Active Requip palpitations Non Drug Allergy Active flu vaccine Hives Non Drug Allergy Active mirtazapine Remeron(NDC Code:[address]-89) excess sedation Drug All ergy Active cephalexin Cephalexin(NDC Code:[address]-50) Unknown Drug Allergy Active allopurinol Allopurinol(NDC Code:[address]-01) increased ep isodes of gout Drug Allergy Active ENCOUNTERS from 1932 to 2021-04-03 Encounter Location Date Provider Diagnosis [facility] [address] [place] [address] Feb, 2021 Christopher Allen IMMUNIZATIONS Vaccine Route Administration [...] Education Language: Question Answer Notes Languages spoken: [place] Lankan Adventism: Question Answer Notes Adventism No anglican beliefs that would impact health care. Sexual [...] Notes Start Da te End Date Status Lancets 30G - as directed one touch delica plus bid for 30 Days Feb, Active Synthroid 88 MCG 1 tablet in the morning on an empty stom ach Orally Once a day changed to 1 tab Feb, Active predniSONE 20 MG 40 mg Orally Once a day x4 days 30 Feb, 2 021 Not-Taking Albuterol Sulfate 108 (90 Base) MCG/ACT 2 puffs Inhala tion every 6 hours prn SOB 30 Feb, 2021 Active Ferrous Sulfate 325 (65 Fe) MG 1 tablet Orally Once a day for 30 day(s) Feb, Active Atenolol 50 mg 1 tablet Orally Once a day Active Vitamin D 1000 units 1 tablet Orally daily Feb, Active Omeprazole 20 MG as directed Orally Once a day, PRN Active Diazoxide 50 MG/ML 5 ml Orally bid for 30 Days Mar, Active Blood Glucose Test - as directed In Vitro bid for 30 Days Active K Dur 10 meq 2 tab(s) orally twice a day Active Advair Diskus 250-50 MCG/DOSE 1 puff Inhalation Twice a day Feb, Not-Taking traMADol HCl 50 MG (Schedule IV Drug) TAKE 1 TA BLET BY MOUTH EVERY 4 6 HOURS NEEDED FOR PAIN MAXIMUM DAILY DOSE 6 Oral Active PROCEDURES No Information RESULTS No Results REASON FOR VISIT us MEDICAL (GENERAL) HISTORY Type Description Date Medical [...] History psoriasis of scalp Medical History MMSE / (05/15) Medical History PE 01/13; 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 06/27/2009 Surgical History No personal or FHx of severe reaction to anesthesia Surgical History subtotal post subtotal thyroidectomy 196 8 Surgical History (repeatedly declines colonoscopy) Surgical History Arthroscopic right knee surgery 01/06 Surgical History Total Right Knee @ [facility] Dr. Tinsley 09/13 14 Surgical [...] Medication Name Sig Start Date Stop Date Diazoxide 50 MG/ML 5 ml Orally bid for 30 Days Mar, Next Appt Details Provider Name:Christopher Allen, 2021-03 03:00:00 PM, [address], , [place], [address], Provider Name:Christopher Allen, 2021-05 03:15:00 PM, [address], , [place], [address], Insurance Providers Payer Name Payer Address Payer Phone Insured Name Patient Relati onship to Insured Coverage Start Date Coverage End Date MEDICARE Part A and B [address] [facility] [id number] [place] [facility] [address] [facility] [address] [place]
--- OUTSIDE RECORDS SUMMARY | 2021-04-18 14:29 | CCD ---
Author Author [facility] Organization [facility] Address Unknown Phone Unavailable Care Team Providers Care Alteration Worker Name Role Phone Christopher Allen Unavailable PROBLEMS Type Condition ICD9-CM Code OPA45-CI Code Onset Dates Condition S tatus W/U Status Risk SNOMED Code Notes Problem Mixed hyperlipidemia E78.2 Active confirmed 035655318 Problem Hypothyroidism, unspecified E03.9 Active confirmed 12701365 Problem Vitamin D deficiency, unspecified E55.9 Active con firmed 51434100 Problem Other asthma J45.998 Active confirmed 230179 001 Problem Gout, unspecified M10.9 Active confirmed 90 402976 Problem Supraventricular tachycardia I47.1 Active confirme d 3819704 Problem Unspecified asthma, uncomplicated J45.909 Active confirmed 05314135 Problem Chronic pulmonary embolism w ithout acute cor pulmonale, unspecified pulmonary embolism type I27.82 Active confirmed 797354 510183525 Problem Chronic kidney disease, stage 2 (mild) N18.2 A ctive confirmed 238330025 Problem 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 Active confirmed 05157285 Problem Encounter for immunization Z23 Active confirmed 143997319 Problem Benign paroxysmal vertigo, unspecified ear H81.10 Active confirmed 631600633 Problem 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 Active confirmed 24717192 Problem Age-related osteoporosis without current pathological fracture M81.0 Active confirmed 735114439 Problem Vitamin B12 deficiency anemia, 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 Active confirmed 20250900 Problem AAA (abdominal aortic aneurysm), not a candidate for repai r I71.4 Active confirmed 065156260 Problem Chronic kidney disease, stage 3a N18.31 Active confirmed 614738259 Problem Right lower lobe pulmonary nodule R91.1 Active confirmed 480482136 Problem Iron 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.0 Active confirmed 023499484 ALLERGIES Allergen (clinical drug ingredient) Drug/Non Drug Allergy do cumented on EMR Reaction Allergy Type Onset Date Status acetaminophen Tylenol(NDC Code:[address]-97) heart racing Drug Aller gy Active Requip palpitations Non Drug Allergy Active flu vaccine Hives Non Drug Allergy Active mirtazapine Remeron(NDC Code:[address]-76) excess sedation Drug All ergy Active cephalexin Cephalexin(NDC Code:[address]-97) Unknown Drug Allergy Active allopurinol Allopurinol(NDC Code:[address]-59) increased ep isodes of gout Drug Allergy Active ENCOUNTERS from 1932 to 2021-04-03 Encounter Location Date Provider Diagnosis [facility] [address] [place] [address] Mar, Christopher Allen 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 Sexual [...] FOR REFERRAL No Information VITAL SIGNS Weight 178 lbs Mar, Height 62 in Mar, BMI 32.55 kg/m2 Mar, Heart Rate 70 /min Mar, Respiratory Rate 18 /min Mar, Temperature 96.9 degrees Fahrenheit Mar, Oximetry 95 Mar, Blood pressure systolic 142 mm Hg Mar, Blood pressure diastolic 84 mm Hg Mar, MEDICATIONS Medication SIG (Take, [...] Orally Once a day x4 days Feb, Not-Taking Albuterol Sulfate 108 (90 Base) MCG/ACT 2 puffs Inhala tion every 6 hours prn SOB Feb, Active Ferrous Sulfate 325 (65 Fe) [...] 6 Oral Active PROCEDURES No Information RESULTS Component Value Reference Range CBC - Complete Blood Count Reviewed date:04/02/2021 17:23:08 Interpretation: Performing Lab:[facility], [facility] [address] [facility] [address] [id number] , ,[place] [address] WHITE BLOOD COUNT 12.1 4.0-10.0 RED BLOOD COUNT 3.11 4.00-5.40 HEMOGLOBIN 9.5 12.0-15.5 HEMATOCRIT 31.4 36.0-47.0 MEAN CORPUSCULAR VOLUME 101.0 80.0-96.0 MEAN CORPUSCULAR HEMOGLOBIN 30.5 27.0-33.0 MEAN CORPUSCULAR HGB CONC 30.3 32.0-36.5 RED CELL DISTRIBUTION WIDTH 20.8 11.5-14.5 PLATELET COUNT, AUTOMATED 145 150-450 Comprehensive Metabolic Profile (CMP) Reviewed date:04/02/2021 17:23:08 Interpretation: Performing Lab:[facility] [address] [place] [address] , ,[place] [address] GLUCOSE, FASTING 57 70-100 BLOOD UREA NITROGEN 26 7-18 CREATININE FOR GFR 1.24 0.55-1.30 GLOMERULAR FILTRATION RATE 43.5 >32 SODIUM LEVEL 144 136-145 POTASSIUM SERUM 3.8 3.5-5.1 CHLORIDE LEVEL 112 98-107 CARBON DIOXIDE LEVEL 27 21-32 CALCIUM LEVEL 8.2 8.8-10.2 AST/SGOT 23 7-37 ALT/SGPT 21 12-78 ALKALINE PHOSPHATASE 109 45-117 BILIRUBIN,TOTAL 0.7 0.2-1.0 TOTAL PROTEIN 8.1 6.4-8.2 ALBUMIN 2.1 3.2-5.2 ALBUMIN/GLOBULIN RATIO 0.4 1.2-2.2 FERRITIN Reviewed date:04/02/2021 17:23:08 Interpretation: Performing Lab:[facility] [address] [place] [address] , ,[place] [address] FERRITIN 62 8-252 Reticulocyte Count [employer]ex Reviewed date:04/02/2021 17:23:08 Interpretation: Performing Lab:[facility] [address] [facility] [address] [address] , ,[place] [address] RETICULOCYTE % 5.0 0.5-1.5 TOTAL IRON BINDING CAPACIT Reviewed date:04/02/2021 17:23:08 Interpretation: Performing Lab:[facility] [address] [place] [address] , ,[place] [address] IRON (FE) 40 50-170 TOTAL IRON BINDING CAPACITY 333 250-450 PERCENT SATURATION 12.0 13.2-45.0 REASON FOR VISIT TCM/ACO 7 [facility] d/c 03/26 FCO, Anemia, Dyspnea MEDICAL (GENERAL) [...] levels 03/17; unprovoked hypoglycemia with seixure, admitted [facility] Medical History severe anemia, hgb7.x (02/14) Surgical History left tibia/fibula fx & right 5th metatarsal fracture/open reduction,internal fixation. 06/27/2009 Surgical History No personal or FHx of severe reaction to anesthesia Surgical History subtotal post subtotal thyroidectomy 196 8 Surgical History (repeatedly declines colonoscopy) Surgical History Arthroscopic right knee surgery 01/06 Surgical History Total Right Knee @ [facility] Dr. Tinsley 09/13 14 Surgical History [...] hypoglycemia (ICD-10 - E16.2) d/w endo at [place], advises 72 hr fast and once dx confirmed. If surgical candidate, then pancreatic venous sampling is indicated. Mar, Anemia, unspecified type (ICD-10 - D64.9) was transfused in hospital. has iron infusion planned but lost IV access Mar, Hypertensive heart disease with heart failure [...] repair (ICD-10 - I71.4) PLAN OF TREATMENT Medication Medication Name Sig Start Date Stop Date Diazoxide 50 MG/ML 5 ml Orally bid for 30 Days Mar, Treatment Notes Assessment Notes Clinical Notes Insulinoma Medication instuctio ns and Education provided to patient, and pt verbalized understanding of same Spontaneous hypoglycemia d/w endo at [facility], advises 72 hr fast and once dx confirmed. If surgical candidate, then pancreatic venous sampling is indicated. Anemia, unspecified type was transfused in hospital. has iron infusion planned but lost IV access Hypertensive heart disease with heart failure Per JNC 8 guidelines, goal BP < 140/90 (150/90 if age >60), is meeting goal on current regimen. Advised heart- healthy diet, sodium restriction Hypothyroidism, unspecified TSH was high in hospital. Recheck and adjust dose as needed Treatment Notes Test Name Order Date FREE T4 & TSH PANEL 2021-04-01 Next Appt Details 1 Week Reason: Provider Name:Christopher Allen, 2021-03 03:00:00 PM, [address], , [place], [address], Provider Name:Christopher Allen, 2021-05 03:15:00 PM, [address], , [place], [address], Insurance Providers Payer Name Payer Address Payer Phone Insured Name Patient Relati onship to Insured Coverage Start Date Coverage End Date MEDICARE Part A and B [address] [facility] [phone] [place] [facility] [address] [facility] [id number] [place]
--- OUTSIDE RECORDS SUMMARY | 2021-04-18 14:30 | CCD ---
Author Author [facility] Organization [facility] Address Unknown Phone Unavailable Care Team Providers Care Lockstitch Binder Name Role Phone Christopher Allen Unavailable PROBLEMS Type Condition ICD9-CM Code GXD19-SD Code Onset Dates Condition S tatus W/U Status Risk SNOMED Code Notes Problem Need for prophylactic vaccination and inoculatio n against influenza Z23 Active confirmed 830904478 Problem Chronic kidney disease, stage 2 (mild) N18.2 A ctive confirmed 523050668 Problem Encounter for immunization Z23 Active confirmed 695414222 Problem Benign paroxysmal vertigo, unspecified ear H81.10 Active confirmed 972106976 Problem 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 Active confirmed 62540486 Problem Vitamin D deficiency, unspecified E55.9 Active con firmed 74896423 Problem Mixed hyperlipidemia E78.2 Active confirmed 491808292 Problem Generalized osteoarthrosis, 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 Active confirmed 105710749 Problem Leg cramps, sleep related G47.62 Active confirmed 984063920 Problem Screening breast examination Z12.39 Active confirme d 380881841 Problem 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 Active confirmed 611401642 Problem Supraventricular tachycardia I47.1 Active confirme d 5278509 Problem Unspecified asthma, uncomplicated J45.909 Active confirmed 22940908 Problem Primary generalized (osteo)arthritis M15.0 Act memo confirmed 412549175 Problem Age-related osteoporosis without current pathological fracture M81.0 Active confirmed 342610482 Problem Medicare annual wellness visit, subsequent Z00.00 Active confirmed 588212677 Problem Vitamin B12 deficiency anemia, 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 Active confirmed 64668499 Problem 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 Active confirmed 3868261 Problem Chronic pulmonary embolism w ithout acute cor pulmonale, unspecified pulmonary embolism type I27.82 Active confirmed 052253 805588130 ALLERGIES Allergen (clinical drug ingredient) Drug/Non Drug Allergy do cumented on EMR Reaction Allergy Type Onset Date Status acetaminophen Tylenol(NDC Code:[address]-83) heart racing Drug Aller gy Active Requip palpitations Non Drug Allergy Active flu vaccine Hives Non Drug Allergy Active mirtazapine Remeron(NDC Code:[address]-37) excess sedation Drug All ergy Active cephalexin Cephalexin(NDC Code:[address]-05) Unknown Drug Allergy Active allopurinol Allopurinol(NDC Code:[address]-74) increased ep isodes of gout Drug Allergy Active ENCOUNTERS from 1932 to 2021-02-18 Encounter Location Date Provider Diagnosis [address] [place] [address] Jan, Christopher Allen IMMUNIZATIONS Vaccine Route Administration Date [...] Education Language: Question Answer Notes Languages spoken: Kazakh Tenriism: Question Answer Notes Tenriism No pentecostal beliefs that would impact health care. Sexual [...] Notes Start Da te End Date Status Eliquis 2.5 MG 1 tab Orally bid for 90 day(s) Jul, Active Omeprazole 20 MG as directed Orally Once a day, PRN Active K Dur 10 meq 2 tab(s) orally twice a day for 90 day(s) Active Blood Glucose Test - as directed In Vitro Active Synthroid 88 MCG 1 tablet on an empty stomach in the morning Orally Once a day for 90 days Sep, Not-Taking Levothyroxine Sodium 50 MCG 1 tablet in the morning on an empty stomach Orally Once a day for 30 day(s) Dose Change Jan, Active traMADol HCl 50 MG (Schedule IV Drug) TAKE 1 TA BLET BY MOUTH EVERY 4 6 HOURS NEEDED FOR PAIN MAXIMUM DAILY DOSE 6 Oral for 10 Active oxyCODONE-Acetaminophen 5-325 MG 1 tablet as needed Or ally every 4 hours as needed for pain, MDD 6 tabs Reports cannot tolerate, does not use Not-Taking Vitamin D 1000 units 1 tablet Orally daily Feb, Active Cipro 250 MG 1 tablet Orally every 12 hrs for 5 day(s) Aug, Not-Taking Folic Acid 1 MG 1 tablet Orally Once a day for 90 day(s) 2 Jun, Not-Taking Atenolol 50 mg 1 tablet Orally Once a day for 90 Active Aspir-81 81 MG 1 tablet Orally bid listed twice on d/c paperwork as daily and then BID. Pt reports taking BID. 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 06/27/2009 Surgical History No personal or FHx of severe reaction to anesthesia Surgical History subtotal post subtotal thyroidectomy 196 8 Surgical History (repeatedly declines colonoscopy) Surgical History Arthroscopic right knee surgery 01/06 Surgical History Total Right Knee @ [facility] Dr. Tinsley 09/13 14 Surgical [...] Notes Treatment Notes Treatm ent Clinical Notes Jan, Other Spoke with patient to schedule TCM Hosp F/U, no available appt in [place] between now and end of next week. Pt reports having some concerns regarding hypoglycemia management, reported FSBG 32 yesterday morning. Reports having both regular soda and glucose tablets she is using when this occurs, as her is a type II diabetic, but he is always high and not low and were not sure what to do. This race and sports book writer recommended to continue tracking as they are, 15 min after taking half her soda, and that once BG above 100, then eat a snack or meal with a whole grain and or protein which takes longer to digest and will keep BG from dropping as quickly. At that point she expressed concerns with eating protein as the nurses at the hospital suggested she should not eat much protein, yet reported she had not been placed on a low protein diet. Reviewed s/s of hypoglycemia.Pt requested to see a provider soon. Hu TOPETE 02/16/2021@1100 Spoke to patient, confirmed hospital follow-up appt with Eliza Dawson 02/19@ 1045 at the [facility] location, reviewed and verified medications, Colchicine was discontinued and levothyroxine dose reduced from 88mcg to 50mcg. Pt reports hospital did not order her Synthroid ERVIN as Dr Allen does, which she had been on for 30 years. She states her is cutting her remianing 88mcg Synthroids in half. She reports having stopped hydrochlorothiazide herself recently, and had not notified Dr. Allen. Patient states had already cut dose in half previously and does not seeem to be retaining any fluids at this time. Pt reports FSBG of 46 this morning, 02/17 @ 0630, she drank some soda and i t went up to 110, then she ate raisin toast with PB, recheck at 0930 BG was 98. Pt denied any s/s of hypoglycemia in past 24 hours. Reviewed bedtime snack, oatmeal cookie before bed at 1999 recommened add something with protein (PB, milk, cheese stick) and she plans to try this evening. She states these are things she used to do before her trouble with her hip replacement a year ago. Pt inquired about what a 'meal' consisted of after recovering from a low in the morning and she plans to try having a Boost drink which has 10mg of protein. Pt reports is feeling better and has no further questions at this time, but would call if needed. EFREM Mullen 02/17/2021@1115 PLAN OF TREATMENT Next Appt Details Provider Name:Eliza Dawson, 02-19 10:45:00 AM, [address] [facility], , [place], [address], Provider Name:Christopher Allen, 2021-02 03:00:00 PM, [address] [address], , [place], [address], Insurance Providers Payer Name Payer Address Payer Phone Insured Name Patient Relati onship to Insured Coverage Start Date Coverage End Date MEDICARE Part A and B [address] [facility] [phone] [place] BALLE[place] [facility] [place] [facility] [address] [facility] [address] [place] BALLESTEROS
--- OUTSIDE RECORDS SUMMARY | 2021-04-18 14:30 | CCD ---
Author Author [facility] Organization [facility] Address Unknown Phone Unavailable Care Team Providers Care Ground Operations Crew Member Name Role Phone Christopher Allen Unavailable PROBLEMS Type Condition ICD9-CM Code CDU16-KS Code Onset Dates Condition S tatus W/U Status Risk SNOMED Code Notes Problem Benign paroxysmal vertigo, unspecified ear H81.10 Active confirmed 471677791 Problem Vitamin D deficiency, unspecified E55.9 Active con firmed 32195330 Problem Mixed hyperlipidemia E78.2 Active confirmed 162189037 Problem Gout, unspecified M10.9 Active confirmed 90 515122 Problem Hypothyroidism, unspecified E03.9 Active confirmed 05781279 Problem Unspecified asthma, uncomplicated J45.909 Active confirmed 05822780 Problem Other asthma J45.998 Active confirmed 241631 001 Problem 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 Active confirmed 56515160 Problem Encounter for immunization Z23 Active confirmed 342129518 Problem 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 acid deficiency, 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 Active confirmed 82636148 Problem Need for prophylactic vaccination and inoculatio n against influenza Z23 Active confirmed 261165934 Problem 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 Active confirmed 79469698 Problem Chronic kidney disease, stage 2 (mild) N18.2 A ctive confirmed 816236236 Problem Medicare annual wellness visit, subsequent Z00.00 Active confirmed 659492012 Problem Vitamin B12 deficiency anemia, 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 Active confirmed 7783727 Problem Iron 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.0 Active confirmed 355471035 Problem Age-related osteoporosis without current pathological fracture M81.0 Active confirmed 299147299 Problem 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 Active confirmed 111653081 Problem Supraventricular tachycardia I47.1 Active confirme d 2913260 Problem Primary generalized (osteo)arthritis M15.0 Act memo confirmed 266021374 Problem 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 Active conf irmed 686612538 Problem Bilateral nephrolithiasis N20.0 Active confirmed 29518654 Problem Chronic kidney disease, stage 3a N18.31 Active confirmed 970325875 Problem Right lower lobe pulmonary nodule R91.1 Active confirmed 123770211 ALLERGIES Allergen (clinical drug ingredient) Drug/Non Drug Allergy do cumented on EMR Reaction Allergy Type Onset Date Status acetaminophen Tylenol(NDC Code:[address]-82) heart racing Drug Aller gy Active Requip palpitations Non Drug Allergy Active flu vaccine Hives Non Drug Allergy Active mirtazapine Remeron(NDC Code:[address]-36) excess sedation Drug All ergy Active cephalexin Cephalexin(NDC Code:[address]-96) Unknown Drug Allergy Active allopurinol Allopurinol(NDC Code:[address]-53) increased ep isodes of gout Drug Allergy Active ENCOUNTERS from 1932 to 2021-02-25 Encounter Location Date Provider Diagnosis [address] [place] [address] Jan, Christopher Allen 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 Sexual [...] Notes Start Da te End Date Status Folic Acid 1 MG 1 tablet Orally Once a day Jun, Active Levothyroxine Sodium 50 MCG 1 tablet in the morning on an empty stomach Orally Once a day for 30 day(s) Dose Change Jan, Not-Thom ing Cipro 250 MG 1 tablet Orally every 12 hrs for 5 day(s) Aug, Not-Taking Blood Glucose Test - as directed In Vitro Active oxyCODONE-Acetaminophen 5-325 MG 1 tablet as needed Or ally every 4 hours as needed for pain, MDD 6 tabs Reports cannot tolerate, does not use Not-Taking Synthroid 50 MCG 1 tablet in the morning on a n empty stomach Orally Once a day for 30 day(s) Jan, Active K Dur 10 meq 2 tab(s) orally twice a day Active Omeprazole 20 MG as directed Orally Once a day, PRN Active traMADol HCl 50 MG (Schedule IV Drug) TAKE 1 TA BLET BY MOUTH EVERY 4 6 HOURS NEEDED FOR PAIN MAXIMUM DAILY DOSE 6 Oral Active Synthroid 88 MCG 1/2 tablet in the morning o n an empty stomach Orally Once a day Active Vitamin D 1000 units 1 tablet Orally daily Feb, Active Atenolol 50 mg 1 tablet Orally Once a day Active Eliquis 2.5 MG 1 tab Orally bid Jul, Ac tive PROCEDURES No Information RESULTS No Results REASON FOR VISIT Hypoglycemia Concerns MEDICAL (GENERAL) HISTORY Type Description Date Medical [...] 01/06 Surgical History Total Right Knee @ [facility] Dr. Tinsley 09/13 14 Surgical [...] Treatment Notes Treatm ent Clinical Notes Jan, Spontaneous hypoglycemia (ICD-10 - E16.2) PLAN OF TREATMENT Medication Medication Name Sig Start Date Stop Date Blood Glucose Test - as directed In Vitro Atenolol 50 mg 1 tablet Orally Once a day Folic Acid 1 MG 1 tablet Orally Once a day Jun, Eliquis 2.5 MG 1 tab Orally bid Jul, Synthroid 50 MCG 1 tablet in the morning on a n empty stomach Orally Once a day for 30 day(s) Jan, K Dur 10 meq 2 tab(s) orally twice a day traMADol HCl 50 MG (Schedule IV Drug) TAKE 1 TA BLET BY MOUTH EVERY 4 6 HOURS NEEDED FOR PAIN MAXIMUM DAILY DOSE 6 Oral Vitamin D 1000 units 1 tablet Orally daily Feb, Future Test Test Name Order Date HEMOGLOBIN A1c [id number] Basic Metabolic Profile (BMP) [id number] INSULIN LEVEL [id number] C-PEPTIDE [id number] Next Appt Details Provider Name:Christopher Allen, 2021-02 03:00:00 PM, [address] , , [place], [address], Insurance Providers Payer Name Payer Address Payer Phone Insured Name Patient Relati onship to Insured Coverage Start Date Coverage End Date MEDICARE Part A and B [address] [facility] [id number] [phone] [place] BALLESTEROS [place] [facility] [address] [facility] [address] [phone] [place]NA BALLESTEROS
--- OUTSIDE RECORDS SUMMARY | 2021-04-18 14:30 | CCD ---
Author Author [facility] Organization [facility] Address Unknown Phone Unavailable Care Team Providers Care Tire Design Engineer Name Role Phone Christopher Allen Unavailable PROBLEMS Type Condition ICD9-CM Code XCU08-SS Code Onset Dates Condition S tatus W/U Status Risk SNOMED Code Notes Problem Benign paroxysmal vertigo, unspecified ear H81.10 Active confirmed 644919722 Problem Vitamin D deficiency, unspecified E55.9 Active con firmed 31837639 Problem Mixed hyperlipidemia E78.2 Active confirmed 477844583 Problem Gout, unspecified M10.9 Active confirmed 90 854508 Problem Hypothyroidism, unspecified E03.9 Active confirmed 70511699 Problem Unspecified asthma, uncomplicated J45.909 Active confirmed 80424933 Problem Other asthma J45.998 Active confirmed 673402 001 Problem 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 Active confirmed 53852389 Problem Encounter for immunization Z23 Active confirmed 115092800 Problem 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 acid deficiency, 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 Active confirmed 83331499 Problem Need for prophylactic vaccination and inoculatio n against influenza Z23 Active confirmed 995983640 Problem 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 Active confirmed 75395027 Problem Chronic kidney disease, stage 2 (mild) N18.2 A ctive confirmed 950213728 Problem Medicare annual wellness visit, subsequent Z00.00 Active confirmed 047410700 Problem Vitamin B12 deficiency anemia, 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 Active confirmed 931506041 Problem Age-related osteoporosis without current pathological fracture M81.0 Active confirmed 553555671 Problem 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 Active confirmed 819208899 Problem Supraventricular tachycardia I47.1 Active confirme d 1805929 Problem Primary generalized (osteo)arthritis M15.0 Act memo confirmed 814992016 Problem 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 Active conf irmed 330877864 Problem Bilateral nephrolithiasis N20.0 Active confirmed 73928344 Problem Chronic kidney disease, stage 3a N18.31 Active confirmed 945876812 Problem Right lower lobe pulmonary nodule R91.1 Active confirmed 157553726 ALLERGIES Allergen (clinical drug ingredient) Drug/Non Drug Allergy do cumented on EMR Reaction Allergy Type Onset Date Status acetaminophen Tylenol(NDC Code:[address]-44) heart racing Drug Aller gy Active Requip palpitations Non Drug Allergy Active flu vaccine Hives Non Drug Allergy Active mirtazapine Remeron(NDC Code:[address]-89) excess sedation Drug All ergy Active cephalexin Cephalexin(NDC Code:[address]-61) Unknown Drug Allergy Active allopurinol Allopurinol(NDC Code:[address]-74) increased ep isodes of gout Drug Allergy Active ENCOUNTERS from 1932 to 2021-03-04 Encounter Location Date Provider Diagnosis [address] [place] [address] Sep, 2021 Christopher Allen Hypoglycemia E16.2 IMMUNIZATIONS Vaccine Route Administration Date Status [...] Education Language: Question Answer Notes Languages spoken: Tajik Shinto: Question Answer Notes Shinto No hinduism beliefs that would impact health care. Sexual [...] 30 day(s) Dose Change Jan, Not-Thom ing oxyCODONE-Acetaminophen 5-325 MG 1 tablet as needed Or ally every 4 hours as needed for pain, MDD 6 tabs Reports cannot tolerate, does not use Not-Taking Cipro 250 MG 1 tablet Orally every 12 hrs for 5 day(s) Aug, Not-Taking Blood Glucose Test - as directed In Vitro bid for 30 Days Active K Dur 10 meq 2 tab(s) orally twice a day Active Folic Acid 1 MG 1 tablet Orally Once a day Jun, Active Omeprazole 20 MG as directed Orally Once a day, PRN Active Vitamin D 1000 units 1 tablet Orally daily Feb, Active Synthroid 88 MCG 1/2 tablet in the morning o n an empty stomach Orally Once a day Active Synthroid 50 MCG 1 tablet in the morning on a n empty stomach Orally Once a day for 30 day(s) Jan, Active Atenolol 50 mg 1 tablet Orally Once a day Active Eliquis 2.5 MG 1 tab Orally bid Jul, Ac tive traMADol HCl 50 MG (Schedule IV Drug) TAKE 1 TA BLET BY MOUTH EVERY 4 6 HOURS NEEDED FOR PAIN MAXIMUM DAILY DOSE 6 Oral Active PROCEDURES No Information RESULTS No Results REASON FOR VISIT New prescription for [place] testing her blood glucose. MEDICAL (GENERAL) HISTORY Type Description Date Medical [...] 01/06 Surgical History Total Right Knee @ [facility] Dr. Tinsley 09/13 14 Surgical History lumpectomy [...] Treatment Notes Treatm ent Clinical Notes Feb, Hypoglycemia (ICD-10 - E16.2) PLAN OF TREATMENT Medication Medication Name Sig Start Date Stop Date Blood Glucose Test - as directed In Vitro bid for 30 Days Atenolol 50 mg 1 tablet Orally Once a day Lancets 30G - as directed one touch delica plus bid for 30 Day s Feb, Eliquis 2.5 MG 1 tab Orally bid Jul, traMADol HCl 50 MG (Schedule IV Drug) TAKE 1 TA BLET BY MOUTH EVERY 4 6 HOURS NEEDED FOR PAIN MAXIMUM DAILY DOSE 6 Oral K Dur 10 meq 2 tab(s) orally twice a day Folic Acid 1 MG 1 tablet Orally Once a day Jun, Vitamin D 1000 units 1 tablet Orally daily Feb, Synthroid 50 MCG 1 tablet in the morning on a n empty stomach Orally Once a day for 30 day(s) Jan, Next Appt Details Provider Name:Christopher Alejandro, 2021-02 03:00:00 PM, [address], , [place], [address], Insurance Providers Payer Name Payer Address Payer Phone Insured Name Patient Relati onship to Insured Coverage Start Date Coverage End Date MEDICARE Part A and B [address] [facility] [id number] [phone] KEARA BALLESTEROS BS [place] [facility] [address] [facility] [address] [phone] KEARA BALLESTEROS
--- OUTSIDE RECORDS SUMMARY | 2021-04-18 14:30 | CCD ---
Author Author [facility] Organization [facility] Address Unknown Phone Unavailable Care Team Providers Care Machine Worker Name Role Phone Eliza Dawson Unavailable PROBLEMS Type Condition ICD9-CM Code EPE71-VN Code Onset Dates Condition S tatus W/U Status Risk SNOMED Code Notes Problem Benign paroxysmal vertigo, unspecified ear H81.10 Active confirmed 519904823 Problem Vitamin D deficiency, unspecified E55.9 Active con firmed 36892691 Problem Mixed hyperlipidemia E78.2 Active confirmed 232283408 Problem Gout, unspecified M10.9 Active confirmed 90 841242 Problem Hypothyroidism, unspecified E03.9 Active confirmed 56794225 Problem Unspecified asthma, uncomplicated J45.909 Active confirmed 20919739 Problem Other asthma J45.998 Active confirmed 671089 001 Problem 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 acid deficiency, 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 Active confirmed 65311222 Problem Encounter for immunization Z23 Active confirmed 455516365 Problem 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 Active confirmed 00284667 Problem Need for prophylactic vaccination and inoculatio n against influenza Z23 Active confirmed 784403698 Problem 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 Active confirmed 69502151 Problem Chronic kidney disease, stage 2 (mild) N18.2 A ctive confirmed 675581652 Problem Medicare annual wellness visit, subsequent Z00.00 Active confirmed 441690087 Problem Vitamin B12 deficiency anemia, 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 Active confirmed 0812256 Problem Chronic pulmonary embolism w ithout acute cor pulmonale, unspecified pulmonary embolism type I27.82 Active confirmed 125378 494496331 Problem Hypoglycemia E16.2 Active confirmed 2495520 03 Problem Age-related osteoporosis without current pathological fracture M81.0 Active confirmed 109487959 Problem Iron 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.0 Active confirmed 118289589 Problem Supraventricular tachycardia I47.1 Active confirme d 0598316 Problem Primary generalized (osteo)arthritis M15.0 Act memo confirmed 851656638 Problem 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 Active conf irmed 361471219 Problem Bilateral nephrolithiasis N20.0 Active confirmed 67801224 Problem Chronic kidney disease, stage 3a N18.31 Active confirmed 366347167 Problem Right lower lobe pulmonary nodule R91.1 Active confirmed 147800072 ALLERGIES Allergen (clinical drug ingredient) Drug/Non Drug Allergy do cumented on EMR Reaction Allergy Type Onset Date Status acetaminophen Tylenol(NDC Code:[address]-25) heart racing Drug Aller gy Active Requip palpitations Non Drug Allergy Active flu vaccine Hives Non Drug Allergy Active mirtazapine Remeron(NDC Code:[address]-44) excess sedation Drug All ergy Active cephalexin Cephalexin(NDC Code:[address]-62) Unknown Drug Allergy Active allopurinol Allopurinol(NDC Code:[address]-01) increased ep isodes of gout Drug Allergy Active ENCOUNTERS from 1932 to 2021-02-19 Encounter Location Date Provider Diagnosis [address] [phone] [place] [address] Jan, Eliza [place]orth Hypoglycemia E16.2 ; Iron de ficiency anemia due to chronic blood loss D50.0 ; Right lower lobe pulmonary nodule R91.1 ; Hypothyroidism, unspecified E03.9 ; Hypertensive heart disease with heart failure I11.0 ; Chronic pulmonary em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 acute cor pulmonale, unspecified pulmonary embolism type I27.82 ; Vitamin D deficiency, unspecified E55.9 ; 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 acid deficiency, 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 Sexual [...] FOR REFERRAL No Information VITAL SIGNS Weight 162 lbs Jan, Height 62 in Jan, BMI 29.63 kg/m2 Jan, Heart Rate 69 /min Jan, Respiratory Rate 18 /min Jan, Temperature 98.2 degrees Fahrenheit Jan, Oximetry 94 Jan, Blood pressure systolic 132 mm Hg Jan, Blood pressure diastolic 78 mm Hg Jan, MEDICATIONS Medication SIG (Take, Route, Frequency, Duration) [...] Information RESULTS No Results REASON FOR VISIT TCM Hypoglycemia MEDICAL (GENERAL) HISTORY Type Description Date [...] 01/06 Surgical History Total Right Knee @ [facility] Dr. Tinsley 09/13 14 Surgical History [...] Treatment Notes Treatm ent Clinical Notes Jan, Hypoglycemia (ICD-10 - E16.2) Given education on how much glucose to treat pt. c for level of hypoglycemia. Educated further on protein use mid meal snacks. Jan, Iron deficiency anemia due to chronic bl ood loss (ICD-10 - D50.0) Will obtain 3 stool cards. Urged f/u cbc tomorrow or vivek, she declined today. Will forward a note to PCP to f/u on lab. tomorrow. Jan, Right lower lobe pulmonary nodule (ICD-10 - R91. 1) New spiculated 2.3cm enlarged from 1.[address] 11/[address] Allen on 03/12/2021 what they will do next Jan, Hypothyroidism, unspecified (ICD-10 - E03.9) Jan, Hypertensive heart disease with heart failure (I CD-10 - I11.0) 02/14/2021 K3.6, BUn/CR 20/1.07 Jan, Chronic pulmonary embolism w ithout acute cor pulmonale, unspecified pulmonary embolism type (ICD-10 - I27.82) Jan, Vitamin D deficiency, unspecified (ICD-10 - E55. 9) Jan, 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 acid def iciency, unspecified deficiency type (ICD-10 - D52.9) Jan, Chronic kidney disease, stage 3a (ICD-10 - N18.3 1) see K Creat under HTNive Ht. DIs. Jan, Other 45"chart review , h&P, orders/plan PLAN OF TREATMENT Medication Medication Name Sig [...] 1000 units 1 tablet Orally daily Feb, Treatment Notes Assessment Notes Clinical Notes Hypoglycemia Given education on h ow much glucose to treat pt. c for level of hypoglycemia. Educated further on protein use mid meal snacks. Iron deficiency anemia due to chronic blood loss Will obtain 3 stool cards. Urged f/u cbc tomorrow or vivek, she declined today. Will forward a note to PCP to f/u on lab. tomorrow. Right lower lobe pulmonary nodule New sp iculated 2.3cm enlarged from 1.[address] 11/[address] Allen on 03/12/2021 what they will do next Hypertensive heart disease with heart failure 02/14/2021 K3.6, BUn/CR 20/1.07 Chronic kidney disease, stage 3a see K, Creat under HTNive Ht. DIs. Treatment Notes Test Name Order Date CBC with Differential 2021-02-19 IRON (FE) 2021-02-19 FERRITIN 2021-02-19 FECAL OCCULT BLOOD (FOBT) 2021-02-19 Next Appt Details 03/12/[address] Allen Reason: Provider Name:Christopher Allen, 2021-02 03:00:00 PM, [id number], , [place], [address], Insurance Providers Payer Name Payer Address Payer Phone Insured Name Patient Relati onship to Insured Coverage Start Date Coverage End Date BS [place] [facility] [address] [facility] [id number] [phone] [place] [employer] Part A and B [address] [facility] [address] [phone] [place] [employer] self
--- OUTSIDE RECORDS SUMMARY | 2021-04-18 14:30 | CCD ---
Author Author [facility] Organization [facility] Address Unknown Phone Unavailable Care Team Providers Care Freelance Recruiter Name Role Phone [facility]ly [facility], [facility], PA-C Unavailable Unavailabl e Fish, [facility], PA-C Unavailable Unavailabl e Fish, [facility], PA-C Unavailable Unavailabl e Fish, [facility], PA-C Unavailable Unavailabl e Fish, [facility], PA-C Unavailable Unavailabl e Fish, [facility], PA-C Unavailable Unavailabl e Fish, [facility], PA-C Unavailable Unavailabl e Fish, [facility], PA-C Unavailable Unavailabl e Fish, [facility], PA-C Unavailable Unavailabl e Fish, [facility], PA-C Unavailable Unavailabl e Fish, [facility], PA-C Unavailable Unavailabl e Fish, [facility], PA-C Unavailable Unavailabl e Fish, [facility], PA-C Unavailable Unavailabl e Fish, [facility], PA-C Unavailable Unavailabl e Fish, [facility], PA-C Unavailable Unavailabl e Fish, [facility], PA-C Unavailable Unavailabl e Fish, [facility], PA-C Unavailable Unavailabl e Fish, [facility], PA-C Unavailable Unavailabl e Fish, [facility], PA-C Unavailable Unavailabl e Fish, [facility], PA-C Unavailable Unavailabl e Fish, [facility], PA-C Unavailable Unavailabl e Fish, [facility], PA-C Unavailable Unavailabl e Fish, [facility], PA-C Unavailable Unavailabl e Fish, [facility], PA-C Unavailable Unavailabl e Fish, [facility], PA-C Unavailable Unavailabl e Fish, [facility], PA-C Unavailable Unavailabl e Fish, [facility], PA-C Unavailable Unavailabl e Fish, [facility], PA-C Unavailable Unavailabl e Fish, [facility], PA-C Unavailable Unavailabl e Fish, [facility], PA-C Unavailable Unavailabl e Fish, [facility], PA-C Unavailable Unavailabl e Fish, [facility], PA-C Unavailable Unavailabl e Fish, [facility], PA-C Unavailable Unavailabl e Fish, [facility], PA-C Unavailable Unavailabl e Fish, [facility], PA-C Unavailable Unavailabl e Fish, [facility], PA-C Unavailable Unavailabl e Doremus, E Yaritza PA Unavailable Unavailable Doremus, E Yaritza PA Unavailable Unavailable Doremus, E Yaritza PA Unavailable Unavailable Doremus, E Yaritza PA Unavailable Unavailable Doremus, E Yaritza PA Unavailable Unavailable Doremus, E Yaritza PA Unavailable Unavailable Doremus, E Yaritza PA Unavailable Unavailable Doremus, E Yaritza PA Unavailable Unavailable Doremus, E Yaritza PA Unavailable Unavailable Doremus, E Yaritza PA Unavailable Unavailable Doremus, E Yaritza PA Unavailable Unavailable Doremus, E Yaritza PA Unavailable Unavailable Doremus, E Yaritza PA Unavailable Unavailable Doremus, E Yaritza PA Unavailable Unavailable Doremus, E Yaritza PA Unavailable Unavailable Doremus, E Yaritza PA Unavailable Unavailable Doremus, E Yaritza PA Unavailable Unavailable Doremus, E Yaritza PA Unavailable Unavailable Doremus, E Yaritza PA Unavailable Unavailable Re-disclosure Warning The records that you are about to access may contain information from federally-assisted alcohol or drug abuse programs. If such information is present, then the following federally mandated warning applies: This information has been disclosed to you from records protected by federal confidentiality rules (42 CFR part 2). The federal rules prohibit you from making any further disclosure of this information unless further disclosure is expressly permitted by the written consent of the person to whom it pertains or as otherwise permitted by 42 CFR part 2. A general authorization for the release of medical or other information is NOT sufficient for this purpose. The Federal rules restrict any use of the information to criminally investigate or prosecute any alcohol or drug abuse patient.The records that you are about to access may contain highly sensitive health information, the redisclosure of which is protected by Article 27-F of the [facility] Public Health law. If you continue you may have access to information: Regarding HIV / AIDS; Provided by facilities licensed or operated by the [facility] Office of Mental Health; or Provided by the [facility] Office for People With Developmental Disabilities. If such information is present, then the following [facility] mandated warning applies: This information has been disclosed to you from confidential records which are protected by state law. State law prohibits you from making any further disclosure of this information without the specific written consent of the person to whom it pertains, or as otherwise permitted by law. Any unauthorized further disclosure in violation of state law may result in a fine or shelter sentence or both. A general authorization for the release of medical or other information is NOT sufficient authorization for further disc losure. Family History Family Member Name Family Member Gender Family Member Status Date o f Status Description Data Source(s) Unknown Unknown Problem MEDENT ([facility]) mother's side Unknown Female Problem MEDENT ([facility]) Unknown Female Problem MEDENT ([facility] ) Encounters Encounter Providers Location Date Indications Data Source(s ) Unknown [address] [facility] [id number] 04/15/2021 12:00:00 AM EDT eCW1 ([facility]) Outpatient [address] [facility] [id number] 04/07/2021 12:00:00 AM EDT eCW1 ([facility]) (TCM) Transition of Care Visit [address] [place] [address] 04/01/2021 12:00:00 AM EDT eCW1 ([facility]) [place] [address] [facility] [address] 03/26/2021 12:00:00 AM EDT eCW1 ([facility]) Unknown [address] [facility] [place] [address] 03/25/2021 12:00:00 AM EDT eCW1 ([facility]) [place] [address] [facility] [address] 03/24/2021 12:00:00 AM EDT eCW1 ([facility]) Unknown [address] [facility] [place] [address] 03/17/2021 12:00:00 AM EDT eCW1 ([facility]) Unknown [address] [facility] [place] [address] 03/12/2021 12:00:00 AM EDT eCW1 [facility]) Office Visit, Est Pt., Level 4 PC [address] [place] [address] 03/12/2021 12:00:00 AM EDT eCW1 ([facility]) [place] [address] [facility] [address] 02/27/2021 12:00:00 AM EDT eCW1 ([facility]) Unknown [address] [facility] [place] [address] 02/23/2021 12:00:00 AM EDT eCW1 ([facility]) (TCM) Transition of Care Visit [address] [place] [address] 02/19/2021 12:00:00 AM EDT eCW1 ([facility]) Unknown [address] [facility] [address] 02/16/2021 12:00:00 AM EDT eCW1 ([facility]) Unknown [address] [facility] [place] [address] 12/21/2020 12:00:00 AM EDT eCW1 ([facility]) [place] [address] [facility] [address] 12/18/2020 12:00:00 AM EDT eCW1 ([facility]) Unknown [address] [facility] [address] 12/18/2020 12:00:00 AM EDT eCW1 ([facility]) [place] [address] [facility] [address] 12/17/2020 12:00:00 AM EDT eCW1 ([facility]) Unknown [address] [facility] [address] 11/20/2020 12:00:00 AM EDT eCW1 ([facility]) Unknown [address] [facility] [address] 11/16/2020 12:00:00 AM EDT eCW1 ([facility]) Out[place] [address] [facility] [address] 11/14/2020 12:00:00 AM EDT eCW1 ([facility]) Unknown [address] [facility] [address] 11/14/2020 12:00:00 AM EDT eCW1 ([facility]) Unknown [address] [facility] [address] 11/14/2020 12:00:00 AM EDT eCW1 ([facility]) Unknown [address] [facility] [address] 11/02/2020 12:00:00 AM EDT eCW1 ([facility]) (Cysto1) Urology [address] [place] [address] 10/29/2020 12:00:00 AM EDT eCW1 ([facility]) [place] [address] [facility] [address] 10/28/2020 12:00:00 AM EDT [facility] [place] [address] [facility] [address] 10/19/2020 12:00:00 AM EDT eCW1 ([facility]) Outpatient [address] [facility] [address] 09/25/2020 12:00:00 AM EDT eCW1 ([facility]) Outpatient [address] [facility] [address] 09/10/2020 12:00:00 AM EDT eCW1 ([facility]) Outpatient [address] [facility] [address] 09/04/2020 12:00:00 AM EST [facility] Unknown [address] [facility] [address] 08/27/2020 12:00:00 AM EST eCW1 ([facility]) Unknown [address] [facility] [address] 08/26/2020 12:00:00 AM EST eCW1 ([facility]) Outpatient [address] [facility] [address] 08/19/2020 12:00:00 AM EST eCW1 [facility]) TeleMedicine Est. Pt. Level 3 [address] [place] [address] 08/08/2020 12:00:00 AM EST eCW1 ([facility]) Unknown [address] [facility] [address] 08/06/2020 12:00:00 AM EST eCW1 ([facility]) Outpatient Attender: Lis MOYA PA-C Physical Therapy 07/22/2020 01:15:00 PM EST MEDENT ([facility]) TeleMedicine Est. Pt. Level 3 [address] [place] [address] 07/18/2020 12:00:00 AM EST eCW1 ([facility]) Unknown [address] [facility] [address] 07/18/2020 12:00:00 AM EST eCW1 ([facility]) Unknown [address] [facility] [address] 07/18/2020 12:00:00 AM EST eCW1 ([facility]) Unknown [address] [facility] [address] 07/16/2020 12:00:00 AM EST eCW1 ([facility]) Outpatient [address] [facility] [address] 07/08/2020 12:00:00 AM EST eCW1 ([facility]) Outpatient Attender: Lis MOYA PA-C Physical Therapy 04/17/2020 02:15:00 PM EDT MEDENT ([facility]) Outpatient [address] [facility] [address] 04/03/2020 12:00:00 AM EDT eCW1 ([facility]) Outpatient Attender: Lis MOYA PA-C Physical Therapy 03/21/2020 08:30:00 AM EDT MEDENT ([facility]) Office Visit Attender: Yaritza JUSTIN Physical Therapy 02:15:00 PM EDT MEDENT ([facility]) Immunizations Vaccine Date Status Description Data Source(s) COVID-19 VACCINE Moderna 09/04/2020 12:00:00 AM EST completed [facility] Vaccine Series Complete: YESThis Data wa s Submitted to [facility] Via [facility]. COVID-19 VACCINE, MRNA-1273, LNP-S (MODERNA)/PF 09/04/2020 1 2:00:00 AM EST completed [facility] COVID-19 VACCINE Moderna 08/06/2020 12:00:00 AM EST completed [facility] Vaccine Series Complete: NOThis Data was Submitted to [facility] [employer]. COVID-19 VACCINE, MRNA-1273, LNP-S (MODERNA)/PF 08/06/2020 1 2:00:00 AM EST completed [facility] Medications Medication Brand Name Start Date Product Form Dose Route Admi nistrative Instructions Pharmacy Instructions Status Indications Reaction Description Data Source(s) Hydrochlorothiazide 12.5 MG Oral Tablet HYDROCHLOROTHIAZIDE 04/09/2021 12:00:00 AM EDT tablet 90 TAKE ONE TABLET BY MOUTH KIRIT RY MORNING TAKE ONE TABLET BY MOUTH EVERY MORNING SOLD: 04/09/2021 [facility] 50 mg/mL 04/08/2021 12:00:00 AM EDT suspension 300 TAKE 5ML BY MOUTH TWO TIMES A DAY FOR 30 DAYS TAKE 5ML BY MOUTH TWO TIMES A DAY FOR 30 DAYS SOLD: 04/09/2021 [facility] Diazoxide 50 MG/ML Oral Suspension Diazoxide 50 MG/ML 04/01 12:00:00 AM EDT 5.0 {ml} active Diazoxide 50 MG /ML eCW1 ([facility]) Diazoxide 50 MG/ML Oral Suspension Diazoxide 50 MG/ML 04/01 12:00:00 AM EDT 5.0 {ml} active Diazoxide 50 MG /ML eCW1 ([facility]) 20 mg 03/28/2021 12:00:00 AM EDT tablet 8 TAKE TWO TABLETS BY MOUTH EVERY DAY TAKE TWO TABLETS BY MOUTH EVERY DAY SOLD: 03/28/2021 [facility] 250-50 mcg/dose 03/27/2021 12:00:00 AM EDT blister with luis ce 60 INHALE ONE PUFF BY MOUTH TWICE A DAY INHALE ONE PUFF BY MOUTH TWICE A DAY SOLD: 03/27/2021 [facility] Levothyroxine Sodium 0.088 MG Oral Tablet [Synthroid] Synthroid 88 MCG Synthroid 88 MCG 03/26/2021 12:00:00 AM EDT active Synthroid 88 MCG eCW1 ([facility]) Levothyroxine Sodium 0.088 MG Oral Tablet [Synthroid] Synthroid 88 MCG Synthroid 88 MCG 03/26/2021 12:00:00 AM EDT active Synthroid 88 MCG eCW1 ([facility]) Levothyroxine Sodium 0.088 MG Oral Tablet [Synthroid] Synthroid 88 MCG Synthroid 88 MCG 03/26/2021 12:00:00 AM EDT active Synthroid 88 MCG eCW1 ([facility]) Levothyroxine Sodium 0.088 MG Oral Tablet [Synthroid] Synthroid 88 MCG Synthroid 88 MCG 03/26/2021 12:00:00 AM EDT active Synthroid 88 MCG eCW1 ([facility]) Albuterol Sulfate 108 (90 Base) MCG/ACT UNK 03/26/2021 12: 00:00 AM EDT 2.0 {puffs} active Albuterol Sulfate 108 (9 0 Base) MCG/ACT eCW1 ([facility]) ferrous sulfate 325 MG Oral Tablet Ferrous Sulfate 325 (65 Fe) MG Ferrous Sulfate 325 (65 Fe) MG 03/26/2021 12:00:00 AM EDT 1.0 {tablet} active Ferrous Sulfate 325 (65 Fe) MG eCW1 ([facility]) 60 ACTUAT Fluticasone propionate 0.25 MG /ACTUAT / salmeterol 0.05 MG/ACTUAT Dry Powder Inhaler [Advair] Advair Diskus 250-50 MCG/DOSE Advair Diskus 250-50 MCG/DOSE 03/26/2021 12:00:00 AM EDT 1.0 {puff} activ e Advair Diskus 250-50 MCG/DOSE eCW1 ([facility]) Prednisone 20 MG Oral Tablet predniSONE 20 MG predniSONE 20 MG 03/26/2021 12:00:00 AM EDT suspended predn iSONE 20 MG eCW1 ([facility]) Albuterol Sulfate 108 (90 Base) MCG/ACT UNK 03/26/2021 12: 00:00 AM EDT 2.0 {puffs} active Albuterol Sulfate 108 (9 0 Base) MCG/ACT eCW1 ([facility]) 60 ACTUAT Fluticasone propionate 0.25 MG /ACTUAT / salmeterol 0.05 MG/ACTUAT Dry Powder Inhaler [Advair] Advair Diskus 250-50 MCG/DOSE Advair Diskus 250-50 MCG/DOSE 03/26/2021 12:00:00 AM EDT 1.0 {puff} activ e Advair Diskus 250-50 MCG/DOSE eCW1 ([facility]) Albuterol Sulfate 108 (90 Base) MCG/ACT UNK 03/26/2021 12: 00:00 AM EDT 2.0 {puffs} active Albuterol Sulfate 108 (9 0 Base) MCG/ACT eCW1 ([facility]) Albuterol Sulfate 108 (90 Base) MCG/ACT UNK 03/26/2021 12: 00:00 AM EDT 2.0 {puffs} active Albuterol Sulfate 108 (9 0 Base) MCG/ACT eCW1 ([facility]) Levothyroxine Sodium 0.088 MG Oral Tablet [Synthroid] Synthroid 88 MCG Synthroid 88 MCG 03/26/2021 12:00:00 AM EDT active Synthroid 88 MCG eCW1 ([facility]) ferrous sulfate 325 MG Oral Tablet Ferrous Sulfate 325 (65 Fe) MG Ferrous Sulfate 325 (65 Fe) MG 03/26/2021 12:00:00 AM EDT 1.0 {tablet} active Ferrous Sulfate 325 (65 Fe) MG eCW1 ([facility]) ferrous sulfate 325 MG Oral Tablet Ferrous Sulfate 325 (65 Fe) MG Ferrous Sulfate 325 (65 Fe) MG 03/26/2021 12:00:00 AM EDT 1.0 {tablet} active Ferrous Sulfate 325 (65 Fe) MG eCW1 ([facility]) Prednisone 20 MG Oral Tablet predniSONE 20 MG predniSONE 20 MG 03/26/2021 12:00:00 AM EDT suspended predn iSONE 20 MG eCW1 ([facility]) ferrous sulfate 325 MG Oral Tablet Ferrous Sulfate 325 (65 Fe) MG Ferrous Sulfate 325 (65 Fe) MG 03/26/2021 12:00:00 AM EDT 1.0 {tablet} active Ferrous Sulfate 325 (65 Fe) MG eCW1 ([facility]) 60 ACTUAT Fluticasone propionate 0.25 MG /ACTUAT / salmeterol 0.05 MG/ACTUAT Dry Powder Inhaler [Advair] Advair Diskus 250-50 MCG/DOSE Advair Diskus 250-50 MCG/DOSE 03/26/2021 12:00:00 AM EDT 1.0 {puff} suspe nded Advair Diskus 250-50 MCG/DOSE eCW1 ([facility]) 60 ACTUAT Fluticasone propionate 0.25 MG /ACTUAT / salmeterol 0.05 MG/ACTUAT Dry Powder Inhaler [Advair] Advair Diskus 250-50 MCG/DOSE Advair Diskus 250-50 MCG/DOSE 03/26/2021 12:00:00 AM EDT 1.0 {puff} suspe nded Advair Diskus 250-50 MCG/DOSE eCW1 ([facility]) 60 ACTUAT Fluticasone propionate 0.25 MG /ACTUAT / salmeterol 0.05 MG/ACTUAT Dry Powder Inhaler [Advair] Advair Diskus 250-50 MCG/DOSE Advair Diskus 250-50 MCG/DOSE 03/26/2021 12:00:00 AM EDT 1.0 {puff} suspe nded Advair Diskus 250-50 MCG/DOSE eCW1 ([facility]) Albuterol Sulfate 108 (90 Base) MCG/ACT UNK 03/26/2021 12: 00:00 AM EDT 2.0 {puffs} active Albuterol Sulfate 108 (9 0 Base) MCG/ACT eCW1 ([facility]) Prednisone 20 MG Oral Tablet predniSONE 20 MG predniSONE 20 MG 03/26/2021 12:00:00 AM EDT active predniSO NE 20 MG eCW1 ([facility]) Albuterol Sulfate 108 (90 Base) MCG/ACT UNK 03/26/2021 12: 00:00 AM EDT 2.0 {puffs} active Albuterol Sulfate 108 (9 0 Base) MCG/ACT eCW1 ([facility]) Levothyroxine Sodium 0.088 MG Oral Tablet [Synthroid] Synthroid 88 MCG Synthroid 88 MCG 03/26/2021 12:00:00 AM EDT active Synthroid 88 MCG eCW1 ([facility]) Prednisone 20 MG Oral Tablet predniSONE 20 MG predniSONE 20 MG 03/26/2021 12:00:00 AM EDT active predniSO NE 20 MG eCW1 ([facility]) 20 mg 03/26/2021 12:00:00 AM EDT tablet 4 TAKE TWO TABLETS BY MOUTH EVERY DAY TAKE TWO TABLETS BY MOUTH EVERY DAY SOLD: 03/26/2021 [facility] 90 mcg/actuation 03/26/2021 12:00:00 AM EDT aerosol powdr breath activated 1 INHALE TWO PUFFS BY MOUTH EVERY 6 HOURS NEEDED FOR SHORTNESS OF BREATH INHALE TWO PUFFS BY MOUTH EVERY 6 HOURS NEEDED FOR SHORTNESS OF BREATH SOLD: 03/26/2021 [facility] ferrous sulfate 325 MG Oral Tablet Ferrous Sulfate 325 (65 Fe) MG Ferrous Sulfate 325 (65 Fe) MG 03/26/2021 12:00:00 AM EDT 1.0 {tablet} active Ferrous Sulfate 325 (65 Fe) MG eCW1 ([facility]) Prednisone 20 MG Oral Tablet predniSONE 20 MG predniSONE 20 MG 03/26/2021 12:00:00 AM EDT suspended predn iSONE 20 MG eCW1 ([facility]) 60 ACTUAT Fluticasone propionate 0.25 MG /ACTUAT / salmeterol 0.05 MG/ACTUAT Dry Powder Inhaler [Advair] Advair Diskus 250-50 MCG/DOSE Advair Diskus 250-50 MCG/DOSE 03/26/2021 12:00:00 AM EDT 1.0 {puff} suspe nded Advair Diskus 250-50 MCG/DOSE eCW1 ([facility]) ferrous sulfate 325 MG Oral Tablet Ferrous Sulfate 325 (65 Fe) MG Ferrous Sulfate 325 (65 Fe) MG 03/26/2021 12:00:00 AM EDT 1.0 {tablet} active Ferrous Sulfate 325 (65 Fe) MG eCW1 ([facility]) Prednisone 20 MG Oral Tablet predniSONE 20 MG predniSONE 20 MG 03/26/2021 12:00:00 AM EDT suspended predn iSONE 20 MG eCW1 ([facility]) Hydrochlorothiazide 12.5 MG Oral Tablet HYDROCHLOROTHIAZIDE 03/18/2021 12:00:00 AM EDT tablet 30 TAKE ONE-HALF TABLET BY MOUT H EVERY DAY TAKE ONE-HALF TABLET BY MOUTH EVERY DAY SOLD: 03/20/2021 [facility] BLOOD SUGAR DIAGNOSTIC 03/07/2021 12:00:00 AM EDT strip 50 USE DIRECTED TO TEST BLOOD GLUCOSE TWO TIMES A DAY USE DIRECTED TO TEST BLOOD GLUCOSE TW O TIMES A DAY SOLD: 04/01/2021 [facility] BLOOD SUGAR DIAGNOSTIC 03/07/2021 12:00:00 AM EDT strip 50 USE DIRECTED TO TEST BLOOD GLUCOSE TWO TIMES A DAY USE DIRECTED TO TEST BLOOD GLUCOSE TW O TIMES A DAY SOLD: 03/08/2021 [facility] BLOOD SUGAR DIAGNOSTIC 03/05/2021 12:00:00 AM EDT strip 50 USE DIRECTED TO TEST BLOOD GLUCOSE TWO TIMES A DAY USE DIRECTED TO TEST BLOOD GLUCOSE TW O TIMES A DAY SOLD: 03/05/2021 [facility] Lancets 30G - Lancets 30G - 03/03/2021 12:00:00 AM EDT active Lancets 30G - eCW1 ([facility]) Lancets 30G - Lancets 30G - 03/03/2021 12:00:00 AM EDT active Lancets 30G - eCW1 ([facility]) Lancets 30G - Lancets 30G - 03/03/2021 12:00:00 AM EDT active Lancets 30G - eCW1 ([facility]) Lancets 30G - Lancets 30G - 03/03/2021 12:00:00 AM EDT active Lancets 30G - eCW1 ([facility]) Lancets 30G - Lancets 30G - 03/03/2021 12:00:00 AM EDT active Lancets 30G - eCW1 ([facility]) Lancets 30G - Lancets 30G - 03/03/2021 12:00:00 AM EDT active Lancets 30G - eCW1 ([facility]) Lancets 30G - Lancets 30G - 03/03/2021 12:00:00 AM EDT active Lancets 30G - eCW1 ([facility]) Lancets 30G - Lancets 30G - 03/03/2021 12:00:00 AM EDT active Lancets 30G - eCW1 ([facility]) Lancets 30G - Lancets 30G - 03/03/2021 12:00:00 AM EDT active Lancets 30G - eCW1 ([facility]) Lancets 30G - Lancets 30G - 03/03/2021 12:00:00 AM EDT active Lancets 30G - eCW1 ([facility]) Levothyroxine Sodium 0.05 MG Oral Tablet [Synthroid] S ynthroid 50 MCG Synthroid 50 MCG 02/19/2021 12:00:00 AM EDT active Synthroid 50 MCG eCW1 ([facility]) Levothyroxine Sodium 0.05 MG Oral Tablet [Synthroid] S ynthroid 50 MCG Synthroid 50 MCG 02/19/2021 12:00:00 AM EDT suspended Synthroid 50 MCG eCW1 ([facility]) Levothyroxine Sodium 0.05 MG Oral Tablet [Synthroid] S ynthroid 50 MCG Synthroid 50 MCG 02/19/2021 12:00:00 AM EDT active Synthroid 50 MCG eCW1 ([facility]) Levothyroxine Sodium 0.05 MG Oral Tablet [Synthroid] S ynthroid 50 MCG Synthroid 50 MCG 02/19/2021 12:00:00 AM EDT suspended Synthroid 50 MCG eCW1 ([facility]) Levothyroxine Sodium 0.05 MG Oral Tablet [Synthroid] S ynthroid 50 MCG Synthroid 50 MCG 02/19/2021 12:00:00 AM EDT suspended Synthroid 50 MCG eCW1 ([facility]) Levothyroxine Sodium 0.05 MG Oral Tablet [Synthroid] S ynthroid 50 MCG Synthroid 50 MCG 02/19/2021 12:00:00 AM EDT active Synthroid 50 MCG eCW1 ([facility]) Levothyroxine Sodium 0.05 MG Oral Tablet Levothyroxine Sodium 50 MCG Levothyroxine Sodium 50 MCG 02/14/2021 12:00:00 AM EDT suspended Levothyroxine Sodium 50 MCG eCW1 ([facility]) Levothyroxine Sodium 0.05 MG Oral Tablet Levothyroxine Sodium 50 MCG Levothyroxine Sodium 50 MCG 02/14/2021 12:00:00 AM EDT suspended Levothyroxine Sodium 50 MCG eCW1 ([facility]) ALCOHOL ANTISEPTIC PADS 02/14/2021 12:00:00 AM EDT pads, med icated 100 USE DIRECTED WHEN CHECKING BLOOD SUGAR TWO TIMES A DAY NEEDED USE DIRECTED WHEN CHECKING BLOOD SUGAR TWO TIMES A DAY NEEDED SOLD: 02/14/2021 [facility] Levothyroxine Sodium 0.05 MG Oral Tablet Levothyroxine Sodium 50 MCG Levothyroxine Sodium 50 MCG 02/14/2021 12:00:00 AM EDT suspended Levothyroxine Sodium 50 MCG eCW1 ([facility]) Levothyroxine Sodium 0.05 MG Oral Tablet Levothyroxine Sodium 50 MCG Levothyroxine Sodium 50 MCG 02/14/2021 12:00:00 AM EDT active Levothyroxine Sodium 50 MCG eCW1 ([facility]) Levothyroxine Sodium 0.05 MG Oral Tablet Levothyroxine Sodium 50 MCG Levothyroxine Sodium 50 MCG 02/14/2021 12:00:00 AM EDT suspended Levothyroxine Sodium 50 MCG eCW1 ([facility]) BLOOD SUGAR DIAGNOSTIC 02/14/2021 12:00:00 AM EDT strip 50 USE DIRECTED TO TEST BLOOD GLUCOSE TWO TIMES A DAY NEEDED USE DIRECTED TO TEST BLOOD GLUCOSE TWO TIMES A DAY NEEDED SOLD: 02/14/2021 [facility] 28 gauge 02/14/2021 12:00:00 AM EDT misc 60 USE TO CHECK BLOOD SUGAR TWO TIMES A DAY NEEDED USE TO CHECK BLOOD SUGAR TWO TIMES A DAY NEEDED [facility] BLOOD-GLUCOSE METER 02/14/2021 12:00:00 AM EDT kit 1 USE DIRECTED TO TEST BLOOD GLUCOSE USE DIRECTED TO TEST BLOOD GLUCOSE SOLD: 02/14/2021 [facility] 50 mcg 02/14/2021 12:00:00 AM EDT tablet 30 TAKE ONE TABLET BY MOUTH EVERY DAY TAKE ONE TABLET BY MOUTH EVERY DAY SOLD: 02/14/2021 [facility] Levothyroxine Sodium 0.05 MG Oral Tablet Levothyroxine Sodium 50 MCG Levothyroxine Sodium 50 MCG 02/14/2021 12:00:00 AM EDT suspended Levothyroxine Sodium 50 MCG eCW1 ([facility]) Levothyroxine Sodium 0.05 MG Oral Tablet Levothyroxine Sodium 50 MCG Levothyroxine Sodium 50 MCG 02/14/2021 12:00:00 AM EDT suspended Levothyroxine Sodium 50 MCG eCW1 ([facility]) 50 mg 12/23/2020 12:00:00 AM EDT tablet 90 TAKE ONE TABLET BY MOUTH EVERY DAY TAKE ONE TABLET BY MOUTH EVERY DAY SOLD: 04/01/2021 [facility] 50 mg 12/23/2020 12:00:00 AM EDT tablet 90 TAKE ONE TABLET BY MOUTH EVERY DAY TAKE ONE TABLET BY MOUTH EVERY DAY SOLD: 12/23/2020 [facility] 88 mcg 11/20/2020 12:00:00 AM EDT tablet 90 TAKE ONE TABLET BY MOUTH EVERY MORNING ON AN EMPTY STOMACH TAKE ONE TABLET BY MOUTH EVERY MORNING O N AN EMPTY STOMACH SOLD: 02/08/2021 [facility] 88 mcg 11/20/2020 12:00:00 AM EDT tablet 90 TAKE ONE TABLET BY MOUTH EVERY MORNING ON AN EMPTY STOMACH TAKE ONE TABLET BY MOUTH EVERY MORNING O N AN EMPTY STOMACH SOLD: 11/20/2020 [facility] 10 mEq 11/05/2020 12:00:00 AM EDT tablet,ER particles/cry stals 360 TAKE TWO TABLETS BY MOUTH TWICE A DAY TAKE TWO TABLETS BY MOUTH TWICE A DAY SOLD: 02/09/2021 [facility] 10 mEq 11/05/2020 12:00:00 AM EDT tablet,ER particles/cry stals 360 TAKE TWO TABLETS BY MOUTH TWICE A DAY TAKE TWO TABLETS BY MOUTH TWICE A DAY SOLD: 11/05/2020 [facility] 0.6 mg 10/29/2020 12:00:00 AM EDT tablet 180 TAKE ONE TABLET BY MOUTH TWICE A DAY TAKE ONE TABLET BY MOUTH TWICE A DAY SOLD: 10/31/2020 [facility] 0.6 mg 10/29/2020 12:00:00 AM EDT tablet 180 TAKE ONE TABLET BY MOUTH TWICE A DAY TAKE ONE TABLET BY MOUTH TWICE A DAY SOLD: 02/09/2021 [facility] Ciprofloxacin 250 MG Oral Tablet [Cipro] Cipro 250 MG Cipro 250 MG 08/27/2020 12:00:00 AM EST 1.0 {tablet} suspended Cipro 250 MG eCW1 ([facility]) Ciprofloxacin 250 MG Oral Tablet [Cipro] Cipro 250 MG Cipro 250 MG 08/27/2020 12:00:00 AM EST 1.0 {tablet} suspended Cipro 250 MG eCW1 ([facility]) Ciprofloxacin 250 MG Oral Tablet [Cipro] Cipro 250 MG Cipro 250 MG 08/27/2020 12:00:00 AM EST 1.0 {tablet} suspended Cipro 250 MG eCW1 ([facility]) Ciprofloxacin 250 MG Oral Tablet [Cipro] Cipro 250 MG Cipro 250 MG 08/27/2020 12:00:00 AM EST 1.0 {tablet} suspended Cipro 250 MG eCW1 ([facility]) Ciprofloxacin 250 MG Oral Tablet [Cipro] Cipro 250 MG Cipro 250 MG 08/27/2020 12:00:00 AM EST 1.0 {tablet} suspended Cipro 250 MG eCW1 ([facility]) Ciprofloxacin 250 MG Oral Tablet [Cipro] Cipro 250 MG Cipro 250 MG 08/27/2020 12:00:00 AM EST 1.0 {tablet} suspended Cipro 250 MG eCW1 ([facility]) Ciprofloxacin 250 MG Oral Tablet [Cipro] Cipro 250 MG Cipro 250 MG 08/27/2020 12:00:00 AM EST 1.0 {tablet} suspended Cipro 250 MG eCW1 ([facility]) Ciprofloxacin 250 MG Oral Tablet [Cipro] Cipro 250 MG Cipro 250 MG 08/27/2020 12:00:00 AM EST 1.0 {tablet} suspended Cipro 250 MG eCW1 ([facility]) Ciprofloxacin 250 MG Oral Tablet [Cipro] Cipro 250 MG Cipro 250 MG 08/27/2020 12:00:00 AM EST 1.0 {tablet} suspended Cipro 250 MG eCW1 ([facility]) Ciprofloxacin 250 MG Oral Tablet [Cipro] Cipro 250 MG Cipro 250 MG 08/27/2020 12:00:00 AM EST 1.0 {tablet} suspended Cipro 250 MG eCW1 ([facility]) Ciprofloxacin 250 MG Oral Tablet [Cipro] Cipro 250 MG Cipro 250 MG 08/27/2020 12:00:00 AM EST 1.0 {tablet} active Ci pro 250 MG eCW1 ([facility]) Ciprofloxacin 250 MG Oral Tablet [Cipro] Cipro 250 MG Cipro 250 MG 08/27/2020 12:00:00 AM EST 1.0 {tablet} suspended Cipro 250 MG eCW1 ([facility]) Ciprofloxacin 250 MG Oral Tablet [Cipro] Cipro 250 MG Cipro 250 MG 08/27/2020 12:00:00 AM EST 1.0 {tablet} suspended Cipro 250 MG eCW1 ([facility]) Ciprofloxacin 250 MG Oral Tablet [Cipro] Cipro 250 MG Cipro 250 MG 08/27/2020 12:00:00 AM EST 1.0 {tablet} suspended Cipro 250 MG eCW1 ([facility]) Ciprofloxacin 250 MG Oral Tablet [Cipro] Cipro 250 MG Cipro 250 MG 08/27/2020 12:00:00 AM EST 1.0 {tablet} suspended Cipro 250 MG eCW1 ([facility]) Ciprofloxacin 250 MG Oral Tablet [Cipro] Cipro 250 MG Cipro 250 MG 08/27/2020 12:00:00 AM EST 1.0 {tablet} suspended Cipro 250 MG eCW1 ([facility]) Ciprofloxacin 250 MG Oral Tablet [Cipro] Cipro 250 MG Cipro 250 MG 08/27/2020 12:00:00 AM EST 1.0 {tablet} active Ci pro 250 MG eCW1 ([facility]) 250 mg 08/27/2020 12:00:00 AM EST tablet 10 TAKE ONE TABLET BY MOUTH EVERY 12 HOURS FOR 5 DAYS TAKE ONE TABLET BY MOUTH EVERY 12 HOURS FOR 5 DAYS [facility] Ciprofloxacin 250 MG Oral Tablet [Cipro] Cipro 250 MG Cipro 250 MG 08/27/2020 12:00:00 AM EST 1.0 {tablet} suspended Cipro 250 MG eCW1 ([facility]) Ciprofloxacin 250 MG Oral Tablet [Cipro] Cipro 250 MG Cipro 250 MG 08/27/2020 12:00:00 AM EST 1.0 {tablet} suspended Cipro 250 MG eCW1 ([facility]) Ciprofloxacin 250 MG Oral Tablet [Cipro] Cipro 250 MG Cipro 250 MG 08/27/2020 12:00:00 AM EST 1.0 {tablet} suspended Cipro 250 MG eCW1 ([facility]) Ciprofloxacin 250 MG Oral Tablet [Cipro] Cipro 250 MG Cipro 250 MG 08/27/2020 12:00:00 AM EST 1.0 {tablet} suspended Cipro 250 MG eCW1 ([facility]) Ciprofloxacin 250 MG Oral Tablet [Cipro] Cipro 250 MG Cipro 250 MG 08/27/2020 12:00:00 AM EST 1.0 {tablet} suspended Cipro 250 MG eCW1 ([facility]) Ciprofloxacin 250 MG Oral Tablet [Cipro] Cipro 250 MG Cipro 250 MG 08/27/2020 12:00:00 AM EST 1.0 {tablet} suspended Cipro 250 MG eCW1 ([facility]) Ciprofloxacin 250 MG Oral Tablet [Cipro] Cipro 250 MG Cipro 250 MG 08/27/2020 12:00:00 AM EST 1.0 {tablet} suspended Cipro 250 MG eCW1 ([facility]) Ciprofloxacin 250 MG Oral Tablet [Cipro] Cipro 250 MG Cipro 250 MG 08/27/2020 12:00:00 AM EST 1.0 {tablet} suspended Cipro 250 MG eCW1 ([facility]) 2.5 mg 08/20/2020 12:00:00 AM EST tablet 180 TAKE ONE TABLET BY MOUTH TWICE A DAY TAKE ONE TABLET BY MOUTH TWICE A DAY SOLD: 12/23/2020 [facility] 2.5 mg 08/20/2020 12:00:00 AM EST tablet 180 TAKE ONE TABLET BY MOUTH TWICE A DAY TAKE ONE TABLET BY MOUTH TWICE A DAY SOLD: 08/22/2020 [facility] apixaban 2.5 MG Oral Tablet [Eliquis] Eliquis 2.5 MG Eliquis 2.5 MG 08/19/2020 12:00:00 AM EST active Eliquis 2.5 MG eCW1 ([facility]) apixaban 2.5 MG Oral Tablet [Eliquis] Eliquis 2.5 MG Eliquis 2.5 MG 08/19/2020 12:00:00 AM EST active Eliquis 2.5 MG eCW1 ([facility]) apixaban 2.5 MG Oral Tablet [Eliquis] Eliquis 2.5 MG Eliquis 2.5 MG 08/19/2020 12:00:00 AM EST active Eliquis 2.5 MG eCW1 ([facility]) apixaban 2.5 MG Oral Tablet [Eliquis] Eliquis 2.5 MG Eliquis 2.5 MG 08/19/2020 12:00:00 AM EST active Eliquis 2.5 MG eCW1 ([facility]) apixaban 2.5 MG Oral Tablet [Eliquis] Eliquis 2.5 MG Eliquis 2.5 MG 08/19/2020 12:00:00 AM EST active Eliquis 2.5 MG eCW1 ([facility]) apixaban 2.5 MG Oral Tablet [Eliquis] Eliquis 2.5 MG Eliquis 2.5 MG 08/19/2020 12:00:00 AM EST active Eliquis 2.5 MG eCW1 ([facility]) apixaban 2.5 MG Oral Tablet [Eliquis] Eliquis 2.5 MG Eliquis 2.5 MG 08/19/2020 12:00:00 AM EST active Eliquis 2.5 MG eCW1 ([facility]) apixaban 2.5 MG Oral Tablet [Eliquis] Eliquis 2.5 MG Eliquis 2.5 MG 08/19/2020 12:00:00 AM EST active Eliquis 2.5 MG eCW1 ([facility]) apixaban 2.5 MG Oral Tablet [Eliquis] Eliquis 2.5 MG Eliquis 2.5 MG 08/19/2020 12:00:00 AM EST active Eliquis 2.5 MG eCW1 ([facility]) apixaban 2.5 MG Oral Tablet [Eliquis] Eliquis 2.5 MG Eliquis 2.5 MG 08/19/2020 12:00:00 AM EST active Eliquis 2.5 MG eCW1 ([facility]) apixaban 2.5 MG Oral Tablet [Eliquis] Eliquis 2.5 MG Eliquis 2.5 MG 08/19/2020 12:00:00 AM EST active Eliquis 2.5 MG eCW1 ([facility]) apixaban 2.5 MG Oral Tablet [Eliquis] Eliquis 2.5 MG Eliquis 2.5 MG 08/19/2020 12:00:00 AM EST active Eliquis 2.5 MG eCW1 ([facility]) apixaban 2.5 MG Oral Tablet [Eliquis] Eliquis 2.5 MG Eliquis 2.5 MG 08/19/2020 12:00:00 AM EST active Eliquis 2.5 MG eCW1 ([facility]) apixaban 2.5 MG Oral Tablet [Eliquis] Eliquis 2.5 MG Eliquis 2.5 MG 08/19/2020 12:00:00 AM EST active Eliquis 2.5 MG eCW1 ([facility]) apixaban 2.5 MG Oral Tablet [Eliquis] Eliquis 2.5 MG Eliquis 2.5 MG 08/19/2020 12:00:00 AM EST active Eliquis 2.5 MG eCW1 ([facility]) apixaban 2.5 MG Oral Tablet [Eliquis] Eliquis 2.5 MG Eliquis 2.5 MG 08/19/2020 12:00:00 AM EST active Eliquis 2.5 MG eCW1 ([facility]) apixaban 2.5 MG Oral Tablet [Eliquis] Eliquis 2.5 MG Eliquis 2.5 MG 08/19/2020 12:00:00 AM EST active Eliquis 2.5 MG eCW1 ([facility]) apixaban 2.5 MG Oral Tablet [Eliquis] Eliquis 2.5 MG Eliquis 2.5 MG 08/19/2020 12:00:00 AM EST active Eliquis 2.5 MG eCW1 ([facility]) apixaban 2.5 MG Oral Tablet [Eliquis] Eliquis 2.5 MG Eliquis 2.5 MG 08/19/2020 12:00:00 AM EST active Eliquis 2.5 MG eCW1 ([facility]) apixaban 2.5 MG Oral Tablet [Eliquis] Eliquis 2.5 MG Eliquis 2.5 MG 08/19/2020 12:00:00 AM EST active Eliquis 2.5 MG eCW1 ([facility]) apixaban 2.5 MG Oral Tablet [Eliquis] Eliquis 2.5 MG Eliquis 2.5 MG 08/19/2020 12:00:00 AM EST active Eliquis 2.5 MG eCW1 ([facility]) apixaban 2.5 MG Oral Tablet [Eliquis] Eliquis 2.5 MG Eliquis 2.5 MG 08/19/2020 12:00:00 AM EST active Eliquis 2.5 MG eCW1 ([facility]) apixaban 2.5 MG Oral Tablet [Eliquis] Eliquis 2.5 MG Eliquis 2.5 MG 08/19/2020 12:00:00 AM EST active Eliquis 2.5 MG eCW1 ([facility]) apixaban 2.5 MG Oral Tablet [Eliquis] Eliquis 2.5 MG Eliquis 2.5 MG 08/19/2020 12:00:00 AM EST active Eliquis 2.5 MG eCW1 ([facility]) apixaban 2.5 MG Oral Tablet [Eliquis] Eliquis 2.5 MG Eliquis 2.5 MG 08/19/2020 12:00:00 AM EST active Eliquis 2.5 MG eCW1 ([facility]) apixaban 2.5 MG Oral Tablet [Eliquis] Eliquis 2.5 MG Eliquis 2.5 MG 08/19/2020 12:00:00 AM EST active Eliquis 2.5 MG eCW1 ([facility]) 5 mg 08/09/2020 12:00:00 AM EST tablet 60 TAKE ONE TABLET BY MOUTH TWICE A DAY TAKE ONE TABLET BY MOUTH TWICE A DAY SOLD: 08/11/2020 [facility] Folic Acid 1 MG Oral Tablet Folic Acid 1 MG 07/18/2020 12:00:00 AM EST 1.0 {tablet} active Folic Acid 1 MG eCW1 ([facility]) Folic Acid 1 MG Oral Tablet Folic Acid 1 MG 07/18/2020 12:00:00 AM EST 1.0 {tablet} active Folic Acid 1 MG eCW1 ([facility]) Folic Acid 1 MG Oral Tablet Folic Acid 1 MG 07/18/2020 12:00:00 AM EST 1.0 {tablet} active Folic Acid 1 MG eCW1 ([facility]) Folic Acid 1 MG Oral Tablet Folic Acid 1 MG 07/18/2020 12:00:00 AM EST 1.0 {tablet} active Folic Acid 1 MG eCW1 ([facility]) Folic Acid 1 MG Oral Tablet Folic Acid 1 MG 07/18/2020 12:00:00 AM EST 1.0 {tablet} active Folic Acid 1 MG eCW1 ([facility]) Folic Acid 1 MG Oral Tablet Folic Acid 1 MG 07/18/2020 12:00:00 AM EST 1.0 {tablet} active Folic Acid 1 MG eCW1 ([facility]) Folic Acid 1 MG Oral Tablet Folic Acid 1 MG 07/18/2020 12:00:00 AM EST 1.0 {tablet} active Folic Acid 1 MG eCW1 ([facility]) Folic Acid 1 MG Oral Tablet Folic Acid 1 MG 07/18/2020 12:00:00 AM EST 1.0 {tablet} active Folic Acid 1 MG eCW1 ([facility]) Folic Acid 1 MG Oral Tablet Folic Acid 1 MG 07/18/2020 12:00:00 AM EST 1.0 {tablet} active Folic Acid 1 MG eCW1 ([facility]) Folic Acid 1 MG Oral Tablet Folic Acid 1 MG 07/18/2020 12:00:00 AM EST 1.0 {tablet} active Folic Acid 1 MG eCW1 ([facility]) Folic Acid 1 MG Oral Tablet Folic Acid 1 MG 07/18/2020 12:00:00 AM EST 1.0 {tablet} active Folic Acid 1 MG eCW1 ([facility]) Folic Acid 1 MG Oral Tablet Folic Acid 1 MG 07/18/2020 12:00:00 AM EST 1.0 {tablet} active Folic Acid 1 MG eCW1 ([facility]) Folic Acid 1 MG Oral Tablet Folic Acid 1 MG 07/18/2020 12:00:00 AM EST 1.0 {tablet} active Folic Acid 1 MG eCW1 ([facility]) Folic Acid 1 MG Oral Tablet Folic Acid 1 MG 07/18/2020 12:00:00 AM EST 1.0 {tablet} active Folic Acid 1 MG eCW1 ([facility]) Folic Acid 1 MG Oral Tablet Folic Acid 1 MG 07/18/2020 12:00:00 AM EST 1.0 {tablet} active Folic Acid 1 MG eCW1 ([facility]) Folic Acid 1 MG Oral Tablet Folic Acid 1 MG 07/18/2020 12:00:00 AM EST 1.0 {tablet} active Folic Acid 1 MG eCW1 ([facility]) Folic Acid 1 MG Oral Tablet Folic Acid 1 MG 07/18/2020 12:00:00 AM EST 1.0 {tablet} active Folic Acid 1 MG eCW1 ([facility]) Folic Acid 1 MG Oral Tablet Folic Acid 1 MG 07/18/2020 12:00:00 AM EST 1.0 {tablet} active Folic Acid 1 MG eCW1 ([facility]) Folic Acid 1 MG Oral Tablet Folic Acid 1 MG 07/18/2020 12:00:00 AM EST 1.0 {tablet} active Folic Acid 1 MG eCW1 ([facility]) Folic Acid 1 MG Oral Tablet Folic Acid 1 MG 07/18/2020 12:00:00 AM EST 1.0 {tablet} active Folic Acid 1 MG eCW1 ([facility]) Folic Acid 1 MG Oral Tablet Folic Acid 1 MG 07/18/2020 12:00:00 AM EST 1.0 {tablet} active Folic Acid 1 MG eCW1 ([facility]) Folic Acid 1 MG Oral Tablet Folic Acid 1 MG 07/18/2020 12:00:00 AM EST 1.0 {tablet} active Folic Acid 1 MG eCW1 ([facility]) Folic Acid 1 MG Oral Tablet Folic Acid 1 MG 07/18/2020 12:00:00 AM EST 1.0 {tablet} active Folic Acid 1 MG eCW1 ([facility]) Folic Acid 1 MG Oral Tablet Folic Acid 1 MG 07/18/2020 12:00:00 AM EST 1.0 {tablet} suspended Folic Acid 1 MG eCW1 ([facility]) Folic Acid 1 MG Oral Tablet Folic Acid 1 MG 07/18/2020 12:00:00 AM EST 1.0 {tablet} active Folic Acid 1 MG eCW1 ([facility]) Folic Acid 1 MG Oral Tablet Folic Acid 1 MG 07/18/2020 12:00:00 AM EST 1.0 {tablet} active Folic Acid 1 MG eCW1 ([facility]) Folic Acid 1 MG Oral Tablet Folic Acid 1 MG 07/18/2020 12:00:00 AM EST 1.0 {tablet} active Folic Acid 1 MG eCW1 ([facility]) Folic Acid 1 MG Oral Tablet Folic Acid 1 MG 07/18/2020 12:00:00 AM EST 1.0 {tablet} active Folic Acid 1 MG eCW1 ([facility]) Folic Acid 1 MG Oral Tablet Folic Acid 1 MG 07/18/2020 12:00:00 AM EST 1.0 {tablet} active Folic Acid 1 MG eCW1 ([facility]) Folic Acid 1 MG Oral Tablet Folic Acid 1 MG 07/18/2020 12:00:00 AM EST 1.0 {tablet} active Folic Acid 1 MG eCW1 ([facility]) Folic Acid 1 MG Oral Tablet Folic Acid 1 MG 07/18/2020 12:00:00 AM EST 1.0 {tablet} active Folic Acid 1 MG eCW1 ([facility]) Folic Acid 1 MG Oral Tablet Folic Acid 1 MG 07/18/2020 12:00:00 AM EST 1.0 {tablet} active Folic Acid 1 MG eCW1 ([facility]) 0.05 % 06/16/2020 12:00:00 AM EST ointment 30 APPLY TO TRUNK AND EXTREMETIES SPARINGLY TWO TIMES A DAY FOR 2 WEEKS APPLY TO TRUNK AND EXTREMETIES SPARINGLY TWO TIMES A DAY FOR 2 WEEKS SOLD: 06/17/2020 [facility] 0.05 % 06/04/2020 12:00:00 AM EST ointment 30 APPLY TO TRUNK AND EXTREMITIES SPARINGLY TWO TIMES A DAY FOR 14 DAYS APPLY TO TRUNK AND EXTREMITIES SPARINGLY TWO TIMES A DAY FOR 14 DAYS SOLD: 06/05/2020 [facility] 0.05 % 06/04/2020 12:00:00 AM EST cream 50 APPLY TO POSTERIOR NECK AND SCALP TWO TIMES A DAY X 2 WEEKS THEN NEEDED APPLY TO POSTERIOR NECK AND SCALP TWO TIMES A DAY X 2 WEEKS THEN NEEDED SOLD: 06/05/2020 [facility] 5 mg 04/05/2020 12:00:00 AM EDT tablet 60 TAKE ONE TABLET BY MOUTH TWICE A DAY TAKE ONE TABLET BY MOUTH TWICE A DAY SOLD: 05/14/2020 [facility] 5 mg 04/05/2020 12:00:00 AM EDT tablet 60 TAKE ONE TABLET BY MOUTH TWICE A DAY TAKE ONE TABLET BY MOUTH TWICE A DAY SOLD: 07/13/2020 [facility] 5 mg 04/05/2020 12:00:00 AM EDT tablet 60 TAKE ONE TABLET BY MOUTH TWICE A DAY TAKE ONE TABLET BY MOUTH TWICE A DAY SOLD: 04/06/2020 [facility] 5 mg 04/05/2020 12:00:00 AM EDT tablet 60 TAKE ONE TABLET BY MOUTH TWICE A DAY TAKE ONE TABLET BY MOUTH TWICE A DAY SOLD: 06/11/2020 [facility] 25 mg 04/04/2020 12:00:00 AM EDT tablet 90 TAKE ONE TABLET BY MOUTH EVERY DAY TAKE ONE TABLET BY MOUTH EVERY DAY SOLD: 04/06/2020 [facility] 1 % 03/21/2020 12:00:00 AM EDT gel 300 APPLY THREE TIMES A DAY TO AFFECTED AREA APPLY THREE TIMES A DAY TO AFFECTED AREA SOLD: 03/22/2020 [facility] Diclofenac Sodium 0.01 MG/MG Topical Gel Diclofenac Sodium 03/21/2020 12:00:00 AM EDT active MEDENT (No [facility]) 5 mg 03/13/2020 12:00:00 AM EDT tablet 60 TAKE ONE TABLET BY MOUTH TWICE A DAY TAKE ONE TABLET BY MOUTH TWICE A DAY SOLD: 03/13/2020 [facility] 0.1 % 02/28/2020 12:00:00 AM EDT ointment 90 APPLY A SMALL AMOUNT TOPICALLY TWICE A DAY APPLY A SMALL AMOUNT TOPICALLY TWICE A DAY SOLD: 03/01/2020 [facility] 25 mg 02/26/2020 12:00:00 AM EDT tablet 30 TAKE ONE TABLET BY MOUTH EVERY DAY TAKE ONE TABLET BY MOUTH EVERY DAY SOLD: 02/26/2020 [facility] 0.6 mg 11/11/2019 12:00:00 AM EDT tablet 180 TAKE ONE TABLET BY MOUTH TWO TIMES A DAY TAKE ONE TABLET BY MOUTH TWO TIMES A DAY SOLD: 04/16/2020 [facility] 0.6 mg 11/11/2019 12:00:00 AM EDT tablet 180 TAKE ONE TABLET BY MOUTH TWO TIMES A DAY TAKE ONE TABLET BY MOUTH TWO TIMES A DAY SOLD: 07/15/2020 [facility] 50 mg 11/11/2019 12:00:00 AM EDT tablet 90 TAKE ONE TABLET BY MOUTH ONCE A DAY TAKE ONE TABLET BY MOUTH ONCE A DAY SOLD: 09/10/2020 [facility] Atenolol 50 MG Oral Tablet ATENOLOL 11/11/2019 12:00:00 AM EDT tablet 90 TAKE ONE TABLET BY MOUTH ONCE A DAY TAKE ONE TABLET BY MOUTH ONCE A DAY SOLD: 06/26/2020 [facility] Atenolol 50 MG Oral Tablet ATENOLOL 11/11/2019 12:00:00 AM EDT tablet 90 TAKE ONE TABLET BY MOUTH ONCE A DAY TAKE ONE TABLET BY MOUTH ONCE A DAY SOLD: 03/27/2020 [facility] 88 mcg 09/16/2019 12:00:00 AM EDT tablet 90 TAKE ONE TABLET BY MOUTH ON AN EMPTY STOMACH IN THE MORNING ONCE A DAY TAKE ONE TABLET BY MOUTH ON AN EMPTY STOMACH IN THE MORNING ONCE A DAY SOLD: 08/11/2020 [facility] 88 mcg 09/16/2019 12:00:00 AM EDT tablet 90 TAKE ONE TABLET BY MOUTH ON AN EMPTY STOMACH IN THE MORNING ONCE A DAY TAKE ONE TABLET BY MOUTH ON AN EMPTY STOMACH IN THE MORNING ONCE A DAY SOLD: 05/14/2020 [facility] 10 mEq 09/14/2019 12:00:00 AM EDT tablet,ER particles/cry stals 360 TAKE TWO TABLETS BY MOUTH TWICE A DAY TAKE TWO TABLETS BY MOUTH TWICE A DAY SOLD: 08/03/2020 [facility] 10 mEq 09/14/2019 12:00:00 AM EDT tablet,ER particles/cry stals 360 TAKE TWO TABLETS BY MOUTH TWICE A DAY TAKE TWO TABLETS BY MOUTH TWICE A DAY SOLD: 04/30/2020 [facility] Insurance Providers Payer name Policy type / Coverage type Policy ID Covered democrat ID Covered democrat's relationship to amin Policy Amin Plan Information [facility] [id number] S [id number] 2TA [facility] [id number] S [id number] MEDICARE 4 [id number] 1 [id number] 2TA MEDICARE A [id number] Self [id number] 2TA MEDICARE [id number] SP [id number] 2TA MEDICARE [id number] SP [id number] 2TA [place] [id number] Self MEDICARE [id number] SP [id number] A [id number] 2TA EXCELLUS H [id number] Self [id number] BC FEP MEMBERS 1 [id number] [employer] BCBS FEDERAL [id number] SP [id number] [employer]CE[employer] BCBS FEDERAL [id number] SP [id number] [place] Primary [id number] Self [id number] [facility] [id number] Self [id number] [place] Primary [id number] Self [id number] [place] Primary [id number] Self [id number] [place] Medigap Part B [id number] Self [id number] ANSI-Commercial [id number] ANSI-Medicare Part B [id number] ANSI-Commercial [id number] ANSI-Commercial [id number] ANSI-Medicare Part B [id number] Federal Plan [place] Part B [id number] Self [id number] Medicare Natl Gov't Servi Medicare Primary [id number] Self [id number] ANSI-Commercial [id number] ANSI-Medicare Part B [id number] ANSI-Medicare Part B [id number] ANSI-Commercial [id number] ANSI-Commercial [id number] ANSI-Medicare Part B [id number] MEDICARE [id number] SP [id number] 2TA MEDICARE [id number] SP [id number] ANSI-Medicare Part B [id number] [place] Primary [id number] Self [id number] MEDICARE C [id number] S [id number] 2TA [facility] Federal Plan Medigap Part B [id number] Self [id number] Medicare Natl Gov't Servi Medicare Primary [id number] Self [id number] EXCELLUS BCBS FEDERAL [id number] SP [id number] [facility] Part B [id number] Self Medicare [place] Medicare Primary [id number] Self BLUE CROSS [id number] S [id number] MEDICARE [id number] S [id number] 2TA BS Fed Plan Medigap Part B [id number] Self BC BS [place] FEDERAL [id number] SP [id number] SELF PAY 2 UNAVAILABLE 1 UNAVAILA BLE EXCELLUS BCBS S [id number] S [id number] ANSI-Commercial [id number] [facility] FEDERAL EMPLOYEE PROGRAM [id number] SP [id number] SELF PAY MEDICARE C [id number] S [id number] [facility] B [id number] S [id number] MEDICARE C [id number] S [id number] ANSI-Commercial [id number] ANSI-Medicare Part B [id number] ANSI-Commercial [id number]-[id number] ANSI-Medicare Part B [id number] ANSI-Medicare Part B [id number] ANSI-Commercial [id number] ANSI-Medicare Part B [id number] ANSI-Commercial [id number] ANSI-Medicare Part B [id number] ANSI-Commercial [id number]-jesw-[id number] [id number] ANSI-Commercial [id number] ANSI-Medicare Part B [id number] [facility]-Medicare Part B [id number] Problems, Conditions, and Diagnoses Code Display Name Description Problem Type Effective Dates Data Source(s) 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 Problem 04/01/2021 12:00:00 AM EDT eCW1 ([facility]) I71.4 [id number] AAA (abdominal aortic aneurysm), not a candidate for repair Problem 03/12/2021 12:00:00 AM EDT eCW1 ([facility]) D68.59 9124658 Protein S deficiency Problem 03/12/2021 12:0 0:00 AM EDT eCW1 ([facility]) E16.2 495756887 Spontaneous hypoglycemia Problem 02/23/2021 12:00:00 AM EDT eCW1 ([facility]) D50.0 354123996 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 Problem 02/19/2021 12:00:00 AM EDT eCW1 ([facility]) R91.1 815175742 Right lower lobe pulmonary nodule Problem 02/19/2021 12:00:00 AM EDT eCW1 ([facility]) N18.31 679157863 Chronic kidney disease, stage 3a Problem 02/19/2021 12:00:00 AM EDT eCW1 ([facility]) E16.2 905311956 Hypoglycemia Problem 02/19/2021 12:00:00 AM EDT eCW1 ([facility]) D63.1 641830261 Anemia in chronic kidney disease Problem 11/14/2020 12:00:00 AM EDT eCW1 ([facility]) N20.0 87967050 Bilateral nephrolithiasis Problem 10/29/2020 12:00:00 AM EDT eCW1 ([facility]) I27.82 [id number] 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, unspecified pulmonary embolism type Problem 08/08/2020 12:00:[address] eCW1 ([facility]) D68.59 [id number] Protein S deficiency Problem 08/08/2020 12:0 0:00 AM EST eCW1 ([facility]) D68.59 [id number] Protein C deficiency Problem 08/08/2020 12:0 0:00 AM EST eCW1 ([facility]) D52.9 [id number] 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, unspecified deficiency type Problem 07/18/2020 12:00:00 AM EST eCW1 ([facility]) 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 07/18/2020 12:00 :00 AM EST eCW1 ([facility]) I11.0 [id number] Hypertensive heart disease with heart sakina lure Problem 04/03/2020 12:00:00 AM EDT eCW1 ([facility]) Surgeries/Procedures Procedure Description Date Indications Data Source(s) Medication: Lidocaine HCl 2% Jelly 5mL Intravesically 10/29/2020 12:00:00 AM EDT eCW1 ([facility]) ARTHROCENTESIS ASPIR&/INJECTION MAJOR JT/BURSA 021 12:00:00 AM EST MEDENT ([facility] ) X-Ray Hip Unilateral With Pelvis 2-3 Views 07/22/2020 12:00:00 AM EST MEDENT ([facility] ) RADIOLOGIC EXAMINATION KNEE 3 VIEWS 03/21/2020 12:00:0 0 AM EDT MEDENT ([facility]) X-Ray Hip Unilateral With Pelvis 2-3 Views 03/05/2020 12:00:00 AM EDT MEDENT ([facility]) Results ID Date Data Source TOTAL IRON BINDING CAPACIT 04/01/2021 12:00:00 AM EDT eCW1 ( [facility]) Name Value Range Interpretation Code Description Data Emily rce(s) Supporting Document(s) 12.0 13.2-45.0 PERCENT SATURATION eCW1 ([facility]) 40 50-170 IRON (FE) eCW1 ([facility]) 333 250-450 TOTAL IRON BINDING CAPACI TY eCW1 ([facility]) ID Date Data Source Reticulocyte Count Sysmex 04/01/2021 12:00:00 AM EDT eCW1 ([facility]) Name Value Range Interpretation Code Description Data Emily rce(s) Supporting Document(s) 5.0 0.5-1.5 RETICULOCYTE % eCW1 ([facility]) ID Date Data Source FERRITIN 04/01/2021 12:00:00 AM EDT eCW1 ([facility]) Name Value Range Interpretation Code Description Data Emily rce(s) Supporting Document(s) 62 8252 FERRITIN eCW1 ([facility]) ID Date Data Source Comprehensive Metabolic Profile (CMP) 04/01/2021 12:00:00 AM EDT eCW1 ([facility]) Name Value Range Interpretation Code Description Data Emily rce(s) Supporting Document(s) 57 70-100 GLUCOSE, FASTING eCW1 ([facility]) 1.24 0.55-1.30 CREATININE FOR GFR eCW1 ([facility]) 43.5 >32 GLOMERULAR FILTRATION RATE eCW 1 ([facility]) 26 7-18 BLOOD UREA NITROGEN eCW1 ([facility]) 144 136-145 SODIUM LEVEL eCW1 ([facility]) 3.8 3.5-5.1 POTASSIUM SERUM eCW1 ([facility]) 27 21-32 CARBON DIOXIDE LEVEL eCW1 ([facility]) 8.2 8.8-10.2 CALCIUM LEVEL eCW1 ([facility]) 112 98-107 CHLORIDE LEVEL eCW1 ([facility]) 21 12-78 ALT/SGPT eCW1 ([facility]) 109 45-117 ALKALINE PHOSPHATASE eCW1 ([facility]) 23 7-37 AST/SGOT eCW1 ([facility]) 0.4 1.2-2.2 ALBUMIN/GLOBULIN RATIO eCW1 ([facility]) 8.1 6.4-8.2 TOTAL PROTEIN eCW1 ([facility]) 0.7 0.2-1.0 BILIRUBIN,TOTAL eCW1 ([facility]) 2.1 3.2-5.2 ALBUMIN eCW1 ([facility]) ID Date Data Source CBC - Complete Blood Count 04/01/2021 12:00:00 AM EDT eCW1 ( [facility]) Name Value Range Interpretation Code Description Data Emily rce(s) Supporting Document(s) 9.5 12.0-15.5 HEMOGLOBIN eCW1 (Pending sale to [facility]) 12.1 4.0-10.0 WHITE BLOOD COUNT eCW1 ([facility]) 3.11 4.00-5.40 RED BLOOD COUNT eCW1 ([facility]) 31.4 36.0-47.0 HEMATOCRIT eCW1 (Pending sale to [facility]) 101.0 80.0-96.0 MEAN CORPUSCULAR VOLUME e CW1 ([facility]) 30.5 27.0-33.0 MEAN CORPUSCULAR HEMOGLOB IN eCW1 ([facility]) 30.3 32.0-36.5 MEAN CORPUSCULAR HGB CONC eCW1 ([facility]) 20.8 11.5-14.5 RED CELL DISTRIBUTION WID TH eCW1 ([facility]) 145 150-450 PLATELET COUNT, AUTOMATED eCW1 ([facility]) ID Date Data Source [id number] 03/24/2021 03:30:00 PM EDT [facility] Name Value Range Interpretation Code Description Data Emily rce(s) Supporting Document(s) SARS-CoV-2 (COVID 19) NEGATIVE - SARS-CoV-2 (COVID19) [facility] This lab was ordered by [facility] a nd reported by [facility]. ID Date Data Source [id number] 02/13/2021 10:42:00 AM EDT [facility] Name Value Range Interpretation Code Description Data Emily rce(s) Supporting Document(s) SARS coronavirus 2 RNA [Presence] in Res piratory specimen by BETTE with probe detection NEGATIVE [facility] This lab was ordered by [facility] a nd reported by [facility]. ID Date Data Source FREE T4 & TSH PANEL 11/14/2020 12:00:00 AM EDT eCW1 ([facility]) Name Value Range Interpretation Code Description Data Emily rce(s) Supporting Document(s) 0.641 0.358-3.740 THYROID STIMULATING HORM ONE eCW1 ([facility]) 1.35 0.76-1.46 FREE T4 eCW1 ([facility]) ID Date Data Source FOLATE 11/14/2020 12:00:00 AM EDT eCW1 ([facility]) Name Value Range Interpretation Code Description Data Emily rce(s) Supporting Document(s) 16.7 >5.4 FOLATE eCW1 ([facility]) ID Date Data Source ADM CHEST 2 VIEW 11/14/2020 12:00:00 AM EDT eCW1 ([facility]) Name Value Range Interpretation Code Description Data Emily rce(s) Supporting Document(s) ADM CHEST 2 VIEW eCW1 ([facility]) ID Date Data Source [id number] 10/08/2020 11:15:00 AM EDT [facility] Name Value Range Interpretation Code Description Data Emily rce(s) Supporting Document(s) SARS-CoV-2 (COVID-19) RNA [Presence] in Respiratory specimen by BETTE with probe detection Not Detected [facility] This lab was ordered by [facility] and reported by [email or web address] ID Date Data Source Basic Metabolic Profile (BMP) 09/04/2020 12:00:00 AM EST eCW 1 ([facility]) Name Value Range Interpretation Code Description Data Emily rce(s) Supporting Document(s) 112 70-100 GLUCOSE, FASTING eCW1 ([facility]) 20 7-18 BLOOD UREA NITROGEN eCW1 ([facility]) 1.29 0.55-1.30 CREATININE FOR GFR eCW1 ([facility]) 108 98-107 CHLORIDE LEVEL eCW1 ([facility]) 41.6 >32 GLOMERULAR FILTRATION RATE eCW 1 ([facility]) 3.9 3.5-5.1 POTASSIUM SERUM eCW1 ([facility]) 140 136-145 SODIUM LEVEL eCW1 ([facility]) 28 21-32 CARBON DIOXIDE LEVEL eCW1 ([facility]) 8.7 8.8-10.2 CALCIUM LEVEL eCW1 ([facility]) ID Date Data Source [id number] 08/25/2020 02:07:00 PM EST [facility] Name Value Range Interpretation Code Description Data Emily rce(s) Supporting Document(s) SARS coronavirus 2 RNA [Presence] in Res piratory specimen by BETTE with probe detection NEGATIVE [facility] This lab was ordered by [facility] a nd reported by [facility]. Procedure Social History Code Duration Value Status Description Data Source(s ) Smoking 04/12/2021 12:00:00 AM EDT Former Smoker completed Former Smoker eCW1 ([facility]) Smoking 04/07/2021 12:00:00 AM EDT Former Smoker completed Former Smoker eCW1 ([facility]) Smoking 04/01/2021 12:00:00 AM EDT Former Smoker completed Former Smoker eCW1 ([facility]) Smoking 04/01/2021 12:00:00 AM EDT Former Smoker completed Former Smoker eCW1 ([facility]) Smoking 03/12/2021 12:00:00 AM EDT Former Smoker completed Former Smoker eCW1 ([facility]) Smoking 03/12/2021 12:00:00 AM EDT Former Smoker completed Former Smoker eCW1 ([facility]) Smoking 03/12/2021 12:00:00 AM EDT Former Smoker completed Former Smoker eCW1 ([facility]) Smoking 03/12/2021 12:00:00 AM EDT Former Smoker completed Former Smoker eCW1 ([facility]) Smoking 03/12/2021 12:00:00 AM EDT Former Smoker completed Former Smoker eCW1 ([facility]) Smoking 02/19/2021 12:00:00 AM EDT Former Smoker completed Former Smoker eCW1 ([facility]) Smoking 02/19/2021 12:00:00 AM EDT Former Smoker completed Former Smoker eCW1 ([facility]) Smoking 02/19/2021 12:00:00 AM EDT Former Smoker completed Former Smoker eCW1 ([facility]) Smoking 12/18/2020 12:00:00 AM EDT Former Smoker completed Former Smoker eCW1 ([facility]) Smoking 12/18/2020 12:00:00 AM EDT Former Smoker completed Former Smoker eCW1 ([facility]) Smoking 12/18/2020 12:00:00 AM EDT Former Smoker completed Former Smoker eCW1 ([facility]) Smoking 12/18/2020 12:00:00 AM EDT Former Smoker completed Former Smoker eCW1 ([facility]) Smoking 12/18/2020 12:00:00 AM EDT Former Smoker completed Former Smoker eCW1 ([facility]) Smoking 11/14/2020 12:00:00 AM EDT Former Smoker completed Former Smoker eCW1 ([facility]) Smoking 11/14/2020 12:00:00 AM EDT Former Smoker completed Former Smoker eCW1 ([facility]) Smoking 11/14/2020 12:00:00 AM EDT Former Smoker completed Former Smoker eCW1 ([facility]) Smoking 11/14/2020 12:00:00 AM EDT Former Smoker completed Former Smoker eCW1 ([facility]) Smoking 11/14/2020 12:00:00 AM EDT Former Smoker completed Former Smoker eCW1 ([facility]) Smoking 11/14/2020 12:00:00 AM EDT Former Smoker completed Former Smoker eCW1 ([facility]) Smoking 10/29/2020 12:00:00 AM EDT Former Smoker completed Former Smoker eCW1 ([facility]) Smoking 09/25/2020 12:00:00 AM EDT Former Smoker completed Former Smoker eCW1 ([facility]) Smoking 09/25/2020 12:00:00 AM EDT Former Smoker completed Former Smoker eCW1 ([facility]) Smoking 09/25/2020 12:00:00 AM EDT Former Smoker completed Former Smoker eCW1 ([facility]) Smoking 09/10/2020 12:00:00 AM EDT Former Smoker completed Former Smoker eCW1 ([facility]) Smoking 09/10/2020 12:00:00 AM EDT Former Smoker completed Former Smoker eCW1 ([facility]) Smoking 08/19/2020 12:00:00 AM EST Former Smoker completed Former Smoker eCW1 ([facility]) Smoking 08/19/2020 12:00:00 AM EST Former Smoker completed Former Smoker eCW1 ([facility]) Smoking 08/19/2020 12:00:00 AM EST Former Smoker completed Former Smoker eCW1 ([facility]) Smoking 08/08/2020 12:00:00 AM EST Former Smoker completed Former Smoker eCW1 ([facility]) Smoking 08/08/2020 12:00:00 AM EST Former Smoker completed Former Smoker eCW1 ([facility]) Smoking 07/18/2020 12:00:00 AM EST Former Smoker completed Former Smoker eCW1 ([facility]) Smoking 07/18/2020 12:00:00 AM EST Former Smoker completed Former Smoker eCW1 ([facility]) Smoking 07/18/2020 12:00:00 AM EST Former Smoker completed Former Smoker eCW1 ([facility]) Smoking 07/18/2020 12:00:00 AM EST Former Smoker completed Former Smoker eCW1 ([facility]) Smoking 07/08/2020 12:00:00 AM EST Former Smoker completed Former Smoker eCW1 ([facility]) Smoking 04/03/2020 12:00:00 AM EDT Former Smoker completed Former Smoker eCW1 ([facility]) Vital Signs ID Date Data Source UNK Name Value Range Interpretation Code Description Data Source(s) Body weight 174.2 [lb_av] 174.2 [lb_av] eCW1 ([facility]) Body height 62 [in_i] 62 [in_i] eCW1 ([facility]) Body mass index (BMI) [Ratio] 31.86 kg/m2 31.86 kg/m2 eCW1 ([facility]) Heart rate 89 /min 89 /min eCW1 ([facility]) Respiratory rate 18 /min 18 /min eCW1 ([facility]) Body temperature 98.8 [degF] 98.8 [degF] eCW1 ( [facility]) Systolic blood pressure 146 mm[Hg] 146 mm[Hg] e CW1 ([facility]) Diastolic blood pressure 80 mm[Hg] 80 mm[Hg] eCW1 ([facility]) Body weight 178 [lb_av] 178 [lb_av] eCW1 ([facility]) Body height 62 [in_i] 62 [in_i] eCW1 ([facility]) Diastolic blood pressure 84 mm[Hg] 84 mm[Hg] eCW1 ([facility]) Body mass index (BMI) [Ratio] 32.55 kg/m2 32.55 kg/m2 eCW1 ([facility]) Heart rate 70 /min 70 /min eCW1 ([facility]) Respiratory rate 18 /min 18 /min eCW1 ([facility]) Body temperature 96.9 [degF] 96.9 [degF] eCW1 ( [facility]) Systolic blood pressure 142 mm[Hg] 142 mm[Hg] e CW1 ([facility]) Body weight 169 [lb_av] 169 [lb_av] eCW1 ([facility]) Body height 62 [in_i] 62 [in_i] eCW1 ([facility]) Body mass index (BMI) [Ratio] 30.91 kg/m2 30.91 kg/m2 eCW1 ([facility]) Heart rate 77 /min 77 /min eCW1 ([facility]) Respiratory rate 18 /min 18 /min eCW1 ([facility]) Body temperature 98.9 [degF] 98.9 [degF] eCW1 ( [facility]) Systolic blood pressure 138 mm[Hg] 138 mm[Hg] e CW1 ([facility]) Diastolic blood pressure 74 mm[Hg] 74 mm[Hg] eCW1 ([facility]) Body temperature 98.2 [degF] 98.2 [degF] eCW1 ( [facility]) Body weight 162 [lb_av] 162 [lb_av] eCW1 ([facility]) Systolic blood pressure 132 mm[Hg] 132 mm[Hg] e CW1 ([facility]) Body height 62 [in_i] 62 [in_i] eCW1 ([facility]) Body mass index (BMI) [Ratio] 29.63 kg/m2 29.63 kg/m2 eCW1 ([facility]) Diastolic blood pressure 78 mm[Hg] 78 mm[Hg] eCW1 ([facility]) Heart rate 69 /min 69 /min eCW1 ([facility]) Respiratory rate 18 /min 18 /min eCW1 ([facility]) Body weight 169 [lb_av] 169 [lb_av] eCW1 ([facility]) Body height 62 [in_i] 62 [in_i] eCW1 ([facility]) Body mass index (BMI) [Ratio] 30.91 kg/m2 30.91 kg/m2 eCW1 ([facility]) Heart rate 79 /min 79 /min eCW1 ([facility]) Respiratory rate 18 /min 18 /min eCW1 ([facility]) Body temperature 97.7 [degF] 97.7 [degF] eCW1 ( [facility]) Systolic blood pressure 142 mm[Hg] 142 mm[Hg] e CW1 ([facility]) Diastolic blood pressure 76 mm[Hg] 76 mm[Hg] eCW1 ([facility]) Body weight 167 [lb_av] 167 [lb_av] eCW1 ([facility]) Body height 62 [in_i] 62 [in_i] eCW1 ([facility]) Body mass index (BMI) [Ratio] 30.54 kg/m2 30.54 kg/m2 eCW1 ([facility]) Heart rate 68 /min 68 /min eCW1 ([facility]) Respiratory rate 18 /min 18 /min eCW1 ([facility]) Body temperature 96.2 [degF] 96.2 [degF] eCW1 ( [facility]) Systolic blood pressure 138 mm[Hg] 138 mm[Hg] e CW1 ([facility]) Diastolic blood pressure 72 mm[Hg] 72 mm[Hg] eCW1 ([facility]) Body weight 167 [lb_av] 167 [lb_av] eCW1 ([facility]) Body height 62 [in_i] 62 [in_i] eCW1 ([facility]) Body mass index (BMI) [Ratio] 30.54 kg/m2 30.54 kg/m2 eCW1 ([facility]) Heart rate 89 /min 89 /min eCW1 ([facility]) Respiratory rate 18 /min 18 /min eCW1 ([facility]) Body temperature 96.6 [degF] 96.6 [degF] eCW1 ( [facility]) Systolic blood pressure 132 mm[Hg] 132 mm[Hg] e CW1 ([facility]) Diastolic blood pressure 72 mm[Hg] 72 mm[Hg] eCW1 ([facility]) Body temperature 97.6 [degF] 97.6 [degF] eCW1 ( [facility]) Systolic blood pressure 124 mm[Hg] 124 mm[Hg] e CW1 ([facility]) Diastolic blood pressure 78 mm[Hg] 78 mm[Hg] eCW1 ([facility]) Body weight 170 [lb_av] 170 [lb_av] eCW1 ([facility]) Body height 62 [in_i] 62 [in_i] eCW1 ([facility]) Body mass index (BMI) [Ratio] 31.09 kg/m2 31.09 kg/m2 eCW1 ([facility]) Heart rate 73 /min 73 /min eCW1 ([facility]) Respiratory rate 18 /min 18 /min eCW1 ([facility]) Body weight 170 [lb_av] 170 [lb_av] eCW1 ([facility]) Body height 62 [in_i] 62 [in_i] eCW1 ([facility]) Body mass index (BMI) [Ratio] 31.09 kg/m2 31.09 kg/m2 eCW1 ([facility]) Heart rate 89 /min 89 /min eCW1 ([facility]) Respiratory rate 18 /min 18 /min eCW1 ([facility]) Body temperature 97.1 [degF] 97.1 [degF] eCW1 ( [facility]) Systolic blood pressure 136 mm[Hg] 136 mm[Hg] e CW1 ([facility]) Diastolic blood pressure 78 mm[Hg] 78 mm[Hg] eCW1 ([facility]) Heart rate 87 /min 87 /min eCW1 ([facility]) Respiratory rate 18 /min 18 /min eCW1 ([facility]) Body temperature 96.4 [degF] 96.4 [degF] eCW1 ( [facility]) Systolic blood pressure 142 mm[Hg] 142 mm[Hg] e CW1 ([facility]) Diastolic blood pressure 80 mm[Hg] 80 mm[Hg] eCW1 ([facility]) Body weight 167 [lb_av] 167 [lb_av] eCW1 ([facility]) Body height 62 [in_i] 62 [in_i] eCW1 ([facility]) Body mass index (BMI) [Ratio] 30.54 kg/m2 30.54 kg/m2 eCW1 ([facility]) Body temperature 96.6 [degF] 96.6 [degF] MEDENT ([facility]) Body weight 167 [lb_av] 167 [lb_av] eCW1 ([facility]) Body height 62 [in_i] 62 [in_i] eCW1 ([facility]) Body mass index (BMI) [Ratio] 30.54 kg/m2 30.54 kg/m2 eCW1 ([facility]) Heart rate 78 /min 78 /min eCW1 ([facility]) Respiratory rate 18 /min 18 /min eCW1 ([facility]) Body temperature 98.0 [degF] 98.0 [degF] eCW1 ( [facility]) Systolic blood pressure 134 mm[Hg] 134 mm[Hg] e CW1 ([facility]) Diastolic blood pressure 70 mm[Hg] 70 mm[Hg] eCW1 ([facility]) Respiratory rate 18 /min 18 /min eCW1 ([facility]) Body temperature 97.4 [degF] 97.4 [degF] eCW1 ( [facility]) Systolic blood pressure 132 mm[Hg] 132 mm[Hg] e CW1 ([facility]) Diastolic blood pressure 74 mm[Hg] 74 mm[Hg] eCW1 ([facility]) Body weight 167 [lb_av] 167 [lb_av] eCW1 ([facility]) Body height 62 [in_i] 62 [in_i] eCW1 ([facility]) Body mass index (BMI) [Ratio] 30.54 kg/m2 30.54 kg/m2 eCW1 ([facility]) Heart rate 78 /min 78 /min eCW1 ([facility]) Patient Treatment Plan of Care Planned Activity Planned Date Details Description Data Source (s) Diazoxide 50 MG/ML Oral Suspension 04/01/2021 12:00:00 AM EDT eCW1 ([facility]) Diazoxide 50 MG/ML Oral Suspension 04/01/2021 12:00:00 AM EDT eCW1 ([facility]) Lancets 30G - 03/03/2021 12:00:00 AM EDT eCW1 ([facility]) Levothyroxine Sodium 0.05 MG Oral Tablet [Synthroid] 12:00:00 AM EDT eCW1 ([facility]) Levothyroxine Sodium 0.05 MG Oral Tablet [Synthroid] 12:00:00 AM EDT eCW1 ([facility]) Levothyroxine Sodium 0.05 MG Oral Tablet [Synthroid] 12:00:00 AM EDT eCW1 ([facility]) Ciprofloxacin 250 MG Oral Tablet [Cipro] 08/27/2020 12:00:00 AM EST eCW1 ([facility]) Ciprofloxacin 250 MG Oral Tablet [Cipro] 08/27/2020 12:00:00 AM EST eCW1 ([facility]) apixaban 2.5 MG Oral Tablet [Eliquis] 08/19/2020 12:00:00 AM EST eCW1 ([facility]) apixaban 2.5 MG Oral Tablet [Eliquis] 08/19/2020 12:00:00 AM EST eCW1 ([facility]) apixaban 2.5 MG Oral Tablet [Eliquis] 08/19/2020 12:00:00 AM EST eCW1 ([facility]) apixaban 2.5 MG Oral Tablet [Eliquis] 08/19/2020 12:00:00 AM EST eCW1 ([facility]) apixaban 2.5 MG Oral Tablet [Eliquis] 08/19/2020 12:00:00 AM EST eCW1 ([facility]) apixaban 2.5 MG Oral Tablet [Eliquis] 08/19/2020 12:00:00 AM EST eCW1 ([facility]) Folic Acid 1 MG Oral Tablet 07/18/2020 12:00:00 AM EST eCW1 ([facility]) Folic Acid 1 MG Oral Tablet 07/18/2020 12:00:00 AM EST eCW1 ([facility]) Folic Acid 1 MG Oral Tablet 07/18/2020 12:00:00 AM EST eCW1 ([facility]) Folic Acid 1 MG Oral Tablet 07/18/2020 12:00:00 AM EST eCW1 ([facility]) Folic Acid 1 MG Oral Tablet 07/18/2020 12:00:00 AM EST eCW1 ([facility]) Folic Acid 1 MG Oral Tablet 07/18/2020 12:00:00 AM EST eCW1 ([facility]) Folic Acid 1 MG Oral Tablet 07/18/2020 12:00:00 AM EST eCW1 ([facility])
--- OUTSIDE RECORDS SUMMARY | 2021-04-18 14:30 | CCD ---
Author Author [facility] Organization [facility] Address Unknown Phone Unavailable Care Team Providers Care Flame Cutting Supervisor Name Role Phone Shanna Burris Unavailable PROBLEMS Type Condition ICD9-CM Code PEF02-PP Code Onset Dates Condition S tatus W/U Status Risk SNOMED Code Notes Problem Benign paroxysmal vertigo, unspecified ear H81.10 Active confirmed 812247087 Problem Vitamin D deficiency, unspecified E55.9 Active con firmed 16819429 Problem Mixed hyperlipidemia E78.2 Active confirmed 411998026 Problem Gout, unspecified M10.9 Active confirmed 90 935631 Problem Hypothyroidism, unspecified E03.9 Active confirmed 91181498 Problem Unspecified asthma, uncomplicated J45.909 Active confirmed 87142598 Problem Other asthma J45.998 Active confirmed 721789 001 Problem 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 Active confirmed 41272706 Problem Encounter for immunization Z23 Active confirmed 111387522 Problem 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 acid deficiency, 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 Active confirmed 51903637 Problem Need for prophylactic vaccination and inoculatio n against influenza Z23 Active confirmed 104257551 Problem 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 Active confirmed 33134347 Problem Chronic kidney disease, stage 2 (mild) N18.2 A ctive confirmed 859480719 Problem Medicare annual wellness visit, subsequent Z00.00 Active confirmed 267083241 Problem Vitamin B12 deficiency anemia, 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 Active confirmed 92752114 Problem 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 0 Active confirmed 03498026 Problem Screening breast examination Z12.39 Active confirme d 167085784 Problem Hip arthritis M16.10 Active confirmed 891313 06 Problem 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 Active confirmed 091501899 Problem Chronic pulmonary embolism w ithout acute cor pulmonale, unspecified pulmonary embolism type I27.82 Active confirmed 655221 378129836 Problem 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 Active conf irmed 476168437 Problem Bilateral nephrolithiasis N20.0 Active confirmed 39168476 Problem Iron 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.0 Active confirmed 138325167 Problem Age-related osteoporosis without current pathological fracture M81.0 Active confirmed 746876677 Problem 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 Active confirmed 047971185 Problem Supraventricular tachycardia I47.1 Active confirme d 6143285 Problem Primary generalized (osteo)arthritis M15.0 Act memo confirmed 385565041 Problem 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 Active confirmed 4389705 Problem AAA (abdominal aortic aneurysm), not a candidate for repai r I71.4 Active confirmed 280530981 Problem Chronic kidney disease, stage 3a N18.31 Active confirmed 983795408 Problem Right lower lobe pulmonary nodule R91.1 Active confirmed 086980282 ALLERGIES Allergen (clinical drug ingredient) Drug/Non Drug Allergy do cumented on EMR Reaction Allergy Type Onset Date Status Tylenol heart racing Drug Allergy Active Requip palpitations Non Drug Allergy Active flu vaccine Hives Non Drug Allergy Active mirtazapine Remeron(NDC Code:[address]-91) excess sedation Drug All ergy Active cephalexin Cephalexin(NDC Code:[address]-88) Unknown Drug Allergy Active allopurinol Allopurinol(NDC Code:[address]-68) increased ep isodes of gout Drug Allergy Active ENCOUNTERS from 1930 to 2021-03-18 Encounter Location Date Provider Diagnosis [facility] [address] [place] [id number] Feb, Shanna Burris IMMUNIZATIONS Vaccine Route Administration Date Status Influenza [...] Education Language: Question Answer Notes Languages spoken: Mohawk Sabianism: Question Answer Notes Sabianism No shinto beliefs that would impact health care. Sexual [...] RESULTS No Results REASON FOR VISIT New Refill Request MEDICAL (GENERAL) HISTORY Type Description Date Medical [...] History spontaneous hypoglycemia, el evated insulin/C-peptide levels 9/21 Medical History severe anemia, hgb7.x (02/14) Surgical [...] Day s Next Appt Details Provider Name:Christopher Allen, 2021-05 03:15:00 PM, [address], , [place], [address], Insurance Providers Payer Name Payer Address Payer Phone Insured Name Patient Relati onship to Insured Coverage Start Date Coverage End Date MILAN ROMEO [facility] [address] [facility] [address] [place] MEDICARE Part A and B [address] [facility] [address] [place]
--- NOTE | 2021-04-18 14:39 | REP ---
INDICATION: weakness. COMPARISON: 03/24/2021 the latest prior also portable TECHNIQUE: Portable FINDINGS: The technique utilized in obtaining the radiograph has magnified the cardiac silhouette and accentuated the interstitial markings. Once again, there is cardiomegaly accentuated by technique. Once again, there is an increase in the interstitial markings throughout the lung campbell with a reticulonodular appearance status quo. No acute patchy parenchymal opacities or pleural effusions have developed. There is no change in the osseous structures. IMPRESSION: Stable appearing chronic changes as described above. <Electronically signed by Suresh Ly > 04/18/21 1591
[2021-04-18 14:46] LABS: PERCENT SATURATION 10.4 % (13.2-45.0)
[2021-04-18] MEDS ORDERED: NS 1,450 ML in IV 1 EA IV ONE (14:50)
[2021-04-18 15:02] LABS: ALBUMIN 2.1 GM/DL (3.2-5.2); ALT/SGPT 13 U/L (12-78); BILIRUBIN,DIRECT 0.3 MG/DL (0.0-0.2); BILIRUBIN,TOTAL 0.7 MG/DL (0.2-1.0); BLOOD UREA NITROGEN 45 MG/DL (7-18); CALCIUM LEVEL 7.7 MG/DL (8.8-10.2); CARBON DIOXIDE LEVEL 25 MEQ/L (21-32); CHLORIDE LEVEL 103 MEQ/L (98-107); CK-MB VALUE MASS 1.2 NG/ML (<3.6); CPK CREATINE PHOSPHOKINASE 51 U/L (26-192); CREATININE FOR GFR 3.27 MG/DL (0.55-1.30); GLOMERULAR FILTRATION RATE 14.2 (>32); GLUCOSE, FASTING 176 MG/DL (70-100); MB/CK RELATIVE INDEX 2.35 (< OR =4); POTASSIUM SERUM 6.4 MEQ/L (3.5-5.1); SODIUM LEVEL 134 MEQ/L (136-145); TOTAL PROTEIN 7.8 GM/DL (6.4-8.2); TROPONIN I < 0.02 NG/ML (< 0.10)
[2021-04-18] MEDS ORDERED: CALCIUM CHLORIDE 10% 1 GM in D5W 100 ML IV ONE (15:10)
[2021-04-18 16:07] LABS: RSV AMPLIFICATION NEGATIVE (NEGATIVE)
--- NOTE | 2021-04-18 16:33 | HPEPDOC ---
[facility] Medical History & Physical Date of Admission Apr 18, 2021 Date of Service: Apr 18, 2021 Attending Physician: Penelope Chapin MD History and Physical CHIEF COMPLAINT: nausea, weakness HISTORY OF PRESENT ILLNESS: Patient is an 89 y/oF with PMH of PE on eliquis, HTN, hypothyroidism, gout, asthma, chronic anemia, HLD, osteopenia, SVT, CKD Stage III who presented to the ED with nausea, weakness over the past one week. The patient stated she was prescribed Diazoxide twice a day by her primary care provider and since starting and she has had increased nausea without vomiting, increased weakness, decreased appetite to both fluids and food, one episode of nonbloody diarrhea. She denies any abdominal pain, chest pain but admits to having baseline shortness of breath which has not worsened. The patient states she has struggled with borderline blood sugars being low (averages 100) and this medication was meant to help improve that. She came to the ER for further evaluation today for her symptoms above. In the ED the patient was found to be profoundly hypotensive blood pressures ranging 18[address]/3851, heart rate 58, temperature 97.2, respiratory rate 1820, saturating at 98% on room air. Labs showed creatinine 3.27 (baseline 1.01.24), lactic acid 2.6, potassium 6.4, blood sugar 176. The patient was given calcium chloride for hyperkalemia. ECG showed no peak T waves or change from prior on file. She was aggressively hydrated for a total of 3.5, blood pressures improved slowly but still remain on the slightly lower side. The patient was admitted to PCU with a diagnosis of hypotension likely multifactorial secondary to dehydration, home medications, rule out infection and acute kidney injury. PAST MEDICAL HISTORY: Hypertension. Hypothyroidism. Gout. Pulmonary embolism on eliquis CKD stage IIIa Asthma Dyslipidemia Osteopenia Anemia PAST SURGICAL HISTORY: Hip replacement complicated by staph Aureus infection. Knee replacement. Recurrent Kidney stones - treated with surgical removal. Thyroidectomy SOCIAL HISTORY: Marital status: . Resides in: Home with Tobacco use: Patient smoked from 18 -> 60. Hasn't smoked in 30 years ETOH: Patient denies Illicit drug use: Patient denies IV drug use: Patient denies ALLERGIES: Please see below. REVIEW OF SYSTEMS: Neg except mentioned above HOME MEDICATIONS: Please see below. PHYSICAL EXAMINATION: VITALS: see below GENERAL: weak, NAD HEENT: NCAT, EOMI, MMM CARDIOVASCULAR: Normal S1 and S2. No extra heart sounds or murmurs. LUNGS: CTAB, equal breath sounds, no wheezing, rales or rhonchi. ABDOMEN: No tenderness to palpation. Normoactive bowel sounds, soft. EXTREMITIES: 2+ pedal pulses, WWP, trace LE edema NEUROLOGICAL: No weakness or loss of sensation in extremities. CN 3-12 intact PSYCHIATRIC: Alert and oriented x 3. LABORATORY DATA: as noted above CXR: The technique utilized in obtaining the radiograph has magnified the cardiac silhouette and accentuated the interstitial markings. Once again, there is cardiomegaly accentuated by technique. Once again, there is an increase in the interstitial markings throughout the lung campbell with a reticulonodular appearance status quo. No acute patchy parenchymal opacities or pleural effusions have developed. There is no change in the osseous structures. MICROBIOLOGY: F/u BCx, UA ASSESSMENT: 89-year-old W with a history of PE on eliquis, HTN, hypothyroidism, gout, asthma, chronic anemia, HLD, osteopenia, SVT, CKD 3A who presented to the ED with weakness and SOB with any exertion who is now being admitted to medicine for acute on chronic now symptomatic anemia. PLAN: Hypotension likely secondary to dehydration, home medications -Hx of HTN on atenolol, HCTZ at home -BP systolic ranging 93334/3851 -Decreased appetite began after starting of Diazoxide, poor intake of food and fluids since then. One episode of diarrhea, nonbloody -Follow up blood cultures and UA to rule out infectious cause of hypertension, septic shock. -Lactic acid elevated but slowly improving, troponin negative. Not suspecting cardiac cause for hypotension -Status post 2500 mL of fluid, about to get another 1 L to total 3500 mL. Continuous fluids at 125 mL per hour -Holding all antihypertensive medications for now -Telemetry -Discussion was had by both myself and ER provider about the possibility of needing pressors to help support her blood pressure. The patient states she refuses central line to both of us. Risks were discussed and she understood. Pressor support would be needing to be initiated after a total of 4 L. -Empiric levofloxacin started in the event that this is infection related, DC if cultures are negative. Acute kidney injury on CKD stage III likely multifactorial to dehydration, home medications and hypotension also as complicating factors -Baseline creatinine 1.01.24. Currently 3.27 and slowly improving with hydration based off of repeat labs today -Mc catheter in place, minimal urine came out on insertion -Hold all nephrotoxic medications -Manage blood pressure as above -Daily labs -Nephrology consulted Hyperkalemia likely multifactorial to acute kidney injury and supplemental potassium at home -Status post calcium chloride administration, no EKG changes -Holding by mouth home potassium -Improving slowly with improvement of acute kidney injury and IV fluids -Holding Kayexalate at this time -Discussed with nephrology -Daily labs -Tele Lactic acidosis likely 2/2 to FCO, r/o infection -C/w plan and treatment above -Improving slowly with fluids already -Empiric Levofloxacin while waiting on cultures, UA Chronic CARLOS anemia -H/H stable -hx of blood transfusion s -No s/s of bleeding -F/u cbc -C/w supplemental iron History of PE: - C/w eliquis Hypothyroidism -continue synthroid Asthma -Stable on RA -Albuterol PRN Hx of low blood sugar -BS currently 160's -Was placed on diazoxide BID by primary within the last week for this -Monitor closely GERD -PPI DVT prophylaxis: -Eliquis DISPOSITION: Admitted to ICU for close management of blood pressure. Will need PT/OT when stable. TOTAL AMOUNT OF ICU time spent managing patient: 90 mins Vital Signs Vital Signs Date Time Temp Pulse Resp B/P (MAP) Pulse Ox O2 Delivery O2 Flow Rate FiO2 04/18/21 14:31 Room Air 04/18/21 14:30 55 88/49 (62) 99 04/18/21 13:47 97.2 18 Laboratory Data Labs 24H Laboratory Tests 2 04/18/21 13:59: Immature Granulocyte % (Auto) 0.4, Neutrophils (%) (Auto) 78.8H, Lymphocytes (%) (Auto) 8.5L, Monocytes (%) (Auto) 6.4, Eosinophils (%) (Auto) 5.5H, Basophils (%) (Auto) 0.4, Neutrophils # (Auto) 6.2, Lymphocytes # (Auto) 0.7L, Monocytes # (Auto) 0.5, Eosinophils # (Auto) 0.4, Basophils # (Auto) 0.0, Nucleated Red Blood Cells % (auto) 0.0, Anion Gap 6L, Glomerular Filtration Rate 14.2L, Calcium Level 7.7L, Total Bilirubin 0.7, Direct Bilirubin 0.3H, Aspartate Amino Transf (AST/SGOT) 19, Alanine Aminotransferase (ALT/SGPT) 13, Alkaline Phosphatase 116, Total Creatine Kinase 51, Creatine Kinase MB 1.2, Creatine Kinase MB Relative Index 2.35, Troponin I < 0.02, Total Protein 7.8, Albumin 2.1L, Albumin/Globulin Ratio 0.4L, Thyroid Stimulating Hormone (TSH) 1.580, Coronavirus (COVID-19)(PCR) NEGATIVE, Influenza Type A (RT-PCR) NEGATIVE, Influenza Type B (RT-PCR) NEGATIVE, Respiratory Syncytial Virus (PCR) NEGATIVE 04/18/21 14:09: Lactic Acid Level 2.6*H 04/18/21 14:10: Iron Level 28L, Total Iron Binding Capacity 269, Transferrin % Saturation 10.4L CBC/BMP Laboratory Tests 04/18/21 13:59 Microbiology Microbiology 04/18/21 Blood Culture, Received Pending 04/18/21 Blood Culture, Received Pending Home Medications Scheduled Atenolol (Atenolol) 50 Mg Tablet, 50 MG PO QHS Cholecalciferol (Vitamin D3) (Vitamin D3) 1,000 Unit Tablet, 1,000 UNITS PO DAILY @ 1200 Diazoxide (Diazoxide) 50 Mg/Ml Oral.susp, 5 ML PO BID Ferrous Sulfate (Ferrous Sulfate) 325 Mg Tablet, 325 MG PO QHS Fluticasone Propion/Salmeterol (Fluticasone-Salmeterol 250-50) 1 Each Blst.w.dev, 1 PUFF INH BID Hydrochlorothiazide (Hydrochlorothiazide) 12.5 Mg Tablet, 12.5 MG PO DAILY Levothyroxine Sodium (Synthroid) 88 Mcg Tablet, 88 MCG PO DAILY Potassium Chloride (Potassium Chloride) 10 Meq Tab.er.prt, 20 MEQ PO BID Scheduled PRN Albuterol Sulfate (Ventolin Hfa) 18 Gm Hfa.aer.ad, 2 PUFFS INH Q6H PRN for SOB/WHEEZING Allergies Coded Allergies: Cat Dander (Verified Allergy, Intermediate, ASTHMA, 03/24/21) cephalexin (Verified Allergy, Intermediate, RASH, 03/24/21) allopurinol (Verified Allergy, Unknown, 11/29/19) mirtazapine (Verified Allergy, Unknown, 11/29/19) acetaminophen (Verified Adverse Reaction, Intermediate, HEART RACES, 12/05/19) ropinirole (Verified Adverse Reaction, Intermediate, palpitations, 03/24/21) A-FIB/CHADSVASC A-FIB History Current/History of A-Fib/PAF?: No Current PO Anticoag Therapy: Yes Age/Risk Factor Scoring CHADSVASC: CHADSVASC Response (Comments) Value Age Risk Factor Age >/= 75 years old 2 Gender Risk Factor Female 1 Hx of CHF No 0 Hx of HTN Yes 1 Hx of Stroke/TIA/or VTE No 0 Hx of Diabetes No 0 Hx of Vascular Disease No 0 Total 4 Treatment Treatment ordered: Apixaban Penelope Chapin MD Apr 18, 2021 16:33
[2021-04-18] MEDS ORDERED: DIAZ50OR PO (17:26)
[2021-04-18] MEDS ORDERED: FLUT1BLS5 INH (17:26)
[2021-04-18] MEDS ORDERED: HYDR12.55 PO (17:26)
[2021-04-18] MEDS ORDERED: ALBUTEROL SULFATE 2.5 MG/0.5 ML INH NEB SOLN NEB PRN (17:30)
--- OUTSIDE RECORDS SUMMARY | 2021-04-18 17:45 | CCD ---
Author Author [facility] Organization [facility] Address Unknown Phone Unavailable Care Team Providers Care Nurses Supervisor Name Role Phone [facility], [facility], PA-C Unavailable Unavailabl e [facility], PA-C Unavailable Unavailabl e [facility], PA-C Unavailable Unavailabl e [facility], PA-C Unavailable Unavailabl e [facility], PA-C Unavailable Unavailabl e [facility], PA-C Unavailable Unavailabl e [facility], PA-C Unavailable Unavailabl e [facility], PA-C Unavailable Unavailabl e [facility], PA-C Unavailable Unavailabl e [facility], PA-C Unavailable Unavailabl e [facility], PA-C Unavailable Unavailabl e [facility], PA-C Unavailable Unavailabl e [facility], PA-C Unavailable Unavailabl e [facility], PA-C Unavailable Unavailabl e [facility], PA-C Unavailable Unavailabl e [facility], PA-C Unavailable Unavailabl e [facility], PA-C Unavailable Unavailabl e [facility], PA-C Unavailable Unavailabl e [facility], PA-C Unavailable Unavailabl e [facility], PA-C Unavailable Unavailabl e [facility], PA-C Unavailable Unavailabl e [facility], PA-C Unavailable Unavailabl e [facility], PA-C Unavailable Unavailabl e [facility], PA-C Unavailable Unavailabl e [facility], PA-C Unavailable Unavailabl e [facility], PA-C Unavailable Unavailabl e [facility], PA-C Unavailable Unavailabl e [facility], PA-C Unavailable Unavailabl e [facility], PA-C Unavailable Unavailabl e [facility], PA-C Unavailable Unavailabl e [facility], PA-C Unavailable Unavailabl e [facility], PA-C Unavailable Unavailabl e [facility], PA-C Unavailable Unavailabl e [facility], PA-C Unavailable Unavailabl e [facility], PA-C Unavailable Unavailabl e [facility], PA-C Unavailable Unavailabl e Doremus, E Yaritza [...] is protected by Article 27-F of the [facility] [place] Public Health law. If you continue you may have access to information: Regarding HIV / AIDS; Provided by facilities licensed or operated by the [facility] [place] Office of Mental Health; or Provided by the [facility] [place] Office for People With Developmental Disabilities. If such information is present, then the following [facility] [place] mandated warning applies: This information has been [...] law may result in a fine or senior living sentence or both. A general authorization for the release of medical or other information is NOT sufficient authorization for further disc losure. Family History Family Member Name Family Member Gender Family Member Status Date o f Status Description Data Source(s) Unknown Unknown Problem MEDENT ([facility]) mother's side Unknown Female Problem MEDENT ([facility]) Unknown Female Problem MEDENT ([facility] ) Encounters Encounter Providers Location Date Indications Data Source(s ) Unknown [address] [facility] [id number] 04/15/2021 12:00:00 AM EDT eCW1 ([facility]) Outpatient [address] [facility] [id number] 04/07/2021 12:00:00 AM EDT eCW1 ([facility]) (TCM) Transition of Care Visit [address] [place] [address] 04/01/2021 12:00:00 AM EDT eCW1 ([facility]) Unknown [address] [facility] [address] 03/26/2021 12:00:00 AM EDT eCW1 ([facility]) Unknown [address] [facility] [place] [address] 03/25/2021 12:00:00 AM EDT eCW1 ([facility]) Unknown [address] [facility] [address] 03/24/2021 12:00:00 AM EDT eCW1 ([facility]) Unknown [address] [facility] [place] [place] [address] 03/17/2021 12:00:00 AM EDT eCW1 ([facility]) Unknown [address] [facility] [address] 03/12/2021 12:00:00 AM EDT eCW1 ([facility]) Office Visit, Est Pt., Level 4 PC [address] [place] [address] 03/12/2021 12:00:00 AM EDT eCW1 ([facility]) Unknown [address] [facility] [address] 02/27/2021 12:00:00 AM EDT eCW1 ([facility]) Unknown [address] [facility] [place] [address] 02/23/2021 12:00:00 AM EDT eCW1 ([facility]) (TCM) Transition of Care Visit [address] [place] [address] 02/19/2021 12:00:00 AM EDT eCW1 ([facility]) Unknown [address] [facility] [address] 02/16/2021 12:00:00 AM EDT eCW1 ([facility]) Unknown [address] [facility] [place] [address] 12/21/2020 12:00:00 AM EDT eCW1 ([facility]) Outpatient [address] [facility] [address] 12/18/2020 12:00:00 AM EDT eCW1 ([facility]) Unknown [address] [facility] [address] 12/18/2020 12:00:00 AM EDT eCW1 ([facility]) Unknown [address] [facility] [address] 12/17/2020 12:00:00 AM EDT eCW1 ([facility]) Unknown [address] [facility] [address] 11/20/2020 12:00:00 AM EDT eCW1 ([facility]) Unknown [address] [facility] [address] 11/16/2020 12:00:00 AM EDT eCW1 ([facility]) Outpatient [address] [facility] [address] 11/14/2020 12:00:00 AM EDT eCW1 ([facility]) Unknown [address] [facility] [address] 11/14/2020 12:00:00 AM EDT eCW1 ([facility]) Unknown [address] [facility] [address] 11/14/2020 12:00:00 AM EDT eCW1 ([facility]) Unknown [address] [facility] [address] 11/02/2020 12:00:00 AM EDT eCW1 ([facility]) (Cysto1) Urology [address] [place] [address] 10/29/2020 12:00:00 AM EDT eCW1 ([facility]) Unknown [address] [facility] [address] 10/28/2020 12:00:00 AM EDT eCW1 ([facility]) [place] [address] [facility] [address] 10/19/2020 12:00:00 AM EDT eCW1 ([facility]) Outpatient [address] [facility] [address] 09/25/2020 12:00:00 AM EDT eCW1 ([facility]) Outpatient [address] [facility] [address] 09/10/2020 12:00:00 AM EDT eCW1 ([facility]) Outpatient [address] [facility] [address] 09/04/2020 12:00:00 AM EST [facility]CW1 [facility] [place] [address] [facility] [address] 08/27/2020 12:00:00 AM EST eCW1 ([facility]) Unknown [address] [facility] [address] 08/26/2020 12:00:00 AM EST eCW1 ([facility]) Outpatient [address] [facility] [address] 08/19/2020 12:00:00 AM EST eCW1 ([facility]) TeleMedicine Est. Pt. Level 3 [address] [place] [address] 08/08/2020 12:00:00 AM EST eCW1 ([facility]) Unknown [address] [facility] [address] 08/06/2020 12:00:00 AM EST eCW1 ([facility]) Outpatient Attender: Lis MOYA PA-C Physical Therapy 07/22/2020 01:15:00 PM EST MEDENT ([facility]) TeleMedicine Est. Pt. Level 3 [address] [place] [address] 07/18/2020 12:00:00 AM EST eCW1 ([facility]) Unknown [address] [facility] [address] 07/18/2020 12:00:00 AM EST eCW1 ([facility]) Unknown [address] [facility] [address] 07/18/2020 12:00:00 AM EST eCW1 ([facility]) Unknown [address] [facility] [address] 07/16/2020 12:00:00 AM EST eCW1 ([facility]) Outpatient [address] [facility] [address] 07/08/2020 12:00:00 AM EST eCW1 ([facility]) Outpatient Attender: Lis MOYA PA-C Physical Therapy 04/17/2020 02:15:00 PM EDT MEDENT ([facility]) Outpatient [address] [facility] [address] 04/03/2020 12:00:00 AM EDT eCW1 ([facility]) Outpatient Attender: Lis MOYA PA-C Physical Therapy 03/21/2020 08:30:00 AM EDT MEDENT ([facility]) Office Visit Attender: Yaritza JUSTIN Physical Therapy 02:15:00 PM EDT MEDENT ([facility]) Immunizations Vaccine Date Status Description Data Source(s) COVID-19 VACCINE Moderna 09/04/2020 12:00:00 AM EST completed [facility] Vaccine Series Complete: YESThis Data wa s Submitted to [facility] Via [facility]. COVID-19 VACCINE, MRNA-1273, LNP-S (MODERNA)/PF 09/04/2020 1 2:00:00 AM EST completed [facility] COVID-19 VACCINE Moderna 08/06/2020 12:00:00 AM EST completed [facility] Vaccine Series Complete: NOThis Data was Submitted to [facility] Via [facility]. COVID-19 VACCINE, MRNA-1273, LNP-S (MODERNA)/PF 08/06/2020 1 [...] {ml} active Diazoxide 50 MG /ML eCW1 ([facility]) Diazoxide 50 MG/ML Oral Suspension Diazoxide 50 MG/ML 04/01 12:00:00 AM EDT 5.0 {ml} active Diazoxide 50 MG /ML eCW1 ([facility]) 20 mg 03/28/2021 12:00:00 AM EDT tablet [...] AM EDT active Synthroid 88 MCG eCW1 ([facility]) Levothyroxine Sodium 0.088 MG Oral Tablet [Synthroid] Synthroid 88 MCG Synthroid 88 MCG 03/26/2021 12:00:00 AM EDT active Synthroid 88 MCG eCW1 ([facility]) Levothyroxine Sodium 0.088 MG Oral Tablet [Synthroid] Synthroid 88 MCG Synthroid 88 MCG 03/26/2021 12:00:00 AM EDT active Synthroid 88 MCG eCW1 ([facility]) Levothyroxine Sodium 0.088 MG Oral Tablet [Synthroid] Synthroid 88 MCG Synthroid 88 MCG 03/26/2021 12:00:00 AM EDT active Synthroid 88 MCG eCW1 ([facility]) Albuterol Sulfate 108 (90 Base) MCG/ACT UNK 03/26/2021 12: 00:00 AM EDT 2.0 {puffs} active Albuterol Sulfate 108 (9 0 Base) MCG/ACT eCW1 ([facility]) ferrous sulfate 325 MG Oral Tablet Ferrous Sulfate 325 (65 Fe) MG Ferrous Sulfate 325 (65 Fe) MG 03/26/2021 12:00:00 AM EDT 1.0 {tablet} active Ferrous Sulfate 325 (65 Fe) MG eCW1 ([facility]) 60 ACTUAT Fluticasone propionate 0.25 MG /ACTUAT / salmeterol 0.05 MG/ACTUAT Dry Powder Inhaler [Advair] Advair Diskus 250-50 MCG/DOSE Advair Diskus 250-50 MCG/DOSE 03/26/2021 12:00:00 AM EDT 1.0 {puff} activ e Advair Diskus 250-50 MCG/DOSE eCW1 ([facility]) Prednisone 20 MG Oral Tablet predniSONE 20 MG predniSONE 20 MG 03/26/2021 12:00:00 AM EDT suspended predn iSONE 20 MG eCW1 ([facility]) Albuterol Sulfate 108 (90 Base) MCG/ACT UNK 03/26/2021 12: 00:00 AM EDT 2.0 {puffs} active Albuterol Sulfate 108 (9 0 Base) MCG/ACT eCW1 ([facility]) 60 ACTUAT Fluticasone propionate 0.25 MG /ACTUAT / salmeterol 0.05 MG/ACTUAT Dry Powder Inhaler [Advair] Advair Diskus 250-50 MCG/DOSE Advair Diskus 250-50 MCG/DOSE 03/26/2021 12:00:00 AM EDT 1.0 {puff} activ e Advair Diskus 250-50 MCG/DOSE eCW1 ([facility]) Albuterol Sulfate 108 (90 Base) MCG/ACT UNK 03/26/2021 12: 00:00 AM EDT 2.0 {puffs} active Albuterol Sulfate 108 (9 0 Base) MCG/ACT eCW1 ([facility]) Albuterol Sulfate 108 (90 Base) MCG/ACT UNK 03/26/2021 12: 00:00 AM EDT 2.0 {puffs} active Albuterol Sulfate 108 (9 0 Base) MCG/ACT eCW1 ([facility]) Levothyroxine Sodium 0.088 MG Oral Tablet [Synthroid] Synthroid 88 MCG Synthroid 88 MCG 03/26/2021 12:00:00 AM EDT active Synthroid 88 MCG eCW1 ([facility]) ferrous sulfate 325 MG Oral Tablet Ferrous Sulfate 325 (65 Fe) MG Ferrous Sulfate 325 (65 Fe) MG 03/26/2021 12:00:00 AM EDT 1.0 {tablet} active Ferrous Sulfate 325 (65 Fe) MG eCW1 ([facility]) ferrous sulfate 325 MG Oral Tablet Ferrous Sulfate 325 (65 Fe) MG Ferrous Sulfate 325 (65 Fe) MG 03/26/2021 12:00:00 AM EDT 1.0 {tablet} active Ferrous Sulfate 325 (65 Fe) MG eCW1 ([facility]) Prednisone 20 MG Oral Tablet predniSONE 20 MG predniSONE 20 MG 03/26/2021 12:00:00 AM EDT suspended predn iSONE 20 MG eCW1 ([facility]) ferrous sulfate 325 MG Oral Tablet Ferrous Sulfate 325 (65 Fe) MG Ferrous Sulfate 325 (65 Fe) MG 03/26/2021 12:00:00 AM EDT 1.0 {tablet} active Ferrous Sulfate 325 (65 Fe) MG eCW1 ([facility]) 60 ACTUAT Fluticasone propionate 0.25 MG /ACTUAT / salmeterol 0.05 MG/ACTUAT Dry Powder Inhaler [Advair] Advair Diskus 250-50 MCG/DOSE Advair Diskus 250-50 MCG/DOSE 03/26/2021 12:00:00 AM EDT 1.0 {puff} suspe nded Advair Diskus 250-50 MCG/DOSE eCW1 ([facility]) 60 ACTUAT Fluticasone propionate 0.25 MG /ACTUAT / salmeterol 0.05 MG/ACTUAT Dry Powder Inhaler [Advair] Advair Diskus 250-50 MCG/DOSE Advair Diskus 250-50 MCG/DOSE 03/26/2021 12:00:00 AM EDT 1.0 {puff} suspe nded Advair Diskus 250-50 MCG/DOSE eCW1 ([facility]) 60 ACTUAT Fluticasone propionate 0.25 MG /ACTUAT / salmeterol 0.05 MG/ACTUAT Dry Powder Inhaler [Advair] Advair Diskus 250-50 MCG/DOSE Advair Diskus 250-50 MCG/DOSE 03/26/2021 12:00:00 AM EDT 1.0 {puff} suspe nded Advair Diskus 250-50 MCG/DOSE eCW1 ([facility]) Albuterol Sulfate 108 (90 Base) MCG/ACT UNK 03/26/2021 12: 00:00 AM EDT 2.0 {puffs} active Albuterol Sulfate 108 (9 0 Base) MCG/ACT eCW1 ([facility]) Prednisone 20 MG Oral Tablet predniSONE 20 MG predniSONE 20 MG 03/26/2021 12:00:00 AM EDT active predniSO NE 20 MG eCW1 ([facility]) Albuterol Sulfate 108 (90 Base) MCG/ACT UNK 03/26/2021 12: 00:00 AM EDT 2.0 {puffs} active Albuterol Sulfate 108 (9 0 Base) MCG/ACT eCW1 ([facility]) Levothyroxine Sodium 0.088 MG Oral Tablet [Synthroid] Synthroid 88 MCG Synthroid 88 MCG 03/26/2021 12:00:00 AM EDT active Synthroid 88 MCG eCW1 ([facility]) Prednisone 20 MG Oral Tablet predniSONE 20 MG predniSONE 20 MG 03/26/2021 12:00:00 AM EDT active predniSO NE 20 MG eCW1 ([facility]) 20 mg 03/26/2021 12:00:00 AM EDT tablet [...] Ferrous Sulfate 325 (65 Fe) MG eCW1 ([facility]) Prednisone 20 MG Oral Tablet predniSONE 20 MG predniSONE 20 MG 03/26/2021 12:00:00 AM EDT suspended predn iSONE 20 MG eCW1 ([facility]) 60 ACTUAT Fluticasone propionate 0.25 MG /ACTUAT / salmeterol 0.05 MG/ACTUAT Dry Powder Inhaler [Advair] Advair Diskus 250-50 MCG/DOSE Advair Diskus 250-50 MCG/DOSE 03/26/2021 12:00:00 AM EDT 1.0 {puff} suspe nded Advair Diskus 250-50 MCG/DOSE eCW1 ([facility]) ferrous sulfate 325 MG Oral Tablet Ferrous Sulfate 325 (65 Fe) MG Ferrous Sulfate 325 (65 Fe) MG 03/26/2021 12:00:00 AM EDT 1.0 {tablet} active Ferrous Sulfate 325 (65 Fe) MG eCW1 ([facility]) Prednisone 20 MG Oral Tablet predniSONE 20 MG predniSONE 20 MG 03/26/2021 12:00:00 AM EDT suspended predn iSONE 20 MG eCW1 ([facility]) Hydrochlorothiazide 12.5 MG Oral Tablet HYDROCHLOROTHIAZIDE 03/18/2021 [...] AM EDT active Lancets 30G - eCW1 ([facility]) Lancets 30G - Lancets 30G - 03/03/2021 12:00:00 AM EDT active Lancets 30G - eCW1 ([facility]) Lancets 30G - Lancets 30G - 03/03/2021 12:00:00 AM EDT active Lancets 30G - eCW1 ([facility]) Lancets 30G - Lancets 30G - 03/03/2021 12:00:00 AM EDT active Lancets 30G - eCW1 ([facility]) Lancets 30G - Lancets 30G - 03/03/2021 12:00:00 AM EDT active Lancets 30G - eCW1 ([facility]) Lancets 30G - Lancets 30G - 03/03/2021 12:00:00 AM EDT active Lancets 30G - eCW1 ([facility]) Lancets 30G - Lancets 30G - 03/03/2021 12:00:00 AM EDT active Lancets 30G - eCW1 ([facility]) Lancets 30G - Lancets 30G - 03/03/2021 12:00:00 AM EDT active Lancets 30G - eCW1 ([facility]) Lancets 30G - Lancets 30G - 03/03/2021 12:00:00 AM EDT active Lancets 30G - eCW1 ([facility]) Lancets 30G - Lancets 30G - 03/03/2021 12:00:00 AM EDT active Lancets 30G - eCW1 ([facility]) Levothyroxine Sodium 0.05 MG Oral Tablet [Synthroid] S ynthroid 50 MCG Synthroid 50 MCG 02/19/2021 12:00:00 AM EDT active Synthroid 50 MCG eCW1 ([facility]) Levothyroxine Sodium 0.05 MG Oral Tablet [Synthroid] S ynthroid 50 MCG Synthroid 50 MCG 02/19/2021 12:00:00 AM EDT suspended Synthroid 50 MCG eCW1 ([facility]) Levothyroxine Sodium 0.05 MG Oral Tablet [Synthroid] S ynthroid 50 MCG Synthroid 50 MCG 02/19/2021 12:00:00 AM EDT active Synthroid 50 MCG eCW1 ([facility]) Levothyroxine Sodium 0.05 MG Oral Tablet [Synthroid] S ynthroid 50 MCG Synthroid 50 MCG 02/19/2021 12:00:00 AM EDT suspended Synthroid 50 MCG eCW1 ([facility]) Levothyroxine Sodium 0.05 MG Oral Tablet [Synthroid] S ynthroid 50 MCG Synthroid 50 MCG 02/19/2021 12:00:00 AM EDT suspended Synthroid 50 MCG eCW1 ([facility]) Levothyroxine Sodium 0.05 MG Oral Tablet [Synthroid] S ynthroid 50 MCG Synthroid 50 MCG 02/19/2021 12:00:00 AM EDT active Synthroid 50 MCG eCW1 ([facility]) Levothyroxine Sodium 0.05 MG Oral Tablet Levothyroxine Sodium 50 MCG Levothyroxine Sodium 50 MCG 02/14/2021 12:00:00 AM EDT suspended Levothyroxine Sodium 50 MCG eCW1 ([facility]) Levothyroxine Sodium 0.05 MG Oral Tablet Levothyroxine Sodium 50 MCG Levothyroxine Sodium 50 MCG 02/14/2021 12:00:00 AM EDT suspended Levothyroxine Sodium 50 MCG eCW1 ([facility]) ALCOHOL ANTISEPTIC PADS 02/14/2021 12:00:00 AM EDT pads, med icated 100 USE DIRECTED WHEN CHECKING BLOOD SUGAR TWO TIMES A DAY NEEDED USE DIRECTED WHEN CHECKING BLOOD SUGAR TWO TIMES A DAY NEEDED SOLD: 02/14/2021 [facility] Levothyroxine Sodium 0.05 MG Oral Tablet Levothyroxine Sodium 50 MCG Levothyroxine Sodium 50 MCG 02/14/2021 12:00:00 AM EDT suspended Levothyroxine Sodium 50 MCG eCW1 ([facility]) Levothyroxine Sodium 0.05 MG Oral Tablet Levothyroxine Sodium 50 MCG Levothyroxine Sodium 50 MCG 02/14/2021 12:00:00 AM EDT active Levothyroxine Sodium 50 MCG eCW1 ([facility]) Levothyroxine Sodium 0.05 MG Oral Tablet Levothyroxine Sodium 50 MCG Levothyroxine Sodium 50 MCG 02/14/2021 12:00:00 AM EDT suspended Levothyroxine Sodium 50 MCG eCW1 ([facility]) BLOOD SUGAR DIAGNOSTIC 02/14/2021 12:00:00 AM EDT [...] EDT suspended Levothyroxine Sodium 50 MCG eCW1 ([facility]) Levothyroxine Sodium 0.05 MG Oral Tablet Levothyroxine Sodium 50 MCG Levothyroxine Sodium 50 MCG 02/14/2021 12:00:00 AM EDT suspended Levothyroxine Sodium 50 MCG eCW1 ([facility]) 50 mg 12/23/2020 12:00:00 AM EDT tablet [...] 1.0 {tablet} suspended Cipro 250 MG eCW1 ([facility]) Ciprofloxacin 250 MG Oral Tablet [Cipro] Cipro 250 MG Cipro 250 MG 08/27/2020 12:00:00 AM EST 1.0 {tablet} suspended Cipro 250 MG eCW1 ([facility]) Ciprofloxacin 250 MG Oral Tablet [Cipro] Cipro 250 MG Cipro 250 MG 08/27/2020 12:00:00 AM EST 1.0 {tablet} suspended Cipro 250 MG eCW1 ([facility]) Ciprofloxacin 250 MG Oral Tablet [Cipro] Cipro 250 MG Cipro 250 MG 08/27/2020 12:00:00 AM EST 1.0 {tablet} suspended Cipro 250 MG eCW1 ([facility]) Ciprofloxacin 250 MG Oral Tablet [Cipro] Cipro 250 MG Cipro 250 MG 08/27/2020 12:00:00 AM EST 1.0 {tablet} suspended Cipro 250 MG eCW1 ([facility]) Ciprofloxacin 250 MG Oral Tablet [Cipro] Cipro 250 MG Cipro 250 MG 08/27/2020 12:00:00 AM EST 1.0 {tablet} suspended Cipro 250 MG eCW1 ([facility]) Ciprofloxacin 250 MG Oral Tablet [Cipro] Cipro 250 MG Cipro 250 MG 08/27/2020 12:00:00 AM EST 1.0 {tablet} suspended Cipro 250 MG eCW1 ([facility]) Ciprofloxacin 250 MG Oral Tablet [Cipro] Cipro 250 MG Cipro 250 MG 08/27/2020 12:00:00 AM EST 1.0 {tablet} suspended Cipro 250 MG eCW1 ([facility]) Ciprofloxacin 250 MG Oral Tablet [Cipro] Cipro 250 MG Cipro 250 MG 08/27/2020 12:00:00 AM EST 1.0 {tablet} suspended Cipro 250 MG eCW1 ([facility]) Ciprofloxacin 250 MG Oral Tablet [Cipro] Cipro 250 MG Cipro 250 MG 08/27/2020 12:00:00 AM EST 1.0 {tablet} suspended Cipro 250 MG eCW1 ([facility]) Ciprofloxacin 250 MG Oral Tablet [Cipro] Cipro 250 MG Cipro 250 MG 08/27/2020 12:00:00 AM EST 1.0 {tablet} active Ci pro 250 MG eCW1 ([facility]) Ciprofloxacin 250 MG Oral Tablet [Cipro] Cipro 250 MG Cipro 250 MG 08/27/2020 12:00:00 AM EST 1.0 {tablet} suspended Cipro 250 MG eCW1 ([facility]) Ciprofloxacin 250 MG Oral Tablet [Cipro] Cipro 250 MG Cipro 250 MG 08/27/2020 12:00:00 AM EST 1.0 {tablet} suspended Cipro 250 MG eCW1 ([facility]) Ciprofloxacin 250 MG Oral Tablet [Cipro] Cipro 250 MG Cipro 250 MG 08/27/2020 12:00:00 AM EST 1.0 {tablet} suspended Cipro 250 MG eCW1 ([facility]) Ciprofloxacin 250 MG Oral Tablet [Cipro] Cipro 250 MG Cipro 250 MG 08/27/2020 12:00:00 AM EST 1.0 {tablet} suspended Cipro 250 MG eCW1 ([facility]) Ciprofloxacin 250 MG Oral Tablet [Cipro] Cipro 250 MG Cipro 250 MG 08/27/2020 12:00:00 AM EST 1.0 {tablet} suspended Cipro 250 MG eCW1 ([facility]) Ciprofloxacin 250 MG Oral Tablet [Cipro] Cipro 250 MG Cipro 250 MG 08/27/2020 12:00:00 AM EST 1.0 {tablet} active Ci pro 250 MG eCW1 ([facility]) 250 mg 08/27/2020 12:00:00 AM EST tablet 10 TAKE ONE TABLET BY MOUTH EVERY 12 HOURS FOR 5 DAYS TAKE ONE TABLET BY MOUTH EVERY 12 HOURS FOR 5 DAYS CHRISTA [facility] Ciprofloxacin 250 MG Oral Tablet [Cipro] Cipro 250 MG Cipro 250 MG 08/27/2020 12:00:00 AM EST 1.0 {tablet} suspended Cipro 250 MG eCW1 ([facility]) Ciprofloxacin 250 MG Oral Tablet [Cipro] Cipro 250 MG Cipro 250 MG 08/27/2020 12:00:00 AM EST 1.0 {tablet} suspended Cipro 250 MG eCW1 ([facility]) Ciprofloxacin 250 MG Oral Tablet [Cipro] Cipro 250 MG Cipro 250 MG 08/27/2020 12:00:00 AM EST 1.0 {tablet} suspended Cipro 250 MG eCW1 ([facility]) Ciprofloxacin 250 MG Oral Tablet [Cipro] Cipro 250 MG Cipro 250 MG 08/27/2020 12:00:00 AM EST 1.0 {tablet} suspended Cipro 250 MG eCW1 ([facility]) Ciprofloxacin 250 MG Oral Tablet [Cipro] Cipro 250 MG Cipro 250 MG 08/27/2020 12:00:00 AM EST 1.0 {tablet} suspended Cipro 250 MG eCW1 ([facility]) Ciprofloxacin 250 MG Oral Tablet [Cipro] Cipro 250 MG Cipro 250 MG 08/27/2020 12:00:00 AM EST 1.0 {tablet} suspended Cipro 250 MG eCW1 ([facility]) Ciprofloxacin 250 MG Oral Tablet [Cipro] Cipro 250 MG Cipro 250 MG 08/27/2020 12:00:00 AM EST 1.0 {tablet} suspended Cipro 250 MG eCW1 ([facility]) Ciprofloxacin 250 MG Oral Tablet [Cipro] Cipro 250 MG Cipro 250 MG 08/27/2020 12:00:00 AM EST 1.0 {tablet} suspended Cipro 250 MG eCW1 ([facility]) 2.5 mg 08/20/2020 12:00:00 AM EST tablet [...] AM EST active Eliquis 2.5 MG eCW1 ([facility]) apixaban 2.5 MG Oral Tablet [Eliquis] Eliquis 2.5 MG Eliquis 2.5 MG 08/19/2020 12:00:00 AM EST active Eliquis 2.5 MG eCW1 ([facility]) apixaban 2.5 MG Oral Tablet [Eliquis] Eliquis 2.5 MG Eliquis 2.5 MG 08/19/2020 12:00:00 AM EST active Eliquis 2.5 MG eCW1 ([facility]) apixaban 2.5 MG Oral Tablet [Eliquis] Eliquis 2.5 MG Eliquis 2.5 MG 08/19/2020 12:00:00 AM EST active Eliquis 2.5 MG eCW1 ([facility]) apixaban 2.5 MG Oral Tablet [Eliquis] Eliquis 2.5 MG Eliquis 2.5 MG 08/19/2020 12:00:00 AM EST active Eliquis 2.5 MG eCW1 ([facility]) apixaban 2.5 MG Oral Tablet [Eliquis] Eliquis 2.5 MG Eliquis 2.5 MG 08/19/2020 12:00:00 AM EST active Eliquis 2.5 MG eCW1 ([facility]) apixaban 2.5 MG Oral Tablet [Eliquis] Eliquis 2.5 MG Eliquis 2.5 MG 08/19/2020 12:00:00 AM EST active Eliquis 2.5 MG eCW1 ([facility]) apixaban 2.5 MG Oral Tablet [Eliquis] Eliquis 2.5 MG Eliquis 2.5 MG 08/19/2020 12:00:00 AM EST active Eliquis 2.5 MG eCW1 ([facility]) apixaban 2.5 MG Oral Tablet [Eliquis] Eliquis 2.5 MG Eliquis 2.5 MG 08/19/2020 12:00:00 AM EST active Eliquis 2.5 MG eCW1 ([facility]) apixaban 2.5 MG Oral Tablet [Eliquis] Eliquis 2.5 MG Eliquis 2.5 MG 08/19/2020 12:00:00 AM EST active Eliquis 2.5 MG eCW1 ([facility]) apixaban 2.5 MG Oral Tablet [Eliquis] Eliquis 2.5 MG Eliquis 2.5 MG 08/19/2020 12:00:00 AM EST active Eliquis 2.5 MG eCW1 ([facility]) apixaban 2.5 MG Oral Tablet [Eliquis] Eliquis 2.5 MG Eliquis 2.5 MG 08/19/2020 12:00:00 AM EST active Eliquis 2.5 MG eCW1 ([facility]) apixaban 2.5 MG Oral Tablet [Eliquis] Eliquis 2.5 MG Eliquis 2.5 MG 08/19/2020 12:00:00 AM EST active Eliquis 2.5 MG eCW1 ([facility]) apixaban 2.5 MG Oral Tablet [Eliquis] Eliquis 2.5 MG Eliquis 2.5 MG 08/19/2020 12:00:00 AM EST active Eliquis 2.5 MG eCW1 ([facility]) apixaban 2.5 MG Oral Tablet [Eliquis] Eliquis 2.5 MG Eliquis 2.5 MG 08/19/2020 12:00:00 AM EST active Eliquis 2.5 MG eCW1 ([facility]) apixaban 2.5 MG Oral Tablet [Eliquis] Eliquis 2.5 MG Eliquis 2.5 MG 08/19/2020 12:00:00 AM EST active Eliquis 2.5 MG eCW1 ([facility]) apixaban 2.5 MG Oral Tablet [Eliquis] Eliquis 2.5 MG Eliquis 2.5 MG 08/19/2020 12:00:00 AM EST active Eliquis 2.5 MG eCW1 ([facility]) apixaban 2.5 MG Oral Tablet [Eliquis] Eliquis 2.5 MG Eliquis 2.5 MG 08/19/2020 12:00:00 AM EST active Eliquis 2.5 MG eCW1 ([facility]) apixaban 2.5 MG Oral Tablet [Eliquis] Eliquis 2.5 MG Eliquis 2.5 MG 08/19/2020 12:00:00 AM EST active Eliquis 2.5 MG eCW1 ([facility]) apixaban 2.5 MG Oral Tablet [Eliquis] Eliquis 2.5 MG Eliquis 2.5 MG 08/19/2020 12:00:00 AM EST active Eliquis 2.5 MG eCW1 ([facility]) apixaban 2.5 MG Oral Tablet [Eliquis] Eliquis 2.5 MG Eliquis 2.5 MG 08/19/2020 12:00:00 AM EST active Eliquis 2.5 MG eCW1 ([facility]) apixaban 2.5 MG Oral Tablet [Eliquis] Eliquis 2.5 MG Eliquis 2.5 MG 08/19/2020 12:00:00 AM EST active Eliquis 2.5 MG eCW1 ([facility]) apixaban 2.5 MG Oral Tablet [Eliquis] Eliquis 2.5 MG Eliquis 2.5 MG 08/19/2020 12:00:00 AM EST active Eliquis 2.5 MG eCW1 ([facility]) apixaban 2.5 MG Oral Tablet [Eliquis] Eliquis 2.5 MG Eliquis 2.5 MG 08/19/2020 12:00:00 AM EST active Eliquis 2.5 MG eCW1 ([facility]) apixaban 2.5 MG Oral Tablet [Eliquis] Eliquis 2.5 MG Eliquis 2.5 MG 08/19/2020 12:00:00 AM EST active Eliquis 2.5 MG eCW1 ([facility]) apixaban 2.5 MG Oral Tablet [Eliquis] Eliquis 2.5 MG Eliquis 2.5 MG 08/19/2020 12:00:00 AM EST active Eliquis 2.5 MG eCW1 ([facility]) 5 mg 08/09/2020 12:00:00 AM EST tablet 60 TAKE ONE TABLET BY MOUTH TWICE A DAY TAKE ONE TABLET BY MOUTH TWICE A DAY SOLD: 08/11/2020 [facility] Folic Acid 1 MG Oral Tablet Folic Acid 1 MG 07/18/2020 12:00:00 AM EST 1.0 {tablet} active Folic Acid 1 MG eCW1 ([facility]) Folic Acid 1 MG Oral Tablet Folic Acid 1 MG 07/18/2020 12:00:00 AM EST 1.0 {tablet} active Folic Acid 1 MG eCW1 ([facility]) Folic Acid 1 MG Oral Tablet Folic Acid 1 MG 07/18/2020 12:00:00 AM EST 1.0 {tablet} active Folic Acid 1 MG eCW1 ([facility]) Folic Acid 1 MG Oral Tablet Folic Acid 1 MG 07/18/2020 12:00:00 AM EST 1.0 {tablet} active Folic Acid 1 MG eCW1 ([facility]) Folic Acid 1 MG Oral Tablet Folic Acid 1 MG 07/18/2020 12:00:00 AM EST 1.0 {tablet} active Folic Acid 1 MG eCW1 ([facility]) Folic Acid 1 MG Oral Tablet Folic Acid 1 MG 07/18/2020 12:00:00 AM EST 1.0 {tablet} active Folic Acid 1 MG eCW1 ([facility]) Folic Acid 1 MG Oral Tablet Folic Acid 1 MG 07/18/2020 12:00:00 AM EST 1.0 {tablet} active Folic Acid 1 MG eCW1 ([facility]) Folic Acid 1 MG Oral Tablet Folic Acid 1 MG 07/18/2020 12:00:00 AM EST 1.0 {tablet} active Folic Acid 1 MG eCW1 ([facility]) Folic Acid 1 MG Oral Tablet Folic Acid 1 MG 07/18/2020 12:00:00 AM EST 1.0 {tablet} active Folic Acid 1 MG eCW1 ([facility]) Folic Acid 1 MG Oral Tablet Folic Acid 1 MG 07/18/2020 12:00:00 AM EST 1.0 {tablet} active Folic Acid 1 MG eCW1 ([facility]) Folic Acid 1 MG Oral Tablet Folic Acid 1 MG 07/18/2020 12:00:00 AM EST 1.0 {tablet} active Folic Acid 1 MG eCW1 ([facility]) Folic Acid 1 MG Oral Tablet Folic Acid 1 MG 07/18/2020 12:00:00 AM EST 1.0 {tablet} active Folic Acid 1 MG eCW1 ([facility]) Folic Acid 1 MG Oral Tablet Folic Acid 1 MG 07/18/2020 12:00:00 AM EST 1.0 {tablet} active Folic Acid 1 MG eCW1 ([facility]) Folic Acid 1 MG Oral Tablet Folic Acid 1 MG 07/18/2020 12:00:00 AM EST 1.0 {tablet} active Folic Acid 1 MG eCW1 ([facility]) Folic Acid 1 MG Oral Tablet Folic Acid 1 MG 07/18/2020 12:00:00 AM EST 1.0 {tablet} active Folic Acid 1 MG eCW1 ([facility]) Folic Acid 1 MG Oral Tablet Folic Acid 1 MG 07/18/2020 12:00:00 AM EST 1.0 {tablet} active Folic Acid 1 MG eCW1 ([facility]) Folic Acid 1 MG Oral Tablet Folic Acid 1 MG 07/18/2020 12:00:00 AM EST 1.0 {tablet} active Folic Acid 1 MG eCW1 ([facility]) Folic Acid 1 MG Oral Tablet Folic Acid 1 MG 07/18/2020 12:00:00 AM EST 1.0 {tablet} active Folic Acid 1 MG eCW1 ([facility]) Folic Acid 1 MG Oral Tablet Folic Acid 1 MG 07/18/2020 12:00:00 AM EST 1.0 {tablet} active Folic Acid 1 MG eCW1 ([facility]) Folic Acid 1 MG Oral Tablet Folic Acid 1 MG 07/18/2020 12:00:00 AM EST 1.0 {tablet} active Folic Acid 1 MG eCW1 ([facility]) Folic Acid 1 MG Oral Tablet Folic Acid 1 MG 07/18/2020 12:00:00 AM EST 1.0 {tablet} active Folic Acid 1 MG eCW1 ([facility]) Folic Acid 1 MG Oral Tablet Folic Acid 1 MG 07/18/2020 12:00:00 AM EST 1.0 {tablet} active Folic Acid 1 MG eCW1 ([facility]) Folic Acid 1 MG Oral Tablet Folic Acid 1 MG 07/18/2020 12:00:00 AM EST 1.0 {tablet} active Folic Acid 1 MG eCW1 ([facility]) Folic Acid 1 MG Oral Tablet Folic Acid 1 MG 07/18/2020 12:00:00 AM EST 1.0 {tablet} suspended Folic Acid 1 MG eCW1 ([facility]) Folic Acid 1 MG Oral Tablet Folic Acid 1 MG 07/18/2020 12:00:00 AM EST 1.0 {tablet} active Folic Acid 1 MG eCW1 ([facility]) Folic Acid 1 MG Oral Tablet Folic Acid 1 MG 07/18/2020 12:00:00 AM EST 1.0 {tablet} active Folic Acid 1 MG eCW1 ([facility]) Folic Acid 1 MG Oral Tablet Folic Acid 1 MG 07/18/2020 12:00:00 AM EST 1.0 {tablet} active Folic Acid 1 MG eCW1 ([facility]) Folic Acid 1 MG Oral Tablet Folic Acid 1 MG 07/18/2020 12:00:00 AM EST 1.0 {tablet} active Folic Acid 1 MG eCW1 ([facility]) Folic Acid 1 MG Oral Tablet Folic Acid 1 MG 07/18/2020 12:00:00 AM EST 1.0 {tablet} active Folic Acid 1 MG eCW1 ([facility]) Folic Acid 1 MG Oral Tablet Folic Acid 1 MG 07/18/2020 12:00:00 AM EST 1.0 {tablet} active Folic Acid 1 MG eCW1 ([facility]) Folic Acid 1 MG Oral Tablet Folic Acid 1 MG 07/18/2020 12:00:00 AM EST 1.0 {tablet} active Folic Acid 1 MG eCW1 ([facility]) Folic Acid 1 MG Oral Tablet Folic Acid 1 MG 07/18/2020 12:00:00 AM EST 1.0 {tablet} active Folic Acid 1 MG eCW1 ([facility]) 0.05 % 06/16/2020 12:00:00 AM [...] 03/21/2020 12:00:00 AM EDT active MEDENT ([facility]) 5 mg 03/13/2020 [...] relationship to amin Policy Amin Plan Information [facility] [id number] S [id number] 2TA [facility] [id number] S [id number] MEDICARE 4 [id number] 1 [id number] 2TA MEDICARE A [id number] Self [id number] 2TA MEDICARE [id number] SP [id number] 2TA MEDICARE [id number] SP [id number] 2TA [place] [id number] Self MEDICARE [id number] SP [id number] A [id number] 2TA EXCELLUS H [id number] Self [id number] BC FEP MEMBERS 1 [id number] 1 [id number] EXCELLUS BCBS FEDERAL [id number] SP [id number] EXCELLUS BCBS FEDERAL [id number] SP [id number] [place] Primary [id number] Self [id number] BS [facility] [id number] Self [id number] [place] Primary [id number] Self [id number] [place] Primary [id number] Self [id number] [place] Medigap Part B [id number] Self [id number] ANSI-Commercial [id number] ANSI-Medicare Part B [id number] ANSI-Commercial [id number] ANSI-Commercial [id number] ANSI-Medicare Part B [id number] BCBS Federal Plan [place] Part [place] [id number] Self [id number] Medicare Natl Gov't Servi Medicare Primary [id number] Self [id number] ANSI-Commercial [id number] ANSI-Medicare Part B [id number] ANSI-Medicare Part B [id number] ANSI-Commercial [id number] ANSI-Commercial [id number] ANSI-Medicare Part B [id number] MEDICARE [id number] SP [id number] 2TA MEDICARE [id number] SP [id number] ANSI-Medicare Part B [id number] Medicare [place] Primary [id number] Self [id number] MEDICARE C [id number] S [id number] 2TA [facility] Federal Plan Medigap Part B [id number] Self [id number] Medicare Natl Gov't Servi Medicare Primary [id number] Self [id number] EXCELLUS BCBS FEDERAL [id number] SP [id number] Excellus [facility] Part B [id number] Self Medicare [place] Medicare Primary [id number] Self BLUE CROSS [id number] S [id number] MEDICARE [id number] S [id number] 2TA BS Fed Plan Medigap Part B [id number] Self BC BS [place] FEDERAL [id number] SP [id number] SELF PAY 2 UNAVAILABLE 1 UNAVAILA BLE EXCELLUS BCBS S [id number] S [id number] ANSI-Commercial [id number] [facility] FEDERAL EMPLOYEE PROGRAM [id number] SP [id number] SELF PAY MEDICARE C [id number] S [id number] [facility] B [id number] S [id number] MEDICARE C [id number] S [id number] [id number] ANSI-Commercial [id number] ANSI-Medicare Part B [id number] ANSI-Commercial [id number] ANSI-Medicare Part B [id number] ANSI-Medicare Part B [id number] ANSI-Commercial [id number] ANSI-Medicare Part B [id number] ANSI-Commercial [id number] ANSI-Medicare Part B [id number] ANSI-Commercial [id number] ANSI-Commercial [id number] ANSI-Medicare Part B [id number] [facility]-Medicare Part B [id number] Problems, Conditions, and Diagnoses Code Display Name Description Problem Type Effective Dates Data Source(s) 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 Problem 04/01/2021 12:00:00 AM EDT eCW1 ([facility]) I71.4 [id number] AAA (abdominal aortic aneurysm), not a candidate for repair Problem 03/12/2021 12:00:00 AM EDT eCW1 ([facility]) D68.59 6901078 Protein S deficiency Problem 03/12/2021 12:0 0:00 AM EDT eCW1 ([facility]) E16.2 [id number] Spontaneous hypoglycemia Problem 02/23/2021 12:00:00 AM EDT eCW1 ([facility]) D50.0 [id number] 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 Problem 02/19/2021 12:00:00 AM EDT eCW1 ([facility]) R91.1 602129669 Right lower lobe pulmonary nodule Problem 02/19/2021 12:00:00 AM EDT eCW1 ([facility]) N18.31 215110863 Chronic kidney disease, stage 3a Problem 02/19/2021 12:00:00 AM EDT eCW1 ([facility]) E16.2 [id number] Hypoglycemia Problem 02/19/2021 12:00:00 AM EDT eCW1 ([facility]) D63.1 500494406 Anemia in chronic kidney disease Problem 11/14/2020 12:00:00 AM EDT eCW1 ([facility]) N20.0 42920812 Bilateral nephrolithiasis Problem 10/29/2020 12:00:00 AM EDT eCW1 ([facility]) I27.82 [id number] 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, unspecified pulmonary embolism type Problem 08/08/2020 12:00:[address] eCW1 ([facility]) D68.59 1692741 Protein S deficiency Problem 08/08/2020 12:0 0:00 AM EST eCW1 ([facility]) D68.59 24789274 Protein C deficiency Problem 08/08/2020 12:0 0:00 AM EST eCW1 ([facility]) D52.9 98269229 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, unspecified deficiency type Problem 07/18/2020 12:00:00 AM EST eCW1 ([facility]) D89.89 82278786 Light chain disease Problem 07/18/2020 12:00 :00 AM EST eCW1 ([facility]) I11.0 10858226 Hypertensive heart disease with heart sakina lure Problem 04/03/2020 12:00:00 AM EDT eCW1 ([facility]) Surgeries/Procedures Procedure Description Date Indications Data Source(s) Medication: Lidocaine HCl 2% Jelly 5mL Intravesically 10/29/2020 12:00:00 AM EDT eCW1 ([facility]) ARTHROCENTESIS ASPIR&/INJECTION MAJOR JT/BURSA 021 12:00:00 AM EST MEDENT ([facility] ) X-Ray Hip Unilateral With Pelvis 2-3 Views 07/22/2020 12:00:00 AM EST MEDENT ([facility] ) RADIOLOGIC EXAMINATION KNEE 3 VIEWS 03/21/2020 12:00:0 0 AM EDT MEDENT ([facility]) X-Ray Hip Unilateral With Pelvis 2-3 Views 03/05/2020 12:00:00 AM EDT MEDENT ([facility]) Results ID Date Data Source TOTAL IRON BINDING CAPACIT 04/01/2021 12:00:00 AM EDT eCW1 ( [facility]) Name Value Range Interpretation Code Description Data Emily rce(s) Supporting Document(s) 12.0 13.2-45.0 PERCENT SATURATION eCW1 ([facility]) 40 50-170 IRON (FE) eCW1 ([facility]) 333 250-450 TOTAL IRON BINDING CAPACI TY eCW1 ([facility]) ID Date Data Source Reticulocyte Count Sysmex 04/01/2021 12:00:00 AM EDT eCW1 ([facility]) Name Value Range Interpretation Code Description Data Emily rce(s) Supporting Document(s) 5.0 0.5-1.5 RETICULOCYTE % eCW1 ([facility]) ID Date Data Source FERRITIN 04/01/2021 12:00:00 AM EDT eCW1 ([facility]) Name Value Range Interpretation Code Description Data Emily rce(s) Supporting Document(s) 62 8252 FERRITIN eCW1 ([facility]) ID Date Data Source Comprehensive Metabolic Profile (CMP) 04/01/2021 12:00:00 AM EDT eCW1 ([facility]) Name Value Range Interpretation Code Description Data Emily rce(s) Supporting Document(s) 57 70-100 GLUCOSE, FASTING eCW1 ([facility]) 1.24 0.55-1.30 CREATININE FOR GFR eCW1 ([facility]) 43.5 >32 GLOMERULAR FILTRATION RATE eCW 1 ([facility]) 26 7-18 BLOOD UREA NITROGEN eCW1 ([facility]) 144 136-145 SODIUM LEVEL eCW1 ([facility]) 3.8 3.5-5.1 POTASSIUM SERUM eCW1 ([facility]) 27 21-32 CARBON DIOXIDE LEVEL eCW1 ([facility]) 8.2 8.8-10.2 CALCIUM LEVEL eCW1 ([facility]) 112 98-107 CHLORIDE LEVEL eCW1 ([facility]) 21 12-78 ALT/SGPT eCW1 ([facility]) 109 45-117 ALKALINE PHOSPHATASE eCW1 ([facility]) 23 7-37 AST/SGOT eCW1 ([facility]) 0.4 1.2-2.2 ALBUMIN/GLOBULIN RATIO eCW1 ([facility]) 8.1 6.4-8.2 TOTAL PROTEIN eCW1 ([facility]) 0.7 0.2-1.0 BILIRUBIN,TOTAL eCW1 ([facility]) 2.1 3.2-5.2 ALBUMIN eCW1 ([facility]) ID Date Data Source CBC - Complete Blood Count 04/01/2021 12:00:00 AM EDT eCW1 ( [facility]) Name Value Range Interpretation Code Description Data Emily rce(s) Supporting Document(s) 9.5 12.0-15.5 HEMOGLOBIN eCW1 ([facility]) 12.1 4.0-10.0 WHITE BLOOD COUNT eCW1 ([facility]) 3.11 4.00-5.40 RED BLOOD COUNT eCW1 ([facility]) 31.4 36.0-47.0 HEMATOCRIT eCW1 ([facility]) 101.0 80.0-96.0 MEAN CORPUSCULAR VOLUME e CW1 ([facility]) 30.5 27.0-33.0 MEAN CORPUSCULAR HEMOGLOB IN eCW1 ([facility]) 30.3 32.0-36.5 MEAN CORPUSCULAR HGB CONC eCW1 ([facility]) 20.8 11.5-14.5 RED CELL DISTRIBUTION WID TH eCW1 ([facility]) 145 150-450 PLATELET COUNT, AUTOMATED eCW1 ([facility]) ID Date Data Source [id number] 03/24/2021 03:30:00 PM EDT [facility] Name Value Range Interpretation Code Description Data Emily rce(s) Supporting Document(s) SARS-CoV-2 (COVID 19) NEGATIVE - SARS-CoV-2 (COVID19) [facility] This lab was ordered by [facility] a nd reported by [facility]. ID Date Data Source [id number] 02/13/2021 10:42:00 AM EDT [facility] Name Value Range Interpretation Code Description Data Emily rce(s) Supporting Document(s) SARS coronavirus 2 RNA [Presence] in Res piratory specimen by BETTE with probe detection NEGATIVE [facility] This lab was ordered by [facility] a nd reported by [facility]. ID Date Data Source FREE T4 & TSH PANEL 11/14/2020 12:00:00 AM EDT eCW1 ([facility]) Name Value Range Interpretation Code Description Data Emily rce(s) Supporting Document(s) 0.641 0.358-3.740 THYROID STIMULATING HORM ONE eCW1 ([facility]) 1.35 0.76-1.46 FREE T4 eCW1 ([facility]) ID Date Data Source FOLATE 11/14/2020 12:00:00 AM EDT eCW1 ([facility]) Name Value Range Interpretation Code Description Data Emily rce(s) Supporting Document(s) 16.7 >5.4 FOLATE eCW1 ([facility]) ID Date Data Source ADM CHEST 2 VIEW 11/14/2020 12:00:00 AM EDT eCW1 ([facility]) Name Value Range Interpretation Code Description Data Emily rce(s) Supporting Document(s) ADM CHEST 2 VIEW eCW1 ([facility]) ID Date Data Source [id number] 10/08/2020 11:15:00 AM EDT [facility] Name Value Range Interpretation Code Description Data Emily rce(s) Supporting Document(s) SARS-CoV-2 (COVID-19) RNA [Presence] in Respiratory specimen by BETTE with probe detection Not Detected [facility] This lab was ordered by [facility] and reported by [employer] ID Date Data Source Basic Metabolic Profile (BMP) 09/04/2020 12:00:00 AM EST eCW 1 ([facility]) Name Value Range Interpretation Code Description Data Emily rce(s) Supporting Document(s) 112 70-100 GLUCOSE, FASTING eCW1 ([facility]) 20 7-18 BLOOD UREA NITROGEN eCW1 ([facility]) 1.29 0.55-1.30 CREATININE FOR GFR eCW1 ([facility]) 108 98-107 CHLORIDE LEVEL eCW1 ([facility]) 41.6 >32 GLOMERULAR FILTRATION RATE eCW 1 ([facility]) 3.9 3.5-5.1 POTASSIUM SERUM eCW1 ([facility]) 140 136-145 SODIUM LEVEL eCW1 ([facility]) 28 21-32 CARBON DIOXIDE LEVEL eCW1 ([facility]) 8.7 8.8-10.2 CALCIUM LEVEL eCW1 ([facility]) ID Date Data Source [id number] 08/25/2020 02:07:00 PM EST [facility] Name Value Range Interpretation Code Description Data Emily rce(s) Supporting Document(s) SARS coronavirus 2 RNA [Presence] in Res piratory specimen by BETTE with probe detection NEGATIVE [facility] This lab was ordered by [facility] a nd reported by [facility]. Procedure Social History Code Duration Value Status Description Data Source(s ) Smoking 04/12/2021 12:00:00 AM EDT Former Smoker completed Former Smoker [facility] [facility]) Smoking 04/07/2021 12:00:00 AM EDT Former Smoker completed Former Smoker eCW1 ([facility]) Smoking 04/01/2021 12:00:00 AM EDT Former Smoker completed Former Smoker eCW1 ([facility]) Smoking 04/01/2021 12:00:00 AM EDT Former Smoker completed Former Smoker eCW1 ([facility]) Smoking 03/12/2021 12:00:00 AM EDT Former Smoker completed Former Smoker eCW1 ([facility]) Smoking 03/12/2021 12:00:00 AM EDT Former Smoker completed Former Smoker eCW1 ([facility]) Smoking 03/12/2021 12:00:00 AM EDT Former Smoker completed Former Smoker eCW1 ([facility]) Smoking 03/12/2021 12:00:00 AM EDT Former Smoker completed Former Smoker eCW1 ([facility]) Smoking 03/12/2021 12:00:00 AM EDT Former Smoker completed Former Smoker eCW1 ([facility]) Smoking 02/19/2021 12:00:00 AM EDT Former Smoker completed Former Smoker eCW1 ([facility]) Smoking 02/19/2021 12:00:00 AM EDT Former Smoker completed Former Smoker eCW1 ([facility]) Smoking 02/19/2021 12:00:00 AM EDT Former Smoker completed Former Smoker eCW1 ([facility]) Smoking 12/18/2020 12:00:00 AM EDT Former Smoker completed Former Smoker eCW1 ([facility]) Smoking 12/18/2020 12:00:00 AM EDT Former Smoker completed Former Smoker eCW1 ([facility]) Smoking 12/18/2020 12:00:00 AM EDT Former Smoker completed Former Smoker eCW1 ([facility]) Smoking 12/18/2020 12:00:00 AM EDT Former Smoker completed Former Smoker eCW1 ([facility]) Smoking 12/18/2020 12:00:00 AM EDT Former Smoker completed Former Smoker eCW1 ([facility]) Smoking 11/14/2020 12:00:00 AM EDT Former Smoker completed Former Smoker eCW1 ([facility]) Smoking 11/14/2020 12:00:00 AM EDT Former Smoker completed Former Smoker eCW1 ([facility]) Smoking 11/14/2020 12:00:00 AM EDT Former Smoker completed Former Smoker eCW1 ([facility]) Smoking 11/14/2020 12:00:00 AM EDT Former Smoker completed Former Smoker eCW1 ([facility]) Smoking 11/14/2020 12:00:00 AM EDT Former Smoker completed Former Smoker eCW1 ([facility]) Smoking 11/14/2020 12:00:00 AM EDT Former Smoker completed Former Smoker eCW1 ([facility]) Smoking 10/29/2020 12:00:00 AM EDT Former Smoker completed Former Smoker eCW1 ([facility]) Smoking 09/25/2020 12:00:00 AM EDT Former Smoker completed Former Smoker eCW1 ([facility]) Smoking 09/25/2020 12:00:00 AM EDT Former Smoker completed Former Smoker eCW1 ([facility]) Smoking 09/25/2020 12:00:00 AM EDT Former Smoker completed Former Smoker eCW1 ([facility]) Smoking 09/10/2020 12:00:00 AM EDT Former Smoker completed Former Smoker eCW1 ([facility]) Smoking 09/10/2020 12:00:00 AM EDT Former Smoker completed Former Smoker eCW1 ([facility]) Smoking 08/19/2020 12:00:00 AM EST Former Smoker completed Former Smoker eCW1 ([facility]) Smoking 08/19/2020 12:00:00 AM EST Former Smoker completed Former Smoker eCW1 ([facility]) Smoking 08/19/2020 12:00:00 AM EST Former Smoker completed Former Smoker eCW1 ([facility]) Smoking 08/08/2020 12:00:00 AM EST Former Smoker completed Former Smoker eCW1 ([facility]) Smoking 08/08/2020 12:00:00 AM EST Former Smoker completed Former Smoker eCW1 ([facility]) Smoking 07/18/2020 12:00:00 AM EST Former Smoker completed Former Smoker eCW1 ([facility]) Smoking 07/18/2020 12:00:00 AM EST Former Smoker completed Former Smoker eCW1 ([facility]) Smoking 07/18/2020 12:00:00 AM EST Former Smoker completed Former Smoker eCW1 ([facility]) Smoking 07/18/2020 12:00:00 AM EST Former Smoker completed Former Smoker eCW1 ([facility]) Smoking 07/08/2020 12:00:00 AM EST Former Smoker completed Former Smoker eCW1 ([facility]) Smoking 04/03/2020 12:00:00 AM EDT Former Smoker completed Former Smoker eCW1 ([facility]) Vital Signs ID Date Data Source UNK Name Value Range Interpretation Code Description Data Source(s) Body weight 174.2 [lb_av] 174.2 [lb_av] eCW1 ([facility]) Body height 62 [in_i] 62 [in_i] eCW1 ([facility]) Body mass index (BMI) [Ratio] 31.86 kg/m2 31.86 kg/m2 eCW1 ([facility]) Heart rate 89 /min 89 /min eCW1 ([facility]) Respiratory rate 18 /min 18 /min eCW1 ([facility]) Body temperature 98.8 [degF] 98.8 [degF] eCW1 ( [facility]) Systolic blood pressure 146 mm[Hg] 146 mm[Hg] e CW1 ([facility]) Diastolic blood pressure 80 mm[Hg] 80 mm[Hg] eCW1 ([facility]) Body weight 178 [lb_av] 178 [lb_av] eCW1 ([facility]) Diastolic blood pressure 84 mm[Hg] 84 mm[Hg] eCW1 ([facility]) Body height 62 [in_i] 62 [in_i] eCW1 ([facility]) Body mass index (BMI) [Ratio] 32.55 kg/m2 32.55 kg/m2 eCW1 ([facility]) Heart rate 70 /min 70 /min eCW1 ([facility]) Respiratory rate 18 /min 18 /min eCW1 ([facility]) Body temperature 96.9 [degF] 96.9 [degF] eCW1 ( [facility]) Systolic blood pressure 142 mm[Hg] 142 mm[Hg] e CW1 ([facility]) Body weight 169 [lb_av] 169 [lb_av] eCW1 ([facility]) Body height 62 [in_i] 62 [in_i] eCW1 ([facility]) Body mass index (BMI) [Ratio] 30.91 kg/m2 30.91 kg/m2 eCW1 ([facility]) Heart rate 77 /min 77 /min eCW1 ([facility]) Respiratory rate 18 /min 18 /min eCW1 ([facility]) Body temperature 98.9 [degF] 98.9 [degF] eCW1 ( [facility]) Systolic blood pressure 138 mm[Hg] 138 mm[Hg] e CW1 ([facility]) Diastolic blood pressure 74 mm[Hg] 74 mm[Hg] eCW1 ([facility]) Body weight 162 [lb_av] 162 [lb_av] eCW1 ([facility]) Body height 62 [in_i] 62 [in_i] eCW1 ([facility]) Body temperature 98.2 [degF] 98.2 [degF] eCW1 ( [facility]) Systolic blood pressure 132 mm[Hg] 132 mm[Hg] e CW1 ([facility]) Diastolic blood pressure 78 mm[Hg] 78 mm[Hg] eCW1 ([facility]) Body mass index (BMI) [Ratio] 29.63 kg/m2 29.63 kg/m2 eCW1 ([facility]) Heart rate 69 /min 69 /min eCW1 ([facility]) Respiratory rate 18 /min 18 /min eCW1 ([facility]) Body weight 169 [lb_av] 169 [lb_av] eCW1 ([facility]) Body height 62 [in_i] 62 [in_i] eCW1 ([facility]) Body mass index (BMI) [Ratio] 30.91 kg/m2 30.91 kg/m2 eCW1 ([facility]) Heart rate 79 /min 79 /min eCW1 ([facility]) Respiratory rate 18 /min 18 /min eCW1 ([facility]) Body temperature 97.7 [degF] 97.7 [degF] eCW1 ( [facility]) Systolic blood pressure 142 mm[Hg] 142 mm[Hg] e CW1 ([facility]) Diastolic blood pressure 76 mm[Hg] 76 mm[Hg] eCW1 ([facility]) Body weight 167 [lb_av] 167 [lb_av] eCW1 ([facility]) Body height 62 [in_i] 62 [in_i] eCW1 ([facility]) Body mass index (BMI) [Ratio] 30.54 kg/m2 30.54 kg/m2 eCW1 ([facility]) Heart rate 68 /min 68 /min eCW1 ([facility]) Respiratory rate 18 /min 18 /min eCW1 ([facility]) Body temperature 96.2 [degF] 96.2 [degF] eCW1 ( [facility]) Systolic blood pressure 138 mm[Hg] 138 mm[Hg] e CW1 ([facility]) Diastolic blood pressure 72 mm[Hg] 72 mm[Hg] eCW1 ([facility]) Body weight 167 [lb_av] 167 [lb_av] eCW1 ([facility]) Body height 62 [in_i] 62 [in_i] eCW1 ([facility]) Body mass index (BMI) [Ratio] 30.54 kg/m2 30.54 kg/m2 eCW1 ([facility]) Heart rate 89 /min 89 /min eCW1 ([facility]) Respiratory rate 18 /min 18 /min eCW1 ([facility]) Body temperature 96.6 [degF] 96.6 [degF] eCW1 ( [facility]) Systolic blood pressure 132 mm[Hg] 132 mm[Hg] e CW1 ([facility]) Diastolic blood pressure 72 mm[Hg] 72 mm[Hg] eCW1 ([facility]) Body temperature 97.6 [degF] 97.6 [degF] eCW1 ( [facility]) Body weight 170 [lb_av] 170 [lb_av] eCW1 ([facility]) Body height 62 [in_i] 62 [in_i] eCW1 ([facility]) Body mass index (BMI) [Ratio] 31.09 kg/m2 31.09 kg/m2 eCW1 ([facility]) Heart rate 73 /min 73 /min eCW1 ([facility]) Respiratory rate 18 /min 18 /min eCW1 ([facility]) Systolic blood pressure 124 mm[Hg] 124 mm[Hg] e CW1 ([facility]) Diastolic blood pressure 78 mm[Hg] 78 mm[Hg] eCW1 ([facility]) Body weight 170 [lb_av] 170 [lb_av] eCW1 ([facility]) Body height 62 [in_i] 62 [in_i] eCW1 ([facility]) Body mass index (BMI) [Ratio] 31.09 kg/m2 31.09 kg/m2 eCW1 ([facility]) Heart rate 89 /min 89 /min eCW1 ([facility]) Respiratory rate 18 /min 18 /min eCW1 ([facility]) Body temperature 97.1 [degF] 97.1 [degF] eCW1 ( [facility]) Systolic blood pressure 136 mm[Hg] 136 mm[Hg] e CW1 ([facility]) Diastolic blood pressure 78 mm[Hg] 78 mm[Hg] eCW1 ([facility]) Respiratory rate 18 /min 18 /min eCW1 ([facility]) Body temperature 96.4 [degF] 96.4 [degF] eCW1 ( [facility]) Systolic blood pressure 142 mm[Hg] 142 mm[Hg] e CW1 ([facility]) Diastolic blood pressure 80 mm[Hg] 80 mm[Hg] eCW1 ([facility]) Heart rate 87 /min 87 /min eCW1 ([facility]) Body weight 167 [lb_av] 167 [lb_av] eCW1 ([facility]) Body height 62 [in_i] 62 [in_i] eCW1 ([facility]) Body mass index (BMI) [Ratio] 30.54 kg/m2 30.54 kg/m2 eCW1 ([facility]) Body temperature 96.6 [degF] 96.6 [degF] MEDENT ([facility]) Body weight 167 [lb_av] 167 [lb_av] eCW1 ([facility]) Body height 62 [in_i] 62 [in_i] eCW1 ([facility]) Body mass index (BMI) [Ratio] 30.54 kg/m2 30.54 kg/m2 eCW1 ([facility]) Heart rate 78 /min 78 /min eCW1 ([facility]) Respiratory rate 18 /min 18 /min eCW1 ([facility]) Body temperature 98.0 [degF] 98.0 [degF] eCW1 ( [facility]) Systolic blood pressure 134 mm[Hg] 134 mm[Hg] e CW1 ([facility]) Diastolic blood pressure 70 mm[Hg] 70 mm[Hg] eCW1 ([facility]) Respiratory rate 18 /min 18 /min eCW1 ([facility]) Body temperature 97.4 [degF] 97.4 [degF] eCW1 ( [facility]) Systolic blood pressure 132 mm[Hg] 132 mm[Hg] e CW1 ([facility]) Diastolic blood pressure 74 mm[Hg] 74 mm[Hg] eCW1 ([facility]) Body weight 167 [lb_av] 167 [lb_av] eCW1 ([facility]) Body height 62 [in_i] 62 [in_i] eCW1 ([facility]) Body mass index (BMI) [Ratio] 30.54 kg/m2 30.54 kg/m2 eCW1 ([facility]) Heart rate 78 /min 78 /min eCW1 ([facility]) Patient Treatment Plan of Care Planned Activity Planned Date Details Description Data Source (s) Diazoxide 50 MG/ML Oral Suspension 04/01/2021 12:00:00 AM EDT eCW1 ([facility]) Diazoxide 50 MG/ML Oral Suspension 04/01/2021 12:00:00 AM EDT eCW1 ([facility]) Lancets 30G - 03/03/2021 12:00:00 AM EDT eCW1 ([facility]) Levothyroxine Sodium 0.05 MG Oral Tablet [Synthroid] 12:00:00 AM EDT eCW1 ([facility]) Levothyroxine Sodium 0.05 MG Oral Tablet [Synthroid] 12:00:00 AM EDT eCW1 ([facility]) Levothyroxine Sodium 0.05 MG Oral Tablet [Synthroid] 12:00:00 AM EDT eCW1 ([facility]) Ciprofloxacin 250 MG Oral Tablet [Cipro] 08/27/2020 12:00:00 AM EST eCW1 ([facility]) Ciprofloxacin 250 MG Oral Tablet [Cipro] 08/27/2020 12:00:00 AM EST eCW1 ([facility]) apixaban 2.5 MG Oral Tablet [Eliquis] 08/19/2020 12:00:00 AM EST eCW1 ([facility]) apixaban 2.5 MG Oral Tablet [Eliquis] 08/19/2020 12:00:00 AM EST eCW1 ([facility]) apixaban 2.5 MG Oral Tablet [Eliquis] 08/19/2020 12:00:00 AM EST eCW1 ([facility]) apixaban 2.5 MG Oral Tablet [Eliquis] 08/19/2020 12:00:00 AM EST eCW1 ([facility]) apixaban 2.5 MG Oral Tablet [Eliquis] 08/19/2020 12:00:00 AM EST eCW1 ([facility]) apixaban 2.5 MG Oral Tablet [Eliquis] 08/19/2020 12:00:00 AM EST eCW1 ([facility]) Folic Acid 1 MG Oral Tablet 07/18/2020 12:00:00 AM EST eCW1 ([facility]) Folic Acid 1 MG Oral Tablet 07/18/2020 12:00:00 AM EST eCW1 ([facility]) Folic Acid 1 MG Oral Tablet 07/18/2020 12:00:00 AM EST eCW1 ([facility]) Folic Acid 1 MG Oral Tablet 07/18/2020 12:00:00 AM EST eCW1 ([facility]) Folic Acid 1 MG Oral Tablet 07/18/2020 12:00:00 AM EST eCW1 ([facility]) Folic Acid 1 MG Oral Tablet 07/18/2020 12:00:00 AM EST eCW1 ([facility]) Folic Acid 1 MG Oral Tablet 07/18/2020 12:00:00 AM EST eCW1 ([facility])
[2021-04-18] MEDS ORDERED: FERR1TAB8 PO (17:59)
[2021-04-18] MEDS ORDERED: SYNT88TA2 PO (17:59)
[2021-04-18] MEDS ORDERED: VENTAER INH (17:59)
[2021-04-18] MEDS ORDERED: HOME MED LIST COMPLETE! XX SCH (18:00)
[2021-04-18 18:14] LABS: CALCIUM LEVEL 8.2 MG/DL (8.8-10.2); CREATININE FOR GFR 3.03 MG/DL (0.55-1.30); GLOMERULAR FILTRATION RATE 15.5 (>32); POTASSIUM SERUM 5.7 MEQ/L (3.5-5.1)
--- NOTE | 2021-04-18 18:23 | ECGEPIP ---
[facility] - ED Test Date: 2021-04-18 Pat Name: GEORGIANA BALLESTEROS Department: Room: - Gender: Female [employer]: RAEGAN : 1930 Requested By: ALLYSON HERNANDEZ Order Number: [id number] Reading MD: Shelia Randolph Measurements Intervals [place] Rate: 60 P: 26 MA: 164 QRS: -33 QRSD: 90 T: 32 QT: 474 QTc: 474 Interpretive Statements Normal sinus rhythm Left axis deviation Nonspecific ST and T wave abnormality Prolonged QT, clinical correlation decreased rate 03/24/21 Electronically Signed on 04-18-2021 18:22:45 EDT by Shelia Randolph
[2021-04-18] MEDS ORDERED: LevoFLOXacin IV 500 MG in IV 1 EA IV ONE (18:45)
--- NOTE | 2021-04-18 18:52 | REP ---
INDICATION: FCO. COMPARISON: Prior CT 02/13/2021 reviewed TECHNIQUE: Real-time sonographic evaluation of the right upper quadrant with Doppler FINDINGS: Multiple ultrasonographic images of the right kidney show the right kidney to measure 9.8 x 4.8 x 5.3 cm. There are 2 cyst in the lower pole 1 measuring 2 cm in the other 5.5 cm. The renal cortical echotexture is unremarkable. There are no masses. There is good corticomedullary differentiation. There is no hydronephrosis. There are no perinephric fluid collections. Multiple ultrasonographic images of the left kidney show the left kidney to measure 10 x 3.6 x 4.5 cm. The renal cortical echotexture is unremarkable. There are no masses. There is good corticomedullary differentiation. There is no hydronephrosis. There are no perinephric fluid collections. Note is made of cholelithiasis known from the prior CT IMPRESSION: Known right renal cysts and known cholelithiasis no acute abnormalities identified <Electronically signed by Suresh Ly > 04/18/21 [id number]
[2021-04-18] MEDS: NS 1,000 ML IV SCH (19:07)
[2021-04-18] MEDS: FERROUS SULFATE 325MG TAB PO SCH (21:34)
[2021-04-18 22:26] LABS: CALCIUM LEVEL 7.7 MG/DL (8.8-10.2); CREATININE FOR GFR 2.97 MG/DL (0.55-1.30); GLOMERULAR FILTRATION RATE 15.9 (>32); POTASSIUM SERUM 5.9 MEQ/L (3.5-5.1)
[2021-04-19] VITALS (14 sets, daily range): BP systolic 93–117; BP diastolic 50–55
[2021-04-19] MEDS: NS 1,000 ML IV SCH ×2 (03:00→10:51)
[2021-04-19 07:37] LABS: HEMATOCRIT 27.7 % (36.0-47.0); HEMOGLOBIN 8.4 g/dl (12.0-15.5); MEAN CORPUSCULAR HEMOGLOBIN 32.4 pg (27.0-33.0); MEAN CORPUSCULAR HGB CONC 30.3 g/dl (32.0-36.5); MEAN CORPUSCULAR VOLUME 106.9 fl (80.0-96.0); PLATELET COUNT, AUTOMATED 153 10^3/uL (150-450); RED BLOOD COUNT 2.59 10^6/uL (4.00-5.40); WHITE BLOOD COUNT 8.2 10^3/uL (4.0-10.0)
[2021-04-19 08:00] LABS: ALBUMIN 1.9 GM/DL (3.2-5.2); BILIRUBIN,TOTAL 0.6 MG/DL (0.2-1.0); CALCIUM LEVEL 7.5 MG/DL (8.8-10.2); CREATININE FOR GFR 2.97 MG/DL (0.55-1.30); GLOMERULAR FILTRATION RATE 15.9 (>32); POTASSIUM SERUM 5.9 MEQ/L (3.5-5.1); TOTAL PROTEIN 7.1 GM/DL (6.4-8.2)
[2021-04-19] MEDS ORDERED: NS 1,000 ML IV ONE (08:25)
[2021-04-19] MEDS: LEVOTHYROXINE 88MCG TABLET (0.088 MG) PO SCH (09:00)
[2021-04-19] MEDS: ALBUTEROL 90 MCG/ACT 8GM HFA INHALER INH PRN (09:17)
[2021-04-19] MEDS: VITAMIN D 1,000 INTERNATIONAL UNITS TABLET PO SCH (12:15)
--- NOTE | 2021-04-19 13:57 | IPNPDOC ---
Date Seen The patient was seen on 04/19/21. Progress Note SUBJECTIVE: Blood pressure remains on the lower end despite not being on antihypertensives. She was given another bolus of fluid and continuous was later decreased to due to BNP elevated. She had some increased wheezing today without crackles. Urine culture negative, antibiotics stopped. Creatinine slowly improving, urine output is minimal but present. Discussed case with Dr. Alejandra. She denies chest pain, increased shortness of breath, fevers, chills, nausea or vomiting. OBJECTIVE: PHYSICAL EXAMINATION: VITALS: see below GENERAL: weak, NAD HEENT: NCAT, EOMI, MMM CARDIOVASCULAR: Normal S1 and S2. No extra heart sounds or murmurs. LUNGS: mild wheezing b/l. No rhonchi, rales, crackles ABDOMEN: No tenderness to palpation. Normoactive bowel sounds, soft. : Mc catheter in place draining ami urine, 225 mL in the bag EXTREMITIES: 2+ pedal pulses, WWP, trace nonpitting LE edema NEUROLOGICAL: No weakness or loss of sensation in extremities. CN 3-12 intact PSYCHIATRIC: Alert and oriented x 3. LABORATORY DATA: as noted above CXR: The technique utilized in obtaining the radiograph has magnified the cardiac silhouette and accentuated the interstitial markings. Once again, there is cardiomegaly accentuated by technique. Once again, there is an increase in the interstitial markings throughout the lung campbell with a reticulonodular appearance status quo. No acute patchy parenchymal opacities or pleural effusions have developed. There is no change in the osseous structures. MICROBIOLOGY: UA+, UC NG BCx NG IMAGING: Echocardiogram 11/2019: 1. Normal left ventricle internal dimensions and wall thickness. Normal regional left ventricular (LV) wall motion and wall thickening. Normal LV systolic function. Left ventricular ejection fraction (LVEF) 65% by visual estimate. Grade 1 LV diastolic dysfunction (impaired relaxation filling pattern). 2. Abbreviated pulmonary acceleration time suggestive of at least moderate elevation of pulmonary artery systolic pressure. 3. Mild mitral annular calcification. No mitral regurgitation. 4. Mild aortic valve sclerosis of a 3-cusp aortic valve. Very mild aortic regurgitation. ASSESSMENT: 89-year-old W with a history of PE on eliquis, HTN, hypothyroidism, gout, asthma, chronic anemia, HLD, osteopenia, SVT, CKD 3A who presented to the ED with weakness and SOB with any exertion who is now being admitted to medicine for acute on chronic now symptomatic anemia. PLAN: Hypotension likely secondary to dehydration, home medications -Hx of HTN on atenolol, HCTZ at home -BP remains lower, despite aggressive fluid hydration. S/p one additional fluid bolus and currently on continuous fluids -Decreased appetite began after starting of Diazoxide, poor intake of food and fluids since then. One episode of diarrhea, nonbloody -Cx's neg so not suspecting infection, septic shock -Lactic acid wnl, troponin negative. Not suspecting cardiac cause for hypotension -Holding all antihypertensive medications for now -Telemetry -Discussion was had by both myself and ER provider about the possibility of needing pressors to help support her blood pressure. The patient states she refuses central line to both of us. Risks were discussed and she understood. Pressor support would be needing to be initiated after a total of 4 L. -Stopped abx. C/w continous fluids, decreased rate due to incr BNP Acute kidney injury on CKD stage III likely multifactorial to dehydration, home medications and hypotension also as complicating factor -Baseline creatinine 1.01.24. Currently 2.97, improved from 3.27. -Mc catheter in place, not great u/o -Hold all nephrotoxic medications -Manage blood pressure as above -Daily labs -Nephrology consulted Hyperkalemia likely multifactorial to acute kidney injury and supplemental potassium at home -Status post calcium chloride administration, no EKG changes -Remains elevated at 5.9 -Improving slowly with improvement of acute kidney injury and IV fluids -No changes on tele -Holding home KCl, Kayexalate. repeating bMP later today, if still elevated will give insulin/dextrose -Discussed with nephrology -Daily labs -Tele HFpEF with mild exacerbation -BNP elevated > 5K, no crackles but wheezing on exam but has received large amount of fluids over 24 hours -Remains on RA, mild SOB -Still hypotensive so decreased fluids to gentle rate -Hoping her BP improves so can intermittently diurese. If worsens with incr O2 demand, give lasix dose if able -If not, will need to discuss pressors if MAP < 65 mmHg -Last echo above. -Consider cardiology consult. Lactic acidosis likely 2/2 to FCO- resolved -Improved with fluids Chronic CARLOS anemia -H/H slightly lower today, no s/s of bleeding -hx of blood transfusions -F/u cbc -C/w supplemental iron History of PE: - C/w eliquis Hypothyroidism -continue synthroid Asthma -Wheezing today on exam -Stable on RA -Albuterol PRN Hx of low blood sugar -BS currently stable -Was placed on diazoxide BID by primary within the last week for this -Monitor closely GERD -PPI DVT prophylaxis: -Eliquis DISPOSITION: Admitted to ICU for close management of blood pressure. Will need PT/OT when stable. TOTAL AMOUNT OF ICU time spent managing patient: 60 mins VS, I&O, 24H, Fishbone Vital Signs/I&O Vital Signs Date Time Temp Pulse Resp B/P (MAP) Pulse Ox O2 Delivery O2 Flow Rate FiO2 04/19/21 13:16 56 98 04/19/21 13:01 21 95/49 (64) 04/19/21 08:30 98.6 04/19/21 08:01 Room Air 04/19/21 06:30 1.0 I&O- Last 24 Hours up to 6 AM 04/19/21 06:00 Intake Total 3550 ml Balance 3550 ml Laboratory Data 24H LABS Laboratory Tests 2 04/18/21 13:59: Immature Granulocyte % (Auto) 0.4, Neutrophils (%) (Auto) 78.8H, Lymphocytes (%) (Auto) 8.5L, Monocytes (%) (Auto) 6.4, Eosinophils (%) (Auto) 5.5H, Basophils (%) (Auto) 0.4, Neutrophils # (Auto) 6.2, Lymphocytes # (Auto) 0.7L, Monocytes # (Auto) 0.5, Eosinophils # (Auto) 0.4, Basophils # (Auto) 0.0, Nucleated Red Blood Cells % (auto) 0.0, Anion Gap 6L, Glomerular Filtration Rate 14.2L, Calcium Level 7.7L, Total Bilirubin 0.7, Direct Bilirubin 0.3H, Aspartate Amino Transf (AST/SGOT) 19, Alanine Aminotransferase (ALT/SGPT) 13, Alkaline Phosphatase 116, Total Creatine Kinase 51, Creatine Kinase MB 1.2, Creatine Kinase MB Relative Index 2.35, Troponin I < 0.02, Total Protein 7.8, Albumin 2.1L, Albumin/Globulin Ratio 0.4L, Thyroid Stimulating Hormone (TSH) 1.580, Coronavirus (COVID-19)(PCR) NEGATIVE, Influenza Type A (RT-PCR) NEGATIVE, Influenza Type B (RT-PCR) NEGATIVE, Respiratory Syncytial Virus (PCR) NEGATIVE 04/18/21 14:09: Lactic Acid Level 2.6*H 04/18/21 14:10: Iron Level 28L, Total Iron Binding Capacity 269, Transferrin % Saturation 10.4L, Lipase 25L 04/18/21 17:24: Anion Gap 7L, Glomerular Filtration Rate 15.5L, Calcium Level 8.2L, Lactic Acid Level 1.4 04/18/21 18:33: Urine Color YELLOW, Urine Appearance CLOUDYH, Urine pH 5.0, Urine Specific [place] 1.012, Urine Protein 2+H, Urine Glucose (UA) NEGATIVE, Urine Ketones NEGATIVE, Urine Blood 3+H, Urine Nitrite NEGATIVE, Urine Bilirubin NEGATIVE, Ur ine Urobilinogen 0.2, Urine Leukocyte Esterase TRACEH, Urine WBC (Auto) 21H, Urine RBC (Auto) TNTCH, Urine Hyaline Casts (Auto) 1, Urine Bacteria (Auto) 1+H, Urine Squamous Epithelial Cells 1, Urine Mucus (Auto) SMALL, Urine Sperm (Auto) 04/18/21 21:32: Anion Gap 8, Glomerular Filtration Rate 15.9L, Calcium Level 7.7L 04/19/21 07:14: Anion Gap 5L, Glomerular Filtration Rate 15.9L, Calcium Level 7.5L, Nucleated Red Blood Cells % (auto) 0.0, Total Bilirubin 0.6, Aspartate Amino Transf (AST/SGOT) 19, Alanine Aminotransferase (ALT/SGPT) 12, Alkaline Phosphatase 101, CF-Dlj-A-Type Natriuretic Peptide 5196H, Total Protein 7.1, Albumin 1.9L, Albumin/Globulin Ratio 0.4L CBC/BMP Laboratory Tests 04/18/21 13:59 04/18/21 17:24 04/18/21 21:32 04/19/21 07:14 Microbiology Microbiology 04/18/21 Urine Culture - Final, Complete 04/18/21 Blood Culture, Received Pending 04/18/21 Blood Culture, Received Pending Penelope Chapin MD Apr 19, 2021 13:57
[2021-04-19 17:19] LABS: ABG BASE EXCESS -7.9 (-2.0-2.0); ABG HCO3 16.6 MEQ/L (22.0-26.0); ABG O2 SATURATION 96.3 % (95.0-99.0); ABG PARTIAL PRESSURE CO2 30.5 mmHg (35.0-45.0); ABG TOTAL CO2 17.5 MEQ/L (23.0-31.0); ABG pH (ARTERIAL) 7.354 UNITS (7.350-7.450)
[2021-04-19 18:58] LABS: INR 1.47; PROTHROMBIN TIME 18.3 SECONDS (12.7-14.5)
[2021-04-19] MEDS ORDERED: NOREPINEPHRINE BITARTRATE 8 MG in D5W 492 ML IV SCH (19:00)
[2021-04-19 19:05] LABS: CALCIUM LEVEL 7.1 MG/DL (8.8-10.2); CREATININE FOR GFR 3.07 MG/DL (0.55-1.30); GLOMERULAR FILTRATION RATE 15.3 (>32); POTASSIUM SERUM 5.8 MEQ/L (3.5-5.1)
[2021-04-19] MEDS: VANCOMYCIN HCL 750 MG, VIAL MATE ADAPTER 1 EACH in NS 250 ML IV SCH ×2 (20:00→21:00)
--- NOTE | 2021-04-19 20:07 | CR ---
CONSULTATION DATE OF CONSULTATION: 04/19/2021 REASON FOR CONSULTATION: Central line/Trialysis catheter placement. HISTORY OF PRESENT ILLNESS: Patient is an 89-year-old female who presented to the hospital with nausea and weakness. She was hypotensive in the emergency room (ER) and she was ultimately admitted with hypotension likely secondary to dehydration as well as acute on chronic renal disease, hyperkalemia, and lactic acidosis. She currently is in the intensive care unit (ICU). She has been on fluid replacements with two peripheral lines for the last 24 hours. She is still having issues with hypotension as well as worsening renal failure and because of that they have elected to cut back on fluids and attempt pressors for her kidneys. She also is possibly going to require dialysis in the near future, therefore they have requested Trialysis catheter placement. PAST MEDICAL HISTORY: Hypertension, hypothyroidism, gout, pulmonary embolus (PE) on Eliquis, chronic kidney disease stage 3a, asthma, dyslipidemia, osteopenia, anemia. PAST SURGICAL HISTORY: Hip replacement, knee replacement, recurrent kidney stones, thyroidectomy. SOCIAL HISTORY: Denies drug, alcohol, or tobacco abuse. FAMILY HISTORY: Noncontributory. ALLERGIES: Cats, ACETAMINOPHEN, ALLOPURINOL, KELFEX, MIRTAZAPINE, ROPINIROLE. HOME MEDICATIONS: Please see medication reconciliation. REVIEW OF SYSTEMS: Pertinent positives and negatives as stated in the history of present illness (HPI). PHYSICAL EXAMINATION: General: Alert and oriented times three, no acute distress. Vital signs: Temperature 97.3, pulse 96, respirations 30, blood pressure 98/55, pulse oximetry 98% on 3 liters nasal cannula. HEENT: Pupils equally round and reactive to light and accommodation. Heart: S1, S2, regular rate and rhythm. Lungs: Clear to auscultation bilaterally. Abdomen: Soft, nontender, nondistended. Extremities: Bilateral lower extremity pitting edema. LABORATORY DATA: White count 8.2, hemoglobin 8.4, platelets 153, INR 1.47, PT 18.3, potassium 5.8, creatinine 3.07, lactic acid 1.5. ASSESSMENT AND PLAN: Patient again is an 89-year-old female with acute on chronic kidney disease as well as hypotension currently in need for central line access for pressor support as well as likely dialysis access. Recommendation is placement with Trialysis catheter. Risks and benefits of proceeding not limited to but including bleeding, infection, damage to surrounding structures, and need for further procedure were discussed in detail with the patient. Informed consent was obtained and procedure was completed at the bedside in the intensive care unit (ICU). Post-procedure she can use the catheter as needed and the intensive care unit (ICU) staff is capable of removing the catheter once it is no longer needed.
--- NOTE | 2021-04-19 20:24 | CR ---
CONSULTATION DATE: 04/19/2021 REQUESTING PHYSICIAN: Penelope Chapin M.D. REASON FOR CONSULTATION: Acute kidney injury and hyperkalemia. HISTORY OF PRESENT ILLNESS: I was asked to see this 89-year-old lady in the emergency room. She was admitted last evening with nausea and weakness and noticed to have acute kidney injury and hyperkalemia. She was known history of pulmonary embolus in the past, hypertension, hypothyroidism, gout, asthma, hyperlipidemia, stage 3 of chronic kidney disease and a history of SVT in the past. She presented to the emergency room with nausea and weakness over the last few days. She feels that she was prescribed a new medication by her primary physician and after starting that medication which according to her admission history was diazoxide, she started to feel nauseated. She has not been eating or drinking for the last few days and presented to emergency room with low blood pressure and was felt to be dehydrated. Her potassium level was 6.4, BUN was in the 80s and creatinine was 3.27. She had been given fluid boluses and also was given IV normal saline. Her blood pressure is still about 90/50 mmHg. PAST MEDICAL AND SURGICAL HISTORY: 1. Hypertension. 2. Hypothyroidism. 3. Gout. 4. History of prior pulmonary embolism on chronic anticoagulation. 5. Stage 3 of chronic kidney disease. 6. Asthma. 7. Dyslipidemia. 8. Osteopenia. 9. Anemia. 10. History of . PAST SURGICAL HISTORY: 1. Kidney stones requiring lithotripsies. 2. Thyroidectomy. 3. Knee replacement. 4. Hip replacement. PERSONAL AND SOCIAL HISTORY: Patient is and lives with her . She quit smoking about 30 years ago. Denies any alcohol or drug use. FAMILY HISTORY: Noncontributory. HOME MEDICATIONS: 1. Atenolol 50 mg daily. 2. Vitamin D 1000 units daily. 3. Diazoxide 50 mg b.i.d. 4. Ferrous sulfate 325 mg daily. 5. Hydrochlorothiazide 12.5 mg daily. 6. Levothyroxine 88 mcg daily. 7. Potassium chloride 20 mEq b.i.d. 8. Albuterol inhaler as needed. ALLERGIES: SHE HAS ALLERGY TO ALLOPURINOL, CEPHALEXIN, TYLENOL, REQUIP AND MIRTAZAPINE. REVIEW OF SYSTEMS: Patient denies any fever or chills. She has been feeling nauseated and no appetite. She reports that she has not been eating for the last couple of days. Ears, nose and throat are unremarkable. Cardiovascular system: Negative for any chest pain or dyspnea at present. She does have some leg edema. Respiratory system is negative for cough or hemoptysis. GI system is significant for nausea and vomiting for a few days. She denies any abdominal pain at present. system is negative for dysuria or hematuria. She does have prior history of kidney stones. Renal ultrasound was done last evening in the emergency room and did not show any hydronephrosis. She has normal size kidneys with a right renal cyst. Musculoskeletal system is significant for arthritis and prior knee and hip replacement. Endocrine system is significant for hypothyroidism and no history of diabetes. Psychosocial system: Negative for depression or anxiety. Neurological system is negative for seizures or stroke. Hematological system is significant for anemia. She denies any bruising or bleeding problems. Skin is negative for rash or ulcers. PHYSICAL EXAMINATION: Elderly lady lying in the stretcher without any acute distress. Blood pressure 92/50 mmHg and heart rate about 58 per minute. Respiratory rate is 24 per minute. Oxygen saturation 98%. Head is atraumatic. Her oral mucosa is dry but without any thrush or ulcers. Pupils are equal and reactive to light. Her sclera is anicteric. Ears, nose and throat are unremarkable. Heart exam reveals regular S1 and S2. There is no precordial or friction rub. Lungs had slightly diminished breath sounds at bases but without any wheezing or rub at this time. Abdomen is soft but she does have some guarding of her abdominal muscles when I try to push deep. She denies any significant tenderness. Bowel sounds are present. Extremities have no cyanosis or clubbing. She does have some lower extremity edema. Skin is without any rash or ulcers. Neurologically she is awake, alert and oriented x3. LABORATORY DATA: Last evening, her WBC count was 7.8, hemoglobin 9.1 and hematocrit 29.3. Platelets 169. This morning, WBC count 8.2, hemoglobin 8.4 and hematocrit 27.7. Platelets 153. Her initial chemistry on arrival to emergency room showed sodium 134, potassium 6.4, CO2 25, BUN 45 and creatinine 3.27. Glucose 176 and calcium 7.7. Total protein 7.8 and albumin 2.1. Another set of chemistries repeated last night showed potassium at 5.7 and then 5.9. BUN was 44 and creatinine 2.97. This morning at 7 a.m., sodium 137, potassium 5.9, CO2 20, BUN 44 and creatinine 2.97. Glucose 71 and calcium 7.5. A BNP level 5196 and albumin down to 1.9. Total protein is 7.1. PROBLEMS: 1. Acute renal failure superimposed on chronic kidney disease. She does have history suggestive of dehydration due to nausea and poor oral intake for a few days. She has been on hydrochlorothiazide given the small dose. She looked quite dehydrated with dry oral mucosa. Now she has a significant amount of IV fluid here in the emergency room but blood pressure still remains low. I feel that there is probably more than just medication side effect causing her nausea. Even though she does not have fever or leukocytosis, I feel that the possibility of infection or other causes need to be ruled out. Urinalysis did show 21 WBCs and 1+ bacteria and she might have at least a UTI. A renal ultrasound has already been done which ruled out hydronephrosis or kidney stones. The patient has been given levofloxacin and Zosyn. She also received vancomycin. Broad-spectrum antibiotic coverage is recommended considering the possibility of infra-abdominal process. I will recommend a CT scan of abdomen and pelvis to rule out any possibility of bowel involvement as she does feel some guarding on palpation. 2. Hyperkalemia and this most likely related to acute renal failure and she was also taking some potassium supplement. She has received a large amount of IV fluid but urine output is minimal. At this point, we will continue with IV fluid and try to get her blood pressure improved after which we can probably give her a trial of diuretic. She had some improvement in the potassium level since admission. 3. Anemia. Her anemia is also getting worse as she is being hydrated. I would recommend another CBC later on as she is being given more IV fluid. 4. Hypotension. At home, she was taking atenolol and hydrochlorothiazide which she has not taken at least today. Her low blood pressure is most likely a result of infection and not just dehydration. She has received a large amount of IV fluids. She is also receiving broad-spectrum antibiotics. It is quite possible that she will need pressors. Initially she declined a central line placement. However, she has recently consented for it and I agree for the possibility for a dialysis catheter placement at the same time in case she will need dialysis. At the time of my initial visit with her, I did not discuss the potential need for dialysis. However, I will need to discuss that at my next visit. Thank you for involving me in the care of Mrs. Saez. I will follow her along with you.
[2021-04-19] MEDS: FERROUS SULFATE 325MG TAB PO SCH (20:59)
[2021-04-19] MEDS: HEPARIN SOD (PORCINE) 5000UNITS/ML 1ML VIAL/SYRINGE SQ SCH (20:59)
[2021-04-19] MEDS ORDERED: VANCOMYCIN INTERMITTENT/PULSE DOSING BY CLINICAL PHARMACIST PER DOSING PROTOCOL XX SCH (21:05)
--- NOTE | 2021-04-19 21:29 | ECGEPIP ---
[facility] Test Date: 2021-04-19 Pat Name: GEORGIANA BALLESTEROS Department: Room: [place] [address] Gender: Female Home Stager: AVERY : [id number] Requested By: Penelope Echevarria Order Number: [id number] Reading MD: Brent Lang Measurements Intervals [place] Rate: 55 P: 42 ME: 162 QRS: -26 QRSD: 90 T: 72 QT: 502 QTc: 480 Interpretive Statements Sinus bradycardia LAD Low QRS complex voltage in the limb leads Nonspecific ST-T wave abnormality Prolonged QTc Little change since prior tracing of 04/18/2021 Electronically Signed on 04-19-2021 21:28:49 EDT by Brent Lang
[2021-04-20] VITALS (44 sets, daily range): BP systolic 90–113; BP diastolic 44–56
[2021-04-20] MEDS: PIPERACILLIN/TAZOBACTAM SOD 2.25 GM in D5W MINI-BAG PLUS 50 ML IV SCH ×4 (00:32→20:13)
[2021-04-20 04:58] LABS: HEMATOCRIT 28.2 % (36.0-47.0); HEMOGLOBIN 8.6 g/dl (12.0-15.5); MEAN CORPUSCULAR HEMOGLOBIN 32.3 pg (27.0-33.0); MEAN CORPUSCULAR HGB CONC 30.5 g/dl (32.0-36.5); PLATELET COUNT, AUTOMATED 146 10^3/uL (150-450); RED BLOOD COUNT 2.66 10^6/uL (4.00-5.40); WHITE BLOOD COUNT 8.9 10^3/uL (4.0-10.0)
[2021-04-20 05:27] LABS: ALBUMIN 1.9 GM/DL (3.2-5.2); BILIRUBIN,TOTAL 0.6 MG/DL (0.2-1.0); CALCIUM LEVEL 7.2 MG/DL (8.8-10.2); CREATININE FOR GFR 3.08 MG/DL (0.55-1.30); GLOMERULAR FILTRATION RATE 15.2 (>32); POTASSIUM SERUM 5.8 MEQ/L (3.5-5.1); TOTAL PROTEIN 7.4 GM/DL (6.4-8.2); VANCOMYCIN RANDOM 16.4 UG/ML
[2021-04-20] MEDS ORDERED: VANCOMYCIN HCL 1,000 MG, VIAL MATE ADAPTER 1 EACH in NS 250 ML IV ONE (08:00)
[2021-04-20] MEDS: HEPARIN SOD (PORCINE) 5000UNITS/ML 1ML VIAL/SYRINGE SQ SCH ×2 (08:05→20:13)
[2021-04-20] MEDS: LEVOTHYROXINE 88MCG TABLET (0.088 MG) PO SCH (08:05)
--- NOTE | 2021-04-20 10:31 | REP ---
INDICATION: r/o abdominal cause of infection, sepsis. COMPARISON: Multiple the latest 02/13/2021 a contrast-enhanced exam TECHNIQUE: Standard helical technique without intravenous or oral bowel preparatory contrast administration FINDINGS: Bilateral pleural effusions have developed since the last exam left greater than right. There is a large right lower lobe lung nodule which is unchanged. There is evidence of left lower lobe consolidation with air bronchograms abutting the left pleural effusion. There is cardiomegaly status quo. There is no significant change in appearance of the liver, gallbladder, spleen, pancreas, adrenal glands, or kidneys. Once again, there is recanalization of the umbilical vein with evidence of portal hypertension and splenomegaly. Once again, there is cholelithiasis. There is an unchanged right renal cyst and there are bilateral nephroliths status quo. There is no change in appearance of the abdominal aorta or para-aortic regions. There is calcific atherosclerotic change status quo. Since the last exam, multiple mildly dilated gas filled the small bowel loops are seen in the abdomen. There is no evidence of free air. There is a small amount of free pelvic fluid which has developed since the last exam. [place] artifact is seen arising from a right hip prosthesis limiting evaluation of the pelvis. There is a Mc balloon in the urinary bladder decompressing it. Bone window technique throughout the examination shows no significant change in appearance of the osseous structures. IMPRESSION: 1. Bilateral pleural effusions and other lung base findings as described above. Basilar pneumonia cannot be ruled out. 2. Portal hypertension status quo. 3. Cholelithiasis and nephrolithiasis status quo. 4. Unchanged right renal cyst. 5. Small amount of free pelvic fluid. 6. Ileus versus early SBO. 7. Other findings as described above. <Electronically signed by Suresh Ly > 04/20/21 [id number]
[2021-04-20] MEDS: VITAMIN D 1,000 INTERNATIONAL UNITS TABLET PO SCH (12:38)
--- NOTE | 2021-04-20 12:49 | RO ---
OPERATIVE NOTE DATE OF OPERATION: 04/19/21 PREPROCEDURE DIAGNOSIS: Hypotension and renal failure. POSTOPERATIVE DIAGNOSIS: Hypotension and renal failure. PROCEDURE: 1. Ultrasound-guided access of left femoral vein. 2. Placement of Trialysis catheter in left femoral vein. 3. Interpretation and review of ultrasound for placement of a central line. SURGEON: Stiven Kimball DO FILING CLERK: None. ANESTHESIA: 5 mL 1% lidocaine. COMPLICATIONS: None. INDICATION FOR PROCEDURE: The patient is an 89-year-old female currently with end-stage renal disease, [id number] renal failure and hypotension, currently needing central line access for pressor medications as well as likely will need dialysis in the near future. Recommendations were placement of a dialysis catheter. Risks and benefits of the procedure not limited to but including bleeding, infection, damage to surrounding structures, need for further surgery were discussed in detail with the patient. Informed consent was obtained and procedure is planned. DESCRIPTION OF PROCEDURE: The patient is at the bedside in ICU, room 3221 with the assistance of the nurse on staff, Arjun. After consent was obtained, the left groin was visualized under ultrasound to confirm positioning for the femoral vein. Next, the left groin was sterilely prepped and draped with Chlorhexidine. Following that, ultrasound was used again to identify the location of the vein. Next under ultrasound guidance, the skin and subcutaneous tissue overlying the vein was infiltrated with lidocaine. Once that was completed, a cannulation needle was used to gain access to the femoral vein with one needle poke. Once that was completed and there was nonpulsatile dark red blood coming out of the needle, guidewire was passed through the needle into the vessel with minimal resistance. Over top of the needle, an 11 blade scalpel was used to make a small skin incision. The needle was then removed over top of the guidewire. Dilator was passed over top of the guidewire into the vessel and then removed and then the catheter was passed over top of the guidewire and the guidewire was removed intact, leaving the catheter in place. Once that was completed, all three ports were capped. All three ports were flushed easily with saline, no signs of any obstructions. The catheter was sutured in place with a silk suture. The area was sterilely cleaned and dried and a sterile dressing was applied. The patient tolerated the procedure well and will be continuing with her care in the ICU. KARINA
--- NOTE | 2021-04-20 13:28 | REP ---
INDICATION: ng tube placement. COMPARISON: 04/18/2021. TECHNIQUE: Single portable AP view of the chest was performed. FINDINGS: The images centered at the gastroesophageal junction to evaluate NG tube placement. The side port of the nasogastric tube is in the stomach. The visualized lungs, heart and mediastinum are unchanged. IMPRESSION: Nasogastric tube side port in the stomach. <Electronically signed by Stiven Handy > 04/20/21 [id number]
[2021-04-20] MEDS ORDERED: NOREPINEPHRINE BITARTRATE 8 MG in D5W 492 ML IV SCH ×2 (14:35→15:00)
--- NOTE | 2021-04-20 15:07 | IPNPDOC ---
Date Seen The patient was seen on 04/20/21. Progress Note SUBJECTIVE: Trialysis catheter placed last evening by general surgery due to difficulty getting blood, possible need for pressor support if BP did not improve. Pressors did not need to be initiated. CT abdomen this AMcould not r/o ileus vs. SBO- d/w Dr. Cuellar over the phone, official consult not placed. NG tube placed. NPO status started. CT showed worsening b/l pleural effusions so lasix gtt started per nephrology. She denies chest pain, increased shortness of breath, fevers, chills, nausea or vomiting. OBJECTIVE: PHYSICAL EXAMINATION: VITALS: see below GENERAL: weak, NAD resting in bed HEENT: NCAT, EOMI, MMM CARDIOVASCULAR: Normal S1 and S2. No extra heart sounds or murmurs. LUNGS: mild wheezing with crackles in the lower lungs b/l. No rhonchi, rales ABDOMEN: No tenderness to palpation. Normoactive bowel sounds, soft. Left groin trialysis catheter in place : Mc catheter in place draining ami urine EXTREMITIES: 2+ pedal pulses, WWP, +3 pitting edema in all extremities NEUROLOGICAL: No weakness or loss of sensation in extremities. CN 3-12 intact PSYCHIATRIC: Alert and oriented x 3. LABORATORY DATA: -Please see below IMAGING: CT ABD/PELVIS: 1. Bilateral pleural effusions and other lung base findings as described above. Basilar pneumonia cannot be ruled out. 2. Portal hypertension status quo. 3. Cholelithiasis and nephrolithiasis status quo. 4. Unchanged right renal cyst. 5. Small amount of free pelvic fluid. 6. Ileus versus early SBO. CXR: The technique utilized in obtaining the radiograph has magnified the cardiac silhouette and accentuated the interstitial markings. Once again, there is cardiomegaly accentuated by technique. Once again, there is an increase in the interstitial markings throughout the lung campbell with a reticulonodular appearance status quo. No acute patchy parenchymal opacities or pleural effusions have developed. There is no change in the osseous structures. Echocardiogram 11/2019: 1. Normal left ventricle internal dimensions and wall thickness. Normal regional left ventricular (LV) wall motion and wall thickening. Normal LV systolic function. Left ventricular ejection fraction (LVEF) 65% by visual estimate. Grade 1 LV diastolic dysfunction (impaired relaxation filling pattern). 2. Abbreviated pulmonary acceleration time suggestive of at least moderate elevation of pulmonary artery systolic pressure. 3. Mild mitral annular calcification. No mitral regurgitation. 4. Mild aortic valve sclerosis of a 3-cusp aortic valve. Very mild aortic regurgitation. MICROBIOLOGY: UA+, UC NG BCx NG to date F/u sputum culture if able to be given ASSESSMENT: 89-year-old W with a history of PE on eliquis, HTN, hypothyroidism, gout, asthma, chronic anemia, HLD, osteopenia, SVT, CKD 3A who presented to the ED with weakness and SOB with any exertion who is now being admitted to medicine fo r acute on chronic now symptomatic anemia. PLAN: Hypotension likely secondary to dehydration, home medications. R/o infection, cardiac cause -Hx of HTN on atenolol, HCTZ at home -BP remains lower, despite aggressive fluid hydration. S/p one additional fluid bolus and currently on continuous fluids -Decreased appetite began after starting of Diazoxide, poor intake of food and fluids since then. One episode of diarrhea, nonbloody -Cx's, initial CXR from admission and CT abd not suspicious for infection; however, CT cannot r/o PNA. Will order procalcitonin to r/o PNA and keep currently abx while we r/o suspecting infection, septic shock -Lactic acid wnl, troponin negative x 1. F/u repeat today. Ordering repeat echocardiogram today -Holding all antihypertensive medications for now -Telemetry -Trialysis cath done by surgery last evening. Pressors PRN to maintain MAP > 65 mmHg -C/w empiric abx while procal pending. If neg, consider d/c abx -Watch closely while on lasix gtt (see below) Acute kidney injury on CKD stage III likely multifactorial to dehydration, home medications and hypotension also as complicating factor -Baseline creatinine 1.01.24. Currently 3.08, not improving, oliguria -Mc catheter in place -Nephro: start lasix gtt today to see if improves -Discussed with patient that if we do not see an improvement with lasix gtt, CRRT could be discussed. She says that she would want dialysis/CRRT if needed. -Labs BID -Watch pressure closely while on lasix gtt Hyperkalemia likely multifactorial to acute kidney injury and supplemental potassium at home -Status post calcium chloride administration, no EKG changes -Remains elevated at 5.9 -No changes on tele -CMP BID -See if improves with lasix gtt -Discussed with nephrology -Tele HFpEF with mild exacerbation with b/l pleural effusions -BNP elevated > 5K, no crackles but wheezing on exam but has received large amount of fluids over 24 hours. Third spacing worsening -Started on 2 L NC, increasing SOB -On lasix gtt currently, monitor output closely, daily wt -Last echo above. Ordered for new one today -Consider cardiology consult. -Holding BB due to hypotension Ileus vs. SBO -CT above -Abdominal distention w/o n/v -D/w Dr. Cuellar, did not officially consult. Suggested NG tube. XR confirmed p lacement -NPO Chronic CARLOS anemia -H/H slightly lower today, no s/s of bleeding -hx of blood transfusions -F/u CBC -resume supplemental iron when taking PO History of PE: -Stopped eliquis as NPO -Heparin SC Hypothyroidism -Holding synthroid while NPO Asthma -Wheezing today on exam -Albuterol PRN Hx of low blood sugar -BS currently stable -Was placed on diazoxide BID by primary within the last week for this -Monitor closely GERD -PPI IV DVT prophylaxis: -Heparin SC RESOLVED ISSUES: Lactic acidosis likely 2/2 to FCO, ? sepsis/shock DISPOSITION: Admitted to ICU for close management. Will need PT/OT when stable. Updated her Osvaldo ([phone], ) in great detail today. CPR, DNI per patient's wishes. TOTAL AMOUNT OF ICU time spent managing patient: 70 mins VS, I&O, 24H, Ashly Vital Signs/I&O Vital Signs Date Time Temp Pulse Resp B/P (MAP) Pulse Ox O2 Delivery O2 Flow Rate FiO2 04/20/21 13:00 57 113/56 (75) 95 Nasal Cannula 2.0 04/20/21 12:01 97.0 20 I&O- Last 24 Hours up to 6 AM 04/20/21 06:00 Intake Total 2935 ml Output Total 432 ml Balance 2503 ml Laboratory Data 24H LABS Laboratory Tests 2 04/19/21 17:09: Blood Gas Bicarbonate Standard 18.0L, Arterial Blood pH 7.354, Arterial Blood Partial Pressure CO2 30.5L, Arterial Blood Partial Pressure O2 86.0, Arterial Bl ood Total CO2 17.5L, Arterial Blood HCO3 16.6L, Arterial Blood Base Excess - 7.9L, Arterial Blood Oxygen Saturation 96.3 04/19/21 18:30: Prothrombin Time 18.3H, Prothromb Time International Ratio 1.47, Activated Partial Thromboplast Time 45.0H, Anion Gap 5L, Glomerular Filtration Rate 15.3L, Lactic Acid Level 1.5, Calcium Level 7.1L, Ammonia 24, Troponin I < 0.02 04/20/21 04:41: Anion Gap 7L, Glomerular Filtration Rate 15.2L, Calcium Level 7.2L, Nucleated Red Blood Cells % (auto) 0.0, Total Bilirubin 0.6, Aspartate Amino Transf (AST/SGOT) 16, Alanine Aminotransferase (ALT/SGPT) 11L, Alkaline Phosphatase 105, Total Protein 7.4, Albumin 1.9L, Albumin/Globulin Ratio 0.3L, Random Vancomycin Level 16.4 CBC/BMP Laboratory Tests 04/19/21 18:30 04/20/21 04:41 Microbiology Microbiology 04/18/21 Urine Culture - Final, Complete 04/18/21 Blood Culture - Preliminary, Resulted No Growth after 48 hours. All Specime... 04/18/21 Blood Culture - Preliminary, Resulted No Growth after 48 hours. All Specime... Penelope Chapin MD Apr 20, 2021 15:07
[2021-04-20] MEDS: NOREPINEPHRINE BITARTRATE 8 MG in D5W 492 ML IV SCH (15:30)
[2021-04-20 15:59] LABS: ALBUMIN 2.1 GM/DL (3.2-5.2); ALT/SGPT 13 U/L (12-78); BILIRUBIN,TOTAL 0.6 MG/DL (0.2-1.0); BLOOD UREA NITROGEN 50 MG/DL (7-18); CALCIUM LEVEL 7.5 MG/DL (8.8-10.2); CARBON DIOXIDE LEVEL 20 MEQ/L (21-32); CHLORIDE LEVEL 108 MEQ/L (98-107); GLOMERULAR FILTRATION RATE 14.6 (>32); GLUCOSE, FASTING 144 MG/DL (70-100); SODIUM LEVEL 133 MEQ/L (136-145); TOTAL PROTEIN 7.3 GM/DL (6.4-8.2); TROPONIN I < 0.02 NG/ML (< 0.10)
[2021-04-20] MEDS ORDERED: FUROSEMIDE injection 250 MG in D5W 225 ML IV SCH (16:00)
--- NOTE | 2021-04-20 17:03 | REP ---
INDICATION: r/o DVT. COMPARISON: None. TECHNIQUE: Multiple ultrasonographic images of the deep venous structures of the bilateral upper extremity were obtained to rule out deep venous thrombosis. The contralateral subclavian vein was also interrogated in a limited fashion for comparison. FINDINGS: There is no abnormal echogenic material seen in any of the visualized deep venous structures of the bilateral upper extremity. Coaptation where applicable is appropriate throughout. IMPRESSION: No deep vein thrombosis in either right or left upper extremity. <Electronically signed by Suresh Ly > 04/20/21 0651
[2021-04-20] MEDS: PANTOPRAZOLE 40MG VIAL (C9113 PER 1) IV SCH (17:12)
[2021-04-20 18:58] LABS: ABG BASE EXCESS -7.2 (-2.0-2.0); ABG HCO3 17.5 MEQ/L (22.0-26.0); ABG O2 SATURATION 98.3 % (95.0-99.0); ABG PARTIAL PRESSURE CO2 32.7 mmHg (35.0-45.0); ABG PARTIAL PRESSURE O2 109.2 mmHg (75.0-100.0); ABG STANDARD HCO3 18.5 MEQ/L (22.0-26.0); ABG TOTAL CO2 18.5 MEQ/L (23.0-31.0); ABG pH (ARTERIAL) 7.347 UNITS (7.350-7.450)
[2021-04-20 19:33] LABS: ALT/SGPT 12 U/L (12-78); BILIRUBIN,TOTAL 0.6 MG/DL (0.2-1.0); BLOOD UREA NITROGEN 51 MG/DL (7-18); CALCIUM LEVEL 7.5 MG/DL (8.8-10.2); CARBON DIOXIDE LEVEL 19 MEQ/L (21-32); CHLORIDE LEVEL 107 MEQ/L (98-107); CREATININE FOR GFR 3.22 MG/DL (0.55-1.30); GLOMERULAR FILTRATION RATE 14.4 (>32); GLUCOSE, FASTING 154 MG/DL (70-100); MAGNESIUM LEVEL 2.3 MG/DL (1.8-2.4); PHOSPHORUS LEVEL 5.4 MG/DL (2.5-4.9); POTASSIUM SERUM 5.8 MEQ/L (3.5-5.1); SODIUM LEVEL 133 MEQ/L (136-145); TOTAL PROTEIN 7.8 GM/DL (6.4-8.2)
--- NOTE | 2021-04-20 20:10 | IPN ---
NEPHROLOGY PROGRESS NOTE DATE: 04/20/2021 SUBJECTIVE: Mrs. Eaton is seen this morning at her bedside in the Intensive Care Unit. She remains hypotensive and is now on low dose Levophed. She had a left femoral vein central line placed last night and remains oliguric. CAT scan of her abdomen and pelvis was ordered last evening, however it has not been done as yet. The patient denies any fever or chills. Her abdominal distention is increasing. She has required no oxygen supplementation due to worsening hypoxemia. OBJECTIVE: PHYSICAL EXAMINATION: VITAL SIGNS: Her temperature is 97 degrees Fahrenheit, heart rate 55 per minute and respiratory rate 20 per minute. Blood pressure is 97/50 mm of mercury and oxygen saturation is 96% on 2 liters oxygen. INTAKE AND OUTPUT: Records from yesterday show a total intake of about 2,700 and output only 400. She has been more than 5.7 liters positive fluid balance since admission. HEENT: Her head is atraumatic. Oral mucosa is still dry. NECK: Neck veins are prominent. HEART: Sounds are regular. LUNGS: Diminished breath sounds and bilateral rales. ABDOMEN: Distended and somewhat full and bowel sounds are hypoactive. EXTREMITIES: Without any cyanosis or clubbing. She does have edema on the lower extremities bilaterally. NEUROLOGICAL: She is awake, alert and oriented x3. LABORATORY STUDIES: Today's labs show a WBC count of 8.9, hemoglobin 8.6 and hematocrit 28.2, platelet count 246. Last evening blood gas showed a pH of 7.35, pco2 30.5 and pO2 86. Bicarbonate 18. This morning's labs show a sodium of 136, potassium 5.8, chloride 110, CO2 19, BUN 46 and creatinine 3.08, glucose 127 and calcium 7.2. Total bilirubin is 0.6 and albumin 1.9. The rest of her LFTs are appropriate. Ammonia level last evening was 24 and lactic acid level was 1.5. PROBLEMS: 1. Oliguric acute renal failure superimposed on chronic kidney disease most likely this is related to septic shock. Her blood pressure has remained low and not responding to IV fluids. CAT scan of abdomen and pelvis is pending, however renal ultrasound was done which did not show any hydronephrosis. I have discussed with the patient and explained to her that it is quite possible that she would require dialysis, if her kidney function does not improve. We are going to try to convert her to non oliguric state with intravenous Lasix drip. 2. Hyperkalemia her hyperkalemia has essentially not changed. I hope that if her urine output improves, then hyperkalemia will also improve. She is being put on an IV Lasix drip at 10 mg per hour and we will monitor her urine output. 3. Metabolic acidosis she does have mild metabolic acidosis related to acute renal failure. This is related to septic shock and at this point I will hold off on IV sodium bicarbonate as she is already getting volume overloaded. 4. Anemia her anemia has been stable and does not need any urgent intervention. She does not have any blood loss. IMPRESSION: Overall her condition remains critical as her blood pressure has not improved and she is requiring pressors. She is likely to require dialysis, however with low blood pressure, I am not sure if she would be able to tolerate dialysis. Her other option would be CRRT. We are starting with an IV Lasix drip and will see how she responds. If she does not respond to the Lasix drip, then CRRT will be considered.
[2021-04-20] MEDS: FERROUS SULFATE 325MG TAB PO SCH (20:13)
[2021-04-20] MEDS ORDERED: LevoFLOXacin IV 250 MG in IV 1 EA IV SCH (21:00)
[2021-04-20 22:47] LABS: HEMATOCRIT 29.5 % (36.0-47.0); HEMOGLOBIN 9.1 g/dl (12.0-15.5); MEAN CORPUSCULAR HEMOGLOBIN 32.4 pg (27.0-33.0); MEAN CORPUSCULAR HGB CONC 30.8 g/dl (32.0-36.5); PLATELET COUNT, AUTOMATED 212 10^3/uL (150-450); RED BLOOD COUNT 2.81 10^6/uL (4.00-5.40); WHITE BLOOD COUNT 11.1 10^3/uL (4.0-10.0)
[2021-04-20 22:53] LABS: TROPONIN I < 0.02 NG/ML (< 0.10)
[2021-04-20 23:05] LABS: INR 1.38; PROTHROMBIN TIME 17.4 SECONDS (12.7-14.5)
[2021-04-20 23:07] LABS: PARTIAL THROMBOPLASTIN TIME 47.6 SECONDS (25.9-37.0)
[2021-04-20 23:15] LABS: CALCIUM LEVEL 7.4 MG/DL (8.8-10.2); CREATININE FOR GFR 3.31 MG/DL (0.55-1.30); MAGNESIUM LEVEL 2.3 MG/DL (1.8-2.4)
--- NOTE | 2021-04-20 23:29 | IPN ---
CRITICAL CARE PROGRESS NOTE DATE: 04/20/2021 SUBJECTIVE: I was called this evening by Dr. Chapin and we discussed patient's worsening status. She was started on I.V. Lasix drip this morning, however, she has not made much urine. She has been on Levophed drip due to low blood pressure. CAT scan of abdomen and pelvis was done, which did not show any significant intraabdominal abnormality, however, bilateral basilar infiltrates were noted. She also had a lower extremity ultrasound and DVT has been ruled out. She remains on broad spectrum antibiotics with Zosyn and Vancomycin, but her hypotension has not improved. Her kidney function is getting worse, hyperkalemia persists and she is getting more acidotic. I came back this evening to see her now and discuss with her about potential need for CRRT. She asked me if dialysis will be permanent for her and I have explained to her that at this point our first call is to save her life and try to stabilize her condition. If her overall condition improves, then kidney function is likely to return, however so far, she has minimal urine output. PHYSICAL EXAMINATION: VITAL SIGNS: Temperature 97.2 degrees Fahrenheit, heart rate 54 per minute, respiratory rate 22 per minute, blood pressure just about 100/49 mmHg with Levophed in progress, and oxygen saturation 95% on 2 liters of oxygen. INTAKE/OUTPUT: Records show a total urine output of only 290 mL over the last about 18 to 20 hour. Yesterday her total urine output was 402 mL in 24 hours. She has been in positive fluid balance of about almost 8 liters now. HEENT: Head is atraumatic. Oral mucosal is somewhat dry. Neck is supple. JVD is not abnormally elevated. HEART: Heart sounds are regular. LUNGS: Bilateral rales. There are slightly diminished breath sounds at bases. ABDOMEN: Somewhat full and bowel sounds are hypoactive but present. EXTREMITIES: Without any cyanosis or clubbing. NEUROLOGIC: She is still awake and able to have a conversation. She seems to be fully oriented. LABORATORY DATA: Her repeat chemistries at 6:44 p.m. showed sodium 133, potassium 5.8, CO2 19, BUN 51, creatinine 3.22. Calcium 7.5 and phosphorus 5.4. Glucose 154. Total protein 7.8 and albumin 2.0. PROBLEMS: 1. Septic shock: She remains hypotensive despite massive I.V. fluid given since admission. Now she is on Levophed and blood pressure is just about 100. She has been on broad spectrum antibiotics with Zosyn and Vancomycin. Her Vancomycin level was 16.4 this morning. We will continue with Levophed and not give her I.V. fluids anymore as she is already hypoxic and edematous. 2. Oliguric acute renal failure: Patient did not respond to I.V. Lasix drip and has been in significant positive fluid balance. I have discussed with her about potential need for CRRT and she is willing to proceed. We already have a catheter placed in her left femoral vein. We will start with CRRT tonight and I have returned the orders for her CRRT. 3. Hyperkalemia: This is related to oliguric acute renal failure. This will be corrected with CRRT. I will hold off on any use of Kayexalate. 4. Metabolic acidosis: Her acidosis seems to be slightly worse. She also had a blood gas done, which showed pH of 7.34, pCO2 of 32.7 and pO2 of 109. Her acidosis is mostly metabolic and this will be also corrected with CRRT. 5. Anemia: Her anemia has been stable and we will recheck her CBC in the morning. So far there is no urgent need for a transfusion. TIME SPENT: I spent 32 minutes of critical care time, during which no procedures were performed.
[2021-04-21] VITALS (85 sets, daily range): BP systolic 86–158; BP diastolic 43–77
[2021-04-21] MEDS ORDERED: SODIUM CHLORIDE 0.9% INJ 10 ML SYR IV PRN
[2021-04-21] MEDS: NOREPINEPHRINE BITARTRATE 8 MG in D5W 492 ML IV SCH (02:15)
[2021-04-21] MEDS ORDERED: KETOROLAC 30 MG/ML 1ML VIAL IV ONE (03:35)
[2021-04-21] MEDS ORDERED: BACLOFEN 5MG PER 1/2 TABLET PO ONE (03:45)
[2021-04-21] MEDS ORDERED: MORPHINE 2 MG/ML 1ML VIAL (J2270) IV ONE (04:30)
[2021-04-21 05:45] LABS: BASO % 0.4 % (0.0-1.0); EOS # 1.5 10^3/uL (0.0-0.5); EOS % 14.2 % (0.0-3.0); HEMATOCRIT 29.4 % (36.0-47.0); HEMOGLOBIN 9.1 g/dl (12.0-15.5); LYMPH # 1.4 10^3/uL (1.5-5.0); LYMPH % 13.2 % (24.0-44.0); MEAN CORPUSCULAR HEMOGLOBIN 31.9 pg (27.0-33.0); MEAN CORPUSCULAR VOLUME 103.2 fl (80.0-96.0); MONO # 0.9 10^3/uL (0.0-0.8); MONO % 8.6 % (2.0-8.0); NEUTROPHILS # 6.6 10^3/uL (1.5-8.5); PLATELET COUNT, AUTOMATED 195 10^3/uL (150-450); RED BLOOD COUNT 2.85 10^6/uL (4.00-5.40); WHITE BLOOD COUNT 10.5 10^3/uL (4.0-10.0)
[2021-04-21] MEDS: CAPSAICIN 0.025% CR 60 GM TOP PRN ×2 (06:16→14:29)
[2021-04-21] MEDS: PIPERACILLIN/TAZOBACTAM SOD 2.25 GM in D5W MINI-BAG PLUS 50 ML IV SCH ×3 (06:16→21:11)
[2021-04-21 06:22] LABS: BILIRUBIN,TOTAL 0.8 MG/DL (0.2-1.0); CALCIUM LEVEL 7.2 MG/DL (8.8-10.2); CREATININE FOR GFR 2.4 MG/DL (0.55-1.30); GLOMERULAR FILTRATION RATE 20.3 (>32); MAGNESIUM LEVEL 2.2 MG/DL (1.8-2.4); POTASSIUM SERUM 4.9 MEQ/L (3.5-5.1); TOTAL PROTEIN 7.6 GM/DL (6.4-8.2)
--- NOTE | 2021-04-21 07:33 | ECHO ---
ECHOCARDIOGRAM DATE OF PROCEDURE: 04/20/2021 Age: 89 Gender: F Height: 157 cm Weight: 194 pounds REFERRING PHYSICIAN: Dr. Penelope Chapin PATIENT LOCATION: Room 3221 REASON FOR THE STUDY: Hypotension MEASUREMENTS: 2D MEASUREMENTS: IVS 1.0 cm LV 4.7 cm LVPW 0.9 cm Aortic root 3.0 cm Left atrium 3.6 cm DOPPLER MEASURMENTS: Peak velocity across the aortic valve 1.5 m/s Peak velocity across the LVOT 1.1 m/s Peak gradient across the aortic valve 9.7 mmHg Mitral E 1.24, mitral A 0.94 with a ratio of 1.3 Maximum tricuspid valve velocity 3.1 m/s 2D COMMENTS: 1. Normal left ventricular size, wall thickness, and normal global left ventricular systolic function. The estimated left ventricular systolic ejection fraction is 60% to 65%. 2. The left atrium appeared to be borderline enlarged subjectively. The right atrium is not enlarged. Normal right ventricle noted in limited views. 3. The atrial septum appeared to be normal without evidence of defect or shunt. 4. Normal aortic root. 5. No pericardial effusion seen. 6. Mildly calcified aortic valve with normal leaflet excursion. Mildly calcified mitral annulus with normal anterior mitral valve leaflet motion. Normal tricuspid valve and pulmonic valve. The proximal pulmonary artery branches were not well visualized. DOPPLER: It detects mild aortic regurgitation, trace mitral regurgitation and moderate tricuspid regurgitation as well as trace pulmonary regurgitation. The calculated pulmonary artery systolic pressure varies between 40 to 50 mmHg. Abnormal relaxation pattern was noted across the mitral valve annulus consistent with features of grade 2 left ventricular diastolic dysfunction. IMPRESSION: 1. Normal global left ventricular systolic function. There are some features of grade 2 left ventricular diastolic dysfunction. 2. Aortic valve sclerosis with mild aortic regurgitation but no aortic stenosis. 3. Mitral annulus calcification with trace mitral regurgitation and a borderline enlarged left atrium. 4. Moderate tricuspid regurgitation with moderate pulmonary hypertension and dilated right atrium. 5. Not mentioned above, the inferior vena cava appeared to be mildly enlarged in limited views. 6. Patient was in normal sinus rhythm during the test. MTDD
[2021-04-21] MEDS ORDERED: VANCOMYCIN HCL 1,000 MG, VIAL MATE ADAPTER 1 EACH in NS 250 ML IV ONE (08:00)
[2021-04-21] MEDS: CALCIUM GLUCONATE 1,000 MG in NS 100 ML IV SCH ×4 (08:16→15:57)
[2021-04-21] MEDS ORDERED: MORPHINE 2 MG/ML 1ML VIAL (J2270) IV PRN (09:30)
[2021-04-21] MEDS: HEPARIN SOD (PORCINE) 5000UNITS/ML 1ML VIAL/SYRINGE SQ SCH (09:55)
[2021-04-21] MEDS: NOREPINEPHRINE BITARTRATE 16 MG in D5W 484 ML IV SCH (09:58)
[2021-04-21] MEDS: ALBUTEROL 90 MCG/ACT 8GM HFA INHALER INH PRN (11:53)
[2021-04-21 11:59] LABS: HEMOGLOBIN 9.4 g/dl (12.0-15.5); MEAN CORPUSCULAR HEMOGLOBIN 32.4 pg (27.0-33.0); MEAN CORPUSCULAR HGB CONC 31.3 g/dl (32.0-36.5); MEAN CORPUSCULAR VOLUME 103.4 fl (80.0-96.0); PLATELET COUNT, AUTOMATED 168 10^3/uL (150-450); WHITE BLOOD COUNT 9.6 10^3/uL (4.0-10.0)
[2021-04-21 12:22] LABS: CREATININE FOR GFR 1.98 MG/DL (0.55-1.30); GLOMERULAR FILTRATION RATE 25.3 (>32); MAGNESIUM LEVEL 2.3 MG/DL (1.8-2.4); PHOSPHORUS LEVEL 3.5 MG/DL (2.5-4.9); POTASSIUM SERUM 4.6 MEQ/L (3.5-5.1)
[2021-04-21] MEDS: VITAMIN D 1,000 INTERNATIONAL UNITS TABLET PO SCH (12:31)
[2021-04-21] MEDS ORDERED: CALCIUM GLUCONATE 1,000 MG in NS 100 ML IV ONE ×2 (12:35→19:00)
--- NOTE | 2021-04-21 12:38 | IPN ---
PROGRESS NOTE DATE: 04/21/2021 SUBJECTIVE: Mrs. Saez is seen this morning on her bedside in the Intensive Care Unit. She remains hypotensive requiring Levophed. She is currently on 12 mcg of Levophed and blood pressure is just above 100 mmHg. She is oliguric and did not respond to Lasix drip yesterday. We started CRRT last evening due to worsening hypervolemia and metabolic acidosis. She still has generalized edema although we have been trying to remove at least 50 ml of fluid per hour. Patient feels slightly better compared to yesterday but still very weak and now also has a nasogastric tube in place. OBJECTIVE: VITAL SIGNS: Temperature is 96.8 degrees Fahrenheit, heart rate is 52 per minute and respiratory rate is 26 per minute. Blood pressure is 113/55 mmHg and oxygen saturation 96% on 2 liters of oxygen. HEENT: Neck veins are prominent. She has a nasogastric tube in place. Oral mucosa is dry. HEART: Sounds are regular. LUNGS: Bilateral rales. ABDOMEN: Soft. Bowel sounds are hypoactive. EXTREMITIES: No cyanosis or clubbing. She has massive edema on her upper extremities and also on the lower extremities. NEUROLOGIC: She is awake and without any focal deficit. She is able to answer questions. Intake and output records from yesterday shows a positive fluid balance of only about 107 ml, however since admission she has been about 6 liters positive so far. Today's labs shows a WBC count of 10.5, hemoglobin 9.1 and hematocrit 29.4. Platelets are 195,000. Sodium is 134, potassium is 4.9, chloride is 106, CO2 is 22, BUN 37 and creatinine 2.40. Glucose is 162 and calcium is 7.2. Lactic acid level is 1.9. PROBLEMS: 1. Oliguric acute renal failure, most likely this is related to prolonged hypotension, she is now volume overloaded due to poor response to diuretics. She is being dialyzed with CRRT. We are trying to remove about 50 ml of fluid per hour and will continue with the same. 2. Septic shock. Patient remains hypotensive requiring pressors. She is on 12 mcg of Levophed and blood pressure is just above 100. At this point, we will titrate Levophed for a blood pressure mean arterial pressure above 70 and keep fluid removal at 50 ml/hr with CRRT. She remains on broad-spectrum antibiotics including Vancomycin and Zosyn with all cultures negative so far. 3. Hyperkalemia, her hyperkalemia has resolved with CRRT. At this point, she is not being fed and does have an NG-tube in place. She will probably require some form of nutrition. 4. Anticoagulation, Hospitalist Service asked me about Eliquis and I have recommended 2.5 mg b.i.d. dose because of her acute renal failure. 5. Congestive heart failure/hypovolemia. Patient has developed massive generalized edema and also has pulmonary rales bilaterally. We are trying fluid removal with CRRT as he did not respond to diuretics. Twenty-eight minutes of critical care time spent during which no procedures were performed.
[2021-04-21] MEDS: PANTOPRAZOLE 40MG VIAL (C9113 PER 1) IV SCH (14:48)
--- NOTE | 2021-04-21 14:58 | IPNPDOC ---
Text Note Date of Service The patient was seen on 04/21/21. NOTE SUBJECTIVE: -NGT is very uncomfortable, asking for it to be discontinued. Very low output per nursing. Will clamp and give CLD and if tolerated will dc in 6h hours. Discussed this plan with Dr. Kimball who is not officially consulted. -She denies chest pain, increased shortness of breath, fevers, chills, nausea or vomiting. -Continues to be on levophed and CRRT, lasix gtt was held when CRRT was started yesterday OBJECTIVE: VITALS: see below GENERAL: weak, NAD resting in bed HEENT: NCAT, EOMI, MMM CARDIOVASCULAR: Normal S1 and S2. No extra heart sounds or murmurs. LUNGS: Crackles in the lower lungs b/l. No rhonchi, rales ABDOMEN: No tenderness to palpation. Normoactive bowel sounds, soft. Left groin catheter in place EXTREMITIES: 2+ pedal pulses, WWP, has edema NEUROLOGICAL: CN 3-12 intact, feels weak PSYCHIATRIC: Alert and oriented x 3. LABORATORY DATA: WBC 10.5 Hgb 9.1 Platelet 195 na 134 K 4.9 Cr 2.4 Ca 7.2 mag 2.2 IMAGING: CT ABD/PELVIS: 1. Bilateral pleural effusions and other lung base findings as described above. Basilar pneumonia cannot be ruled out. 2. Portal hypertension status quo. 3. Cholelithiasis and nephrolithiasis status quo. 4. Unchanged right renal cyst. 5. Small amount of free pelvic fluid. 6. Ileus versus early SBO. CXR: The technique utilized in obtaining the radiograph has magnified the cardiac silhouette and accentuated the interstitial markings. Once again, there is cardiomegaly accentuated by technique. Once again, there is an increase in the interstitial markings throughout the lung campbell with a reticulonodular appearance status quo. No acute patchy parenchymal opacities or pleural effusions have developed. There is no change in the osseous structures. Echocardiogram 11/2019: 1. Normal left ventricle internal dimensions and wall thickness. Normal regional left ventricular (LV) wall motion and wall thickening. Normal LV systolic function. Left ventricular ejection fraction (LVEF) 65% by visual estimate. Grade 1 LV diastolic dysfunction (impaired relaxation filling pattern). 2. Abbreviated pulmonary acceleration time suggestive of at least moderate elevation of pulmonary artery systolic pressure. 3. Mild mitral annular calcification. No mitral regurgitation. 4. Mild aortic valve sclerosis of a 3-cusp aortic valve. Very mild aortic regurgitation. MICROBIOLOGY: UA+, UC NG BCx NG to date F/u sputum culture if able to be given ASSESSMENT: 89-year-old W with a history of PE on eliquis, HTN, hypothyroidism, gout, asthma, chronic anemia, HLD, osteopenia, SVT, CKD 3A who presented to the ED with weakness and SOB with any exertion abd was admitted to medicine for undifferentiated shock with FCO on CKD now CRRT, HFpEF exacerbation, potential infection, electrolyte abnormalities, potential ileus and deconditioning. PLAN: Shock, potentially 2/2 infection vs. cardiorenal vs. intravascular depletion -BP remained lower, despite aggressive fluid hydration -Troponin negative x 1, EKG stable from prior -f/u echocardiogram -Holding all antihypertensive medications for now -Telemetry -TLC cath placed by surgery on levophed for goal MAP > 65 mmHg -C/w empiric abx with vanc and pip/tazo -nephrology onboard, dc'd lasix gtt, now on CRRT Acute kidney injury on CKD stage III likely multifactorial to dehydration, home medications and hypotension also as complicating factor -Baseline creatinine 1.01.24. -Oliguric despite lasix gtt, now held -Mc catheter in place -Nephro: started on CRRT yesterday -BMP, mag, patrice, phos BID Hyperkalemia likely multifactorial to acute kidney injury and supplemental potassium at home: resolved -Status post calcium gluconate, no EKG changes -No changes on tele -BMP BID -nephrology onboard -Tele HFpEF exacerbation with b/l pleural effusions -BNP elevated > 5K, w/ crackles but wheezing on exam but has received large amount of fluid w/ third spacing -s/p lasix gtt now transitioned to CRRT with goal to remove fluid, monitor output closely, daily wt -f/u TTE -Holding BB due to hypotension Ileus vs. SBO -CT above -Abdominal distention w/o n/v -D/w Dr. Cuellar, did not officially consult. Suggested NG tube. XR confirmed placement --> will now clamp and given CLD for 6h and if tolerated will dc Chronic CARLOS anemia -no s/s of bleeding -daily CBC -resume supplemental iron History of PE: -Holding eliquis, will restart after discussion with nephro -Heparin SC Hypothyroidism -resume synthroid Asthma -Albuterol PRN Hx of low blood sugar -BS currently stable -Was placed on diazoxide BID by primary within the last week for this -Monitor closely GERD -PPI IV DVT prophylaxis: -Heparin SC RESOLVED ISSUES: Lactic acidosis likely 2/2 to FCO, sepsis?/shock DISPOSITION: Admitted to ICU for close management. Will need PT/OT when stable. Updated her Osvaldo ([phone], ) in great detail today. CPR, DNI per patient's wishes. VS,Fishbone, I+O VS, Fishbone, I+O Laboratory Tests 04/20/21 15:02 04/20/21 18:44 04/20/21 22:39 04/21/21 05:27 04/21/21 05:29 Vital Signs Date Time Temp Pulse Resp B/P (MAP) Pulse Ox O2 Delivery O2 Flow Rate FiO2 04/21/21 08:31 53 134/57 (82) 96 Nasal Cannula 2.0 04/21/21 08:00 96.8 26 I&O- Last 24 Hours up to 6 AM 04/21/21 06:00 Intake Total 455.1 ml Output Total 673 ml Balance -217.9 ml JUANA PROCTOR MD Apr 21, 2021 10:09
[2021-04-21 18:01] LABS: HEMOGLOBIN 9.2 g/dl (12.0-15.5); MEAN CORPUSCULAR HEMOGLOBIN 31.6 pg (27.0-33.0); MEAN CORPUSCULAR HGB CONC 30.7 g/dl (32.0-36.5); MEAN CORPUSCULAR VOLUME 103.1 fl (80.0-96.0); PLATELET COUNT, AUTOMATED 140 10^3/uL (150-450); RED BLOOD COUNT 2.91 10^6/uL (4.00-5.40); WHITE BLOOD COUNT 8.6 10^3/uL (4.0-10.0)
[2021-04-21 18:21] LABS: CALCIUM LEVEL 8.2 MG/DL (8.8-10.2); CREATININE FOR GFR 1.77 MG/DL (0.55-1.30); GLOMERULAR FILTRATION RATE 28.8 (>32); MAGNESIUM LEVEL 2.3 MG/DL (1.8-2.4); PHOSPHORUS LEVEL 3.5 MG/DL (2.5-4.9); POTASSIUM SERUM 4.6 MEQ/L (3.5-5.1); TOTAL PROTEIN 7.7 GM/DL (6.4-8.2)
[2021-04-21] MEDS: APIXABAN 2.5 MG TAB (ELIQUIS) PO SCH (20:47)
[2021-04-21] MEDS ORDERED: FERROUS SULFATE 325MG TAB NG SCH (21:00)
[2021-04-22] VITALS (61 sets, daily range): BP systolic 85–148; BP diastolic 41–72
[2021-04-22 00:23] LABS: HEMATOCRIT 29.3 % (36.0-47.0); HEMOGLOBIN 9.1 g/dl (12.0-15.5); MEAN CORPUSCULAR HEMOGLOBIN 32.2 pg (27.0-33.0); MEAN CORPUSCULAR HGB CONC 31.1 g/dl (32.0-36.5); MEAN CORPUSCULAR VOLUME 103.5 fl (80.0-96.0); PLATELET COUNT, AUTOMATED 126 10^3/uL (150-450); RED BLOOD COUNT 2.83 10^6/uL (4.00-5.40); WHITE BLOOD COUNT 7.9 10^3/uL (4.0-10.0)
[2021-04-22] MEDS: CALCIUM GLUCONATE 1,000 MG in D5W MINI-BAG PLUS 100 ML IV SCH ×4 (00:33→07:01)
[2021-04-22 00:35] LABS: CREATININE FOR GFR 1.51 MG/DL (0.55-1.30); GLOMERULAR FILTRATION RATE 34.6 (>32); MAGNESIUM LEVEL 2.3 MG/DL (1.8-2.4); PHOSPHORUS LEVEL 3.2 MG/DL (2.5-4.9); POTASSIUM SERUM 4.6 MEQ/L (3.5-5.1)
[2021-04-22] MEDS: NOREPINEPHRINE BITARTRATE 16 MG in D5W 484 ML IV SCH ×2 (04:03→10:09)
[2021-04-22] MEDS: PIPERACILLIN/TAZOBACTAM SOD 2.25 GM in D5W MINI-BAG PLUS 50 ML IV SCH ×2 (05:12→14:12)
[2021-04-22] MEDS: LEVOTHYROXINE 88MCG TABLET (0.088 MG) NG SCH (05:12)
[2021-04-22 05:52] LABS: HEMATOCRIT 28.6 % (36.0-47.0); HEMOGLOBIN 8.9 g/dl (12.0-15.5); MEAN CORPUSCULAR HEMOGLOBIN 32.1 pg (27.0-33.0); MEAN CORPUSCULAR HGB CONC 31.1 g/dl (32.0-36.5); MEAN CORPUSCULAR VOLUME 103.2 fl (80.0-96.0); PLATELET COUNT, AUTOMATED 118 10^3/uL (150-450); RED BLOOD COUNT 2.77 10^6/uL (4.00-5.40); WHITE BLOOD COUNT 8.1 10^3/uL (4.0-10.0)
[2021-04-22 07:00] LABS: ALBUMIN 1.9 GM/DL (3.2-5.2); BILIRUBIN,TOTAL 1.1 MG/DL (0.2-1.0); CREATININE FOR GFR 1.28 MG/DL (0.55-1.30); GLOMERULAR FILTRATION RATE 41.9 (>32); MAGNESIUM LEVEL 2.3 MG/DL (1.8-2.4); PHOSPHORUS LEVEL 2.6 MG/DL (2.5-4.9); POTASSIUM SERUM 4.7 MEQ/L (3.5-5.1); TOTAL PROTEIN 7.2 GM/DL (6.4-8.2)
[2021-04-22] MEDS ORDERED: VANCOMYCIN HCL 1,000 MG, VIAL MATE ADAPTER 1 EACH in NS 250 ML IV SCH (08:00)
[2021-04-22] MEDS ORDERED: NOREPINEPHRINE BITARTRATE 16 MG in D5W 484 ML IV SCH (10:28)
[2021-04-22] MEDS ORDERED: SODIUM CHLORIDE 0.9% INJ 10 ML SYR IV PRN (10:55)
[2021-04-22] MEDS: VITAMIN D 1,000 INTERNATIONAL UNITS TABLET PO SCH (12:31)
[2021-04-22] MEDS: APIXABAN 2.5 MG TAB (ELIQUIS) PO SCH (13:07)
--- NOTE | 2021-04-22 13:21 | ECGEPIP ---
[facility] Test Date: 2021-04-20 Pat Name: GEORGIANA BALLESTEROS Department: Room: [place] [address] Gender: Female [employer]: kalli : [id number] Requested By: Penelope Echevarria Order Number: [id number] Reading MD: Nakul Goodwin Measurements Intervals [place] Rate: 54 P: 25 TX: 138 QRS: -27 QRSD: 92 T: 97 QT: 514 QTc: 487 Interpretive Statements Sinus bradycardia LEFT AXIS DEVIATION Nonspecific T wave abnormality Prolonged QT Compared to prior tracings(3) in the system. No remarkable changes but a slower heart rate Electronically Signed on 04-22-2021 13:21:04 EDT by Nakul Goodwin
[2021-04-22 13:38] LABS: HEMATOCRIT 30.4 % (36.0-47.0); HEMOGLOBIN 9.5 g/dl (12.0-15.5); MEAN CORPUSCULAR HEMOGLOBIN 32.2 pg (27.0-33.0); MEAN CORPUSCULAR HGB CONC 31.3 g/dl (32.0-36.5); MEAN CORPUSCULAR VOLUME 103.1 fl (80.0-96.0); PLATELET COUNT, AUTOMATED 147 10^3/uL (150-450); RED BLOOD COUNT 2.95 10^6/uL (4.00-5.40); WHITE BLOOD COUNT 11.2 10^3/uL (4.0-10.0)
[2021-04-22 14:02] LABS: CALCIUM LEVEL 8.1 MG/DL (8.8-10.2); CREATININE FOR GFR 1.16 MG/DL (0.55-1.30); GLOMERULAR FILTRATION RATE 46.9 (>32); MAGNESIUM LEVEL 2.3 MG/DL (1.8-2.4); PHOSPHORUS LEVEL 2.2 MG/DL (2.5-4.9); POTASSIUM SERUM 4.4 MEQ/L (3.5-5.1)
[2021-04-22] MEDS: PANTOPRAZOLE 40MG VIAL (C9113 PER 1) IV SCH (14:12)
[2021-04-22] MEDS ORDERED: VASOPRESSIN INJ 20 UNITS/ML VIAL As Ordered ONE (15:14)
[2021-04-22] MEDS: CALCIUM GLUCONATE 1,000 MG in NS 100 ML IV SCH ×2 (15:16→16:14)
[2021-04-22] MEDS ORDERED: VASOPRESSIN INJ 20 UNITS in NS 499 ML IV SCH ×5 (15:25→16:00)
[2021-04-22] MEDS ORDERED: POTASSIUM PHOSPHATE INJ 30 MMOL in D5W 500 ML IV ONE (17:00)
--- NOTE | 2021-04-22 19:07 | IPNPDOC ---
Text Note Date of Service The patient was seen on 04/22/21. NOTE SUBJECTIVE: -Appears well this morning, was on levophed and CRRT. Unfortunately by mid afternoon pressor requirement went up, now on levophed and vasopressin, was transient hypotensive to SBP 70s and was confused and lethargic. We had a lengthy discussion this evening with Keara who has tremendous insight and an unbelievable sense of humor about how she would like to de-escalate care at this time. 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 At this time Osvaldo is on his way to the hospital to conclude the discussion and her daughters who live in the [facility] have been briefed. OBJECTIVE: VITALS: see below GENERAL: weak, NAD resting in bed HEENT: NCAT, EOMI, MMM CARDIOVASCULAR: Normal S1 and S2. No extra heart sounds or murmurs. LUNGS: Crackles throughout lungs b/l, has some transmitted upper airway sounds, is tachypneic but is able to hold conversation with some pausing. ABDOMEN: No tenderness to palpation. Normoactive bowel sounds, soft. Left groin catheter in place EXTREMITIES: 2+ pedal pulses, WWP, has allison anasarca NEUROLOGICAL: CN 3-12 intact, feels weak PSYCHIATRIC: Alert and oriented x 3. LABORATORY DATA: Reviewed IMAGING: CT ABD/PELVIS: 1. Bilateral pleural effusions and other lung base findings as described above. Basilar pneumonia cannot be ruled out. 2. Portal hypertension status quo. 3. Cholelithiasis and nephrolithiasis status quo. 4. Unchanged right renal cyst. 5. Small amount of free pelvic fluid. 6. Ileus versus early SBO. CXR: The technique utilized in obtaining the radiograph has magnified the cardiac silhouette and accentuated the interstitial markings. Once again, there is cardiomegaly accentuated by technique. Once again, there is an increase in the interstitial markings throughout the lung campbell with a reticulonodular appearance status quo. No acute patchy parenchymal opacities or pleural effusions have developed. There is no change in the osseous structures. Echocardiogram 11/2019: 1. Normal left ventricle internal dimensions and wall thickness. Normal regional left ventricular (LV) wall motion and wall thickening. Normal LV systolic function. Left ventricular ejection fraction (LVEF) 65% by visual estimate. Grade 1 LV diastolic dysfunction (impaired relaxation filling pattern). 2. Abbreviated pulmonary acceleration time suggestive of at least moderate elevation of pulmonary artery systolic pressure. 3. Mild mitral annular calcification. No mitral regurgitation. 4. Mild aortic valve sclerosis of a 3-cusp aortic valve. Very mild aortic regurgitation. MICROBIOLOGY: UA+, UC NG BCx NG to date F/u sputum culture if able to be given ASSESSMENT: 89-year-old W with a history of PE on eliquis, HTN, hypothyroidism, gout, asth ma, chronic anemia, HLD, osteopenia, SVT, CKD 3A who presented to the ED with weakness and SOB with any exertion abd was admitted to medicine for undifferentiated shock with FCO on CKD now CRRT, HFpEF exacerbation, potential infection, electrolyte abnormalities, potential ileus and deconditioning. PLAN: Shock, potentially 2/2 infection though source unclear at this time vs. cardiogenic vs. intravascular depletion -BP remained lower, despite aggressive fluid hydration--> on 2 pressors at this time -Troponin negative x 1, EKG stable from prior -f/u echocardiogram -Holding all antihypertensive medications for now -Telemetry -Trialysis catheter was placed by surgery on levophed and vasopressin for goal MAP > 65 mmHg -C/w empiric abx with vanc and pip/tazo -nephrology onboard, on CRRT -Pending finalization of GOC discussion Acute kidney injury on CKD stage III likely multifactorial to dehydration, home medications and hypotension also as complicating factor -Baseline creatinine 1.01.24. -Oliguric despite lasix gtt, now held -Mc catheter in place -nephrology onboard, on CRRT -BMP, mag, patrice, phos BID -Pending finalization of GOC discussion Hyperkalemia likely multifactorial to acute kidney injury and supplemental potassium at home: resolved -Status post calcium gluconate, no EKG changes -No changes on tele -BMP BID -nephrology onboard -Tele HFpEF exacerbation with b/l pleural effusions -BNP elevated > 5K, w/ crackles but wheezing on exam but has received large amount of fluid w/ third spacing -Pending finalization of GOC discussion. Currently on CRRT, and not tolerating any fluid removal -f/u TTE done today -Holding BB due to hypotension Ileus vs. SBO -CT above -Abdominal distention w/o n/v -D/w Dr. Cuellar, did not officially consult. Suggested NG tube. XR confirmed placement --> now discontinued. Chronic CARLOS anemia -no s/s of bleeding -daily CBC -resume supplemental iron History of PE: -Patient is apprehensive about restarting eliquis Hypothyroidism -synthroid Asthma -Albuterol PRN Hx of low blood sugar -BS currently stable -diazoxide BID by primary within the last week for this -Monitor closely GERD -PPI IV DVT prophylaxis: -Heparin SC RESOLVED ISSUES: Lactic acidosis likely 2/2 to FCO, sepsis?/shock DISPOSITION: Admitted to ICU for shock. Pending finalization of GOC discussion VS,Fishbone, I+O VS, Aqu[place]bone, I+O Laboratory Tests 04/21/21 23:42 04/22/21 05:35 04/22/21 05:36 04/22/21 13:16 Vital Signs Date Time Temp Pulse Resp B/P (MAP) Pulse Ox O2 Delivery O2 Flow Rate FiO2 04/22/21 18:15 75 136/60 (85) 87 Non-Rebreather 100 04/22/21 18:00 4.0 04/22/21 16:24 96.3 04/22/21 16:13 32 I&O- Last 24 Hours up to 6 AM 04/22/21 06:00 Intake Total 1914.2 ml Output Total 2617 ml Balance -702.8 ml JUANA PROCTOR MD Apr 22, 2021 19:07
[2021-04-22] MEDS ORDERED: ATROPINE SULFATE 1% OP SOLN 2 ML BTL SL PRN (20:30)
[2021-04-22] MEDS ORDERED: HYOSCYAMINE SULFATE 0.125 MG SUBL TABLET PO PRN (20:30)
[2021-04-22] MEDS ORDERED: HYOSCYAMINE SULFATE 0.125 MG SUBL TABLET SL PRN (20:30)
[2021-04-22] MEDS ORDERED: BISACODYL 10 MG SUPP PR PRN (20:30)
[2021-04-22] MEDS ORDERED: MORPHINE 2 MG/ML 1ML VIAL (J2270) IV PRN (20:30)
[2021-04-22] MEDS ORDERED: FLEET ENEMA PR PRN (20:30)
[2021-04-22] MEDS ORDERED: SCOPOLAMINE 1MG TRANSDERMAL PATCH TOP PRN (20:30)
--- NOTE | 2021-04-22 20:34 | IPNPDOC ---
Text Note Date of Service The patient was seen on 04/22/21. NOTE Time of service 815pm The patient elected to transition to [employer]; her was at the bedside. I explained the process and answered all questions. The patient's signed all paper work. VS,Fishbone, I+O VS, Fishbone, I+O Laboratory Tests 04/21/21 23:42 04/22/21 05:35 04/22/21 05:36 04/22/21 13:16 Vital Signs Date Time Temp Pulse Resp B/P (MAP) Pulse Ox O2 Delivery O2 Flow Rate FiO2 04/22/21 20:00 4.0 04/22/21 20:00 97.2 74 132/68 (89) 90 Non-Rebreather 100 04/22/21 16:13 32 I&O- Last 24 Hours up to 6 AM 04/22/21 06:00 Intake Total 1914.2 ml Output Total 2617 ml Balance -702.8 ml BALDEMAR OLSEN MD Apr 22, 2021 20:34
--- NOTE | 2021-04-22 20:40 | IPN ---
CRITICAL CARE PROGRESS NOTE DATE: 04/22/2021 SUBJECTIVE: Mrs. Saez seen this morning on her bedside. She is feeling slightly better today and was able to have a good conversation. She is still short of breath and requiring oxygen. Her peripheral edema has improved on the right upper extremity. Nursing staff reports that they were able to remove fluid 50 mL/hour with CRRT. Patient remains oliguric with minimal urine output. She also tolerated some liquid diet and denies any abdominal pain. 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 She had six weeks of antibiotic therapy. No other source of infection has been identified so far. Her blood cultures have been negative, however, she has been persistently hypotensive requiring pressors. She is currently on 6 mcg of Levophed. PHYSICAL EXAMINATION: VITAL SIGNS: Temperature 96.3 degrees Fahrenheit, heart rate 76 per minute, respiratory rate 20 per minute, blood pressure is about 106/50 mmHg, and oxygen saturation 93% on 4 liters of oxygen. HEENT: Head is atraumatic. JVD is moderately elevated. HEART: Heart sounds are regular. LUNGS: Bilateral rales. ABDOMEN: Soft and bowel sounds are normal. EXTREMITIES: Without any cyanosis or clubbing. She has significant edema on the left upper and bilateral lower extremities. Her right upper extremity edema has improved. NEUROLOGIC: She is awake, alert and oriented x3. LABORATORY DATA: Today's labs show WBC up to 11.2, hemoglobin 9.5, hematocrit 30.4, platelets 147,000. Sodium 135, potassium 4.4, CO2 26, BUN 12, creatinine 1.16, glucose 141 and calcium 8.1. PROBLEMS: 1. Septic shock: Etiology is still uncertain. Patient did tell me today that she had right hip infection and prosthesis was removed and replaced last year. I am concerned about the possibility of infection in her right hip. There is no other source of significant infection identified to account for her septic shock. I have conveyed this to the hospitalist and recommended to get infectious disease consultation. 2. Oliguric acute renal failure: This is related to septic shock and patient remains hypotensive requiring pressors. Currently she is on CRRT and we will continue with the same. I adjusted her CRRT orders according to the pressors need. 3. Hypervolemia: Patient has developed significant hypervolemia with generalized edema due to I.V. fluids given. We are trying to remove 50 mL/hour with CRRT, however she is also on pressors, so we cannot remove fluid too aggressively. 4. Anemia: Her anemia is stable at present and does not need any urgent intervention. 5. Nutrition: Nursing staff reports that she did tolerate some liquid diet. TIME SPENT: 33 minutes of critical care time spent, during which no procedures were performed.
[2021-04-23] MEDS: MORPHINE 2 MG/ML 1ML VIAL (J2270) IV PRN ×3 (01:22→15:39)
[2021-04-23] MEDS: LORazepam 2 MG/ML VIAL IV PRN ×3 (03:17→17:01)
[2021-04-23] MEDS: LEVOTHYROXINE 88MCG TABLET (0.088 MG) NG SCH (05:23)
--- NOTE | 2021-04-23 10:34 | IPNPDOC ---
Text Note Date of Service The patient was seen on 04/23/21. NOTE INTERIM EVENTS: -Was transitioned to [employer] MACHINE [employer] yesterday evening. and daughters visited last night. -I updated PCP, Dr. Allen this morning OBJECTIVE: GENERAL: critically ill appearing, NAD, lethargic, attempts to open eyes on voice CARDIOVASCULAR: Normal S1 and S2. No extra heart sounds or murmurs. LUNGS: Crackles throughout lungs b/l, has some transmitted upper airway sounds, is tachypneic, on 5L NC ABDOMEN: Hypoactive bowel sounds, soft. EXTREMITIES: Brent anasarca NEUROLOGICAL: Lethargic LABORATORY DATA: Reviewed. No labs at this time IMAGING: CT ABD/PELVIS: 1. Bilateral pleural effusions and other lung base findings as described above. Basilar pneumonia cannot be ruled out. 2. Portal hypertension status quo. 3. Cholelithiasis and nephrolithiasis status quo. 4. Unchanged right renal cyst. 5. Small amount of free pelvic fluid. 6. Ileus versus early SBO. CXR: The technique utilized in obtaining the radiograph has magnified the cardiac silhouette and accentuated the interstitial markings. Once again, there is cardiomegaly accentuated by technique. Once again, there is an increase in the interstitial markings throughout the lung campbell with a reticulonodular appearance status quo. No acute patchy parenchymal opacities or pleural effusions have developed. There is no change in the osseous structures. Echocardiogram 11/2019: 1. Normal left ventricle internal dimensions and wall thickness. Normal regional left ventricular (LV) wall motion and wall thickening. Normal LV systolic function. Left ventricular ejection fraction (LVEF) 65% by visual estimate. Grade 1 LV diastolic dysfunction (impaired relaxation filling pattern). 2. Abbreviated pulmonary acceleration time suggestive of at least moderate elevation of pulmonary artery systolic pressure. 3. Mild mitral annular calcification. No mitral regurgitation. 4. Mild aortic valve sclerosis of a 3-cusp aortic valve. Very mild aortic regurgitation. MICROBIOLOGY: UA+, UC NG BCx NG to date F/u sputum culture if able to be given ASSESSMENT: 89-year-old W with a history of PE on eliquis, HTN, hypothyroidism, gout, asthma, chronic anemia, HLD, osteopenia, SVT, CKD 3A who presented to the ED with weakness and SOB with any exertion abd was admitted to medicine for undifferentiated shock with FCO on CKD now CRRT, HFpEF exacerbation, potential infection, electrolyte abnormalities, potential ileus and deconditioning. PLAN: Shock, potentially 2/2 infection though source unclear at this time vs. cardiogenic vs. 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 Transitioned to ALC VS,Fishbone, I+O VS, Fishbone, I+O Laboratory Tests 04/22/21 13:16 Vital Signs Date Time Temp Pulse Resp B/P (MAP) Pulse Ox O2 Delivery O2 Flow Rate FiO2 04/23/21 08:00 95 Nasal Cannula 5.0 04/23/21 05:21 16 04/23/21 04:00 100 04/22/21 20:00 97.2 74 132/68 (89) I&O- Last 24 Hours up to 6 AM 04/23/21 06:00 Intake Total 1711.7 ml Output Total 1496 ml Balance 215.7 ml JUANA PROCTOR MD Apr 23, 2021 10:34
[2021-04-23] MEDS ORDERED: LORazepam 2 MG/ML VIAL As Ordered ONE (16:58)
[2021-04-24] MEDS: LEVOTHYROXINE 88MCG TABLET (0.088 MG) NG SCH ×2 (06:00→22:33)
[2021-04-24] MEDS: MORPHINE 2 MG/ML 1ML VIAL (J2270) IV PRN ×4 (08:59→20:29)
[2021-04-24] MEDS ORDERED: LORazepam 2 MG/ML VIAL As Ordered ONE ×2 (11:36→18:17)
[2021-04-24] MEDS: LORazepam 2 MG/ML VIAL IV PRN ×2 (11:39→18:23)
[2021-04-25] MEDS: MORPHINE 2 MG/ML 1ML VIAL (J2270) IV PRN ×3 (02:20→14:05)
[2021-04-25] MEDS ORDERED: LORazepam 2 MG/ML VIAL As Ordered ONE (11:10)
[2021-04-25] MEDS: LORazepam 2 MG/ML VIAL IV PRN (11:15)
--- NOTE | 2021-04-26 17:48 | DS.PDOC ---
Discharge Summary General Date of Admission Apr 18, 2021 at 17:15 Date of Discharge 04/25/2021 Attending Physician: JUANA PROCTOR MD Specialist/Consultants Involve: MARY BENOIT MD @ Discharge Summary PROCEDURES PERFORMED DURING STAY: Trialysis catheter placement ADMITTING DIAGNOSES: FCO Dehydration Hyperkalemia DISCHARGE DIAGNOSES: Cardiovascular collapse 2/2 distributive shock Distributive shock presumed septic vs. possible capillary leak syndrome w/ anasarca FCO on CKD3 with anuric renal failure requiring CRRT HFpEF exacerbation Acute hypoxemic respiratory failure Hyperkalemia Metabolic encephalopathy Ileus Chronic CARLOS anemia History of PE Hypothyroidism Asthma Hx of low blood sugar, with high suspicion of insulinoma GERD Lactic acidosis Gout Asthma Dyslipidemia Osteopenia COMPLICATIONS/CHIEF COMPLAINT: Fco,Dehydration,Hyperkalemia. HISTORY OF PRESENT ILLNESS: Very pleasant 89 y/o W with a history of PE recently off eliquis, HTN, hypothyroidism, gout, asthma, chronic anemia, HLD, osteopenia, prior SVT, CKD Stage III who presented to the ED with nausea, weakness over one week, shortly after being prescribed Diazoxide twice daily by her primary care provider for persistent symptomatic hypoglycemia, and since starting she had increased nausea without vomiting, increased weakness, decreased appetite to both fluids and food, one episode of nonbloody diarrhea. She denied any abdominal pain, chest pain but admitted to having baseline shortness of breath. HOSPITAL COURSE: In the ED she was found to be profoundly hypotensive with blood pressures ranging 76895/3851, heart rate 58, temperature 97.2, respiratory rate 1820, saturating at 98% on room air. Labs showed creatinine 3.27 (baseline 1.01.24), lactic acid 2.6, potassium 6.4, blood sugar 176. The patient was given calcium chloride for hyperkalemia. ECG showed no peak T waves or change from prior on file. She was aggressively hydrated for a total of 3.5L, blood pressures improved slowly but still remain on the lower side. The patient was admitted to PCU with a diagnosis of hypotension likely multifactorial secondary to dehydration, home medications, rule out infection and acute kidney injury. Her hypotension unfortunately persistent and she was empirically started on vanc and piptazo for presumed sepsis given allison shock, and her course was c/b anuric worsening FCO for which she was initially placed on levophed and a lasix gtt without any effects and eventually started on CRRT. Her shock unfortunately persisted despite levophed, especially with any trial to remove fluid by CRRT and she had to be started on a second vasopressor with vasopressin and was barely mantaining a MAP of >65. Noting her critical illness, now two vasporessors, CRRT and waxing and waning encephalopathy, while also developing worsening hypoxemia with allison anasarca and bilateral pleural effusions, Ms. Se cristobal summoned us her providers and her family and directed her own GOC and transitioned herself to [employer] status. She had complete insight into her g rave illness and her and two daughters were at bedside for most of her comfort measures care and she at 11.50PM on 04/25. DISCHARGE MEDICATIONS: Please see below. ALLERGIES: Please see below. PHYSICAL EXAMINATION ON DISCHARGE: VITAL SIGNS: Please see below. I WAS NOT PRESENT AT TIME OF EXPIRATION LABORATORY DATA: Please see below. IMAGING: CT ABD/PELVIS: 1. Bilateral pleural effusions and other lung base findings as described above. Basilar pneumonia cannot be ruled out. 2. Portal hypertension status quo. 3. Cholelithiasis and nephrolithiasis status quo. 4. Unchanged right renal cyst. 5. Small amount of free pelvic fluid. 6. Ileus versus early SBO. CXR: The technique utilized in obtaining the radiograph has magnified the cardiac si lhouette and accentuated the interstitial markings. Once again, there is cardiomegaly accentuated by technique. Once again, there is an increase in the interstitial markings throughout the lung campbell with a reticulonodular appearance status quo. No acute patchy parenchymal opacities or pleural effusions have developed. There is no change in the osseous structures. Echocardiogram 11/2019: 1. Normal left ventricle internal dimensions and wall thickness. Normal regional left ventricular (LV) wall motion and wall thickening. Normal LV systolic function. Left ventricular ejection fraction (LVEF) 65% by visual estimate. Grade 1 LV diastolic dysfunction (impaired relaxation filling pattern). 2. Abbreviated pulmonary acceleration time suggestive of at least moderate elevation of pulmonary artery systolic pressure. 3. Mild mitral annular calcification. No mitral regurgitation. 4. Mild aortic valve sclerosis of a 3-cusp aortic valve. Very mild aortic regurgitation. PROGNOSIS: ACTIVITY: DIET: DISCHARGE PLAN: DISPOSITION: 20 . DISCHARGE INSTRUCTIONS: ITEMS TO FOLLOWUP ON ON OUTPATIENT: DISCHARGE CONDITION: TIME SPENT ON DISCHARGE: 52 minutes. Vital Signs/I&Os Vital Signs Date Time Temp Pulse Resp B/P (MAP) Pulse Ox O2 Delivery O2 Flow Rate FiO2 04/25/21 21:00 5.0 04/23/21 08:00 95 Nasal Cannula 04/23/21 05:21 16 04/23/21 04:00 100 04/22/21 20:00 97.2 74 132/68 (89) Microbiology Microbiology 04/18/21 Urine Culture - Final, Complete 04/18/21 Blood Culture - Final, Complete NO GROWTH AFTER 5 DAYS 04/18/21 Blood Culture - Final, Complete NO GROWTH AFTER 5 DAYS Discharge Medications Scheduled Atenolol (Atenolol) 50 Mg Tablet, 50 MG PO QHS, (Reported) Cholecalciferol (Vitamin D3) (Vitamin D3) 1,000 Unit Tablet, 1,000 UNITS PO DAILY, (Reported) @ 1200 Diazoxide (Diazoxide) 50 Mg/Ml Oral.susp, 5 ML PO BID, (Reported) Ferrous Sulfate (Ferrous Sulfate) 325 Mg Tablet, 325 MG PO QHS, (Reported) Fluticasone Propion/Salmeterol (Fluticasone-Salmeterol 250-50) 1 Each Blst.w.dev, 1 PUFF INH BID, (Reported) Hydrochlorothiazide (Hydrochlorothiazide) 12.5 Mg Tablet, 12.5 MG PO DAILY, (Rep orted) Levothyroxine Sodium (Synthroid) 88 Mcg Tablet, 88 MCG PO DAILY, (Reported) Potassium Chloride (Potassium Chloride) 10 Meq Tab.er.prt, 20 MEQ PO BID, (Reported) Scheduled PRN Albuterol Sulfate (Ventolin Hfa) 18 Gm Hfa.aer.ad, 2 PUFFS INH Q6H PRN for SOB/WHEEZING, (Reported) Allergies Coded Allergies: Cat Dander (Verified Allergy, Intermediate, ASTHMA, 03/24/21) cephalexin (Verified Allergy, Intermediate, RASH, 03/24/21) allopurinol (Verified Allergy, Unknown, 11/29/19) mirtazapine (Verified Allergy, Unknown, 11/29/19) acetaminophen (Verified Adverse Reaction, Intermediate, HEART RACES, ) ropinirole (Verified Adverse Reaction, Intermediate, palpitations, 03/24/21) JUANA PROCTOR MD Apr 26, 2021 17:48
== END 2021-04-25 23:50 | disposition expired | DRG 682 ==
LOC: M ED 13:31 → EDBD 13:31 → EDSEX 13:31 → M ED INP 17:15 → M PCU 04-19 15:21 → M MSPAV 04-23 11:45
PROVIDERS: ADMIT Internal Medicine; ATTEND Internal Medicine
PROC: 06HN33Z Insertion of Infusion Device into Left Femoral Vein, Percutaneous Approach (ICD-10-PCS; principal; 2021-04-19)
DX: N17.9 Acute kidney failure, unspecified (principal); A41.9 Sepsis, unspecified organism; R65.21 Severe sepsis with septic shock; G93.41 Metabolic encephalopathy; J96.02 Acute respiratory failure with hypercapnia; I50.33 Acute on chronic diastolic (congestive) heart failure; E87.2 Acidosis; I95.9 Hypotension, unspecified; E86.0 Dehydration; M10.9 Gout, unspecified; J45.909 Unspecified asthma, uncomplicated; E78.5 Hyperlipidemia, unspecified; K21.9 Gastro-esophageal reflux disease without esophagitis; N18.31 Chronic kidney disease, stage 3a; D50.9 Iron deficiency anemia, unspecified; E87.5 Hyperkalemia; Z86.711 Personal history of pulmonary embolism; Z51.5 Encounter for palliative care; Z79.899 Other long term (current) drug therapy; Z88.8 Allergy status to other drugs, medicaments and biological substances; Z96.649 Presence of unspecified artificial hip joint; Z87.891 Personal history of nicotine dependence; Z79.01 Long term (current) use of anticoagulants